=== PATIENT | female | born 1940 | race Caucasian/White ===

== ENCOUNTER → 2019-12-25 09:00 | Outpatient (BNVA) | payer MEDICARE, SELFPAY | PROVIDERS: Family Provider Family Medicine; Visit Provider Counselor Mental Health | DX: F43.21 Adjustment disorder with depressed mood (principal) | CPT/HCPCS: 90834 ==

== ENCOUNTER → 2022-02-07 16:58 | Outpatient (BNVA) | payer MEDICARE, MEDICAID, SELFPAY | PROVIDERS: Family Provider Family Medicine; Visit Provider Family Medicine | DX: R50.9 Fever, unspecified (principal); M60.9 Myositis, unspecified; Z20.822 Contact with and (suspected) exposure to COVID-19 | CPT/HCPCS: 80048; 81000; 85025; 87077; 87086; 87184; 87426; 87880 ==

== ENCOUNTER → 2022-03-15 15:12 | Outpatient (BNVA) | payer MEDICARE, MEDICAID, SELFPAY | PROVIDERS: Family Provider Family Medicine; Visit Provider Family Medicine | DX: N39.0 Urinary tract infection, site not specified (principal) | CPT/HCPCS: 81000; 87077; 87086; 87184 ==

== ENCOUNTER → 2022-03-24 16:30 | Outpatient (BNVA) | payer MEDICARE, MEDICAID, SELFPAY | PROVIDERS: Family Provider Family Medicine; Visit Provider Family Medicine | DX: N39.0 Urinary tract infection, site not specified (principal) | CPT/HCPCS: 81000; 87086 ==

== ENCOUNTER → 2022-04-07 10:46 | Outpatient (BNVA) | payer MEDICARE, MEDICAID, SELFPAY | PROVIDERS: Family Provider Family Medicine; Visit Provider Family Medicine | DX: N39.0 Urinary tract infection, site not specified (principal) | CPT/HCPCS: 81000 ==

== ENCOUNTER → 2022-06-02 10:17 | Outpatient (BNVA) | payer MEDICARE, MEDICAID, SELFPAY | PROVIDERS: Family Provider Family Medicine; PCP Family Medicine; Visit Provider Family Medicine | DX: N39.0 Urinary tract infection, site not specified (principal) | CPT/HCPCS: 81000; 87077; 87086; 87184 ==

== ENCOUNTER → 2022-06-20 08:57 | Outpatient (BNVA) | payer MEDICARE, MEDICAID, SELFPAY | PROVIDERS: Family Provider Family Medicine; PCP Family Medicine; Visit Provider Family Medicine | DX: R81 Glycosuria (principal); K29.70 Gastritis, unspecified, without bleeding; E11.9 Type 2 diabetes mellitus without complications; I10 Essential (primary) hypertension | CPT/HCPCS: 80053; 80061; 82607; 83036; 85025 ==

== ENCOUNTER → 2022-06-23 10:21 | Outpatient (BNVA) | payer MEDICARE, MEDICAID, SELFPAY | PROVIDERS: Family Provider Family Medicine; PCP Family Medicine; Visit Provider Family Medicine | DX: Z00.00 Encounter for general adult medical examination without abnormal findings (principal); N39.0 Urinary tract infection, site not specified; E11.9 Type 2 diabetes mellitus without complications; I10 Essential (primary) hypertension; E78.00 Pure hypercholesterolemia, unspecified | CPT/HCPCS: 81000 ==

== ENCOUNTER → 2022-07-05 08:29 | Outpatient (BNVA) | payer MEDICARE, MEDICAID, SELFPAY | PROVIDERS: Family Provider Family Medicine; PCP Family Medicine; Visit Provider Family Medicine | DX: N39.0 Urinary tract infection, site not specified (principal) | CPT/HCPCS: 81000; 87077; 87086; 87184 ==

== ENCOUNTER → 2022-07-22 08:09 | Outpatient (BNVA) | payer MEDICARE, MEDICAID, SELFPAY | PROVIDERS: Family Provider Family Medicine; PCP Family Medicine; Visit Provider Clinical Nurse Specialist Adult Health | DX: N30.01 Acute cystitis with hematuria (principal); I15.9 Secondary hypertension, unspecified; I48.91 Unspecified atrial fibrillation | CPT/HCPCS: 81000; 87086 ==

== ENCOUNTER 2022-09-21 18:19 | Emergency (ER) | payer MEDICARE, SELFPAY ==
[2022-09-21 18:28] VITALS: BP 163/125; PULSE 138; RESP 16; TEMP 37; O2SAT 93; BMI 26.2
--- NOTE | 2022-09-21 18:38 | XRR_ITS ---
PROCEDURE INFORMATION: Exam: XR Chest Exam date and time: 09/21/2022 6:49 PM Age: 82 years old Clinical indication: Shortness of breath; Additional info: SOB TECHNIQUE: Imaging protocol: Radiologic exam of the chest. Views: 1 view. COMPARISON: No relevant prior studies available. FINDINGS: Lungs: Visualized portions of the lungs are clear. Pleural spaces: Unremarkable. No pleural effusion. No pneumothorax. Heart/Mediastinum: Heart is within normal limits of size. Bones/joints: Sternotomy wires and mediastinal surgical clips are present, consistent with previous coronary arterial bypass grafting. XR/XR chest 1V portable [id number] IMPRESSION: No acute infiltrate.
--- NOTE | 2022-09-21 18:38 | ECG_ITS ---
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 Measurements Intervals [place] Rate: 122 P: 0 GA: 0 QRS: 49 QRSD: 88 T: 34 QT: 302 QTc: 430 Interpretive Statements ATRIAL FIBRILLATION WITH RAPID VENTRICULAR RESPONSE NONSPECIFIC ST & T-WAVE ABNORMALITY Compared to ECG 07/14/2015 11:47:11 T-wave abnormality now present Sinus rhythm no longer present First degree AV block no longer present Electronically Signed On 09-22-2022 9:06:40 [employer] FINISHER by Gricel Luo M.D. [id number]
--- NOTE | 2022-09-21 18:42 | W.ED.ARRPALP ---
HPI - Arrhythmia/Palpitations General: Chief Complaint: Arrhythmia/Palpitations Stated Complaint: AFIB W/RVR Time Seen by Provider: 09/21/22 18:31 Source: patient and EMS Mode of arrival: EMS Limitations: no limitations History of Present Illness: 82-year-old female states she been having palpitations along with some dyspnea with exertion over the last few weeks. She was seen at her PCP today was found to be in A. fib with RVR she denies any chest pain she denies any shortness of breath at rest states she had A. fib years ago but has not had any issues with it recently she is not on anything for rate control she is not on any blood thinners she has had a recent UTI as well. Denies any vomiting or diarrhea. Denies any cough. Associated symptoms: Deny nausea or vomiting Review of Systems Const: Denies: fever(s), chills, body aches or change in appetite Eyes: Denies: blurry vision or eye discomfort ENMT: Denies: throat pain or dental pain Card: Reports: palpitations and irregular heart rhythm Resp: Reports: dyspnea GI: Denies: abdominal pain, nausea, vomiting or diarrhea : Denies: dysuria Musc: Denies: neck pain or back pain Skin/Breast: Denies: rash Neuro: Denies: headache(s) Psych: Denies: depression Ja/Lymph: Denies: easy bruising All/Imm: Denies: urticaria PFSH ED PFSH: Medical History Atrial fibrillation Bladder prolapse CAD (coronary artery disease) AR 1998-2 stents Chronic constipation Diabetes Type 2 Diverticulosis Generalized osteoarthritis Hx of pulmonary embolus 06/2008 Hypercholesterolemia Hypertension Not on medication Recurrent UTI Surgical History 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 Family History (Updated 07/22/22 @ 08:55 by Dov Baxter NP) Other CAD (coronary artery disease) Cancer Clotting disorder Social History Smoking and tobacco status: never smoked Alcohol intake: never Household members: none Physical Exam Const: COMMON NORMALS: no acute distress, patient oriented x3 and healthy appearing HENMT: COMMON NORMALS: normocephalic and atraumatic HEAD & SCALP: normocephalic and atraumatic Eye: COMMON NORMALS: Equal, round and reactive pupils present and EOMs intact bilaterally PUPIL: Yes Equal, round and reactive pupils present Neck/C-Spine: COMMON NORMALS: full ROM and supple Chest: COMMONS NORMALS: normal inspection of the chest and normal palpation of entire chest wall Resp: COMMON NORMALS: normal respiratory effort, No retractions, No use of accessory muscles and clear to auscultation bilaterally AUSCULTATION: clear to auscultation bilaterally Cardio: COMMON NORMALS: No murmurs present (Cardio) RATE: tachycardic RHYTHM: abnormal rhythm irregularly irregular GI: COMMON NORMALS: Normal to inspection, nondistended, normoactive bowel sounds present, Soft to palpation, non-tender and no masses PALPATION: Yes Soft to palpation Extremity: COMMON NORMALS: normal to inspection and full ROM Neuro: COMMON NORMALS: patient oriented x3, moves all extremities and no focal motor deficits Psych: COMMON NORMALS: mental status grossly normal, Normal thought process present and cooperative THOUGHT PROCESS: Normal thought process present Skin: COMMON NORMALS: no rashes or lesions noted and no wounds GENERAL SKIN EXAM: no rashes or lesions noted Course Vital Signs: Vital signs: Vital Signs Temperature 98.6 F 09/21/22 18:28 Pulse Rate 111 H 09/21/22 21:00 Respiratory Rate 22 H 09/21/22 21:00 Blood Pressure 125/78 09/21/22 21:00 Pulse Oximetry 94 09/21/22 21:00 Oxygen Delivery Me thod 09/21/22 21:00 MDM - Arrhythmia/Palpitations Medical Decision Making Patient presents here with Fadia gray with RVR she did have an elevated D-dimer she refused her CT scan I did inform her she could have a PE she states she feels fine does not want a CT I did offer admission as well and she would rather go home and follow-up I will start her on metoprolol along with Eliquis get her follow-up with cardiology she is return if worsening she understands agrees to plan. Lab Data 09/21/22 18:34 09/21/22 18:34 Radiology Impressions Chest X-Ray 09/21/22 18:38 IMPRESSION: No acute infiltrate. Laboratory Results WBC 10.8 10^3/uL (4.0-10.0) H 09/21/22 18:34 RBC 5.09 10^6/uL (4.1-5.3) 09/21/22 18:34 Hgb 15.0 g/dL (11.5-15.3) 09/21/22 18:34 Hct 46.2 % (37.0-47.0) 09/21/22 18:34 MCV 90.8 fl (81-99) 09/21/22 18:34 MCH 29.5 pg (28.0-34.0) 09/21/22 18:34 MCHC 32.5 g/dL (30.0-36.0) 09/21/22 18:34 RDW 13.5 % (12.1-15.1) 09/21/22 18:34 Plt Count 259 10^3/cmm (130-400) 09/21/22 18:34 MPV 12.7 fL (7.4-10.4) H 09/21/22 18:34 Neut % (Auto) 53.6 % 09/21/22 18:34 Lymph % (Auto) 35.4 % 09/21/22 18:34 [place] % (Auto) 7.7 % 09/21/22 18:34 Eos % (Auto) 1.5 % 09/21/22 18:34 Baso % (Auto) 1.4 % 09/21/22 18:34 Neut # (Auto) 5.76 10^3/uL (1.8-7.7) 09/21/22 18:34 Lymph # (Auto) 3.8 10^3/uL (0.8-4.8) 09/21/22 18:34 [place] # (Auto) 0.8 10^3/uL (0.2-0.9) 09/21/22 18:34 Eos # (Auto) 0.2 10^3/uL (0.0-0.8) 09/21/22 18:34 Baso # (Auto) 0.2 10^3/uL (0.0-0.1) H 09/21/22 18:34 Nucleated RBC % (auto) 0 % 09/21/22 18:34 Nucleated RBCs # 0.0 /100WBC 09/21/22 18:34 PT 12.70 SECONDS (12.1-14.9) 09/21/22 18:34 INR 0.93 (0.8-1.2) 09/21/22 18:34 D-Dimer 1.55 ug/mIFEU (0-0.59) H 09/21/22 18:51 Sodium 139 mmol/L (136-145) 09/21/22 18:34 Potassium 3.8 mmol/L (3.5-5.1) 09/21/22 18:34 Chloride 102 mmol/L (98-107) 09/21/22 18:34 Carbon Dioxide 23 mmol/L (22-29) 09/21/22 18:34 Anion Gap 17.8 (5-19) 09/21/22 18:34 BUN 21 mg/dL (8-23) 09/21/22 18:34 Creatinine 0.8 mg/dL (0.5-0.9) 09/21/22 18:34 GFR Calculation Not Reportable 09/21/22 18:34 Glucose 150 mg/dL (65-115) H 09/21/22 18:34 Calculated Osmolality 294 mOsm/kg (285-295) 09/21/22 18:34 Calcium 9.7 mg/dL (8.5-10.5) 09/21/22 18:34 Total Bilirubin 0.3 mg/dL (0.15-1.2) 09/21/22 18:34 AST 31 U/L (0-32) 09/21/22 18:34 ALT 25 U/L (0-33) 09/21/22 18:34 Alkaline Phosphatase 112 U/L (35-105) H 09/21/22 18:34 Troponin T Baseline 32 ng/L (0-10) H 09/21/22 18:34 Troponin T 120 Minute 26.25 ng/L (0-10) H 09/21/22 20:25 Delta Troponin T -5.75 ABS# (0-10) L 09/21/22 20:25 NT-Pro-B Natriuret Pep 992 pg/mL (0-450) H 09/21/22 18:34 Total Protein 8.1 g/dL (6.6-8.7) 09/21/22 18:34 Albumin 4.5 g/dL (3.5-5.2) 09/21/22 18:34 Globulin 3.6 g/dL (1.3-4.6) 09/21/22 18:34 EKG Data EKG 1: I personally reviewed and interpreted this EKG as follows: EKG interpretation date: 09/21/22 EKG interpretation time: 18:45 Interpretation: afib rvr hr [address] or t wave abnormalities qrs 88 qtc 374 Other EKG comments: Chest X-Ray 09/21/22 18:38 IMPRESSION: No acute infiltrate. Discharge Plan Discharge Patient Disposition: Home Clinical Impression: Atrial fibrillation with rapid ventricular response Condition: Stable Prescriptions: New Eliquis 5 mg tablet 5 mg PO BID Qty: 60 0RF metoprolol tartrate 25 mg tablet 25 mg PO BID Qty: 60 0RF No Action B Complex Plus Vitamin C [id number] mg capsule 1 cap PO DAILY Rx Instructions: give with food (meal/snack) multivitamin Tablet 1 tab PO DAILY Azo Cranberry 250 mg tablet,chewable 250 mg PO DAILY aspirin [Adult Aspirin Regimen] 81 mg tablet,delayed release (DR/EC) 81 mg PO DAILY cholecalciferol (vitamin D3) 10 mcg (400 unit) capsule 10 mcg PO DAILY vitamin E acetate 134 mg (200 unit) capsule 134 mg PO DAILY omeprazole 20 mg capsule,delayed release(DR/EC) 20 mg PO BID docusate sodium [Colace] 100 mg capsule 100 mg PO DAILY glipizide 5 mg tablet extended release 24hr 5 mg PO DAILY Qty: 90 3RF levofloxacin 250 mg tablet 250 mg PO DAILY Qty: 5 0RF Discharge Orders: Discharge ED (Routine); Ordered 09/21/22 Ordered By: Steffanie Chen Referrals: Jacob Kwong M.D [Physician] - 1-3 days Jl Rosenbaum DO [Primary Care Provider] - Discharge Diet: Advance as tolerated Discharge Activity: Resume usual activity Patient Instructions: A-fib (Atrial Fibrillation) (ED) Coding Level of Care Code ED Supervisor [facility] for Chg Fwd Exam Comprehensive
[2022-09-21] MEDS: sodium chloride 0.9% 1,000 ML 999 ML IV (18:44)
[2022-09-21 18:46] LABS: Basophils # 0.2 10^3/uL (0.0-0.1); Basophils % 1.4 %; Eosinophils # 0.2 10^3/uL (0.0-0.8); Eosinophils % 1.5 %; Hematocrit 46.2 % (37.0-47.0); Lymphocytes # 3.8 10^3/uL (0.8-4.8); Lymphocytes % 35.4 %; Mean Corpuscular HGB Conc 32.5 g/dL (30.0-36.0); Mean Corpuscular Hemoglobin 29.5 pg (28.0-34.0); Mean Corpuscular Volume 90.8 fl (81-99); Mean Platelet Volume 12.7 fL (7.4-10.4); Monocytes # 0.8 10^3/uL (0.2-0.9); Monocytes % 7.7 %; Neutrophils # 5.76 10^3/uL (1.8-7.7); Neutrophils % 53.6 %; Nucleated Red Blood Cells % 0 %; Platelet Count 259 10^3/cmm (130-400); Red Blood Count 5.09 10^6/uL (4.1-5.3); Red Cell Distribution Width 13.5 % (12.1-15.1); White Blood Count 10.8 10^3/uL (4.0-10.0)
--- NOTE | 2022-09-21 18:51 | PC.NURSE ---
PT PLACED ON CONTINUOUS NIBP, SPO2, AND CM
[2022-09-21 18:58] LABS: INR 0.93 (0.8-1.2)
[2022-09-21 19:12] LABS: D Dimer 1.55 ug/mIFEU (0-0.59)
[2022-09-21 19:20] LABS: Troponin(5th) Baseline 32 ng/L (0-10)
[2022-09-21 19:29] LABS: Alanine Aminotransferase 25 U/L (0-33); Albumin Level 4.5 g/dL (3.5-5.2); Alkaline Phosphatase 112 U/L (35-105); Blood Urea Nitrogen 21 mg/dL (8-23); Calcium 9.7 mg/dL (8.5-10.5); Carbon Dioxide 23 mmol/L (22-29); Chloride 102 mmol/L (98-107); Globulin 3.6 g/dL (1.3-4.6); Glucose 150 mg/dL (65-115); NT Pro B Type Natriuretic Pept 992 pg/mL (0-450); Osmolality Calculated 294 mOsm/kg (285-295); Sodium 139 mmol/L (136-145); Total Bilirubin 0.3 mg/dL (0.15-1.2); Total Protein 8.1 g/dL (6.6-8.7)
[2022-09-21 19:32] LABS: Anion Gap 17.8 (5-19); Aspartate Amino Transferase 31 U/L (0-32); Potassium 3.8 mmol/L (3.5-5.1)
[2022-09-21] MEDS: dilTIAZem 5 mg/mL SDV 5 mL 10 MG IVP (19:43)
[2022-09-21 20:16] VITALS: BP 118/80; PULSE 99; RESP 20; O2SAT 94
--- NOTE | 2022-09-21 20:20 | PC.NURSE ---
Patient informed me that she refused to give a UA, nurse and doctor were informed.
--- NOTE | 2022-09-21 20:38 | ECG_ITS ---
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 Measurements Intervals [place] Rate: 109 P: 0 HI: 0 QRS: 35 QRSD: 87 T: 33 QT: 350 QTc: 473 Interpretive Statements ATRIAL FIBRILLATION WITH RAPID VENTRICULAR RESPONSE WITH ABERRANT CONDUCTION OR VENTRICULAR PREMATURE COMPLEXES ABNORMAL RHYTHM ECG Compared to ECG 09/21/2022 18:45:41 Ventricular premature complex(es) now present Aberrant conduction of supraventricular beat(s) now present T-wave abnormality no longer present Electronically Signed On 09-22-2022 9:19:22 TOOL LIAISON by Gricel Luo M.D. [id number]
[2022-09-21] MEDS: metoprolol tartrate 25 mg Tablet PO (20:45)
[2022-09-21 21:00] VITALS: BP 125/78; PULSE 111; RESP 22; O2SAT 94
[2022-09-21 21:11] LABS: Troponin 5 2HR 26.25 ng/L (0-10)
[2022-09-21 21:12] LABS: Troponin 5 2HR Delta -5.75 ABS# (0-10)
== END 2022-09-21 22:20 | disposition home or self-care (01) ==
PROVIDERS: Emergency Provider Emergency Medicine; PCP Family Medicine
DX: I48.20 Chronic atrial fibrillation, unspecified (principal); Z79.84 Long term (current) use of oral hypoglycemic drugs; Z79.82 Long term (current) use of aspirin; Z95.1 Presence of aortocoronary bypass graft; I25.10 Atherosclerotic heart disease of native coronary artery without angina pectoris; E11.9 Type 2 diabetes mellitus without complications; I10 Essential (primary) hypertension
CPT/HCPCS: 36415; 71045; 80053; 81000; 83880; 84484; 85025; 85378; 85610; 93005; 96361; 96374; 99285; J3490; J7030

== ENCOUNTER 2022-09-28 19:49 | Inpatient (IN) | payer MEDICARE, MEDICAID, SELFPAY ==
[2022-09-28] VITALS (9 sets, daily range): BP systolic 105–147; BP diastolic 58–98; PULSE 75–153; RESP 18–26; TEMP 37.9–39.5; O2SAT 90–94
--- NOTE | 2022-09-28 19:58 | ECG_ITS ---
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 Measurements Intervals [place] Rate: 132 P: 0 MS: 0 QRS: 50 QRSD: 91 T: 0 QT: 276 QTc: 409 Interpretive Statements ATRIAL FIBRILLATION WITH RAPID VENTRICULAR RESPONSE MODERATE ST DEPRESSION [0.05+ mV ST DEPRESSION] Low voltage complexes Compared to ECG 09/21/2022 21:00:41 ST (T wave) deviation now present Aberrant conduction of supraventricular beat(s) no longer present Ventricular premature complex(es) no longer present Electronically Signed On 09-29-2022 21:02:41 BAKER HEAD by Joshua Conde M.D. [id number]
--- NOTE | 2022-09-28 19:58 | XRR_ITS ---
PROCEDURE INFORMATION: Exam: XR Chest Exam date and time: 09/28/2022 8:09 PM Age: 82 years old Clinical indication: Fever and other: AMS TECHNIQUE: Imaging protocol: Radiologic exam of the chest. Views: 1 view. COMPARISON: CR (CHEST, ) 09/21/2022 6:49 PM FINDINGS: Lungs: There is ill-defined opacity in the central lower lungs bilaterally, greater on the left. The findings are new since 09/21/2022. Pleural spaces: Unremarkable. No pleural effusion. No pneumothorax. Heart/Mediastinum: Cardiomediastinal contours are unremarkable. The ralf are ill-defined. Bones/joints: Bones are unremarkable. XR/XR chest 1V portable [id number] IMPRESSION: Bilateral pneumonia versus pulmonary edema, new since 09/21/2022.
[2022-09-28 20:14] LABS: Glucose Point of Care 140 mg/dL (70-110)
--- NOTE | 2022-09-28 20:16 | CTR_ITS ---
PROCEDURE INFORMATION: Exam: CT Abdomen And Pelvis Without Contrast Exam date and time: 09/28/2022 9:01 PM Age: 82 years old Clinical indication: Abdominal pain; Additional info: Abd pain TECHNIQUE: Imaging protocol: Computed tomography of the abdomen and pelvis without contrast. Sagittal and coronal reformatted images were created and reviewed. Radiation optimization: All CT scans at this facility use at least one of these dose optimization techniques: automated exposure control; mA and/or kV adjustment per patient size (includes targeted exams where dose is matched to clinical indication); or iterative reconstruction. COMPARISON: CR XR hip LT 2-3V wo/w pel* [id number] 12/08/2017 8:57 AM RADIATION DOSE METRICS: Total DLP (mGy-cm): 576.76 FINDINGS: Limitations: Evaluation of solid organs and vasculature is limited without intravenous contrast. Lungs: There is linear scarring in the visualized lower lungs. Noncalcified nodule in the right lower lobe with an average measurement of 1.1 cm (series 3, image 20). Pleural spaces: Focal calcification in the posterior right pleura at that may suggest asbestos related pleural disease versus sequela of remote infection. Heart: Visualized portions of the heart are mildly enlarged. Coronary arteries: Extensive atherosclerotic calcification in the visualized coronary arteries. Liver: The liver is unremarkable. Gallbladder and bile ducts: Patient has had a previous cholecystectomy. No biliary ductal dilatation. Pancreas: Mild atrophy of the pancreatic parenchyma. No pancreatic ductal dilatation. Spleen: Multiple calcified granulomas in the spleen. Adrenal glands: The right and left adrenal glands are unremarkable. Kidneys and ureters: The right and left kidneys are unremarkable. The right and left ureters are unremarkable. Stomach and bowel: Numerous diverticula in the sigmoid colon. Scattered diverticula in the remainder of the colon. No evidence for diverticulitis. No acute abnormality in the stomach. Fluid within the small bowel without evidence of bowel wall thickening. Appendix: The appendix is visualized and is unremarkable. No evidence of appendicitis. Intraperitoneal space: No free intraperitoneal air. No ascites. No loculated fluid collections to suggest an abscess. No free intraperitoneal air. No ascites. No loculated fluid collections to suggest an abscess. Vasculature: Fullness in the visualized pulmonary vasculature suggesting volume overload in the lungs. Moderate atherosclerotic changes in the visualized arteries. No evidence for aortic aneurysm. Lymph nodes: No lymphadenopathy. Urinary bladder: The bladder is unremarkable. Reproductive: The uterus, right ovary, and left ovary are unremarkable. Bones/joints: Poststernotomy changes in the chest. Degenerative changes in the spine, sacroiliac joints, and hips. Mild levoscoliosis in the visualized spine. Soft tissues: Dependent edema in the posterior subcutaneous tissues. CT/CT abdomen pelvis wo con [id number] IMPRESSION: 1. Fullness in the visualized pulmonary vasculature suggesting volume overload in the lungs. 2. Fluid within the small bowel without evidence of bowel wall thickening. This may reflect viral gastroenteritis in the appropriate clinical situation. 3. Numerous diverticula in the sigmoid colon. Scattered diverticula in the remainder of the colon. No evidence for diverticulitis. 4. Noncalcified nodule in the right lower lobe with an average measurement of 1.1 cm.For both low risk and high risk patients, consider CT Chest at 3 months, PET/CT or biopsy. (Reference: Celestino) 5. Incidental/nonacute findings are listed in the report. REFERENCES: Celestino Castro, et al. Guidelines for Management of Incidental Pulmonary Nodules Detected on CT Images: From the Fleischner Society 2017. Radiology. 2017;284(1):228-243.
--- NOTE | 2022-09-28 20:16 | CTR_ITS ---
PROCEDURE INFORMATION: Exam: CT Head Without Contrast Exam date and time: 09/28/2022 8:57 PM Age: 82 years old Clinical indication: Altered mental status/memory loss; Additional info: AMS TECHNIQUE: Imaging protocol: Computed tomography of the head without contrast. Radiation optimization: All CT scans at this facility use at least one of these dose optimization techniques: automated exposure control; mA and/or kV adjustment per patient size (includes targeted exams where dose is matched to clinical indication); or iterative reconstruction. COMPARISON: No relevant prior studies available. RADIATION DOSE METRICS: Total DLP (mGy-cm): 1200.88 FINDINGS: Brain: There is mild diffuse cerebral atrophy. There is no significant mass effect or midline shift. There is no acute intracranial hemorrhage. Cerebral ventricles: There is mild ex vacuo dilation of the lateral ventricles. The basal cisterns are unremarkable. Paranasal sinuses: The paranasal sinuses are clear. Mastoid air cells: The mastoid air cells are clear. Bones/joints: The calvarium is intact. Soft tissues: The visible extracranial soft tissues are unremarkable. CT/CT head wo con* [id number] IMPRESSION: No acute intracranial abnormality.
--- NOTE | 2022-09-28 20:18 | ED_ITS ---
HPI - Altered Mental Status General: Chief Complaint: Altered Mental Status Stated Complaint: AMS Time Seen by Provider: 09/28/22 19:50 Source: patient and EMS Mode of arrival: EMS Limitations: no limitations History of Present Illness: 82-year-old female is here with EMS for complaints of fever along with some confusion along with weakness. States she has not felt well over the last 6 days had a fever last 2 days EMS reports that they did complain of some confusion at home here she is able answer my questions appropriately knows the year knows her name states that she is just felt very weak she does have a temperature 103.2 she complains of some mild abdominal pain she does have a history of A. fib with RVR she is in A. fib here with heart rate of 139. Her blood pressure is normal. No cough Associated symptoms: Deny depression Review of Systems Const: Reports: fever(s) and fatigue Eyes: Denies: blurry vision or eye discomfort ENMT: Denies: throat pain or dental pain Card: Denies: chest pain Resp: Denies: dyspnea GI: Reports: abdominal pain : Denies: dysuria Musc: Denies: neck pain or back pain Skin/Breast: Denies: rash Neuro: Reports: confusion Psych: Denies: depression Ja/Lymph: Denies: easy bruising All/Imm: Denies: urticaria PFSH ED PFSH: Medical History Atrial fibrillation Bladder prolapse CAD (coronary artery disease) [place] 1998- stents Chronic constipation Diabetes Type 2 Diverticulosis Generalized osteoarthritis Hx of pulmonary embolus 06/2008 Hypercholesterolemia Hypertension Not on medication Recurrent UTI Surgical History 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 Family History (Updated 07/22/22 @ 08:55 by Dov Baxter NP) Other CAD (coronary artery disease) Cancer Clotting disorder Social History Smoking and tobacco status: never smoked Alcohol intake: never Household members: none Physical Exam Const: COMMON NORMALS: patient oriented x3 GENERAL APPEARANCE: ill ap pearing HENMT: COMMON NORMALS: normocephalic and atraumatic HEAD & SCALP: normocephalic and atraumatic Eye: COMMON NORMALS: conjunctivae normal CONJUNCTIVA: Yes conjunctivae normal Neck/C-Spine: COMMON NORMALS: full ROM, supple and no meningeal signs Chest: COMMONS NORMALS: normal inspection of the chest and normal palpation of entire chest wall Resp: COMMON NORMALS: normal respiratory effort and clear to auscultation bilaterally EFFORT & INSPECTION: Yes able to speak in complete sentences AUSCULTATION: clear to auscultation bilaterally Cardio: COMMON NORMALS: regular rate and regular rhythm RATE: regular rate RHYTHM: regular rhythm GI: COMMON NORMALS: Normal to inspection, nondistended, normoactive bowel sounds present and Soft to palpation PALPATION: Yes Soft to palpation Extremity: COMMON NORMALS: normal to inspection Neuro: COMMON NORMALS: patient oriented x3 MENINGEAL SIGNS: Yes no meningeal signs Psych: COMMON NORMALS: mental status grossly normal Skin: COMMON NORMALS: no rashes or lesions noted GENERAL SKIN EXAM: no rashes or lesions noted Course Vital Signs: Vital signs: Vital Signs Temperature 100.2 F H 09/28/22 22:47 Pulse Rate 90 09/28/22 23:00 Respiratory Rate 20 H 09/28/22 23:00 Blood Pressure 105/72 09/28/22 23:00 Pulse Oximetry 91 09/28/22 23:00 Oxygen Delivery Me thod 09/28/22 19:57 Oxygen Flow Rate 4 09/28/22 19:57 MDM - Altered Mental Status Medical Decision Making Patient presents here with fever along with A. fib with RVR she had multiple status home but here she is been answering questions appropriately. Her heart rate here is improved on a Cardizem drip and as her fevers came down did start on IV antibiotics for her UTI spoke to hospitalist will admit Lab Data 09/28/22 20:30 09/28/22 20:30 Radiology Impressions Chest X-Ray 09/28/22 19:58 IMPRESSION: Bilateral pneumonia versus pulmonary edema, new since 09/21/2022. Abdomen/Pelvis CT 09/28/22 20:16 IMPRESSION: 1. Fullness in the visualized pulmonary vasculature suggesting volume overload in the lungs. 2. Fluid within the small bowel without evidence of bowel wall thickening. This may reflect viral gastroenteritis in the appropriate clinical situation. 3. Numerous diverticula in the sigmoid colon. Scattered diverticula in the remainder of the colon. No evidence for diverticulitis. 4. Noncalcified nodule in the right lower lobe with an average measurement of 1.1 cm.For both low risk and high risk patients, consider CT Chest at 3 months, PET/CT or biopsy. (Reference: Celestino) 5. Incidental/nonacute findings are listed in the report. REFERENCES: Celestino Castro et al. Guidelines for Management of Incidental Pulmonary Nodules Detected on CT Images: From the Fleischner Society 2017. Radiology. 2017;284(1):228-243. Head CT 09/28/22 20:16 IMPRESSION: No acute intracranial abnormality. Laboratory Results WBC 8.2 10^3/uL (4.0-10.0) 09/28/22 20: RBC 4.74 10^6/uL (4.1-5.3) 09/28/22 20: Hgb 13.9 g/dL (11.5-15.3) 09/28/22 20:30 Hct 42.7 % (37.0-47.0) 09/28/22 20:30 MCV 90.1 fl (81-99) 09/28/22 20:30 MCH 29.3 pg (28.0-34.0) 09/28/22 20:30 MCHC 32.6 g/dL (30.0-36.0) 09/28/22 20:30 RDW 13.6 % (12.1-15.1) 09/28/22 20:30 Plt Count 193 10^3/cmm (130-400) 09/28/22 20:30 MPV 12.4 fL (7.4-10.4) H 09/28/22 20:30 Neut % (Auto) 71.5 % 09/28/22 20:30 Lymph % (Auto) 16.3 % 09/28/22 20:30 Randolph % (Auto) 11.2 % 09/28/22 20:30 Eos % (Auto) 0.2 % 09/28/22 20: Baso % (Auto) 0.6 % 09/28/22 20:30 Neut # (Auto) 5.82 10^3/uL (1.8-7.7) 09/28/22 20:30 Lymph # (Auto) 1.3 10^3/uL (0.8-4.8) 09/28/22 20:30 Randolph # (Auto) 0.9 10^3/uL (0.2-0.9) 09/28/22 20:30 Eos # (Auto) 0.0 10^3/uL (0.0-0.8) 09/28/22 20:30 Baso # (Auto) 0.1 10^3/uL (0.0-0.1) 09/28/22 20:30 Nucleated RBC % (auto) 0 % 09/28/22 20:30 Nucleated RBCs # 0.0 /100WBC 09/28/22 20:30 PT 13.90 SECONDS (12.1-14.9) 09/28/22 20:30 INR 1.04 (0.8-1.2) 09/28/22 20:30 Sodium 136 mmol/L (136-145) 09/28/22 20:30 Potassium 3.9 mmol/L (3.5-5.1) 09/28/22 20:30 Chloride 101 mmol/L (98-107) 09/28/22 20:30 Carbon Dioxide 23 mmol/L (22-29) 09/28/22 20:30 Anion Gap 15.9 (5-19) 09/28/22 20:30 BUN 11 mg/dL (8-23) 09/28/22 20:30 Creatinine 0.7 mg/dL (0.5-0.9) 09/28/22 20:30 GFR Calculation Not Reportable 09/28/22 20:30 Glucose 153 mg/dL (65-115) H 09/28/22 20:30 POC Glucose 140 mg/dL (70-110) H 09/28/22 20:05 Calculated Osmolality 284 mOsm/kg (285-295) L 09/28/22 20:30 Lactic Acid 1.3 mmol/L (0.5-2.2) 09/28/22 20:30 Calcium 8.6 mg/dL (8.5-10.5) 09/28/22 20:30 Magnesium 1.7 mg/dL (1.7-2.3) 09/28/22 20:30 Total Bilirubin 0.4 mg/dL (0.15-1.2) 09/28/22 20:30 AST 32 U/L (0-32) 09/28/22 20:30 ALT 20 U/L (0-33) 09/28/22 20:30 Alkaline Phosphatase 87 U/L (35-105) 09/28/22 20:30 Troponin T Baseline 23 ng/L (0-10) H 09/28/22 20:30 Total Protein 7.4 g/dL (6.6-8.7) 09/28/22 20:30 Albumin 4.2 g/dL (3.5-5.2) 09/28/22 20:30 Globulin 3.2 g/dL (1.3-4.6) 09/28/22 20:30 Urine Color Yellow (Yellow) 09/28/22 21:51 Urine Appearance Sl hazy (CLEAR) A 09/28/22 21:51 Urine pH 6.5 (5-7) 09/28/22 21:51 Ur Specific [place] 1.015 (1.005-1.030) 09/28/22 21:51 Urine Protein 1+ (Negative) H 09/28/22 21:51 Urine Glucose (UA) Trace (Normal) H 09/28/22 21:51 Urine Ketones 2+ (Negative) H 09/28/22 21:51 Urine Blood 3+ (Negative) H 09/28/22 21:51 Urine Nitrate Positive (Negative) H 09/28/22 21:51 Urine Bilirubin Neg (Negative) 09/28/22 21:51 Urine Urobilinogen Norm mg/dL (Negative) 09/28/22 21:51 Ur Leukocyte Esterase Trace (Negative) H 09/28/22 21:51 Urine RBC 10-15 /hpf (0-2) H 09/28/22 21:51 Urine WBC 0-4 /hpf (0-5) H 09/28/22 21:51 Ur Squamous Epith Cells 0-4 /hpf (0-5) H 09/28/22 21:51 Amorphous Sediment Not Reportable 09/28/22 21:51 Urine Bacteria 4+ /hpf (NONE) H 09/28/22 21:51 Hyaline Casts 0-4 /lpf H 09/28/22 21:51 Influenza Type A Ag negative (Negative) 09/28/22 20:19 Influenza Type B Ag negative (Negative) 09/28/22 20:19 SARS-CoV-2 Ag (Rapid) negative (Negative) 09/28/22 20:19 EKG Data EKG 1: I personally reviewed and interpreted this EKG as follows: EKG interpretation date: 09/28/22 EKG interpretation time: 20:08 Interpretation: afib with rvr hr [address] or t wave abnormalities qrs 91 qtc 354 Critical Care Time Critical Care Time: Critical Care Time: Yes Total Critical Care Time: 40 Attestation: The high probability of a clinically significant, sudden or life threatening deterioration of the patient's cv system(s) required my full and direct attention, intervention and personal management. The critical care time is as shown. This time is in addition to time spent performing any reported procedures but includes the following: [x] Data and vital sign review and interpretation [x] Patient assessment, examination and intervention [x] Documentation [x] Medication orders and management Discharge Plan Discharge Patient Disposition: Admitted As Inpatient Admit Provider: Daniel Parker Clinical Impression: UTI (urinary tract infection), Atrial fibrillation with rapid ventricular response, Altered mental status Condition: Stable Coding Level of Care Code ED Branch Banker for Chg Fwd Exam Comprehensive
[2022-09-28 20:51] LABS: Influenza A by IFA negative (Negative); Influenza B by IFA negative (Negative); SARS Covid-2 Antigen negative (Negative)
[2022-09-28 20:52] LABS: Basophils # 0.1 10^3/uL (0.0-0.1); Basophils % 0.6 %; Eosinophils % 0.2 %; Hematocrit 42.7 % (37.0-47.0); Hemoglobin 13.9 g/dL (11.5-15.3); Lymphocytes # 1.3 10^3/uL (0.8-4.8); Lymphocytes % 16.3 %; Mean Corpuscular HGB Conc 32.6 g/dL (30.0-36.0); Mean Corpuscular Hemoglobin 29.3 pg (28.0-34.0); Mean Corpuscular Volume 90.1 fl (81-99); Mean Platelet Volume 12.4 fL (7.4-10.4); Monocytes # 0.9 10^3/uL (0.2-0.9); Monocytes % 11.2 %; Neutrophils # 5.82 10^3/uL (1.8-7.7); Neutrophils % 71.5 %; Nucleated Red Blood Cells % 0 %; Platelet Count 193 10^3/cmm (130-400); Red Blood Count 4.74 10^6/uL (4.1-5.3); Red Cell Distribution Width 13.6 % (12.1-15.1); White Blood Count 8.2 10^3/uL (4.0-10.0)
[2022-09-28 21:00] LABS: INR 1.04 (0.8-1.2)
[2022-09-28 21:06] LABS: Lactic Sepsis W/Reflex 1.3 mmol/L (0.5-2.2)
[2022-09-28] MEDS: sodium chloride 0.9% 1,000 ML 999 ML IV (21:16)
[2022-09-28] MEDS: levofloxacin-dextrose 5 % 750 MG/150 ML PREMIX 100 MG IV (21:16)
[2022-09-28 21:17] LABS: Troponin(5th) Baseline 23 ng/L (0-10)
[2022-09-28 21:18] LABS: Alanine Aminotransferase 20 U/L (0-33); Albumin Level 4.2 g/dL (3.5-5.2); Alkaline Phosphatase 87 U/L (35-105); Anion Gap 15.9 (5-19); Aspartate Amino Transferase 32 U/L (0-32); Blood Urea Nitrogen 11 mg/dL (8-23); Calcium 8.6 mg/dL (8.5-10.5); Carbon Dioxide 23 mmol/L (22-29); Chloride 101 mmol/L (98-107); Globulin 3.2 g/dL (1.3-4.6); Glucose 153 mg/dL (65-115); Magnesium 1.7 mg/dL (1.7-2.3); Osmolality Calculated 284 mOsm/kg (285-295); Potassium 3.9 mmol/L (3.5-5.1); Sodium 136 mmol/L (136-145); Total Bilirubin 0.4 mg/dL (0.15-1.2); Total Protein 7.4 g/dL (6.6-8.7)
[2022-09-28] MEDS: acetaminophen 500 mg Tablet 1000 MG PO (21:18)
[2022-09-28] MEDS: dilTIAZem 5 mg/mL SDV 5 mL 15 MG IVP (21:50)
--- NOTE | 2022-09-28 21:57 | ECG_ITS ---
[facility] Test Date: 2022-09-28 Pat Name: Allyson Causey Department: Room: Gender: Female Elder Counselor: : 1940 Requested By: Steffanie Chen Order Number: [id number] Alonzo MD: Joshua Conde M.D. Measurements Intervals [place] Rate: 94 P: 0 DE: 0 QRS: 45 QRSD: 89 T: 73 QT: 368 QTc: 461 Interpretive Statements ATRIAL FLUTTER/TACHYCARDIA MINIMAL ST DEPRESSION [0.025+ mV ST DEPRESSION] ABNORMAL RHYTHM ECG Compared to ECG 09/28/2022 20:08:52 Atrial fibrillation no longer present ST (T wave) deviation still present Electronically Signed On 09-29-2022 21:24:03 BUSINESS INTELLIGENCE ANALYST by Joshua Conde M.D. [email or web address]
[2022-09-28 22:31] LABS: Urine Appearance SL Hazy (CLEAR); Urine Color Yellow (Yellow)
[2022-09-28 22:32] LABS: Add Urine Microscopic? YES; Bilirubin Urine Neg (Negative); Blood Urine 3+ (Negative); Glucose Urine UA Trace (Normal); Ketones Urine 2+ (Negative); Leukocyte Esterase Urine Trace (Negative); Nitrate Urine Positive (Negative); Protein Urine 1+ (Negative); Specific Gravity, Urine 1.015 (1.005-1.030); Squamous Epithelial Cell Urine 0-4 /hpf (0-5); Urobilinogen Urine Norm (Negative); WBC Urine 0-4 /hpf (0-5); pH Urine 6.5 (5-7)
[2022-09-28 22:33] LABS: Add Urine Culture? Yes; Bacteria Urine 4+ /hpf; Hyaline Casts Urine 0-4 /lpf
[2022-09-28] MEDS: dilTIAZem 100 MG in sodium chloride 0.9% (add-van) 100 ML IV (22:48)
[2022-09-28 23:26] LABS: NT Pro B Type Natriuretic Pept 1110 pg/mL (0-450)
--- NOTE | 2022-09-28 23:33 | PC.NURSE ---
Gave report to CSU Teinsha
[2022-09-28 23:58] LABS: C Reactive Protein 31.1 mg/L (0.0-4.9)
[2022-09-29] VITALS (29 sets, daily range): BP systolic 84–114; BP diastolic 43–67; PULSE 75–99; RESP 13–25; TEMP 37.5–39.3; O2SAT 90–98
[2022-09-29 00:04] LABS: Estmated Average Glucose 143; Hemoglobin A1C 6.6 % (4.0-6.0); Procalcitonin 0.03 ng/mL (0-0.5)
--- NOTE | 2022-09-29 00:12 | PC.NURSE ---
Patient arrived to room 104 via stretcher from ED. Patient appears aaox3 at this time. Patient denies pain. Reports feeling much better. Patient on a cardizem drip at 5ml/hr on admission. BP is 84/52. Informed Dr Parker and received order to hold cardizem for now. Patient converted to NSR. Dr Parker in with patient at this time.
--- NOTE | 2022-09-29 00:19 | USCV_ITS ---
Allyson Causey Age: 82 Gender: F : 1940 Exam Date: 09/29/2022 01:26 Ordering Phys: Daniel Parker MD Technologist: TAMMIE [place]am Location[place] [facility] [place] Indication: fatigue, weakness, afib CABG 2007 BP: 84 / 52 HR: 79 Rhythm: Sinus Technical Quality: Adequate MEASUREMENTS (Male / Female) Normal Values 2D ECHO LV Diastolic Diameter PLAX 3.4 cm 4.2 - 5.9 / 3.9 - 5.3 cm LV Systolic Diameter PLAX 2.3 cm IVS Diastolic Thickness 1.1 cm 0.6 - 1.0 / 0.6 - 0.9 cm IVS Systolic Thickness 1.5 cm LVPW Diastolic Thickness 1.2 cm 0.6 - 1.0 / 0.6 - 0.9 cm LVPW Systolic Thickness 0.8 cm LVOT Diameter 1.8 cm LV Ejection Fraction 2D Teich 61.7 % LV Ejection Fraction MOD 2C 69.8 % LV Ejection Fraction 2C AL 68.9 % LA Diameter 4.2 cm LA Width 4.8 cm LA Height 5.2 cm RA Width 3.6 cm RA Height 4.6 cm Aorta at Sinotubular Diameter 3.0 cm IVC Diameter 2.1 cm M-MODE Aortic Annulus Diameter 3.0 cm LA Ao Ratio MM 1.5 MV E Point Septal Separation 0.6 cm DOPPLER AV Peak Velocity 109.0 cm/s LVOT Peak Velocity 72.0 cm/s AV Area Cont Eq vti 1.5 cm squared AV Area Cont Eq pk 1.6 cm squared MV Area PHT 5.0 cm squared Mitral E to A Ratio 2.3 MV E' Velocity 58.5 cm/s Mitral E to MV E' Ratio 1.8 Mitral E to LV E' Lateral Ratio 12.1 Mitral E to LV E' Septal Ratio 0.9 TR Peak Velocity 229.7 cm/s TR Peak Gradient 21.1 mmHg TV Peak E Velocity 41.0 cm/s Right Atrial Pressure 10.0 mmHg Pulmonary Artery Systolic Pressu 31.1 mmHg PV Peak Velocity 79.0 cm/s RV Acceleration Time 0.0 s RV Ejection Time 0.4 s RV AcT/ET 0.1 FINDINGS Left Ventricle Left ventricular ejection fraction is estimated at 62% . Grade III/IV diastolic dysfunction (restrictive filling pattern), severely elevated filling pressures. Right Ventricle The right ventricle is normal in size and function. Right Atrium The right atrium is normal in size. Left Atrium Moderately increased left atrial size. Mitral Valve Moderate mitral annular calcification. Moderate mitral valve regurgitation. Aortic Valve Thickened aortic valve. Tricuspid Valve Mild tricuspid valve regurgitation. Pulmonic Valve Trace pulmonary valve regurgitation. Pericardium Normal pericardium without effusion. Aorta Normal ascending aorta dimension. IVC Normal inferior vena cava. CONCLUSIONS Left ventricular ejection fraction is estimated at 62% . Grade III/IV diastolic dysfunction (restrictive filling pattern), severely elevated filling pressures. Moderately increased left atrial size. Moderate mitral annular calcification. Moderate mitral valve regurgitation. Thickened aortic valve. Mild tricuspid valve regurgitation. Estimated pulmonary artery peak systolic pressure 31 mmHg There is no pericardial effusion. There are no intracardiac masses. No similar previous studies are available for comparison Dr Joshua Conde MD [facility] (Electronically Signed) Final Date: 30 September 2022 14:32 S
[2022-09-29] MEDS: pantoprazole 40 mg SDV IVP ×2 (00:21→23:11)
--- NOTE | 2022-09-29 00:21 | PM.HP ---
Providers/Chief Complaint Admitting Physician: Daniel Parker MD Primary Care Provider: Jl Rosenbaum DO Chief Complaint: AMS History of Present Illness Allyson Causey is a 82 year old female with a past medical history of atrial fibrillation recently diagnosed, placed on Eliquis, Toprol, history of PE not on anticoagulation chronically,, hypertension, noninsulin-dependent type 2 diabetes mellitus, hyperlipidemia, who presents to [facility] due to fevers, shortness of breath. Patient tells me that she came to [facility] because she increasingly confused, short of breath, also having high-grade fevers. She has had recurrent UTIs for the last month or so, she follows up with Dr. Benito, she was recently here in the emergency room, was diagnosed with new onset atrial fibrillation, however she declined admission. She tells me that she is very active, she has 4 dogs, 2 cats, she has chickens, she tells me that she has been increasingly short of breath with exertion, Review of Systems Const: Reports: fever(s) and chills Eyes: Denies: change in vision Card: Reports: palpitations; Denies: chest pain Resp: Reports: dyspnea and non-productive cough GI: Denies: abdominal pain : Reports: dysuria Medications/Allergies Home Medications Medication Instructions Recorded Confirmed Last Taken Type aspirin 81 mg tablet,delayed 81 mg PO DAILY 07/22/22 09/21/22 Unknown History release (Adult Aspirin Regimen) cholecalciferol (vitamin D3) 10 10 mcg PO DAILY 07/22/22 09/21/22 Unknown History mcg (400 unit) capsule cranberry fruit concentrate 250 mg 250 mg PO DAILY 07/22/22 09/21/22 Unknown History chewable tablet (Azo Cranberry) docusate sodium 100 mg capsule 100 mg PO DAILY 07/22/22 09/21/22 Unknown History (Colace) multivitamin 1 tab PO DAILY 07/22/22 09/21/22 Unknown History omeprazole 20 mg capsule,delayed 20 mg PO BID 07/22/22 09/21/22 Unknown History release vitamin B comp and C no.3 15 mg-10 1 cap PO DAILY 07/22/22 09/21/22 Unknown History mg-50 mg-5 mg-300 mg capsule (B Complex Plus Vitamin C) vitamin E acetate 134 mg (200 134 mg PO DAILY 07/22/22 09/21/22 Unknown History unit) capsule glipizide 5 mg tablet, extended 5 mg PO DAILY #90 tabs 08/14/22 09/21/22 Unknown Rx release 24 hr levofloxacin 250 mg tablet 250 mg PO DAILY #5 tabs 09/08/22 09/21/22 Unknown Rx apixaban 5 mg tablet (Eliquis) 5 mg PO BID #60 tabs 09/21/22 Unknown Rx metoprolol tartrate 25 mg tablet 25 mg PO BID #60 tabs 09/21/22 Unknown Rx Allergies Allergy/AdvReac Type Severity Reaction Status Date / Time rosuvastatin [From Crestor] Allergy Severe ADR-Muscle Verified 07/22/22 08:30 Pain azithromycin [From Zithromax] Allergy Intermediate ADR-upset Verified 07/22/22 08:30 stomach nitrofurantoin Allergy Intermediate ADR-other Verified 07/22/22 08:30 Sulfa (Sulfonamide Allergy Intermediate ADR-rash Verified 07/22/22 08:30 Antibiotics) Penicillins Allergy Unknown unk Verified 07/22/22 08:30 doxycycline Allergy ADR-other Verified 07/22/22 08:30 PFSH Acute PFSH: Medical History Atrial fibrillation Bladder prolapse CAD (coronary artery disease) [place] 1998- stents Chronic constipation Diabetes Type 2 Diverticulosis Generalized osteoarthritis Hx of pulmonary embolus 06/2008 Hypercholesterolemia Hypertension Not on medication Recurrent UTI Surgical History 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 Family History Other CAD (coronary artery disease) Cancer Clotting disorder Social History Smoking and tobacco status: never smoked Alcohol intake: never Household members: none Vitals/I&O/Wt Last Vital Signs Temp 100.2 F H 09/28/22 22:47 Pulse 84 09/29/22 00:15 Resp 16 09/29/22 00:09 BP 84/52 09/29/22 00:09 Pulse Ox 92 09/29/22 00:09 O2 Del Method 09/29/22 00:09 O2 Flow Rate 2 09/29/22 00:09 09/28/22 09/28/22 09/29/22 14:59 22:59 06:59 Intake Total 1157 / 1157 Balance 1157 / 1157 Physical Exam Const: COMMON NORMALS: no acute distress and patient oriented x3 HENMT: COMMON NORMALS: normocephalic HEAD & SCALP: normocephalic Eye: COMMON NORMALS: Equal, round and reactive pupils present and EOMs intact bilaterally Neck/C-Spine: COMMON NORMALS: no JVD Lymph: LYMPHATIC: no lymphadenopathy noted Resp: COMMON NORMALS: normal respiratory effort, No retractions, No use of accessory muscles and clear to auscultation bilaterally AUSCULTATION: wheezes Cardio: COMMON NORMALS: no JVD, regular rate, regular rhythm, S1 normal heart sound present and S2 normal heart sound present RATE: regular rate RHYTHM: regular rhythm HEART SOUNDS: S1 normal heart sound present and S2 normal heart sound present GI: COMMON NORMALS: Normal to inspection, nondistended, normoactive bowel sounds present, Soft to palpation, non-tender, no masses and no bruits PALPATION: Yes Soft to palpation Extremity: COMMON NORMALS: no calf tenderness and no pedal edema Neuro: COMMON NORMALS: patient oriented x3, CN's II-XII intact bilaterally and moves all extremities Psych: COMMON NORMALS: mental status grossly normal Data 09/28/22 20:30 09/28/22 20:30 Micro: Microbiology 09/28/22 20:40 Blood Culture - Preliminary Blood SPECIMEN COLLECTED 09/28/22 20:30 Blood Culture - Preliminary Blood SPECIMEN COLLECTED A&P Assessment and plan (1) Atrial fibrillation with rapid ventricular response: (2) Altered mental status: (3) Urinary tract infection: (4) Pneumonia: (5) Hypoxia: (6) NSTEMI (non-ST elevated myocardial infarction): (7) Diabetes: (8) Hypercholesterolemia: (9) Hypertension: Qualifiers: Hypertension type: unspecified secondary hypertension Qualified Code(s): I15.9 - Secondary hypertension, unspecified Plan Altered mental status, fevers -Currently alert oriented x3, following all commands -Receiving antibiotic therapy -Neurochecks, aspiration precautions -Full code -Eliquis for DVT prophylaxis A. fib with RVR -Converted to normal sinus rhythm -Cardizem drip turned off -Continue metoprolol 25 twice daily -Continue Eliquis 5 twice daily -Cardiac echo Pneumonia -Seen on chest x-ray -Sputum cultures, blood cultures -Pro-Ash, CRP -Has multiple antibiotic allergies continue Levaquin UTI, past cultures have shown E. coli continue Levaquin Hypoxia, history of pulmonary embolism, D-dimer 1.53, elevated troponins, will do CTA NSTEMI, elevated troponin -Serial EKGs or troponins telemetry monitoring -Continue aspirin -Continue statin Type 2 diabetes mellitus, low-dose sliding scale Attestations Medical Necessity Statement*: Patient requires hospitalization, inpatient, greater than 2 midnights, for A. fib with RVR, pneumonia, UTI, fevers, altered mental status this, hypoxia Coding Level of Care Code Acute Flask Handler for g Fwd Diagnoses Atrial fibrillation with rapid ventricular response I48.91 Altered mental status R41.82 Urinary tract infection N39.0 Pneumonia J18.9 Hypoxia R09.02 NSTEMI (non-ST elevated myocardial infarction) I21.4 Diabetes E11.9 Hypercholesterolemia E78.00 Hypertension I15.9 Hypertension type: unspecified secondary hypertension
--- NOTE | 2022-09-29 00:27 | CTR_ITS ---
PROCEDURE INFORMATION: Exam: CTA Chest With Contrast Exam date and time: 09/29/2022 2:49 AM Age: 82 years old Clinical indication: Abnormal findings; Abnormal diagnostic tests; Elevated d-dimer; Shortness of breath; Prior surgery; Surgery type: Cabg; Patient HX: SOB with elevated d dimer; Additional info: Hypozia, SOB, elevated d dimer TECHNIQUE: Imaging protocol: Computed tomographic angiography of the chest with contrast. 3D rendering (Not supervised by radiologist): MIP and/or 3D reconstructed images were created by the technologist. Radiation optimization: All CT scans at this facility use at least one of these dose optimization techniques: automated exposure control; mA and/or kV adjustment per patient size (includes targeted exams where dose is matched to clinical indication); or iterative reconstruction. Contrast material: OMNI 350; Contrast volume: 65 ml; Contrast route: INTRAVENOUS (IV); COMPARISON: CR (CHEST, ) 09/28/2022 8:09 PM RADIATION DOSE METRICS: Total DLP (mGy-cm): 425.13 FINDINGS: Pulmonary arteries: On this exam, there is fror-ug-jwxtyeib burden mainly right-sided PE. These involve the RUL lobar and segmental arteries, the RLL lobar and segmental arteries, and elsewhere. Minimal LLL nonocclusive PE. The RV/LV ratio is 0.75. Aorta: Unremarkable. No aortic aneurysm. No aortic dissection. Veins: Mild venous congestion. Lungs: Moderate areas of hazy diffuse atelectasis or pneumonitis visualized. Other areas of interstitial scarring. No consolidation. No dominant lung mass is noted. Pleural spaces: No pneumothorax. No pleural effusion noted. Heart: The heart is normal size. No pericardial effusion. Previous CABG. Lymph nodes: Juvp-iz-dubctopr mediastinal lymphadenopathy. A large subcarinal node measures up to 3 cm. Mild left hilar lymphadenopathy. Diaphragm: Tiny hiatal hernia. Gallbladder and bile ducts: Absent gallbladder. Bones/joints: Moderate thoracic spine DJD. Soft tissues: Unremarkable. CT/CT angio chest PE protcl [id number] IMPRESSION: 1. Daxa-hj-tafbzvxg burden mainly right-sided PE as described. No evidence of RV strain. 2. Scattered areas of bilateral diffuse atelectasis, edema, or pneumonitis. Likely reactive ybrs-te-mchjaebq mediastinal and hilar lymphadenopathy. Recommend three-month follow-up. 3. Other chronic findings above including atherosclerosis and absent gallbladder.
--- NOTE | 2022-09-29 00:27 | USCV_ITS ---
Allyson Causey Age: 82 Gender: F : 1940 Exam Date: 09/29/2022 01:05 Ordering Phys: Daniel Parker MD Technologist: TAMMIE Exam Location: [facility] – [place] Indication: No erythema. No edema. No leg pain per patient. No history of DVT per patient. HISTORY: No erythema. No edema. No leg pain per patient. No history of DVT per patient. PROCEDURES: Venous duplex imaging was performed in bilateral lower extremities. The following venous structures were evaluated: common femoral vein, profunda vein, proximal portion of the greater saphenous vein, superficial femoral vein, and the popliteal vein. In addition, the posterior tibial veins were evaluated. Serial compression, augmentation maneuvers, and spectral Doppler flow evaluation were performed,which were normal. Bilaterally, the common femoral, superficial femoral, profunda femoral, popliteal, posterior tibial, and greater saphenous veins were identified and interrogated in the standard fashion. These veins were found to be easily compressible with spontaneous blood flow. No evidence of thrombus noted. CONCLUSIONS No evidence of right lower extremity DVT. No evidence of left lower extremity DVT. Derek Rose MD (Electronically Signed) Final Date: 29 September 2022 09:46 S
--- NOTE | 2022-09-29 01:58 | ECG_ITS ---
[facility], [facility] Test Date: 2022-09-29 Pat Name: Allyson Causey Department: Room: 104 Gender: Female High Risk Case Manager: : 1940 Requested By: Steffanie Chen Order Number: [id number] Alonzo MD: Joshua Conde M.D. Measurements Intervals [place] Rate: 81 P: -66 ND: 214 QRS: 31 QRSD: 89 T: 74 QT: 409 QTc: 476 Interpretive Statements SINUS RHYTHM WITH FIRST DEGREE AV BLOCK LOW QRS VOLTAGE IN PRECORDIAL LEADS [QRS DEFLECTION < 1.0 mV IN CHEST LEADS] NONSPECIFIC T-WAVE ABNORMALITY Compared to ECG 09/28/2022 21:57:22 First degree AV block now present Low QRS voltage now present T-wave abnormality now present Atrial flutter no longer present ST (T wave) deviation no longer present Electronically Signed On 09-29-2022 21:25:21 CREOSOTING ENGINEER by Joshua Conde M.D. [id number]
[2022-09-29] MEDS: ipratropium-albuterol 3 mL Neb INHALATION ×5 (02:11→22:01)
[2022-09-29] MEDS: iohexol 350 mg/mL 500 mL Btl (per mL) IV (02:57)
[2022-09-29] MEDS: heparin drip 25,000 UNIT/500 ML PREMIX 21 UNIT IV (03:44)
[2022-09-29] MEDS: heparin 5,000 unit/mL INJ 1 mL IV (03:44)
[2022-09-29 04:20] LABS: Basophils % 0.3 %; Hematocrit 38.3 % (37.0-47.0); Hemoglobin 12.3 g/dL (11.5-15.3); Lymphocytes % 28.2 %; Mean Corpuscular HGB Conc 32.1 g/dL (30.0-36.0); Mean Corpuscular Hemoglobin 29.4 pg (28.0-34.0); Mean Corpuscular Volume 91.6 fl (81-99); Monocytes % 13.8 %; Neutrophils % 57.4 %; Nucleated Red Blood Cells % 0 %; Platelet Count 169 10^3/cmm (130-400); Red Blood Count 4.18 10^6/uL (4.1-5.3); Red Cell Distribution Width 13.9 % (12.1-15.1)
[2022-09-29 04:30] LABS: INR 1.21 (0.8-1.2)
[2022-09-29 04:32] LABS: D Dimer 2.19 ug/mIFEU (0-0.59)
[2022-09-29 04:36] LABS: Anion Gap 13.7 (5-19); Blood Urea Nitrogen 11 mg/dL (8-23); Carbon Dioxide 24 mmol/L (22-29); Chloride 105 mmol/L (98-107); Glucose 125 mg/dL (65-115); Magnesium 1.7 mg/dL (1.7-2.3); Osmolality Calculated 289 mOsm/kg (285-295); Phosphorus 3.4 mg/dL (2.5-4.5); Potassium 3.7 mmol/L (3.5-5.1); Sodium 139 mmol/L (136-145)
[2022-09-29 04:40] LABS: Calcium 8.5 mg/dL (8.5-10.5)
[2022-09-29 04:46] LABS: NT Pro B Type Natriuretic Pept 1089 pg/mL (0-450)
[2022-09-29 05:09] LABS: Troponin 5 6HR 40.41 ng/L (0-10)
[2022-09-29 05:11] LABS: Troponin 5 6HR Delta 17.41 ng/L (0-12)
[2022-09-29 06:47] LABS: Glucose Point of Care 97 mg/dL (70-110)
[2022-09-29] MEDS: aspirin 81 mg EC Tablet PO (08:19)
[2022-09-29] MEDS: cholecalciferol (vitamin D3) 1,000 unit Tablet 1000 UNIT PO (08:19)
[2022-09-29] MEDS: multivitamin therapeutic Tablet 1 TAB PO (08:19)
[2022-09-29] MEDS: metoprolol tartrate 25 mg Tablet PO ×2 (08:19→18:23)
--- NOTE | 2022-09-29 09:05 | PM.MISC ---
Miscellaneous Note Note: Patient was seen and examined this morning, H&P reviewed New onset A. fib New onset PE Currently patient is on therapeutic heparin protocol Patient is laying supine Euvolemic S1, S2 variable A. fib without RVR Low-grade temp Hemodynamically stable Currently doing well on room air I will switch patient to therapeutic Lovenox and Eliquis DVT/PE regimen at the time of discharge For UTI continue antibiotics Will watch until Monday or Monday to wait for the urine culture report Continue AV jaspal blocking agents
--- NOTE | 2022-09-29 10:33 | PC.CHAP ---
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 diesel roller operator visit [] Patient/Family/Request visit [] Outpatient visit [] Follow-up visit [] Physician referral [] Code/Alert [x] Routine visit [] Staff referral [] Actively dying [] Patient sleeping [] Family support [] [] Out of room [x] Palliative care [] [x] Receiving care in room [] Pre-surgical visit [] Trauma [x] Long length of stay [] ICU visit [] Other: Relational/Emotional Strength [] Patient feels connected with others/family/visitors/staff [x] Distress [] Loneliness/isolation [] Abandonment Spirituality of Patient [] Person of Adela [] Attends Presybeterian of their Adela [x] Believes in Prayer [] Reads Bible or Moravian materials [] There are Spiritual issues to be addressed [employer] Lieutenant Interventions [x] Prayer [] Active listening [] Non-anxious presence [] Spiritual/emotional support [] Crisis/trauma care [] Spiritual counseling [] Bereavement support [] Provided bereavement packet [] Provided Bible/devotional materials [] Provided toy/stuffed animal, coloring book to patient or family member [] Provided Communion [] Anointing/[place] [] Salvation [] Completed spiritual assessment [] Other: Impact on Illness or Injury [] Angry [] Fearful [x] Anxious [] Often cries [] Exhaustion [] Unable to work [] Unable to attend advent [] Unable to walk/stand [] Unable to read [] Unable to drive [] Unable to eat/drink [] Unable to sleep [] Unable to be with family [] Patient intubated [] Other: Summary senior unablke to communicate a bout her checking with doctor care Time spent with patient
[2022-09-29 10:49] LABS: Partial Thromboplastin Time 114.1 SECONDS (23.9-36.7)
[2022-09-29] MEDS: acetaminophen 325 mg Tablet 650 MG PO (11:00)
[2022-09-29 11:36] LABS: Glucose Point of Care 116 mg/dL (70-110)
[2022-09-29] MEDS: enoxaparin 100 mg/mL Syringe 80 MG SUBCUT (12:09)
[2022-09-29 16:47] LABS: Glucose Point of Care 106 mg/dL (70-110)
[2022-09-29] MEDS: pantoprazole DR 40 mg Tablet PO (18:22)
[2022-09-29 20:45] LABS: Glucose Point of Care 109 mg/dL (70-110)
[2022-09-29] MEDS: levofloxacin-dextrose 5 % 750 MG/150 ML PREMIX 100 MG IV (23:11)
[2022-09-30] VITALS (20 sets, daily range): BP systolic 88–122; BP diastolic 51–67; PULSE 66–124; RESP 15–23; TEMP 36.5–38.8; O2SAT 80–95
[2022-09-30] MEDS: enoxaparin 80 mg/0.8 mL Syringe SUBCUT ×2 (00:18→12:53)
[2022-09-30] MEDS: acetaminophen 325 mg Tablet 650 MG PO ×2 (00:28→22:12)
--- NOTE | 2022-09-30 00:34 | PC.NURSE ---
Patient in atrial fibrillation. Rate 104-120. Hospitalist on duty notified and order rec'd for PO Cardizem 60mg q6h.
[2022-09-30] MEDS: dilTIAZem 60 mg Tablet PO ×2 (01:09→09:41)
[2022-09-30 04:41] LABS: Basophils % 0.6 %; Eosinophils % 0.1 %; Hematocrit 38.9 % (37.0-47.0); Hemoglobin 12.5 g/dL (11.5-15.3); Lymphocytes # 2.7 10^3/uL (0.8-4.8); Lymphocytes % 37.6 %; Mean Corpuscular HGB Conc 32.1 g/dL (30.0-36.0); Mean Corpuscular Hemoglobin 29.3 pg (28.0-34.0); Mean Corpuscular Volume 91.3 fl (81-99); Mean Platelet Volume 12.3 fL (7.4-10.4); Monocytes # 1.1 10^3/uL (0.2-0.9); Monocytes % 14.7 %; Neutrophils # 3.39 10^3/uL (1.8-7.7); Neutrophils % 46.7 %; Nucleated Red Blood Cells % 0 %; Platelet Count 150 10^3/cmm (130-400); Red Blood Count 4.26 10^6/uL (4.1-5.3); White Blood Count 7.3 10^3/uL (4.0-10.0)
[2022-09-30 04:48] LABS: Anion Gap 12.5 (5-19); Blood Urea Nitrogen 11 mg/dL (8-23); Calcium 8.8 mg/dL (8.5-10.5); Carbon Dioxide 24 mmol/L (22-29); Chloride 106 mmol/L (98-107); Glucose 103 mg/dL (65-115); Osmolality Calculated 288 mOsm/kg (285-295); Potassium 3.5 mmol/L (3.5-5.1); Sodium 139 mmol/L (136-145)
[2022-09-30 06:11] LABS: Glucose Point of Care 108 mg/dL (70-110)
[2022-09-30] MEDS: multivitamin therapeutic Tablet 1 TAB PO (09:25)
[2022-09-30] MEDS: pantoprazole DR 40 mg Tablet PO ×2 (09:25→16:55)
[2022-09-30] MEDS: cholecalciferol (vitamin D3) 1,000 unit Tablet 1000 UNIT PO (09:25)
[2022-09-30] MEDS: aspirin 81 mg EC Tablet PO (09:26)
[2022-09-30] MEDS: metoprolol tartrate 25 mg Tablet PO ×2 (09:41→16:55)
[2022-09-30] MEDS: ipratropium-albuterol 3 mL Neb INHALATION (11:29)
[2022-09-30 11:55] LABS: Glucose Point of Care 113 mg/dL (70-110)
--- NOTE | 2022-09-30 12:51 | P.PN_ITS ---
Subjective Subjective: A. fib RVR Low blood pressure noted, gentle fluid hydration today Asked manager of case management to see which anticoagulation would be cheaper Overnight febrile events noted This morning patient wanted to go home She is doing well on room air Vitals/I&O/Wt Last Vital Signs Temp 99.1 F 09/30/22 12:00 Pulse 93 09/30/22 12:02 Resp 20 H 09/30/22 12:02 BP 88/51 09/30/22 12:02 Pulse Ox 80 L 09/30/22 12:02 O2 Del Method 09/30/22 11:33 O2 Flow Rate 2 09/30/22 08:00 FiO2 0 09/29/22 20:00 09/29/22 09/30/22 09/30/22 22:59 06:59 14:59 Intake Total 360 / 960 120 / 1080 150 / 150 Balance 360 / 960 120 / 1080 150 / 150 Weight last 48 hrs Weight 75.705 kg Physical Exam Narrative: Patient is doing well on room air A. fib RVR Clinically euvolemic Awake and alert Nonfocal neuro exam No active chest pain Pleasant and cooperative Family at the bedside No audible stridor or wheezing 9 Data 09/30/22 03:56 09/30/22 03:56 Micro: Microbiology 09/28/22 21:51 Urine Culture - Preliminary Urine,Clean Catch Gram Negative Rods 09/28/22 20:40 Blood Culture - Preliminary Blood NEGATIVE TO DATE 09/28/22 20:30 Blood Culture - Preliminary Blood NEGATIVE TO DATE 09/29/22 02:30 Gram Stain - Final Sputum - Expectorated Sputum A&P Assessment and plan (1) Hypoxia: (2) Urinary tract infection: (3) Atrial fibrillation with rapid ventricular response: (4) Altered mental status: (5) Atrial fibrillation: (6) Diabetes: Plan Metabolic encephalopathy alert to UTI: Improved Hypoxia: Resolved currently doing well on room air A. fib RVR, DVT and PE patient will need therapeutic anticoagulating agent at the time of discharge, requesting manager of case management to see which option will be cheaper for the Currently hemodynamically stable this morning she has low blood pressure has received Cardizem and metoprolol we will give her 1 L bolus Clinically euvolemic Patient is eager to return home however he requested to stay here 1 more day because of her febrile event overnight Blood cultures negative so far urine culture showing gram-negative brayan COVID antigen negative Full code Cardiac diet DVT prophylaxis covered with therapeutic Lovenox Attestations Medical Necessity Statement*: Anticipating discharge over the weekend Time Spent in Patient Care: 30 Coding Level of Care Code Acute County Administrator for Veronag Fwd Diagnoses Hypoxia R09.02 Urinary tract infection N39.0 Atrial fibrillation with rapid ventricular response I48.91 Altered mental status R41.82 Atrial fibrillation I48.91 Diabetes E11.9
[2022-09-30] MEDS: polyethylene glycol 3350 Pkt 17 gm PO ×2 (12:53→22:11)
[2022-09-30] MEDS: docusate sodium 100 mg Capsule PO (12:54)
[2022-09-30] MEDS: sodium chloride 0.9% 1,000 ML 999 ML IV (13:41)
[2022-09-30] MEDS: ipratropium 0.5 mg/2.5 mL Neb INHALATION ×2 (15:11→21:59)
[2022-09-30] MEDS: albuterol 2.5 mg/3 mL Neb INHALATION ×2 (15:11→21:58)
[2022-09-30 15:55] LABS: Glucose Point of Care 161 mg/dL (70-110)
[2022-09-30] MEDS: chlorhexidine gluconate 0.12% Btl 473 mL 15 ML MUCOUS MEM (17:48)
--- NOTE | 2022-09-30 18:00 | PC.NURSE ---
Shift Note Pt been coughing up some small amt of thick sputum, constipation .notified Dr Lopez. received order for sputum sample, colace, miralax BID. 1500pm-HR is afib w/rvr sustaining between 120s to 130s. pt had a breathing treatment. notified to ok to give 25 mg metoprolol early and to decrease cardizem dose to 30 mg q6HR to start dose at 8pm. all orders read back and verified. 1655pm-Pt stated she had sore throat off and on, had dental extraction on Sep.01,being on O2 thinks made it worse,nose was stuffed up. Dr Lopez notified, received orders for clindamycin iv once, strep A swab, chlorhexidine mouthwash. Frequent safety and comfort rounds continue. Orders and/or nursing care completed as indicated. Patient monitored for response to intervention and treatment(s). Education provided includes to monitor her VS due to possible side effects of new meds such as Cardizem (lowerBP) and the cause of fever,continue IV antibiotic. Patient and/or technical support representative verbalizes understanding. Will continue to monitor.
[2022-09-30] MEDS: clindamycin 600 MG/50 ML PREMIX 100 MG IV (18:23)
[2022-09-30 20:25] LABS: Glucose Point of Care 166 mg/dL (70-110)
[2022-09-30 21:19] LABS: Rapid Strep A Test Negative (Negative)
[2022-09-30] MEDS: dilTIAZem 30 mg Tablet PO (22:11)
[2022-10-01] VITALS: BP 102/59; BP 109/67; PULSE 100; PULSE 98; RESP 16; RESP 23; TEMP 37.3; TEMP 37.8; O2SAT 92
[2022-10-01] MEDS: enoxaparin 80 mg/0.8 mL Syringe SUBCUT (02:47)
[2022-10-01] MEDS: dilTIAZem 30 mg Tablet PO ×2 (02:48→08:54)
[2022-10-01] MEDS: levofloxacin-dextrose 5 % 750 MG/150 ML PREMIX 100 MG IV (02:48)
[2022-10-01 04:00] VITALS: BP 109/67; BP 113/68; PULSE 100; PULSE 95; RESP 18; RESP 23; TEMP 37.2; TEMP 37.3; O2SAT 92
[2022-10-01 06:00] VITALS: PULSE 92
[2022-10-01 06:46] LABS: Glucose Point of Care 151 mg/dL (70-110)
[2022-10-01 07:15] LABS: Basophils % 0.4 %; Eosinophils # 0.1 10^3/uL (0.0-0.8); Eosinophils % 1.4 %; Hematocrit 39.5 % (37.0-47.0); Hemoglobin 12.7 g/dL (11.5-15.3); Lymphocytes # 1.9 10^3/uL (0.8-4.8); Lymphocytes % 32.8 %; Mean Corpuscular HGB Conc 32.2 g/dL (30.0-36.0); Mean Corpuscular Hemoglobin 29.5 pg (28.0-34.0); Mean Corpuscular Volume 91.9 fl (81-99); Mean Platelet Volume 12.9 fL (7.4-10.4); Monocytes # 0.7 10^3/uL (0.2-0.9); Monocytes % 12.2 %; Neutrophils # 3.01 10^3/uL (1.8-7.7); Nucleated Red Blood Cells % 0 %; Platelet Count 144 10^3/cmm (130-400); White Blood Count 5.7 10^3/uL (4.0-10.0)
[2022-10-01 07:28] LABS: Anion Gap 12.7 (5-19); Blood Urea Nitrogen 12 mg/dL (8-23); Calcium 8.6 mg/dL (8.5-10.5); Carbon Dioxide 25 mmol/L (22-29); Chloride 108 mmol/L (98-107); Glucose 140 mg/dL (65-115); Osmolality Calculated 296 mOsm/kg (285-295); Potassium 3.7 mmol/L (3.5-5.1); Sodium 142 mmol/L (136-145)
[2022-10-01 07:43] VITALS: PULSE 83; RESP 16; O2SAT 93
[2022-10-01] MEDS: ipratropium 0.5 mg/2.5 mL Neb INHALATION (07:43)
[2022-10-01] MEDS: albuterol 2.5 mg/3 mL Neb INHALATION (07:43)
[2022-10-01 07:45] VITALS: BP 121/69; PULSE 79; RESP 12; O2SAT 100
[2022-10-01 07:50] VITALS: PULSE 85; RESP 16; O2SAT 93
[2022-10-01] MEDS: aspirin 81 mg EC Tablet PO (08:53)
[2022-10-01] MEDS: cholecalciferol (vitamin D3) 1,000 unit Tablet 1000 UNIT PO (08:53)
[2022-10-01] MEDS: multivitamin therapeutic Tablet 1 TAB PO (08:53)
[2022-10-01] MEDS: metoprolol tartrate 25 mg Tablet PO (08:54)
[2022-10-01] MEDS: insulin lispro 100 unit/1 mL SUBCUT (08:54)
[2022-10-01] MEDS: pantoprazole DR 40 mg Tablet PO (08:54)
[2022-10-01] MEDS: cefTRIAXone 1,000 MG in sodium chloride 0.9% (plus) 50 ML 100 MG IV (08:56)
--- NOTE | 2022-10-01 09:13 | PC.SOCIAL ---
IMM Update pg 2 of IMM Updated and reviewed w/ patient. Copy provided and copy dated and initialed and placed in chart.
--- NOTE | 2022-10-01 09:22 | PM.DCS ---
Discharge Providers Date of Admission: 09/28/22 22:37 Date of Discharge: October 01, 2022 Attending Provider at Admission: Daniel Parker MD Attending Provider at Discharge: Gary Lopez MD Primary Care Provider: Jl Rosenbaum DO Diagnoses at Discharge Discharge Diagnosis (1) Hypoxia: Status: Acute (2) Urinary tract infection: Status: Acute (3) Atrial fibrillation with rapid ventricular response: Status: Acute (4) Altered mental status: Status: Acute (5) Atrial fibrillation: Status: Acute (6) Diabetes: Status: Acute Permanent problem details: Type 2 Reason for Visit Reason for Visit: [facility] Hospital Course Hospital Course 82-year female, who present to the hospital with chief complaint of shortness of breath she was recently diagnosed with atrial fibrillation and was started on Eliquis, patient has not taken her metoprolol or Eliquis at home because she thought they were causing her diarrhea and Eliquis co-pay was around $400 for her. Patient presented back to the hospital and she was diagnosed with acute pulmonary embolism right-sided PE with mild to moderate burden without right heart strain, she was given heparin at the time of admission however I transitioned her to therapeutic Lovenox and Eliquis at the time of discharge. I asked case management director to give her the coupon to lower her co-pay. Her co-pay now is around $15-$30. For her A. fib RVR she was given Cardizem 120 mg long-acting along metoprolol at the time of discharge. Patient is very upset and wants to go home she could not sleep very well in the hospital. She did not want to try any medications to sleep. She has been spiking fever related to UTI, she has been complaining of sore throat however rapid strep negative, COVID and influenza came back negative. No dental abscess on clinical exam. She is responding well to chlorhexidine/mouthwash. She will be discharged on levofloxacin sputum and urine culture showing gram-negative brayan. Previous history of E. coli UTI. She required oxygen on and off throughout hospitalization but she is saturating above 94% on room air at the time of discharge. Physical Exam Narrative: Awake and alert Euvolemic Abdomen soft Upset because she could not sleep Nonfocal neuro exam No signs of dental abscess S1, S2 A. fib without RVR Doing well on room air Discharge Data Studies Completed and Pending Completed Studies During Hospitalization Category Date Time Status CT abdomen pelvis wo con [id number] Stat Cat Scan 09/28/22 20:[address] angio chest PE protcl [id number] Routine Cat Scan 09/29/22 00:[address] head wo con* [id number] Stat Cat Scan 09/28/22 20:16 Completed XR chest 1V portable [id number] Stat Exams 09/28/22 19:58 [place] [id number] Routine Ultrasound 09/29/22 00:27 Completed CV. echo complete* [id number] Routine Ultrasound 09/29/22 00:19 Completed Pending at discharge Category Date Time Status Blood Culture Stat Lab 09/28/22 20:40 Results Sputum Culture Routine Lab 09/30/22 16:45 Received Sputum Culture and Gram Stain Stat Lab 09/29/22 02:30 Results Streptococcus Culture Group A Routine Lab 09/30/22 17:46 Received Urine Culture Stat Lab 09/28/22 21:51 Results Radiology Impressions Chest X-Ray 09/28/22 19:58 IMPRESSION: Bilateral pneumonia versus pulmonary edema, new since 09/21/2022. Abdomen/Pelvis CT 09/28/22 20:16 IMPRESSION: 1. Fullness in the visualized pulmonary vasculature suggesting volume overload in the lungs. 2. Fluid within the small bowel without evidence of bowel wall thickening. This may reflect viral gastroenteritis in the appropriate clinical situation. 3. Numerous diverticula in the sigmoid colon. Scattered diverticula in the remainder of the colon. No evidence for diverticulitis. 4. Noncalcified nodule in the right lower lobe with an average measurement of 1.1 cm.For both low risk and high risk patients, consider CT Chest at 3 months, PET/CT or biopsy. (Reference: Celestino) 5. Incidental/nonacute findings are listed in the report. REFERENCES: Celestino Castro, et al. Guidelines for Management of Incidental Pulmonary Nodules Detected on CT Images: From the Fleischner Society 2017. Radiology. 2017;284(1):228-243. Head CT 09/28/22 20:16 IMPRESSION: No acute intracranial abnormality. Chest CTA 09/29/22 00:27 IMPRESSION: 1. Jcyg-st-kisoyvkl burden mainly right-sided PE as described. No evidence of RV strain. 2. Scattered areas of bilateral diffuse atelectasis, edema, or pneumonitis. Likely reactive vfye-co-rzevadhv mediastinal and hilar lymphadenopathy. Recommend three-month follow-up. 3. Other chronic findings above including atherosclerosis and absent gallbladder. ADDENDUM: 09/29/22 [id number] THIS REPORT CONTAINS FINDINGS THAT MAY BE CRITICAL TO PATIENT CARE. The findings were verbally communicated via telephone conference at 3:25 AM MINE CAR MECHANIC on 09/29/2022 with charge nurse Tenisha Antonio who stated she would pass results on to physician. The findings were acknowledged and understood. Laboratory Results WBC 5.7 10^3/uL (4.0-10.0) 10/01/22 06:30 RBC 4.30 10^6/uL (4.1-5.3) 10/01/22 06:30 Hgb 12.7 g/dL (11.5-15.3) 10/01/22 06:30 Hct 39.5 % (37.0-47.0) 10/01/22 06:30 MCV 91.9 fl (81-99) 10/01/22 06:30 MCH 29.5 pg (28.0-34.0) 10/01/22 06:30 MCHC 32.2 g/dL (30.0-36.0) 10/01/22 06:30 RDW 14.0 % (12.1-15.1) 10/01/22 06:30 Plt Count 144 10^3/cmm (130-400) 10/01/22 06:30 MPV 12.9 fL (7.4-10.4) H 10/01/22 06:30 Neut % (Auto) 53.0 % 10/01/22 06:30 Lymph % (Auto) 32.8 % 10/01/22 06:30 [place] % (Auto) 12.2 % 10/01/22 06:30 Eos % (Auto) 1.4 % 10/01/22 06:30 Baso % (Auto) 0.4 % 10/01/22 06:30 Neut # (Auto) 3.01 10^3/uL (1.8-7.7) 10/01/22 06:30 Lymph # (Auto) 1.9 10^3/uL (0.8-4.8) 10/01/22 06:30 [place] # (Auto) 0.7 10^3/uL (0.2-0.9) 10/01/22 06:30 Eos # (Auto) 0.1 10^3/uL (0.0-0.8) 10/01/22 06:30 Baso # (Auto) 0.0 10^3/uL (0.0-0.1) 10/01/22 06:30 Nucleated RBC % (auto) 0 % 10/01/22 06:30 Nucleated RBCs # 0.0 /100WBC 10/01/22 06:30 PT 15.70 SECONDS (12.1-14.9) H 09/29/22 03:33 INR 1.21 (0.8-1.2) H 09/29/22 03:33 APTT 114.1 SECONDS (23.9-36.7) H 09/29/22 10:09 D-Dimer 2.19 ug/mIFEU (0-0.59) H 09/29/22 03:33 Sodium 142 mmol/L (136-145) 10/01/22 06:30 Potassium 3.7 mmol/L (3.5-5.1) 10/01/22 06:30 Chloride 108 mmol/L (98-107) H 10/01/22 06:30 Carbon Dioxide 25 mmol/L (22-29) 10/01/22 06:30 Anion Gap 12.7 (5-19) 10/01/22 06:30 BUN 12 mg/dL (8-23) 10/01/22 06:30 Creatinine 0.7 mg/dL (0.5-0.9) 10/01/22 06:30 GFR Calculation Not Reportable 10/01/22 06:30 Glucose 140 mg/dL (65-115) H 10/01/22 06:30 POC Glucose 151 mg/dL (70-110) H 10/01/22 06:25 Estimat Average Glucose 143 09/28/22 20:30 Hemoglobin A1c 6.6 % (4.0-6.0) H 09/28/22 20:30 Calculated Osmolality 296 mOsm/kg (285-295) H 10/01/22 06:30 Lactic Acid 1.3 mmol/L (0.5-2.2) 09/28/22 20:30 Calcium 8.6 mg/dL (8.5-10.5) 10/01/22 06:30 Phosphorus 3.4 mg/dL (2.5-4.5) 09/29/22 03:33 Magnesium 1.7 mg/dL (1.7-2.3) 09/29/22 03:33 Total Bilirubin 0.4 mg/dL (0.15-1.2) 09/28/22 20:30 AST 32 U/L (0-32) 09/28/22 20:30 ALT 20 U/L (0-33) 09/28/22 20:30 Alkaline Phosphatase 87 U/L (35-105) 09/28/22 20:30 Troponin T Baseline 23 ng/L (0-10) H 09/28/22 20:30 Troponin T 120 Minute 25.60 ng/L (0-10) H 09/28/22 22:49 Delta Troponin T 2.60 ABS# (0-10) 09/28/22 22:49 Troponin T Hi Sens 6Hr 40.41 ng/L (0-10) H 09/29/22 03:33 Troponin T Hi Sens 6Hr Delta 17.41 ng/L (0-12) H* 09/29/22 03:33 C-Reactive Protein 31.1 mg/L (0.0-4.9) H 09/28/22 20:30 NT-Pro-B Natriuret Pep 1089 pg/mL (0-450) H 09/29/22 03:33 Total Protein 7.4 g/dL (6.6-8.7) 09/28/22 20:30 Albumin 4.2 g/dL (3.5-5.2) 09/28/22 20:30 Globulin 3.2 g/dL (1.3-4.6) 09/28/22 20:30 Procalcitonin 0.03 ng/mL (0-0.5) 09/28/22 20:30 Urine Color Yellow (Yellow) 09/28/22 21:51 Urine Appearance Sl hazy (CLEAR) A 09/28/22 21:51 Urine pH 6.5 (5-7) 09/28/22 21:51 Ur Specific [place] 1.015 (1.005-1.030) 09/28/22 21:51 Urine Protein 1+ (Negative) H 09/28/22 21:51 Urine Glucose (UA) Trace (Normal) H 09/28/22 21:51 Urine Ketones 2+ (Negative) H 09/28/22 21:51 Urine Blood 3+ (Negative) H 09/28/22 21:51 Urine Nitrate Positive (Negative) H 09/28/22 21:51 Urine Bilirubin Neg (Negative) 09/28/22 21:51 Urine Urobilinogen Norm mg/dL (Negative) 09/28/22 21:51 Ur Leukocyte Esterase Trace (Negative) H 09/28/22 21:51 Urine RBC 10-15 /hpf (0-2) H 09/28/22 21:51 Urine WBC 0-4 /hpf (0-5) H 09/28/22 21:51 Ur Squamous Epith Cells 0-4 /hpf (0-5) H 09/28/22 21:51 Amorphous Sediment Not Reportable 09/28/22 21:51 Urine Bacteria 4+ /hpf (NONE) H 09/28/22 21:51 Hyaline Casts 0-4 /lpf H 09/28/22 21:51 Influenza Type A Ag negative (Negative) 09/28/22 20:19 Influenza Type B Ag negative (Negative) 09/28/22 20:19 SARS-CoV-2 Ag (Rapid) negative (Negative) 09/28/22 20:19 Group A Strep Rapid Negative (Negative) 09/30/22 17:46 Vitals Last Vital Signs Temp 98.9 F 10/01/22 04:00 Pulse 85 10/01/22 07:50 Resp 16 10/01/22 07:50 BP 121/69 10/01/22 07:45 Pulse Ox 93 10/01/22 07:50 O2 Del Method 10/01/22 07:50 O2 Flow Rate 2 09/30/22 08:00 FiO2 0 10/01/22 04:00 Discharge Plan Discharge Patient Disposition: Home Condition: Stable Prescriptions: New Cardizem LA 120 mg tablet extended release 24 hr 120 mg PO DAILY Qty: 90 2RF levofloxacin 750 mg tablet 750 mg PO DAILY 7 Days Qty: 7 0RF phenazopyridine [Pyridium] 100 mg tablet 100 mg PO Q8H PRN (Reason: pain) Qty: 20 0RF Eliquis DVT-PE Treat 30D Start 5 mg (74 tabs) tablets,dose pack 5 mg PO BID Qty: 74 4RF Continued B Complex Plus Vitamin C 27-72-39-5-300 mg capsule 1 cap PO DAILY Rx Instructions: give with food (meal/snack) multivitamin Tablet 1 tab PO DAILY Azo Cranberry 250 mg tablet,chewable 250 mg PO DAILY cholecalciferol (vitamin D3) 10 mcg (400 unit) capsule 10 mcg PO DAILY vitamin E acetate 134 mg (200 unit) capsule 134 mg PO DAILY omeprazole 20 mg capsule,delayed release(DR/EC) 20 mg PO BID docusate sodium [Colace] 100 mg capsule 100 mg PO DAILY glipizide 5 mg tablet extended release 24hr 2.5 mg PO DAILY metoprolol tartrate 25 mg tablet 25 mg PO BID Qty: 180 2RF Discontinued aspirin [Adult Aspirin Regimen] 81 mg tablet,delayed release (DR/EC) 81 mg PO DAILY Eliquis 5 mg tablet 5 mg PO BID Qty: 60 0RF Discharge Orders: Discharge Order (Routine); Ordered 10/01/22 Ordered By: Gary Lopez Referrals: Jl Rsoenbaum, [Primary Care Provider] - 4-7 days Discharge Diet: Cardiac Discharge Activity: Increase activity as tolerated Patient Instructions: Opioid Safety Patient's Health Concerns: Please use Eliquis 10 mg twice a day for 7 days and then you will switch to 5 mg twice a day For your heart rate control you will get Cardizem and metoprolol, ideally your heart rate should stay below 110/min. A. fib blood pressure is soft which would be systolic blood pressure below 90 you can hold dose of metoprolol. Please take antibiotics for next 7 days. You have UTI. Discharge Attestations Time Spent in Discharge Care*: less than 30 min Quality Metrics Clinical Quality Measures [ No reported AMI, CVA or VTE this stay] Coding Level of Care Code Acute g FW DC note Diagnoses Hypoxia R09.02 Urinary tract infection N39.0 Atrial fibrillation with rapid ventricular response I48.91 Altered mental status R41.82 Atrial fibrillation I48.91 Diabetes E11.9
[2022-10-01] MEDS: docusate sodium 100 mg Capsule PO (09:52)
== END 2022-10-01 11:00 | disposition home health service (06) | DRG 175 ==
LOC: ER 23:18 → CSU 23:20
PROVIDERS: Admitting Provider Family Medicine; Emergency Provider Emergency Medicine; PCP Family Medicine; Visit Provider Internal Medicine
DX: I26.99 Other pulmonary embolism without acute cor pulmonale (principal); G93.41 Metabolic encephalopathy; N39.0 Urinary tract infection, site not specified; I48.91 Unspecified atrial fibrillation; E11.9 Type 2 diabetes mellitus without complications; Z86.711 Personal history of pulmonary embolism; T45.516A Underdosing of anticoagulants, initial encounter; Z91.120 Patient's intentional underdosing of medication regimen due to financial hardship; Z87.440 Personal history of urinary (tract) infections; Z79.84 Long term (current) use of oral hypoglycemic drugs; I25.10 Atherosclerotic heart disease of native coronary artery without angina pectoris; Z95.5 Presence of coronary angioplasty implant and graft; Z95.1 Presence of aortocoronary bypass graft; I15.9 Secondary hypertension, unspecified; E78.5 Hyperlipidemia, unspecified; Z88.0 Allergy status to penicillin; Z88.2 Allergy status to sulfonamides; E78.00 Pure hypercholesterolemia, unspecified
CPT/HCPCS: 36415; 36416; 70450; 71045; 71275; 74176; 80048; 80053; 81001; 82962; 83036; 83605; 83735; 83880; 84100; 84145; 84484; 85025; 85378; 85610; 85730; 86140; 87040; 87070; 87077; 87081; 87086; 87186; 87205; 87426; 87804; 87880; 93005; 93306; 93970; 94640; 94664; 96365; 96367; 96372; 96375; 97116; 97161; 97165; 99285; C9113; J0696; J1644; J1650; J1815; J1956; J3490; J7030; J7613; J7644; Q9967

== ENCOUNTER → 2022-10-11 14:00 | Outpatient (BNVA) | payer MEDICARE, SELFPAY | PROVIDERS: PCP Family Medicine; Visit Provider Family Medicine | DX: Z00.00 Encounter for general adult medical examination without abnormal findings (principal) | CPT/HCPCS: 80053; 80061; 83036; 85025 ==

== ENCOUNTER → 2022-10-20 10:56 | Outpatient (BNVA) | payer MEDICARE, SELFPAY | PROVIDERS: PCP Family Medicine; Visit Provider Family Medicine | DX: N39.0 Urinary tract infection, site not specified (principal) | CPT/HCPCS: 81000 ==

== ENCOUNTER → 2022-11-03 13:19 | Outpatient (BNVA) | payer MEDICARE, SELFPAY | PROVIDERS: PCP Family Medicine; Visit Provider Family Medicine | DX: I48.91 Unspecified atrial fibrillation (principal); Z79.01 Long term (current) use of anticoagulants | CPT/HCPCS: 85610 ==

== ENCOUNTER → 2022-11-07 08:14 | Outpatient (BNVA) | payer MEDICARE, SELFPAY | PROVIDERS: PCP Family Medicine; Visit Provider Family Medicine | DX: I48.91 Unspecified atrial fibrillation (principal); Z79.01 Long term (current) use of anticoagulants | CPT/HCPCS: 85610 ==

== ENCOUNTER → 2022-12-05 13:41 | Outpatient (BNVA) | payer MEDICARE, SELFPAY | PROVIDERS: PCP Family Medicine; Visit Provider Family Medicine | DX: I48.19 Other persistent atrial fibrillation (principal); Z79.01 Long term (current) use of anticoagulants | CPT/HCPCS: 85610 ==

== ENCOUNTER 2022-12-06 15:22 | Emergency (ER) | payer MEDICARE, MEDICAID, SELFPAY ==
[2022-12-06 15:28] VITALS: PULSE 75; RESP 14; TEMP 36.4; O2SAT 97; BMI 26.2
--- NOTE | 2022-12-06 16:26 | XRR_ITS ---
PROCEDURE INFORMATION: Exam: XR Chest Exam date and time: 12/06/2022 4:37 PM Age: 82 years old Clinical indication: Shortness of breath; Additional info: SOB TECHNIQUE: Imaging protocol: Radiologic exam of the chest. Views: 1 view. COMPARISON: CR (CHEST, ) 09/28/2022 8:09 PM FINDINGS: Lungs: No focal infiltrate or consolidation. Interval resolution patchy infiltrate achg-htsnpmq-uqux-right lower lungs from prior exam. Mild perihilar peribronchial thickening. Pleural spaces: Unremarkable. No pleural effusion. No pneumothorax. Heart/Mediastinum: No significant cardiomegaly. Vasculature: Mild arteriosclerosis of the thoracic aorta. Bones/joints: Postsurgical changes of sternotomy. Mild degenerative bony changes. XR/XR chest 1V portable [id number] IMPRESSION: 1. Postsurgical changes of sternotomy. 2. Mild perihilar peribronchial thickening may be associated with bronchiolitis, bronchitis, or reactive airways disease and correlate clinically regarding asthma or COPD. No infiltrate or effusion.
--- NOTE | 2022-12-06 16:27 | ECG_ITS ---
[facility] Test Date: 2022-12-06 Pat Name: Allyson Causey Department: Room: Gender: Female Search Engineer: : 1940 Requested By: Haley Garcia Order Number: [id number] Alonzo MD: Gael Ramos M.D. Measurements Intervals [place] Rate: 74 P: -75 PA: 180 QRS: 45 QRSD: 88 T: 60 QT: 397 QTc: 441 Interpretive Statements ECTOPIC ATRIAL RHYTHM WITH FREQUENT VENTRICULAR PREMATURE COMPLEXES IN A BIGEMINAL PATTERN LOW QRS VOLTAGE IN PRECORDIAL LEADS [QRS DEFLECTION < 1.0 mV IN CHEST LEADS] ABNORMAL RHYTHM ECG Compared to ECG 09/29/2022 02:11:03 Ectopic atrial rhythm now present Ventricular premature complex(es) now present Sinus rhythm no longer present First degree AV block no longer present T-wave abnormality no longer present Electronically Signed On 12-06-2022 18:19:13 PLUMBING FOREMAN by Gael Ramos M.D. [id number]
--- NOTE | 2022-12-06 16:30 | W.ED.SOB ---
Documented by User: KILEY Parsons 12/07/22 07:08 HPI - SOB/Dyspnea General: Chief Complaint: Shortness of Breath/Dyspnea Stated Complaint: trouble breathing Time Seen by Provider: 12/06/22 16:05 Source: patient Mode of arrival: EMS Limitations: no limitations History of Present Illness: HPI Narrative: Patient is an 82-year-old female with a history of hypertension, atrial fibrillation on warfarin therapy, previous CABG, and recurrent UTIs here for complaints of dyspnea and dizziness. Patient states symptoms started yesterday. She is not reporting any chest pain. She describes dyspnea as not being able to catch her breath. Patient denies any history of CHF. Denies risk factors for PE. She does state her warfarin was recently increased due to subtherapeutic INR. MD elicited complaint: shortness of breath Timing: constant Exacerbating factors: nothing Relieving factors: nothing Associated symptoms: Reports abdominal pain (report some vague R ab pains that she has had previously-alleviated with BM) and dizziness; Deny chest congestion, chest pain, extremity pain, fever(s), hemoptysis, lightheadedness, nausea, palpitations, syncope or vomiting Treatment prior to arrival: none Related Data: Home oxygen amount: none Review of Systems Const: Denies: fever(s) or chills Eyes: Denies: change in vision or blurry vision Card: Denies: chest pain, palpitations, irregular heart rhythm, lightheadedness, syncope or dyspnea on exertion Resp: Reports: dyspnea; Denies: productive cough, non-productive cough, wheezing, pain on inspiration, change in phlegm color, hemoptysis or chest congestion GI: Reports: abdominal pain (report some vague R ab pains that she has had previously-alleviated with BM); Denies: nausea, vomiting, heartburn or diarrhea : Denies: flank pain or dysuria Musc: Denies: neck pain, back pain, extremity pain, extremity swelling, joint pain or joint swelling Skin/Breast: Denies: rash Neuro: Reports: dizziness; Denies: headache(s), numbness in extremities, weakness in extremities, sensory changes or lack of coordination PFSH ED PFSH: Medical History Altered mental status Atrial fibrillation Atrial fibrillation with rapid ventricular response Bladder prolapse CAD (coronary artery disease) VT 1998- stents Chronic constipation Diabetes Type 2 Diverticulosis Generalized osteoarthritis Hx of pulmonary embolus 06/2008 Hypercholesterolemia Hypertension Hypoxia NSTEMI (non-ST elevated myocardial infarction) Pneumonia Recurrent UTI Urinary tract infection UTI (urinary tract infection) Surgical History 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 Family History Other CAD (coronary artery disease) Cancer Clotting disorder Social History Smoking and tobacco status: never smoked Alcohol intake: never Household members: none Physical Exam Const: COMMON NORMALS: no acute distress, average body habitus, patient oriented x3, no limitations, healthy appearing, alert and well nourished ORIENTATION/CONSCIOUSNESS: Yes awake, Yes oriented to person, Yes oriented to place and Yes oriented to time HENMT: COMMON NORMALS: normocephalic and atraumatic HEAD & SCALP: normal to inspection, normocephalic and atraumatic Neck/C-Spine: COMMON NORMALS: full ROM, no lymphadenopathy, supple and no meningeal signs Chest: COMMONS NORMALS: normal inspection of the chest and normal palpation of entire chest wall Resp: COMMON NORMALS: normal respiratory effort and clear to auscultation bilaterally AUSCULTATION: clear to auscultation bilaterally Cardio: COMMON NORMALS: regular rate RATE: regular rate RHYTHM: abnormal rhythm with ectopic beats GI: COMMON NORMALS: Normal to inspection, nondistended, normoactive bowel sounds present, Soft to palpation, non-tender, No hepatosplenomegaly present and no masses PALPATION: Yes Soft to palpation and Yes No hepatosplenomegaly present Extremity: COMMON NORMALS: normal to inspection, capillary refill normal, no joint enlargement, no clubbing, cyanosis or edema, no calf tenderness and no pedal edema GENERAL: Yes normal exam except as noted Neuro: CASSANDRA COMA SCALE: document GCS findings [place] coma scale eye opening: Spontaneous Cassandra coma scale verbal response: Orientated [place] coma scale motor response: Obey commands [place] coma scale total score: 15 COMMON NORMALS: patient oriented x3 SENSORIUM/ORIENTATION: Yes alert, Yes oriented to person, Yes oriented to place and Yes oriented to time MENINGEAL SIGNS: Yes no meningeal signs Skin: COMMON NORMALS: no rashes or lesions noted GENERAL SKIN EXAM: no rashes or lesions noted Course Vital Signs: Vital signs: Vital Signs Temperature 97.5 F L 12/06/22 15:28 Pulse Rate 95 12/06/22 18:44 Respiratory Rate 16 12/06/22 18:44 Blood Pressure 159/110 12/06/22 18:44 Pulse Oximetry 96 12/06/22 18:44 Oxygen Delivery Me thod 12/06/22 18:44 MDM - SOB/Dyspnea Medical Decision Making Care transferred to Dr. Nascimento at end of my shift. Plan for this time will be for possible admission due to her symptomatic ventricular bigeminy Lab Data 12/06/22 16:52 12/06/22 16:52 Labs/Radiology: Radiology Impressions Chest X-Ray 12/06/22 16:26 IMPRESSION: 1. Postsurgical changes of sternotomy. 2. Mild perihilar peribronchial thickening may be associated with bronchiolitis, bronchitis, or reactive airways disease and correlate clinically regarding asthma or COPD. No infiltrate or effusion. Laboratory Results WBC 8.5 10^3/uL (4.0-10.0) 12/06/22 16:52 RBC 4.19 10^6/uL (4.1-5.3) 12/06/22 16:52 Hgb 12.4 g/dL (11.5-15.3) 12/06/22 16:52 Hct 38.3 % (37.0-47.0) 12/06/22 16:52 MCV 91.4 fl (81-99) 12/06/22 16:52 MCH 29.6 pg (28.0-34.0) 12/06/22 16:52 MCHC 32.4 g/dL (30.0-36.0) 12/06/22 16:52 RDW 16.2 % (12.1-15.1) H 12/06/22 16:52 Plt Count 188 10^3/cmm (130-400) 12/06/22 16:52 MPV 12.6 fL (7.4-10.4) H 12/06/22 16:52 Neut % (Auto) 52.8 % 12/06/22 16:52 Lymph % (Auto) 37.7 % 12/06/22 16:52 Winn % (Auto) 7.3 % 12/06/22 16:52 Eos % (Auto) 1.3 % 12/06/22 16:52 Baso % (Auto) 0.7 % 12/06/22 16:52 Neut # (Auto) 4.49 10^3/uL (1.8-7.7) 12/06/22 16:52 Lymph # (Auto) 3.2 10^3/uL (0.8-4.8) 12/06/22 16:52 Winn # (Auto) 0.6 10^3/uL (0.2-0.9) 12/06/22 16:52 Eos # (Auto) 0.1 10^3/uL (0.0-0.8) 12/06/22 16:52 Baso # (Auto) 0.1 10^3/uL (0.0-0.1) 12/06/22 16:52 Nucleated RBC % (auto) 0 % 12/06/22 16:52 Nucleated RBCs # 0.0 /100WBC 12/06/22 16:52 PT 16.20 SECONDS (12.1-14.9) H 12/06/22 16:52 INR 1.26 (0.8-1.2) H 12/06/22 16:52 Sodium 140 mmol/L (136-145) 12/06/22 16:52 Potassium 3.8 mmol/L (3.5-5.1) 12/06/22 16:52 Chloride 105 mmol/L (98-107) 12/06/22 16:52 Carbon Dioxide 23 mmol/L (22-29) 12/06/22 16:52 Anion Gap 15.8 (5-19) 12/06/22 16:52 BUN 22 mg/dL (8-23) 12/06/22 16:52 Creatinine 0.7 mg/dL (0.5-0.9) 12/06/22 16:52 GFR Calculation Not Reportable 12/06/22 16:52 Glucose 103 mg/dL (65-115) 12/06/22 16:52 Calculated Osmolality 294 mOsm/kg (285-295) 12/06/22 16:52 Calcium 9.3 mg/dL (8.5-10.5) 12/06/22 16:52 Magnesium 1.9 mg/dL (1.7-2.3) 12/06/22 16:52 Total Bilirubin 0.4 mg/dL (0.15-1.2) 12/06/22 16:52 AST 19 U/L (0-32) 12/06/22 16:52 ALT 14 U/L (0-33) 12/06/22 16:52 Alkaline Phosphatase 61 U/L (35-105) 12/06/22 16:52 Troponin T Baseline 22 ng/L (0-10) H 12/06/22 16:52 Troponin T 120 Minute 21.39 ng/L (0-10) H 12/06/22 18:57 Delta Troponin T -0.61 ABS# (0-10) L 12/06/22 18:57 NT-Pro-B Natriuret Pep 1110 pg/mL (0-450) H 12/06/22 16:52 Total Protein 6.8 g/dL (6.6-8.7) 12/06/22 16:52 Albumin 4.2 g/dL (3.5-5.2) 12/06/22 16:52 Globulin 2.6 g/dL (1.3-4.6) 12/06/22 16:52 TSH 0.91 uIU/mL (0.27-4.20) 12/06/22 16:52 EKG Data EKG 1: EKG Interpretation Date: 12/06/22 EKG interpretation time: 16:33 Prior EKG tracings: available for review Interpretation: Ventricular bigeminy with a rate of 74 Normal OR interval Normal QTc Discharge Plan Discharge Patient Disposition: Left Against Medical Advice Clinical Impression: SOB (shortness of breath), Abdominal discomfort, epigastric, Arrhythmia Condition: Stable Prescriptions: No Action B Complex Plus Vitamin C 35-61-42-5-300 mg capsule 1 cap PO DAILY Rx Instructions: give with food (meal/snack) multivitamin Tablet 1 tab PO DAILY Azo Cranberry 250 mg tablet,chewable 250 mg PO DAILY cholecalciferol (vitamin D3) 10 mcg (400 unit) capsule 10 mcg PO DAILY vitamin E acetate 134 mg (200 unit) capsule 134 mg PO DAILY omeprazole 20 mg capsule,delayed release(DR/EC) 20 mg PO BID docusate sodium [Colace] 100 mg capsule 100 mg PO DAILY warfarin 4 mg tablet 4 mg PO DAILY Qty: 30 1RF metoprolol tartrate 50 mg tablet 50 mg PO BID Qty: 180 3RF (DME) [facility] testing See Rx Instructions .Route .MEDSUPPLY Qty: 1 0RF Rx Instructions: check protime as directed. glipizide 5 mg tablet extended release 24hr 2.5 mg PO DAILY Referrals: Jl Rosenbaum, [Primary Care Provider] - Print Language: Bermudian Sign Out Sign Out Data: Patient Sign Out occurred on 12/06/22 at 17:02. Patient's care was discussed, and care was transferred from to Dylon Nascimento MD. Coding Level of Care Code ED Wool Grower for Chg Fwd Documented by User: Dylon Nascimento MD 12/20/22 20:19 HPI - SOB/Dyspnea General: Chief Complaint: Shortness of Breath/Dyspnea Stated Complaint: trouble breathing Time Seen by Provider: 12/06/22 16:05 PFSH ED PFSH: Medical History Altered mental status Atrial fibrillation Atrial fibrillation with rapid ventricular response Bladder prolapse CAD (coronary artery disease) VT 1998- stents Chronic constipation Diabetes Type 2 Diverticulosis Generalized osteoarthritis Hx of pulmonary embolus 06/2008 Hypercholesterolemia Hypertension Hypoxia NSTEMI (non-ST elevated myocardial infarction) Pneumonia Recurrent UTI Urinary tract infection UTI (urinary tract infection) Surgical History 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 Family History Other CAD (coronary artery disease) Cancer Clotting disorder Social History Smoking and tobacco status: never smoked Alcohol intake: never Household members: none Physical Exam Neuro: CASSANDRA COMA SCALE: document GCS findings [place] coma scale total score: 15 Course Vital Signs: Vital signs: Vital Signs Temperature 97.5 F L 12/06/22 15:28 Pulse Rate 95 03/07/23 18:44 Respiratory Rate 16 12/06/22 18:44 Blood Pressure 159/110 12/06/22 18:44 Pulse Oximetry 96 12/06/22 18:44 Oxygen Delivery Me thod 12/06/22 18:44 MDM - SOB/Dyspnea Medical Decision Making Care transferred to Dr. Nascimento at end of my shift. Plan for this time will be for possible admission due to her symptomatic ventricular bigeminy Patient discussed with KILEY Parsons. I personally saw and evaluated the patient and reperformed castellano portions of E/M. EKG notable for sinus rhythm with frequent PVCs, no STEMI. Labs with no significant hematologic abnormality or metabolic abnormality to explain change. Chest x-ray with mild peribronchial thickening, no lobar consolidation or pneumothorax. Patient left AGAINST MEDICAL ADVICE prior to completion of ED evaluation. Lab Data 12/06/22 16:52 12/06/22 16:52 Labs/Radiology: Radiology Impressions Chest X-Ray 12/06/22 16:26 IMPRESSION: 1. Postsurgical changes of sternotomy. 2. Mild perihilar peribronchial thickening may be associated with bronchiolitis, bronchitis, or reactive airways disease and correlate clinically regarding asthma or COPD. No infiltrate or effusion. Laboratory Results WBC 8.5 10^3/uL (4.0-10.0) 12/06/22 16:52 RBC 4.19 10^6/uL (4.1-5.3) 12/06/22 16:52 Hgb 12.4 g/dL (11.5-15.3) 12/06/22 16:52 Hct 38.3 % (37.0-47.0) 12/06/22 16:52 MCV 91.4 fl (81-99) 12/06/22 16:52 MCH 29.6 pg (28.0-34.0) 12/06/22 16:52 MCHC 32.4 g/dL (30.0-36.0) 12/06/22 16:52 RDW 16.2 % (12.1-15.1) H 12/06/22 16:52 Plt Count 188 10^3/cmm (130-400) 12/06/22 16:52 MPV 12.6 fL (7.4-10.4) H 12/06/22 16:52 Neut % (Auto) 52.8 % 12/06/22 16:52 Lymph % (Auto) 37.7 % 12/06/22 16:52 Winn % (Auto) 7.3 % 12/06/22 16:52 Eos % (Auto) 1.3 % 12/06/22 16:52 Baso % (Auto) 0.7 % 12/06/22 16:52 Neut # (Auto) 4.49 10^3/uL (1.8-7.7) 12/06/22 16:52 Lymph # (Auto) 3.2 10^3/uL (0.8-4.8) 12/06/22 16:52 Winn # (Auto) 0.6 10^3/uL (0.2-0.9) 12/06/22 16:52 Eos # (Auto) 0.1 10^3/uL (0.0-0.8) 12/06/22 16:52 Baso # (Auto) 0.1 10^3/uL (0.0-0.1) 12/06/22 16:52 Nucleated RBC % (auto) 0 % 12/06/22 16:52 Nucleated RBCs # 0.0 /100WBC 12/06/22 16:52 PT 16.20 SECONDS (12.1-14.9) H 12/06/22 16:52 INR 1.26 (0.8-1.2) H 12/06/22 16:52 Sodium 140 mmol/L (136-145) 12/06/22 16:52 Potassium 3.8 mmol/L (3.5-5.1) 12/06/22 16:52 Chloride 105 mmol/L (98-107) 12/06/22 16:52 Carbon Dioxide 23 mmol/L (22-29) 12/06/22 16:52 Anion Gap 15.8 (5-19) 12/06/22 16:52 BUN 22 mg/dL (8-23) 12/06/22 16:52 Creatinine 0.7 mg/dL (0.5-0.9) 12/06/22 16:52 GFR Calculation Not Reportable 12/06/22 16:52 Glucose 103 mg/dL (65-115) 12/06/22 16:52 Calculated Osmolality 294 mOsm/kg (285-295) 12/06/22 16:52 Calcium 9.3 mg/dL (8.5-10.5) 12/06/22 16:52 Magnesium 1.9 mg/dL (1.7-2.3) 12/06/22 16:52 Total Bilirubin 0.4 mg/dL (0.15-1.2) 12/06/22 16:52 AST 19 U/L (0-32) 12/06/22 16:52 ALT 14 U/L (0-33) 12/06/22 16:52 Alkaline Phosphatase 61 U/L (35-105) 12/06/22 16:52 Troponin T Baseline 22 ng/L (0-10) H 12/06/22 16:52 Troponin T 120 Minute 21.39 ng/L (0-10) H 12/06/22 18:57 Delta Troponin T -0.61 ABS# (0-10) L 12/06/22 18:57 NT-Pro-B Natriuret Pep 1110 pg/mL (0-450) H 12/06/22 16:52 Total Protein 6.8 g/dL (6.6-8.7) 12/06/22 16:52 Albumin 4.2 g/dL (3.5-5.2) 12/06/22 16:52 Globulin 2.6 g/dL (1.3-4.6) 12/06/22 16:52 TSH 0.91 uIU/mL (0.27-4.20) 12/06/22 16:52 Discharge Plan Discharge Patient Disposition: Left Against Medical Advice Clinical Impression: SOB (shortness of breath), Abdominal discomfort, epigastric, Arrhythmia Condition: Stable Prescriptions: No Action B Complex Plus Vitamin C 41-24-93-5-300 mg capsule 1 cap PO DAILY Rx Instructions: give with food (meal/snack) multivitamin Tablet 1 tab PO DAILY Azo Cranberry 250 mg tablet,chewable 250 mg PO DAILY cholecalciferol (vitamin D3) 10 mcg (400 unit) capsule 10 mcg PO DAILY vitamin E acetate 134 mg (200 unit) capsule 134 mg PO DAILY omeprazole 20 mg capsule,delayed release(DR/EC) 20 mg PO BID docusate sodium [Colace] 100 mg capsule 100 mg PO DAILY warfarin 4 mg tablet 4 mg PO DAILY Qty: 30 1RF metoprolol tartrate 50 mg tablet 50 mg PO BID Qty: 180 3RF (DME) [facility] testing See Rx Instructions .Route .MEDSUPPLY Qty: 1 0RF Rx Instructions: check protime as directed. glipizide 5 mg tablet extended release 24hr 2.5 mg PO DAILY Referrals: Jl Rosenbaum, [Primary Care Provider] - Print Language: Bermudian Sign Out Sign Out Data: Patient Sign Out occurred on 12/06/22 at 17:02. Patient's care was discussed, and care was transferred from to Dylon Nascimento MD. Coding Level of Care Code ED Wool Grower for Anupam Gomes
[2022-12-06 17:14] LABS: Basophils # 0.1 10^3/uL (0.0-0.1); Basophils % 0.7 %; Eosinophils # 0.1 10^3/uL (0.0-0.8); Eosinophils % 1.3 %; Hematocrit 38.3 % (37.0-47.0); Hemoglobin 12.4 g/dL (11.5-15.3); Lymphocytes # 3.2 10^3/uL (0.8-4.8); Lymphocytes % 37.7 %; Mean Corpuscular HGB Conc 32.4 g/dL (30.0-36.0); Mean Corpuscular Hemoglobin 29.6 pg (28.0-34.0); Mean Corpuscular Volume 91.4 fl (81-99); Mean Platelet Volume 12.6 fL (7.4-10.4); Monocytes # 0.6 10^3/uL (0.2-0.9); Monocytes % 7.3 %; Neutrophils # 4.49 10^3/uL (1.8-7.7); Neutrophils % 52.8 %; Nucleated Red Blood Cells % 0 %; Platelet Count 188 10^3/cmm (130-400); Red Blood Count 4.19 10^6/uL (4.1-5.3); Red Cell Distribution Width 16.2 % (12.1-15.1); White Blood Count 8.5 10^3/uL (4.0-10.0)
[2022-12-06 17:26] LABS: INR 1.26 (0.8-1.2)
[2022-12-06 17:31] LABS: Troponin(5th) Baseline 22 ng/L (0-10)
[2022-12-06 17:41] LABS: Alanine Aminotransferase 14 U/L (0-33); Albumin Level 4.2 g/dL (3.5-5.2); Alkaline Phosphatase 61 U/L (35-105); Anion Gap 15.8 (5-19); Aspartate Amino Transferase 19 U/L (0-32); Blood Urea Nitrogen 22 mg/dL (8-23); Calcium 9.3 mg/dL (8.5-10.5); Carbon Dioxide 23 mmol/L (22-29); Chloride 105 mmol/L (98-107); Globulin 2.6 g/dL (1.3-4.6); Glucose 103 mg/dL (65-115); Magnesium 1.9 mg/dL (1.7-2.3); NT Pro B Type Natriuretic Pept 1110 pg/mL (0-450); Osmolality Calculated 294 mOsm/kg (285-295); Potassium 3.8 mmol/L (3.5-5.1); Sodium 140 mmol/L (136-145); Thyroid Stimulating Hormone 0.91 uIU/mL (0.27-4.20); Total Bilirubin 0.4 mg/dL (0.15-1.2); Total Protein 6.8 g/dL (6.6-8.7)
--- NOTE | 2022-12-06 18:41 | PC.NURSE ---
PT REQUESTS TO LEAVE. PT INFORMED THAT 2ND TROPONIN DRAW IS AT 1853 SHE VERBALIZED SHE WANTED TO STAY AND THEN LEAVE AFTER 2ND TROPONIN DRAW. SHE REFUSED WEARING CM, NIBP, AND SPO2 MONITOR. INFORMED DR. MIKAELA TERRY TO REQUIRE PT TO SIGN AMA FORM.
[2022-12-06 18:44] VITALS: BP 159/110; PULSE 95; RESP 16; O2SAT 96
--- NOTE | 2022-12-06 18:44 | ECG_ITS ---
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 Measurements Intervals [place] Rate: 107 P: 0 AR: 0 QRS: 20 QRSD: 92 T: 87 QT: 321 QTc: 428 Interpretive Statements Atrial fibrillation with rapid ventricular response NONSPECIFIC ST & T-WAVE ABNORMALITY ABNORMAL RHYTHM ECG Compared to ECG 12/06/2022 16:33:26 Aberrant conduction of supraventricular beat(s) now present T-wave abnormality now present Ectopic atrial rhythm no longer present Electronically Signed On 12-07-2022 15:10:41 AUTOMOTIVE SALES SPECIALIST by Gael Ramos M.D. [id number]
[2022-12-06 19:25] LABS: Troponin 5 2HR 21.39 ng/L (0-10)
[2022-12-06 19:26] LABS: Troponin 5 2HR Delta -0.61 ABS# (0-10)
== END 2022-12-06 20:40 | disposition left against medical advice (07) ==
PROVIDERS: Physician Assistant; Emergency Provider Emergency Medicine; PCP Family Medicine
DX: R06.02 Shortness of breath (principal); R10.13 Epigastric pain; I49.9 Cardiac arrhythmia, unspecified; Z53.21 Procedure and treatment not carried out due to patient leaving prior to being seen by health care provider; Z79.01 Long term (current) use of anticoagulants; Z79.84 Long term (current) use of oral hypoglycemic drugs; I25.10 Atherosclerotic heart disease of native coronary artery without angina pectoris; I25.2 Old myocardial infarction; E11.9 Type 2 diabetes mellitus without complications; I10 Essential (primary) hypertension; Z95.1 Presence of aortocoronary bypass graft
CPT/HCPCS: 36415; 71045; 80053; 83735; 83880; 84443; 84484; 85025; 85610; 93005; 99285

== ENCOUNTER → 2022-12-22 12:58 | Outpatient (BNVA) | payer MEDICARE, MEDICAID, SELFPAY | PROVIDERS: PCP Family Medicine; Visit Provider Family Medicine | DX: I48.19 Other persistent atrial fibrillation (principal) | CPT/HCPCS: 85610 ==

== ENCOUNTER → 2022-12-27 14:29 | Outpatient (BNVA) | payer MEDICARE, SELFPAY | PROVIDERS: PCP Family Medicine; Visit Provider Family Medicine | DX: N39.0 Urinary tract infection, site not specified (principal) | CPT/HCPCS: 81000; 87077; 87086; 87184 ==

== ENCOUNTER → 2023-01-20 08:25 | Outpatient (BNVA) | payer MEDICARE, SELFPAY | PROVIDERS: PCP Family Medicine; Visit Provider Clinical Nurse Specialist Adult Health | DX: N39.0 Urinary tract infection, site not specified (principal); I48.19 Other persistent atrial fibrillation | CPT/HCPCS: 81000 ==

== ENCOUNTER → 2023-01-23 14:19 | Outpatient (BNVA) | payer MEDICARE, MEDICAID, SELFPAY | PROVIDERS: PCP Family Medicine; Visit Provider Family Medicine | DX: I48.19 Other persistent atrial fibrillation (principal) | CPT/HCPCS: 85610 ==

== ENCOUNTER → 2023-02-06 09:59 | Outpatient (BNVA) | payer MEDICARE, MEDICAID, SELFPAY | PROVIDERS: PCP Family Medicine; Visit Provider Clinical Nurse Specialist Adult Health | DX: I48.19 Other persistent atrial fibrillation (principal); E11.9 Type 2 diabetes mellitus without complications | CPT/HCPCS: 83036; 85610 ==

== ENCOUNTER → 2023-02-20 14:23 | Outpatient (BNVA) | payer MEDICARE, MEDICAID, SELFPAY | PROVIDERS: PCP Family Medicine; Visit Provider Clinical Nurse Specialist Adult Health | DX: N39.0 Urinary tract infection, site not specified (principal); I48.19 Other persistent atrial fibrillation | CPT/HCPCS: 81000; 85610; 87077; 87086; 87184 ==

== ENCOUNTER → 2023-03-07 12:35 | Outpatient (BNVA) | payer MEDICARE, MEDICAID, SELFPAY | PROVIDERS: PCP Family Medicine; Visit Provider Family Medicine | DX: N39.0 Urinary tract infection, site not specified (principal); I48.19 Other persistent atrial fibrillation; Z79.01 Long term (current) use of anticoagulants | CPT/HCPCS: 81003; 85610 ==

== ENCOUNTER → 2023-03-15 15:17 | Outpatient (BNVA) | payer MEDICARE, MEDICAID, SELFPAY | PROVIDERS: PCP Family Medicine; Visit Provider Family Medicine | DX: I48.19 Other persistent atrial fibrillation (principal); Z79.01 Long term (current) use of anticoagulants | CPT/HCPCS: 85610 ==

== ENCOUNTER → 2023-04-05 14:47 | Outpatient (BNVA) | payer MEDICARE, MEDICAID, SELFPAY | PROVIDERS: PCP Clinical Nurse Specialist Adult Health; Visit Provider Family Medicine | DX: Z79.01 Long term (current) use of anticoagulants (principal); I48.91 Unspecified atrial fibrillation | CPT/HCPCS: 85610 ==

== ENCOUNTER → 2023-04-17 14:32 | Outpatient (BNVA) | payer MEDICARE, MEDICAID, SELFPAY | PROVIDERS: PCP Clinical Nurse Specialist Adult Health; Visit Provider Clinical Nurse Specialist Adult Health | DX: Z79.01 Long term (current) use of anticoagulants (principal) | CPT/HCPCS: 85610 ==

== ENCOUNTER → 2023-05-02 09:48 | Outpatient (BNVA) | payer MEDICARE, MEDICAID, SELFPAY | PROVIDERS: PCP Clinical Nurse Specialist Adult Health; Visit Provider Clinical Nurse Specialist Adult Health | DX: I10 Essential (primary) hypertension (principal); Z00.00 Encounter for general adult medical examination without abnormal findings | CPT/HCPCS: 85610 ==

== ENCOUNTER → 2023-05-17 08:39 | Outpatient (BNVA) | payer MEDICARE, MEDICAID, SELFPAY | PROVIDERS: PCP Clinical Nurse Specialist Adult Health; Visit Provider Clinical Nurse Specialist Adult Health | DX: Z79.01 Long term (current) use of anticoagulants (principal) | CPT/HCPCS: 85610 ==

== ENCOUNTER → 2023-05-30 14:17 | Outpatient (BNVA) | payer MEDICARE, MEDICAID, SELFPAY | PROVIDERS: PCP Clinical Nurse Specialist Adult Health; Visit Provider Clinical Nurse Specialist Adult Health | DX: I48.19 Other persistent atrial fibrillation | CPT/HCPCS: 85610 ==

== ENCOUNTER → 2023-06-13 08:52 | Outpatient (BNVA) | payer MEDICARE, MEDICAID, SELFPAY | PROVIDERS: PCP Clinical Nurse Specialist Adult Health; Visit Provider Clinical Nurse Specialist Adult Health | DX: E11.9 Type 2 diabetes mellitus without complications; E55.9 Vitamin D deficiency, unspecified; I48.91 Unspecified atrial fibrillation; Z79.01 Long term (current) use of anticoagulants; I10 Essential (primary) hypertension; I48.19 Other persistent atrial fibrillation; I15.9 Secondary hypertension, unspecified | CPT/HCPCS: 80053; 80061; 82306; 83036; 85025; 85610 ==

== ENCOUNTER → 2023-07-10 08:23 | Outpatient (BNVA) | payer MEDICARE, MEDICAID, SELFPAY | PROVIDERS: PCP Clinical Nurse Specialist Adult Health; Visit Provider Clinical Nurse Specialist Adult Health | DX: N39.0 Urinary tract infection, site not specified (principal); Z79.01 Long term (current) use of anticoagulants; F32.A Depression, unspecified; I48.91 Unspecified atrial fibrillation; E11.9 Type 2 diabetes mellitus without complications; M15.9 Polyosteoarthritis, unspecified; I10 Essential (primary) hypertension | CPT/HCPCS: 81000; 85610; 87077; 87086; 87184 ==

== ENCOUNTER → 2023-08-10 08:57 | Outpatient (BNVA) | payer MEDICARE, MEDICAID, SELFPAY | PROVIDERS: PCP Clinical Nurse Specialist Adult Health; Visit Provider Clinical Nurse Specialist Adult Health | DX: N39.0 Urinary tract infection, site not specified (principal); Z79.01 Long term (current) use of anticoagulants; R10.84 Generalized abdominal pain | CPT/HCPCS: 81000; 85610; 87077; 87086; 87184 ==

== ENCOUNTER → 2023-08-22 08:19 | Outpatient (BNVA) | payer MEDICARE, MEDICAID, SELFPAY | PROVIDERS: PCP Clinical Nurse Specialist Adult Health; Visit Provider Clinical Nurse Specialist Adult Health | DX: Z79.01 Long term (current) use of anticoagulants (principal); R31.9 Hematuria, unspecified; N39.0 Urinary tract infection, site not specified; I48.19 Other persistent atrial fibrillation | CPT/HCPCS: 81000; 85610 ==

== ENCOUNTER → 2023-09-06 14:32 | Outpatient (BNVA) | payer MEDICARE, MEDICAID, SELFPAY | PROVIDERS: PCP Clinical Nurse Specialist Adult Health; Visit Provider Clinical Nurse Specialist Adult Health | DX: N39.0 Urinary tract infection, site not specified (principal); R30.0 Dysuria; I48.19 Other persistent atrial fibrillation | CPT/HCPCS: 81003; 85610 ==

== ENCOUNTER → 2023-09-12 11:02 | Outpatient (BNVA) | payer MEDICARE, MEDICAID, SELFPAY | PROVIDERS: PCP Clinical Nurse Specialist Adult Health; Visit Provider Clinical Nurse Specialist Adult Health | DX: E11.9 Type 2 diabetes mellitus without complications (principal); I48.19 Other persistent atrial fibrillation; E55.9 Vitamin D deficiency, unspecified; I15.9 Secondary hypertension, unspecified; N39.0 Urinary tract infection, site not specified; R10.84 Generalized abdominal pain | CPT/HCPCS: 80053; 81000; 82306; 83036; 85025; 85610; 87077; 87086; 87184 ==

== ENCOUNTER 2023-10-05 12:49 | Outpatient (CLI) | payer MEDICARE, MEDICAID, SELFPAY | END 2023-10-05 12:50 | disposition home or self-care (01) | LOC: RAD 12:51 | PROVIDERS: PCP Clinical Nurse Specialist Adult Health; Visit Provider Clinical Nurse Specialist Adult Health | DX: R06.02 Shortness of breath (principal); Z79.01 Long term (current) use of anticoagulants; K59.00 Constipation, unspecified; K56.7 Ileus, unspecified | CPT/HCPCS: 71046; 74019; 85610 ==

== ENCOUNTER → 2023-11-13 11:13 | Outpatient (BNVA) | payer MEDICARE, MEDICAID, SELFPAY | PROVIDERS: PCP Clinical Nurse Specialist Adult Health; Visit Provider Clinical Nurse Specialist Adult Health | DX: N39.0 Urinary tract infection, site not specified (principal); E11.9 Type 2 diabetes mellitus without complications; Z79.01 Long term (current) use of anticoagulants; I48.19 Other persistent atrial fibrillation | CPT/HCPCS: 81000; 85610; 87077; 87086; 87184 ==

== ENCOUNTER → 2023-12-28 09:57 | Outpatient (BNVA) | payer MEDICARE, MEDICAID, SELFPAY | PROVIDERS: PCP Clinical Nurse Specialist Adult Health; Visit Provider Clinical Nurse Specialist Adult Health | DX: R31.9 Hematuria, unspecified (principal); M15.9 Polyosteoarthritis, unspecified; E11.9 Type 2 diabetes mellitus without complications; K57.90 Diverticulosis of intestine, part unspecified, without perforation or abscess without bleeding; Z79.01 Long term (current) use of anticoagulants; I48.19 Other persistent atrial fibrillation; I15.9 Secondary hypertension, unspecified | CPT/HCPCS: 85610 ==

== ENCOUNTER → 2024-01-01 10:18 | Outpatient (BNVA) | payer MEDICARE, MEDICAID, SELFPAY | PROVIDERS: PCP Clinical Nurse Specialist Adult Health; Visit Provider Clinical Nurse Specialist Adult Health | DX: N39.0 Urinary tract infection, site not specified (principal) | CPT/HCPCS: 81000 ==

== ENCOUNTER → 2024-01-18 09:58 | Outpatient (BNVA) | payer MEDICARE, MEDICAID, SELFPAY | PROVIDERS: PCP Clinical Nurse Specialist Adult Health; Visit Provider Clinical Nurse Specialist Adult Health | DX: I48.19 Other persistent atrial fibrillation (principal); Z79.01 Long term (current) use of anticoagulants | CPT/HCPCS: 85610 ==

== ENCOUNTER → 2024-01-23 08:45 | Outpatient (BNVA) | payer MEDICARE, MEDICAID, SELFPAY | PROVIDERS: PCP Clinical Nurse Specialist Adult Health; Visit Provider Clinical Nurse Specialist Adult Health | DX: N39.0 Urinary tract infection, site not specified (principal) | CPT/HCPCS: 81000; 87077; 87086; 87184 ==

== ENCOUNTER 2024-02-27 10:18 | Emergency (ER) | payer MEDICARE, MEDICAID, SELFPAY ==
--- NOTE | 2024-02-27 10:27 | XR_ITS ---
WS: [id number] PORTABLE CHEST HISTORY: chest pain COMPARISON: 10/05/2023 Prior CABG. Lungs are clear and well expanded. No pleural effusion or pneumothorax. Cardiac size: Normal. Mediastinum/Aorta: Mild atherosclerosis aorta. RIGHT curvature thoracic spine. XR/XR chest 1V portable [id number] IMPRESSION: No acute cardiopulmonary disease. Stable chest.
--- NOTE | 2024-02-27 10:28 | ECG_ITS ---
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 Measurements Intervals [place] Rate: 103 P: 0 RI: 0 QRS: 48 QRSD: 94 T: 158 QT: 331 QTc: 435 Interpretive Statements ATRIAL FIBRILLATION WITH RAPID VENTRICULAR RESPONSE WITH ABERRANT CONDUCTION OR VENTRICULAR PREMATURE COMPLEXES MODERATE ST DEPRESSION [0.05+ mV ST DEPRESSION] ABNORMAL QRS-T ANGLE [QRS-T AXIS DIFFERENCE > 60] Compared to ECG 12/06/2022 18:44:33 Aberrant conduction of supraventricular beat(s) now present Ventricular premature complex(es) now present ST (T wave) deviation now present T-wave abnormality no longer present Electronically Signed On 02-27-2024 16:49:15 CDT by Jacob Kwong M.D. [id number]
[2024-02-27 10:34] VITALS: BP 143/97; PULSE 88; RESP 16; TEMP 37.1; O2SAT 96
--- NOTE | 2024-02-27 10:38 | W.ED.CHESTPA ---
HPI - Chest Pain General: Chief Complaint: Chest Pain Stated Complaint: Chest pain, Dizzy Time Seen by Provider: 02/27/24 10:27 Source: patient Mode of arrival: EMS History of Present Illness: 83-year-old female who presents to the emergency room with complaints of chest tightness radiating into her arms bilaterally. She was doing some outdoor chores nothing very heavily exertional began to have this chest tightness radiating to her arms that portion is resolved. MD complaint: chest pain Pertinent past history: coronary artery disease Onset (ago): hour(s) Timing of current episode: episodic Onset: during exertion Pain radiation: right arm, left arm, left shoulder and right shoulder Severity: mild Quality: tightness Relieving factors: nothing Associated symptoms: Deny abdominal pain, diaphoresis, dyspnea, fever(s), leg edema, nausea, palpitations, sense of impending doom, syncope or vomiting Treatment prior to arrival: aspirin and other (Refused aspirin from EMS) Review of Systems Const: Denies: fever(s), chills or diaphoresis Card: Reports: chest pain ( Tightness ); Denies: palpitations or syncope Resp: Denies: dyspnea GI: Denies: abdominal pain, nausea or vomiting : Denies: dysuria, urinary frequency or urinary urgency Musc: Denies: neck pain or back pain Skin/Breast: Denies: rash PFSH ED PFSH: Medical History Vitamin D deficiency Fungal infection of nail Tinea pedis NSTEMI (non-ST elevated myocardial infarction) Hypoxia Pneumonia Urinary tract infection Altered mental status Atrial fibrillation with rapid ventricular response Diverticulosis Hx of pulmonary embolus 06/2008 CAD (coronary artery disease) [place] 1998-2 stents Atrial fibrillation chronic warfarin with goal of 2.0-3.0 Generalized osteoarthritis Chronic constipation Bladder prolapse Recurrent UTI Hypercholesterolemia Hypertension Diabetes Type 2 UTI (urinary tract infection) Surgical History Hx of colonoscopy colonoscopy in 1999 wiht two polyps, repeat clear 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 Family History Other CAD (coronary artery disease) Cancer Clotting disorder Social History Smoking and tobacco/nicotine status: never used tobacco/nicotine Alcohol intake: never Household members: none Physical Exam Const: COMMON NORMALS: no acute distress GENERAL APPEARANCE: cooperative and comfortable ORIENTATION/CONSCIOUSNESS: Yes awake, Yes oriented to person, Yes oriented to place and Yes oriented to time HENMT: COMMON NORMALS: normocephalic, atraumatic and hearing grossly normal bilaterally HEAD & SCALP: normocephalic and atraumatic Resp: COMMON NORMALS: normal respiratory effort, No retractions, No use of accessory muscles and clear to auscultation bilaterally AUSCULTATION: clear to auscultation bilaterally Cardio: COMMON NORMALS: regular rate, regular rhythm and No murmurs present (Cardio) RATE: regular rate RHYTHM: regular rhythm GI: COMMON NORMALS: Soft to palpation and No hepatosplenomegaly present AUSCULTATION: Yes normoactive bowel sounds PALPATION: Yes Soft to palpation, No Tenderness to palpation present (GI), No Guarding due to palpation present (GI) and Yes No hepatosplenomegaly present Extremity: COMMON NORMALS: normal to inspection, capillary refill normal, no clubbing, cyanosis or edema, no calf tenderness and no pedal edema Neuro: SENSORIUM/ORIENTATION: Yes oriented to person, Yes oriented to place and Yes oriented to time Skin: COMMON NORMALS: no rashes or lesions noted GENERAL SKIN EXAM: no rashes or lesions noted Course Vital Signs: Vital signs: Vital Signs Temperature 98.8 F 02/27/24 10:34 Pulse Rate 86 02/27/24 12:32 Respiratory Rate 16 02/27/24 10:34 Blood Pressure 129/92 02/27/24 12:32 Pulse Oximetry 95 02/27/24 12:32 Oxygen Delivery Me thod Room Air 02/27/24 12:32 MDM - Chest Pain Medical Decision Making Patient is having no further symptoms. Labs and imaging reviewed. EKG does not show any acute ST changes cardiac enzymes trending stable. Patient is having no further symptoms at this time. CTA and chest x-ray are unremarkable. There is some chronic changes in the CTA but no evidence of PE. She is not having any further shortness of breath or complaints at this time. Will discharge patient home set up for an outpatient Lexiscan sestamibi stress test. Patient has some chronic GI complaints as well these remain unchanged. She denies any medic easier melena her INR is in normal range. Continue current medications discharge patient home follow-up with the outpatient sestamibi stress test and follow-up with primary care regarding her chronic GI issues. Medical Records I reviewed the patient's medical records. Lab Data I reviewed the patient's lab results. 02/27/24 10:30 02/27/24 10:30 Radiology Impressions Chest X-Ray 02/27/24 10:27 IMPRESSION: No acute cardiopulmonary disease. Stable chest. Head CT 02/27/24 11:10 IMPRESSION: 1. No evidence of intracranial hemorrhage or mass effect. 2. LEFT maxillary sinusitis. 3. Intracranial vascular calcification. 4. No acute intracranial findings. Chest CTA 02/27/24 11:22 IMPRESSION: 1. No evidence of pulmonary embolus. 2. Slight hazy groundglass attenuation throughout both lungs can be seen with infectious or inflammatory etiologies, hypersensitivity pneumonitis, and small airway disease Laboratory Results WBC 8.26 10^3/uL (3.29-11.43) 02/27/24 10:30 RBC 4.75 10^6/uL (3.85-5.65) 02/27/24 10:30 Hgb 14.80 g/dL (11.27-16.99) 02/27/24 10:30 Hct 45.5 % (36-47) 02/27/24 10:30 MCV 95.8 fl (85-98) 02/27/24 10:30 MCH 31.2 pg (27-33) 02/27/24 10:30 MCHC 32.5 g/dL (30-55) 02/27/24 10:30 RDW 14.3 % (12.1-15.1) 02/27/24 10:30 Plt Count 184 10^3/cmm (157-399) 02/27/24 10:30 MPV 12.6 fL (7.4-10.4) H 02/27/24 10:30 Neut % (Auto) 57.5 % 02/27/24 10:30 Lymph % (Auto) 30.5 % 02/27/24 10:30 [facility] % (Auto) 8.7 % 02/27/24 10:30 Eos % (Auto) 1.6 % 02/27/24 10:30 Baso % (Auto) 1.3 % 02/27/24 10:30 Neut # (Auto) 4.75 10^3/uL (1.8-7.7) 02/27/24 10:30 Lymph # (Auto) 2.5 10^3/uL (0.8-4.8) 02/27/24 10:30 [facility] # (Auto) 0.7 10^3/uL (0.2-0.9) 02/27/24 10:30 Eos # (Auto) 0.1 10^3/uL (0.0-0.8) 02/27/24 10:30 Baso # (Auto) 0.1 10^3/uL (0.0-0.1) 02/27/24 10:30 Nucleated RBC % (auto) 0 % 02/27/24 10:30 Nucleated RBCs # 0.0 /100WBC 02/27/24 10:30 PT 24.10 SECONDS (12.1-14.9) H 02/27/24 10:30 INR 2.08 (0.8-1.2) H 02/27/24 10:30 Sodium 140 mmol/L (136-145) 02/27/24 10:30 Potassium 3.9 mmol/L (3.5-5.1) 02/27/24 10:30 Chloride 103 mmol/L (98-107) 02/27/24 10:30 Carbon Dioxide 23 mmol/L (22-29) 02/27/24 10:30 Anion Gap 17.9 (5-19) 02/27/24 10:30 BUN 12 mg/dL (8-23) 02/27/24 10:30 Creatinine 0.8 mg/dL (0.5-0.9) 02/27/24 10:30 GFR Calculation Not Reportable 02/27/24 10:30 Glucose 135 mg/dL (65-115) H 02/27/24 10:30 Calculated Osmolality 292 mOsm/kg (285-295) 02/27/24 10:30 Calcium 9.2 mg/dL (8.5-10.5) 02/27/24 10:30 Total Bilirubin 0.7 mg/dL (0.15-1.2) 02/27/24 10:30 AST 28 U/L (0-32) 02/27/24 10:30 ALT 16 U/L (0-33) 02/27/24 10:30 Alkaline Phosphatase 74 U/L (35-105) 02/27/24 10:30 Troponin T Baseline 22 ng/L (0-10) H 02/27/24 10:30 Troponin T 120 Minute 20.20 ng/L (0-10) H 02/27/24 12:53 Delta Troponin T -1.80 ABS# (0-10) L 02/27/24 12:53 Total Protein 8.5 g/dL (6.6-8.7) 02/27/24 10:30 Albumin 4.8 g/dL (3.5-5.2) 02/27/24 10:30 Globulin 3.7 g/dL (1.3-4.6) 02/27/24 10:30 All radiology interpretation(s) finalized by discharge Discharge Plan Discharge Patient Disposition: Home Clinical Impression: Atypical chest pain, Atrial fibrillation, Dizziness Condition: Stable Prescriptions: New Protonix 40 mg tablet,delayed release (DR/EC) 40 mg PO DAILY 56 Days Qty: 30 0RF No Action omeprazole 20 mg capsule,delayed release(DR/EC) 20 mg PO BID 90 Days Qty: 180 3RF B Complex Plus Vitamin C [id number] mg capsule 1 cap PO DAILY Rx Instructions: give with food (meal/snack) multivitamin Tablet 1 tab PO DAILY cholecalciferol (vitamin D3) 10 mcg (400 unit) capsule 10 mcg PO DAILY vitamin E acetate 134 mg (200 unit) capsule 134 mg PO DAILY docusate sodium [Colace] 100 mg capsule 100 mg PO DAILY tramadol 50 mg tablet 50 mg PO TID PRN (Reason: pain) 5 Days Qty: 15 0RF glipizide 5 mg tablet extended release 24hr 5 mg PO DAILY warfarin 3 mg tablet 3 mg PO QPM Protocol: Dose Management Condition: Monday Dose/Route: 3 mg Instruction: 1 x 3 mg tablet Condition: Monday Dose/Route: 3 mg Instruction: 1 x 3 mg tablet Condition: Monday Dose/Route: 3 mg Instruction: 1 x 3 mg tablet Condition: Monday Dose/Route: 3 mg Instruction: 1 x 3 mg tablet Condition: Dose/Route: 3 mg Instruction: 1 x 3 mg tablet Condition: Monday Dose/Route: 3 mg Instruction: 1 x 3 mg tablet Condition: Monday Dose/Route: 3 mg Instruction: 1 x 3 mg tablet Protocol Text: Adjustment Start Date: 01/18/24 INR Value: 2.3 INR Date: 01/18/24 Recheck Date: 02/17/24 metoprolol tartrate 50 mg tablet 50 mg PO BID azelastine 137 mcg (0.1 %) aerosol,spray 1 spray intranasal BID PRN (Reason: ALLERGIES) Rx Instructions: administer into each nostril chlorhexidine gluconate 0.12 % mouthwash 15 ml buccal BID PRN (Reason: SORE MOUTH) Discharge Orders: Discharge ED (Routine); Ordered 02/27/24 Ordered By: Jose Eaton Referrals: Dov Baxter, [employer] [Primary Care Provider] - Patient Instructions: Opioid Safety, Pain Management Activity Restrictions/Additional Instructions: Thank you for choosing [facility] for your healthcare needs today. Please realize this is an emergency room and that we are providing you with a medical screening exam and this may not be complete and all inclusive of all the testing and or work up that you may need to determine your ailment or severity of your illness. It is very important that you follow up as instructed or that you return to the Emergency Department should you have concerns or if your condition changes or worsens in any way. You are seen today for chest discomfort and dizziness. Your exam laboratory tests were unremarkable. Given your history we do recommend that you have a nuclear stress test to further evaluate your heart. Your INR was therapeutic today. It did not recommend any changes in any of your other medications at this time. Follow-up with your primary care doctor regarding some of the chronic GI complaints you have had. 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
[2024-02-27 10:50] LABS: Basophils # 0.1 10^3/uL (0.0-0.1); Basophils % 1.3 %; Eosinophils # 0.1 10^3/uL (0.0-0.8); Eosinophils % 1.6 %; Hematocrit 45.5 % (36-47); Lymphocytes # 2.5 10^3/uL (0.8-4.8); Lymphocytes % 30.5 %; Mean Corpuscular HGB Conc 32.5 g/dL (30-55); Mean Corpuscular Hemoglobin 31.2 pg (27-33); Mean Corpuscular Volume 95.8 fl (85-98); Mean Platelet Volume 12.6 fL (7.4-10.4); Monocytes # 0.7 10^3/uL (0.2-0.9); Monocytes % 8.7 %; Neutrophils # 4.75 10^3/uL (1.8-7.7); Neutrophils % 57.5 %; Nucleated Red Blood Cells % 0 %; Platelet Count 184 10^3/cmm (157-399); Red Blood Count 4.75 10^6/uL (3.85-5.65); Red Cell Distribution Width 14.3 % (12.1-15.1); White Blood Count 8.26 10^3/uL (3.29-11.43)
--- NOTE | 2024-02-27 11:10 | CT_ITS ---
WS: [id number] CT HEAD TECHNIQUE: Noncontrast CT of the head obtained from the skullbase to the vertex. CLINICAL INFORMATION: extremity numbness COMPARISON: CT 09/28/2022 DLP: 1077.[address] scans at [facility] use at least one of these dose optimization techniques: automated e xposure control; mA and/or kV adjustment per patient size (includes targeted exams where dose is matc hed to clinical indication); or iterative reconstruction. FINDINGS: No evidence of intracranial hemorrhage or mass effect. Ventricular system and basal cisterns are colon nt. Mild small vessel changes with moderate parenchymal volume loss. No extra-axial fluid collections . No evidence of mass or mass effect. Intracranial vascular calcification. LEFT maxillary sinusitis with opacification of the LEFT maxillary sinus. Mucosal thickening RIGHT mastoid tip. Intracranial vascular calcification. CT/CT head wo con* [id number] IMPRESSION: 1. No evidence of intracranial hemorrhage or mass effect. 2. LEFT maxillary sinusitis. 3. Intracranial vascular calcification. 4. No acute intracranial findings.
[2024-02-27 11:11] LABS: Alanine Aminotransferase 16 U/L (0-33); Albumin Level 4.8 g/dL (3.5-5.2); Alkaline Phosphatase 74 U/L (35-105); Anion Gap 17.9 (5-19); Aspartate Amino Transferase 28 U/L (0-32); Blood Urea Nitrogen 12 mg/dL (8-23); Calcium 9.2 mg/dL (8.5-10.5); Carbon Dioxide 23 mmol/L (22-29); Chloride 103 mmol/L (98-107); Creatinine Clr Calc Pharmacy 54.5847; Globulin 3.7 g/dL (1.3-4.6); Glucose 135 mg/dL (65-115); Osmolality Calculated 292 mOsm/kg (285-295); Potassium 3.9 mmol/L (3.5-5.1); Sodium 140 mmol/L (136-145); Total Bilirubin 0.7 mg/dL (0.15-1.2); Total Protein 8.5 g/dL (6.6-8.7)
[2024-02-27 11:13] LABS: Troponin(5th) Baseline 22 ng/L (0-10)
--- NOTE | 2024-02-27 11:22 | CT_ITS ---
WS: [id number] CTA OF THE CHEST WITH PULMONARY EMBOLISM PROTOCOL TECHNIQUE: High-resolution contrast enhanced CTA of the chest with coronal and sagittal reformatted i mages with pulmonary embolism protocol. MIP images are also reviewed. CLINICAL INFORMATION: dyspnea chest tightness COMPARISON: 2021 DLP: 362.[address] scans at [facility] use at least one of these dose optimization techniques: automated e xposure control; mA and/or kV adjustment per patient size (includes targeted exams where dose is matc hed to clinical indication); or iterative reconstruction. FINDINGS: Sternotomy with CABG. Proximal main pulmonary arteries are normal. Normal segmental and subsegmental pulmonary arteries. No evidence of pulmonary embolus. Coronary calcification. Normal caliber thoracic aorta. No mediastinal or hilar lymphadenopathy. Adrenal glands are normal. Splenic artery calcification. Cholecystectomy clips. Splenic granulomas. M ild thoracic curve. Mild thoracic kyphosis. Diffuse hazy groundglass attenuation in both lungs can be seen with infectious or inflammatory pneumonia, small airway disease, and hypersensitivity pneumonit is CT/CT angio chest PE protcl [id number] IMPRESSION: 1. No evidence of pulmonary embolus. 2. Slight hazy groundglass attenuation throughout both lungs can be seen with infectious or inflammatory etiologies, hypersensitivity pneumonitis, and small airway disease
[2024-02-27 11:47] LABS: INR 2.08 (0.8-1.2)
[2024-02-27 12:32] VITALS: BP 129/92; PULSE 86; O2SAT 95
--- NOTE | 2024-02-27 12:37 | PC.NURSE ---
pt very irritated. pt stating how much she does like this hospital. nurse educated pt about starting iv for ct scan. pt was mad and raised her voice about why ems did not start her IV higher. nurse educated pt about iv placement in an emergency. pt agreed to iv placement. daughter at bedside.
--- NOTE | 2024-02-27 12:49 | ECG_ITS ---
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 Measurements Intervals [place] Rate: 99 P: 0 PA: 0 QRS: 56 QRSD: 88 T: 240 QT: 352 QTc: 453 Interpretive Statements ATRIAL FIBRILLATION WITH ABERRANT CONDUCTION OR VENTRICULAR PREMATURE COMPLEXES MODERATE ST DEPRESSION [0.05+ mV ST DEPRESSION] ABNORMAL QRS-T ANGLE [QRS-T AXIS DIFFERENCE > 60] Compared to ECG 02/27/2024 10:28:32 No significant changes Electronically Signed On 02-27-2024 16:51:49 CDT by Jacob Kwong M.D. [id number]
[2024-02-27] MEDS: iohexol 350 mg/mL 500 mL Btl (per mL) IV (13:20)
--- NOTE | 2024-02-29 08:02 | DCPLANNER ---
faxed scheduling order for er f/u testing
== END 2024-02-27 15:42 | disposition home or self-care (01) ==
PROVIDERS: Emergency Provider Family Medicine; PCP Clinical Nurse Specialist Adult Health
DX: R07.89 Other chest pain (principal); I48.91 Unspecified atrial fibrillation; R42 Dizziness and giddiness; Z79.84 Long term (current) use of oral hypoglycemic drugs; Z79.01 Long term (current) use of anticoagulants; I25.2 Old myocardial infarction; I25.10 Atherosclerotic heart disease of native coronary artery without angina pectoris; I10 Essential (primary) hypertension; E11.9 Type 2 diabetes mellitus without complications; Z95.1 Presence of aortocoronary bypass graft
CPT/HCPCS: 36415; 70450; 71045; 71275; 80053; 84484; 85025; 85610; 93005; 99285; Q9967

== ENCOUNTER → 2024-03-12 08:43 | Outpatient (BNVA) | payer MEDICARE, MEDICAID, SELFPAY | PROVIDERS: PCP Clinical Nurse Specialist Adult Health; Visit Provider Clinical Nurse Specialist Adult Health | DX: N39.0 Urinary tract infection, site not specified (principal); Z79.01 Long term (current) use of anticoagulants; R31.9 Hematuria, unspecified; I48.91 Unspecified atrial fibrillation; J42 Unspecified chronic bronchitis | CPT/HCPCS: 81000; 85610; 87086 ==

== ENCOUNTER → 2024-06-04 12:17 | Outpatient (BNVA) | payer MEDICARE, SELFPAY | PROVIDERS: PCP Clinical Nurse Specialist Adult Health; Visit Provider Clinical Nurse Specialist Adult Health | DX: I48.91 Unspecified atrial fibrillation (principal) | CPT/HCPCS: 85610 ==

== ENCOUNTER → 2024-07-23 13:15 | Outpatient (BNVA) | payer MEDICARE, SELFPAY | PROVIDERS: PCP Clinical Nurse Specialist Adult Health; Visit Provider Clinical Nurse Specialist Adult Health | DX: I48.91 Unspecified atrial fibrillation (principal); R39.9 Unspecified symptoms and signs involving the genitourinary system | CPT/HCPCS: 81000; 85610 ==

== ENCOUNTER → 2024-09-11 14:34 | Outpatient (BNVA) | payer MEDICARE, SELFPAY | PROVIDERS: PCP Clinical Nurse Specialist Adult Health; Visit Provider Clinical Nurse Specialist Adult Health | DX: I48.91 Unspecified atrial fibrillation (principal) | CPT/HCPCS: 85610 ==

== ENCOUNTER → 2024-10-29 11:46 | Outpatient (BNVA) | payer MEDICARE, SELFPAY | PROVIDERS: PCP Clinical Nurse Specialist Adult Health; Visit Provider Clinical Nurse Specialist Adult Health | DX: I48.91 Unspecified atrial fibrillation (principal); I48.19 Other persistent atrial fibrillation | CPT/HCPCS: 85610 ==

== ENCOUNTER → 2024-11-08 10:54 | Outpatient (BNVA) | payer MEDICARE, SELFPAY | PROVIDERS: PCP Clinical Nurse Specialist Adult Health; Visit Provider Clinical Nurse Specialist Adult Health | DX: Z79.01 Long term (current) use of anticoagulants (principal); I48.19 Other persistent atrial fibrillation | CPT/HCPCS: 85610 ==

== ENCOUNTER → 2024-12-31 14:39 | Outpatient (BNVA) | payer MEDICARE, SELFPAY | PROVIDERS: PCP Clinical Nurse Specialist Adult Health; Visit Provider Clinical Nurse Specialist Adult Health | DX: I48.91 Unspecified atrial fibrillation (principal) | CPT/HCPCS: 85610 ==

== ENCOUNTER → 2025-01-08 12:02 | Outpatient (BNVA) | payer MEDICARE, SELFPAY | PROVIDERS: PCP Family Medicine; Visit Provider Family Medicine | DX: I48.19 Other persistent atrial fibrillation (principal); E55.9 Vitamin D deficiency, unspecified; I15.9 Secondary hypertension, unspecified; I25.10 Atherosclerotic heart disease of native coronary artery without angina pectoris; Z79.01 Long term (current) use of anticoagulants; E11.9 Type 2 diabetes mellitus without complications; R60.9 Edema, unspecified; N39.0 Urinary tract infection, site not specified | CPT/HCPCS: 80053; 81003; 82306; 82607; 83036; 83880; 84443; 85025; 85610; 87077; 87086; 87184 ==

== ENCOUNTER → 2025-01-21 12:04 | Outpatient (BNVA) | payer MEDICARE, SELFPAY | PROVIDERS: PCP Family Medicine; Visit Provider Family Medicine | DX: I48.91 Unspecified atrial fibrillation (principal); I25.10 Atherosclerotic heart disease of native coronary artery without angina pectoris | CPT/HCPCS: 85610 ==

== ENCOUNTER 2025-01-31 14:52 | Inpatient (IN) | payer MEDICARE, SELFPAY ==
[2025-01-31] VITALS (9 sets, daily range): BP systolic 116–135; BP diastolic 58–91; PULSE 80–104; RESP 15–18; TEMP 36.5–36.6; O2SAT 88–95; BMI 29.9
--- NOTE | 2025-01-31 14:53 | XR_ITS ---
WS: [id number] Portable AP supine chest, 01/31/2025 Clinical Data: fall Comparison: Portable chest, 02/27/2024 Findings: No nodules, masses or effusions are seen. The heart is normal. The pulmonary vascularity is not increased. No pneumonia or pneumothorax is seen. Midline sternotomy sutures are present. The aortic arch and descending thoracic aorta show mild tortuosity. XR/XR chest 1V portable [id number] Impression: Atherosclerosis.
--- NOTE | 2025-01-31 14:53 | XR_ITS ---
WS: [id number] Left hip, AP and frog-leg views, 01/31/2025 Clinical Data: fall Comparison: Left hip, 12/08/2017 Findings: There is an intertrochanteric fracture of the left hip. The left femoral head remains within the acetabulum. The adjacent left pelvis is normal. The left SI joint and pubic symphysis are unremarkable. XR/XR hip LT 2-3V wo/w pel* [id number] Impression: Intertrochanteric fracture left hip.
--- NOTE | 2025-01-31 14:56 | ED_ITS ---
HPI - Extremity Injury (Lower) 2 General: Chief Complaint: Extremity Injury, Lower Stated Complaint: fall - left hip pain Time Seen by Provider: 01/31/25 14:52 Source: patient and EMS Mode of arrival: EMS Limitations: no limitations History of Present Illness: 84-year-old female states she had fell o ff a scooter at [facility] she had landed on her left hip has had severe hip pain since then not able to bear any weight. States pain is currently 8 out of 10 much worse with movement. She denies any other injuries denies hitting her head. Related Data Home Medications ?Medication ?Instructions ?Recorded ?Confirmed docusate sodium 100 mg capsule 100 mg PO DAILY PRN Con stipation 07/22/22 01/31/25 (Colace) multivitamin 1 tab PO DAILY 07/22/2211/26 vitamin B comp and C no.3 15 mg-10 1 cap PO DAILY 07/0301/31/25 mg-50 mg-5 mg-300 mg capsule (B Complex Plus Vitamin C) vitamin E acetate 134 mg (200 134 mg PO DAILY 07/22/22 01/31/25 unit) capsule chlorhexidine gluconate 0.12 % 15 ml buccal BID PRN SO RE MOUTH 02/27/24 01/31/25 mouthwash Lactobacillus rhamnosus-Bifidobac. 1 cap PO DAILY PRN stomach health 01/08/25 01/31/25 animalis 3 billion cell capsule (Nephros) acetaminophen 500 mg tablet 500 mg PO Q6H PRN Pain 06/2601/31/25 Previous Rx's ?Medication ?Instructions ?Recorded metoprolol tartrate 50 mg tablet 50 mg PO BID #180 tab s 11/01/24 warfarin 3 mg tablet 3 mg PO QPM #90 tabs 5 afeotwbyfpdhdzc-kjwdqsehzjkjjdy-CH 5 ml PO Q6H PRN col d symptoms #118 01/09/25 2 mg-30 mg-10 mg/5 mL oral syrup mL (Bromfed DM) omeprazole 20 mg capsule,delayed 20 mg PO BID 90 days #180 caps 01/30/25 release Allergies Allergy/AdvReac Type Severity Reaction Status Date / Time rosuvastatin (From Crestor) Allergy Severe ADR-Muscle Verified 01/09/25 15:06 Pain azithromycin (From Zithromax) Allergy Intermediate ADR-upset Verified 01/09/25 15:06 stomach nitrofurantoin Allergy Intermediate ADR-other Verified 01/09/25 15:06 Sulfa (Sulfonamide Allergy Intermediate ADR-rash Verified 01/09/25 15:06 Antibiotics) Penicillins Allergy Unknown unk Verified 01/09/25 15:06 doxycycline Allergy ADR-other Verified 01/09/25 15:06 Review of Systems 2 Const: Denies: fever(s), chills, body aches or change in appetite ENMT: Denies: throat pain or dental pain Card: Denies: chest pain Resp: Denies: dyspnea GI: Denies: abdominal pain, nausea, vomiting or diarrhea Musc: Reports: extremity pain; Denies: neck pain or back pain Skin/Breast: Denies: rash Neuro: Denies: headache(s) PFSH ED 2 PFSH: Medical History Grade III diastolic dysfunction GERD (gastroesophageal reflux disease) Vitamin D deficiency NSTEMI (non-ST elevated myocardial infarction) Pneumonia Diverticulosis Hx of pulmonary embolus 06/2008 CAD (coronary artery disease) [place] 1998-2 stents CABG 2007 Atrial fibrillation chronic warfarin with goal of 2.0-3.0 Generalized osteoarthritis Chronic constipation Bladder prolapse Recurrent UTI Hypercholesterolemia Hypertension Diabetes Type 2 Surgical History History of surgery on right wrist fracture repair History of four vessel coronary artery bypass graft 2007 History of cholecystectomy Hx of colonoscopy colonoscopy in 1999 wiht two polyps, repeat clear Family History (Updated 01/08/25 @ 11:15 by Anahi Jennings MD) Mother Colon cancer Brother Colon cancer Father Diabetes Other CAD (coronary artery disease) Cancer Clotting disorder Social History Smoking and tobacco/nicotine status: never used tobacco/nicotine Alcohol intake: never Substance/Drug Use: never Lives independently: Yes Household members: none Number of children: 5 Number of grandchildren: 7 Current occupational status: retired Physical Exam 2 Const: COMMON NORMALS: patient oriented x3 HENMT: COMMON NORMALS: normocephalic and atraumatic HEAD & SCALP: n ormocephalic and atraumatic Eye: COMMON NORMALS: conjunctivae normal CONJUNCTIVA: Yes conjunctivae normal Neck/C-Spine: COMMON NORMALS: full ROM and supple Chest: COMMONS NORMALS: normal inspection of the chest Resp: COMMON NORMALS: normal respiratory effort Cardio: COMMON NORMALS: regular rate, regular rhythm and No murmurs present (Cardio) RATE: regular rate RHYTHM: regular rhythm Extremity: NARRATIVE EXTREMITY EXAM: Tenderness noted left hip Neuro: COMMON NORMALS: patient oriented x3, moves all extremities and no focal motor deficits Psych: COMMON NORMALS: mental status grossly normal, Normal thought process present and cooperative THOUGHT PROCESS: Normal thought process present Skin: COMMON NORMALS: no rashes or lesions noted and no wounds GENERAL SKIN EXAM: no rashes or lesions noted Course 2 Vital Signs: Vital signs: Vital Signs Temperature 97.9 F 01/31/25 14:54 Pulse Rate 104 H 01/31/25 14:54 Respiratory Rate 16 01/31/25 14:54 Blood Pressure 134/91 01/31/25 14:54 Pulse Oximetry 88 L 01/31/25 14:54 Oxygen Delivery Me thod Room Air 01/31/25 14:54 MDM - Extremity Injury (Lower) Medical Decision Making Patient presents with left hip fracture after a fall spoke to hospitalist along with orthopedist will admit at this time. Medical Records I reviewed the patient's medical records. Lab Data I reviewed the patient's lab results. 01/31/25 15:19 01/31/25 15:19 Radiology Impressions Chest X-Ray 01/31/25 14:53 Impression: Atherosclerosis. Hip/Pelvis X-Ray 01/31/25 14:53 Impression: Intertrochanteric fracture left hip. Laboratory Results WBC 7.74 10^3/uL (3.29-11.43) 01/31/25 15:19 RBC 4.28 10^6/uL (3.85-5.65) 01/31/25 15:19 Hgb 13.40 g/dL (11.27-16.99) 01/31/25 15:19 Hct 41.3 % (36-47) 01/31/25 15:19 MCV 96.5 fl (85-98) 01/31/25 15:19 MCH 31.3 pg (27-33) 01/31/25 15:19 MCHC 32.4 g/dL (30-55) 01/31/25 15:19 RDW 13.5 % (12.1-15.1) 01/31/25 15:19 Plt Count 168 10^3/cmm (157-399) 01/31/25 15:19 MPV 12.6 fL (7.4-10.4) H 01/31/25 15:19 Neut % (Auto) 64.7 % 01/31/25 15:19 Lymph % (Auto) 23.8 % 01/31/25 15:19 [facility] % (Auto) 9.0 % 01/31/25 15:19 Eos % (Auto) 1.0 % 01/31/25 15:19 Baso % (Auto) 1.0 % 01/31/25 15:19 Neut # (Auto) 5.00 10^3/uL (1.8-7.7) 01/31/25 15:19 Lymph # (Auto) 1.8 10^3/uL (0.8-4.8) 01/31/25 15:19 [facility] # (Auto) 0.7 10^3/uL (0.2-0.9) 01/31/25 15:19 Eos # (Auto) 0.1 10^3/uL (0.0-0.8) 01/31/25 15:19 Baso # (Auto) 0.1 10^3/uL (0.0-0.1) 01/31/25 15:19 Nucleated RBC % (auto) 0 % 01/31/25 15:19 Nucleated RBCs # 0.0 /100WBC 01/31/25 15:19 PT 24.20 SECONDS (12.1-14.9) H 01/31/25 15:19 INR 2.03 (0.8-1.2) H 01/31/25 15:19 Sodium 137 mmol/L (136-145) 01/31/25 15:19 Potassium 4.0 mmol/L (3.5-5.1) 01/31/25 15:19 Chloride 103 mmol/L (98-107) 01/31/25 15:19 Carbon Dioxide 21 mmol/L (22-29) L 01/31/25 15:19 Anion Gap 17.0 (5-19) 01/31/25 15:19 BUN 15 mg/dL (8-23) 01/31/25 15:19 Creatinine 0.7 mg/dL (0.5-0.9) 01/31/25 15:19 GFR Calculation Not Reportable 01/31/25 15:19 Glucose 234 mg/dL (65-115) H 01/31/25 15:19 Calculated Osmolality 292 mOsm/kg (285-295) 01/31/25 15:19 Calcium 8.8 mg/dL (8.5-10.5) 01/31/25 15:19 Total Bilirubin 0.5 mg/dL (0.15-1.2) 01/31/25 15:19 AST 24 U/L (0-32) 01/31/25 15:19 ALT 14 U/L (0-33) 01/31/25 15:19 Alkaline Phosphatase 96 U/L (35-105) 01/31/25 15:19 Total Protein 7.3 g/dL (6.6-8.7) 01/31/25 15:19 Albumin 3.9 g/dL (3.5-5.2) 01/31/25 15:19 Globulin 3.4 g/dL (1.3-4.6) 01/31/25 15:19 All radiology interpretation(s) finalized by discharge EKG Data EKG 1: I personally reviewed and interpreted this EKG as follows: EKG interpretation date: 01/31/25 EKG interpretation time: 15:01 Interpretation: afib hr [address] elevation qrs 93 qtc 373 Discharge Plan Discharge Patient Disposition: Admitted As Inpatient Clinical Impression: Fracture of hip Qualifiers: Encounter type: initial encounter Fracture type: closed Laterality: left Q ualified Code(s): S72.002A - Fracture of unspecified part of neck of left femur, initial encounter for closed fracture Condition: Stable Coding Level of Care Code ED General Manager Farm for Anupam Gomes
--- NOTE | 2025-01-31 14:56 | ECG_ITS ---
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 Measurements Intervals [place] Rate: 92 P: 0 TN: 0 QRS: 57 QRSD: 93 T: 54 QT: 323 QTc: 400 Interpretive Statements ATRIAL FIBRILLATION WITH ABERRANT CONDUCTION OR VENTRICULAR PREMATURE COMPLEXES NONSPECIFIC ST & T-WAVE ABNORMALITY ABNORMAL RHYTHM ECG Compared to ECG 02/27/2024 12:49:15 T-wave abnormality now present ST (T wave) deviation no longer present Electronically Signed On 02-03-2025 09:25:14 CDT by Jacob Kwong M.D. [email or web address] [id number]
[2025-01-31 15:28] LABS: Basophils # 0.1 10^3/uL (0.0-0.1); Eosinophils # 0.1 10^3/uL (0.0-0.8); Hematocrit 41.3 % (36-47); Lymphocytes # 1.8 10^3/uL (0.8-4.8); Lymphocytes % 23.8 %; Mean Corpuscular HGB Conc 32.4 g/dL (30-55); Mean Corpuscular Hemoglobin 31.3 pg (27-33); Mean Corpuscular Volume 96.5 fl (85-98); Mean Platelet Volume 12.6 fL (7.4-10.4); Monocytes # 0.7 10^3/uL (0.2-0.9); Neutrophils % 64.7 %; Nucleated Red Blood Cells % 0 %; Platelet Count 168 10^3/cmm (157-399); Red Blood Count 4.28 10^6/uL (3.85-5.65); Red Cell Distribution Width 13.5 % (12.1-15.1); White Blood Count 7.74 10^3/uL (3.29-11.43)
[2025-01-31 15:40] LABS: INR 2.03 (0.8-1.2)
[2025-01-31 15:44] LABS: Alanine Aminotransferase 14 U/L (0-33); Albumin Level 3.9 g/dL (3.5-5.2); Alkaline Phosphatase 96 U/L (35-105); Aspartate Amino Transferase 24 U/L (0-32); Blood Urea Nitrogen 15 mg/dL (8-23); Calcium 8.8 mg/dL (8.5-10.5); Carbon Dioxide 21 mmol/L (22-29); Chloride 103 mmol/L (98-107); Globulin 3.4 g/dL (1.3-4.6); Glucose 234 mg/dL (65-115); Osmolality Calculated 292 mOsm/kg (285-295); Sodium 137 mmol/L (136-145); Total Bilirubin 0.5 mg/dL (0.15-1.2); Total Protein 7.3 g/dL (6.6-8.7)
[2025-01-31] MEDS: ondansetron 2 mg/ML SDV 2 mL 4 MG IVP (15:45)
[2025-01-31] MEDS: HYDROmorphone 0.5 MG/0.5 ML INJ IVP ×2 (15:45→17:25)
--- NOTE | 2025-01-31 17:01 | PM.HP ---
Providers/Chief Complaint Primary Care Provider: Anahi Jennings MD Chief Complaint: fall - left hip pain History of Present Illness Allyson Causey is a 84 year old female with past medical history of A-fib on Coumadin, CAD post PCI, PE who was at [employer] today while being on a wheelchair her wheelchair tripped over the pavement and she fell on her hip after which she started having hip pain. In the ER she was found to have hip fracture hence hospitalist service was consulted. On examination patient laying comfortably in bed with family at bedside complaining of hip pain. Denies any nausea, pain, headache, dizziness, diarrhea, chest pain. Review of Systems General: Reports: 10 or more systems reviewed and unremarkable except in HPI and below Const: Denies: fever(s), chills, body aches, change in appetite, change in weight, malaise, night sweats, diaphoresis, change in sleep pattern, daytime sleepiness or snoring Eyes: Denies: change in vision, blurry vision, photophobia, eye discomfort or eye discharge ENMT: Denies: throat pain, enlarged tonsils, hoarseness, mouth pain, oral sores, dry mouth, tinnitus, nasal congestion or post nasal drip Card: Denies: chest pain, palpitations, irregular heart rhythm, edema, swelling of feet/ankles, lightheadedness, syncope, pre-syncope, dyspnea on exertion, orthopnea, leg pain with exertion or acrocyanosis Resp: Denies: dyspnea, productive cough, non-productive cough, wheezing, stridor, pain on inspiration, change in phlegm color, hemoptysis or chest congestion GI: Denies: abdominal pain, nausea, vomiting, hematemesis, coffee ground emesis, dysphagia, heartburn, diarrhea, constipation, bloating, GI cramping, change in bowel habits, pain on defecation, hematochezia or melena : Denies: flank pain, dysuria, urinary frequency, urinary urgency, urinary hesitancy, nocturia or hematuria Musc: Denies: neck pain, back pain, extremity pain, joint pain, joint swelling, joint redness, joint stiffness or limited range of motion Neuro: Denies: headache(s), numbness in extremities, weakness in extremities, sensory changes, lack of coordination, difficulty walking, frequent falls, dizziness, vertigo, confusion, Slurred speech present, difficulty communicating thoughts or seizure-like activity Psych: Denies: anxiety, depression, mood swings, panic attacks, hopelessness or irritability Endo: Denies: polyuria, polydipsia, tired all the time, cold intolerance, excessive sweating, flushing or heat intolerance Ja/Lymph: Denies: easy bruising or easy bleeding All/Imm: Denies: tongue swelling, facial swelling or acute wheezing Medications/Allergies Home Medications ?Medication ?Instructions ?Recorded ?Confirmed ?Last Taken ?Type docusate sodium 100 mg capsule 100 mg PO DAILY PRN Constipation 07/22/22 01/31/25 02/26/24 History (Colace) multivitamin 1 tab PO DAILY 07/22/22 01/31/25 01/31/25 History vitamin B comp and C no.3 15 mg-10 1 cap PO DAILY 07/22/22 01/31/25 01/31/25 History mg-50 mg-5 mg-300 mg capsule (B Complex Plus Vitamin C) vitamin E acetate 134 mg (200 134 mg PO DAILY 07/22/22 01/31/25 01/31/25 History unit) capsule chlorhexidine gluconate 0.12 % 15 ml buccal BID PRN SORE MOUTH 02/27/24 01/31/25 Unknown History mouthwash metoprolol tartrate 50 mg tablet 50 mg PO BID #180 tabs 11/01/24 01/31/25 01/31/25 Rx warfarin 3 mg tablet 3 mg PO QPM #90 tabs 11/01/24 01/31/25 01/30/25 Rx Lactobacillus rhamnosus-Bifidobac. 1 cap PO DAILY PRN stomach health 01/08/25 01/31/25 Unknown History animalis 3 billion cell capsule ([employer]) acetaminophen 500 mg tablet 500 mg PO Q6H PRN Pain 01/08/25 01/31/25 Unknown History xzcblvwuqzeeizy-iegfzjfnqqrgopf-WJ 5 ml PO Q6H PRN cold symptoms #118 01/09/25 01/31/25 Unknown Rx 2 mg-30 mg-10 mg/5 mL oral syrup mL (Bromfed DM) omeprazole 20 mg capsule,delayed 20 mg PO BID 90 days #180 caps 01/30/25 01/31/25 01/31/25 Rx release Allergies Allergy/AdvReac Type Severity Reaction Status Date / Time rosuvastatin (From Crestor) Allergy Severe ADR-Muscle Verified 01/09/25 15:06 Pain azithromycin (From Zithromax) Allergy Intermediate ADR-upset Verified 01/09/25 15:06 stomach nitrofurantoin Allergy Intermediate ADR-other Verified 01/09/25 15:06 Sulfa (Sulfonamide Allergy Intermediate ADR-rash Verified 01/09/25 15:06 Antibiotics) Penicillins Allergy Unknown unk Verified 01/09/25 15:06 doxycycline Allergy ADR-other Verified 01/09/25 15:06 PFSH Acute PFSH: Medical History Grade III diastolic dysfunction GERD (gastroesophageal reflux disease) Vitamin D deficiency NSTEMI (non-ST elevated myocardial infarction) Pneumonia Diverticulosis Hx of pulmonary embolus 06/2008 CAD (coronary artery disease) [place] 1998- stents CABG 2007 Atrial fibrillation chronic warfarin with goal of 2.0-3.0 Generalized osteoarthritis Chronic constipation Bladder prolapse Recurrent UTI Hypercholesterolemia Hypertension Diabetes Type 2 Surgical History History of surgery on right wrist fracture repair History of four vessel coronary artery bypass graft 2007 History of cholecystectomy Hx of colonoscopy colonoscopy in 1999 wiht two polyps, repeat clear Family History (Updated 01/08/25 @ 11:15 by Anahi Jennings MD) Mother Colon cancer Brother Colon cancer Father Diabetes Other CAD (coronary artery disease) Cancer Clotting disorder Social History Smoking and tobacco/nicotine status: never used tobacco/nicotine Alcohol intake: never Substance/Drug Use: never Lives independently: Yes Household members: none Number of children: 5 Number of grandchildren: 7 Current occupational status: retired Vitals/I&O/Wt Last Vital Signs Temp 97.9 F 01/31/25 14:54 Pulse 92 01/31/25 16:03 Resp 16 01/31/25 14:54 BP 134/58 01/31/25 16:03 Pulse Ox 89 L 01/31/25 16:03 O2 Del Method Nasal Cannula 01/31/25 16:03 O2 Flow Rate 2 01/31/25 16:03 Weight last 48 hrs Weight 81.647 kg Physical Exam Narrative: General: Mild distress because of hip pain, AO x3 HEENT: PERRLA, pupils bilaterally equal and reactive Chest: Bilateral bronchial breath sounds occasional rhonchi, good equal air entry bilaterally in lower lung turner CVS: S1-S2 regular, no murmurs, no tachycardia, no gallops, no rubs Abdomen: Soft, nontender, no organomegaly, bowel sounds present Neuro: No focal deficits, no facial deformity, AO x3, Urinary Catheter Management: Carmona: Cath Placed During This Visit: yes Urinary Catheter Date of Insertion: 01/31/25 Data 01/31/25 15:19 01/31/25 15:19 A&P Assessment and plan (1) Intertrochanteric fracture of left hip: Post mechanical fall from wheelchair. Orthopedic consulted from the ER. Plan for ORIF once INR less than 5. Currently 2.03. Pain control with morphine 2 mg 4 hours as needed, [place] 5 mg 4 hours as needed. Incentive spirometry. (2) Grade III diastolic dysfunction: Currently euvolemic. Continue to monitor for fluid overload. Fluid restriction to less than 1500 cc. Not on diuretic as an outpatient. (3) CAD (coronary artery disease): Denies any chest pain. Check A1c, lipid panel. Continue with home dose of metoprolol 50 mg twice daily. (4) Atrial fibrillation: Telemetry. Metoprolol 50 mg twice daily at home dose. Takes Coumadin as an outpatient. INR at goal. Hold off on Coumadin for now as patient will require ORIF. Monitor INR daily. (5) Hypertension: Goal blood pressure less than 140/90 mmHg. (6) Warfarin anticoagulation: Plan CODE STATUS: Discussed and with the patient. Full code. Cardiac diet, n.p.o. after midnight for possible ORIF. Protonix OPD prophylaxis Heparin 5000 every 12 hourly for DVT prophylaxis. PDMP PDMP Reviewed: Not Reviewed Attestations Medical Necessity Statement*: Admission for more than 2 midnights for management of hip fracture requiring ORIF in a patient with history of A-fib on Coumadin for anticoagulation Diagnoses Intertrochanteric fracture of left hip S72.142A Grade III diastolic dysfunction I51.89 CAD (coronary artery disease) I25.10 Persistent atrial fibrillation I48.19 Atrial fibrillation type: persistent (not longstanding) Secondary hypertension I15.9 Hypertension type: unspecified secondary hypertension Warfarin anticoagulation Z79.01
[2025-01-31 17:05] LABS: Procalcitonin 0.03 ng/mL (0-0.5)
[2025-01-31 17:29] LABS: Lactic Sepsis W/Reflex 1.6 mmol/L (0.5-2.2)
--- NOTE | 2025-01-31 17:50 | PC.SOCIAL ---
Patient lives at home alone with no home health services. Patient has a walker at home. Patient has a covered ramp into her house and is a single level home but with one step up into her kitchen from her living room. Her primary care provider is Anahi Jennings in [facility] and uses [facility] in [place] for her pharmacy. If had to go to a half-way her first choice would be [facility]. She is retired and . She receives a social security check for her income.
--- NOTE | 2025-01-31 18:26 | P.CONIM_ITS ---
Providers/Reason For Consult 2 Consulting Physician/Specialty*: Rogerio Sylvester MD Orthopedic surgery Reason for Consult*: Fractured left hip Attending Physician: Owen Neal MD Primary Care Provider: Anahi Jennings MD History of Present Illness History of Present Illness Allyson Causey is a 84 year old female who lives by herself and fell earlier today injuring her left hip. Subsequently is brought to [facility] ED where x-rays demonstrated a left hip fracture. X-rays are difficulty determining whether it is actually a femoral neck or a intertrochanteric fracture at this time. Patient is on Coumadin and has not taken her Coumadin since last night i.e. [address] Banks is spoken with me and feels that he can get the patient's INR down below 1.5 in order to go ahead and take her to surgery here in the next 24 to 48 hours. Review of Systems 2 General: Reports: 10 or more systems reviewed and unremarkable except in HPI and below Const: Denies: fever(s), chills, body aches, change in appetite, change in weight, malaise, night sweats, diaphoresis, change in sleep pattern, daytime sleepiness or snoring Eyes: Denies: change in vision, blurry vision, photophobia, eye discomfort or eye discharge ENMT: Denies: throat pain, enlarged tonsils, hoarseness, mouth pain, oral sores, dental pain, dry mouth, tinnitus, nasal congestion or post nasal drip Card: Denies: chest pain, palpitations, irregular heart rhythm, edema, swelling of feet/ankles, lightheadedness, syncope, pre-syncope, dyspnea on exertion, orthopnea, leg pain with exertion or acrocyanosis Resp: Denies: dyspnea, productive cough, non-productive cough, wheezing, stridor, pain on inspiration, change in phlegm color, hemoptysis or chest congestion GI: Denies: abdominal pain, nausea, vomiting, hematemesis, coffee ground emesis, dysphagia, heartburn, diarrhea, constipation, bloating, GI cramping, change in bowel habits, pain on defecation, hematochezia or melena : Denies: flank pain, dysuria, urinary frequency, urinary urgency, urinary hesitancy, nocturia or hematuria Musc: Denies: neck pain, back pain, extremity pain, joint pain, joint swelling, joint redness, joint warmth, joint stiffness or limited range of motion Skin/Breast: Denies: rash Neuro: Denies: headache(s), numbness in extremities, weakness in extremities, sensory changes, lack of coordination, difficulty walking, frequent falls, dizziness, vertigo, confusion, Slurred speech present, difficulty communicating thoughts or seizure-like activity Psych: Denies: anxiety, depression, mood swings, panic attacks, hopelessness or irritability Endo: Denies: polyuria, polydipsia, tired all the time, cold intolerance, excessive sweating, flushing or heat intolerance Ja/Lymph: Denies: easy bruising or easy bleeding All/Imm: Denies: tongue swelling, facial swelling or acute wheezing Medications/Allergies Home Medications ?Medication ?Instructions ?Recorded ?Confirmed ?Last Taken ?Type docusate sodium 100 mg capsule 100 mg PO DAILY PRN Con stipation 07/22/22 01/31/25 02/26/24 History (Colace) multivitamin 1 tab PO DAILY 07/22/2211/2601/31/25 History vitamin B comp and C no.3 15 mg-10 1 cap PO DAILY 07/0301/31/25 01/31/25 History mg-50 mg-5 mg-300 mg capsule (B Complex Plus Vitamin C) vitamin E acetate 134 mg (200 134 mg PO DAILY 07/22/22 01/31/25 01/31/25 History unit) capsule chlorhexidine gluconate 0.12 % 15 ml buccal BID PRN SO RE MOUTH 02/27/24 01/31/25 Unknown History mouthwash metoprolol tartrate 50 mg tablet 50 mg PO BID #180 tab s 11/01/24 01/31/25 01/31/25 Rx warfarin 3 mg tablet 3 mg PO QPM #90 tabs 5 01/31/25 01/30/25 Rx Lactobacillus rhamnosus-Bifidobac. 1 cap PO DAILY PRN stomach health 01/08/25 01/31/25 Unknown History animalis 3 billion cell capsule ([employer]) acetaminophen 500 mg tablet 500 mg PO Q6H PRN Pain 06/2601/31/25 Unknown History dqjlgyjteucrybh-axozlxchyaofdfc-YU 5 ml PO Q6H PRN col d symptoms #118 01/09/25 01/31/25 Unknown Rx 2 mg-30 mg-10 mg/5 mL oral syrup mL (Bromfed DM) omeprazole 20 mg capsule,delayed 20 mg PO BID 90 days #180 caps 01/30/25 01/31/25 01/31/25 Rx release Allergies Allergy/AdvReac Type Severity Reaction Status Date / Time rosuvastatin (From Crestor) Allergy Severe ADR-Muscle Verified 01/09/25 15:06 Pain azithromycin (From Zithromax) Allergy Intermediate ADR-upset Verified 01/09/25 15:06 stomach nitrofurantoin Allergy Intermediate ADR-other Verified 01/09/25 15:06 Sulfa (Sulfonamide Allergy Intermediate ADR-rash Verified 01/09/25 15:06 Antibiotics) Penicillins Allergy Unknown unk Verified 01/09/25 15:06 doxycycline Allergy ADR-other Verified 01/09/25 15:06 PFSH Acute 2 PFSH: Medical History Grade III diastolic dysfunction GERD (gastroesophageal reflux disease) Vitamin D deficiency NSTEMI (non-ST elevated myocardial infarction) Pneumonia Diverticulosis Hx of pulmonary embolus 06/2008 CAD (coronary artery disease) [place] 1998- stents CABG 2007 Atrial fibrillation chronic warfarin with goal of 2.0-3.0 Generalized osteoarthritis Chronic constipation Bladder prolapse Recurrent UTI Hypercholesterolemia Hypertension Diabetes Type 2 Surgical History History of surgery on right wrist fracture repair History of four vessel coronary artery bypass graft 2007 History of cholecystectomy Hx of colonoscopy colonoscopy in 1999 wiht two polyps, repeat clear Family History (Updated 01/08/25 @ 11:15 by Anahi Jennings MD) Mother Colon cancer Brother Colon cancer Father Diabetes Other CAD (coronary artery disease) Cancer Clotting disorder Social History Smoking and tobacco/nicotine status: never used tobacco/nicotine Alcohol intake: never Substance/Drug Use: never Lives independently: Yes Household members: none Number of children: 5 Number of grandchildren: 7 Current occupational status: retired Vitals/I&O/Wt Last Vital Signs Temp 97.7 F 01/31/25 17:38 Pulse 90 01/31/25 17:43 Resp 17 01/31/25 17:38 BP 130/70 01/31/25 17:43 Pulse Ox 94 01/31/25 17:43 O2 Del Method Nasal Cannula 01/31/25 17:38 O2 Flow Rate 2 01/31/25 17:18 Weight last 48 hrs Weight 180 lb Weight 180 lb Physical Exam 2 Narrative: On orthopedic exam today the patient is sleeping in bed and awakens easily. She is somewhat disoriented at first secondary to pain medication but does eventually wake up and respond appropriately. She is understanding that she has hip fracture. She is laying partially rotated over onto her right hip. With her left hip internally rotated and slightly flexed. Distally she is neurovascular intact. She does not tolerate any motion of her hip at this time. Urinary Catheter Management: Carmona: Cath Placed During This Visit: yes Reason for Continuing Indwelling Catheter: Perioperative Use in Selected Surgeries Urinary Catheter Date of Insertion: 01/31/25 Data 01/31/25 15:19 01/31/25 15:19 A&P Assessment and plan (1) Closed left hip fracture: Left hip fracture, possible low femoral neck fracture Plan Plan at this time is to tentatively plan on endoprosthetic replacement of the hip tomorrow if the INR is down below 1.5. However if it is not we will need to delay until INR is at a safe level to operate. I will request a repeat AP x-ray of her hip if we can see the fracture better. I have spoke with the patient about the surgery as well as risks and benefits treatment alternatives as well as risk and benefits. She is agreeable to surgery at this time. PDMP PDMP Reviewed: Not Reviewed Coding Level of Care Code Acute Code for Chg Fwd Diagnoses Closed fracture of left hip, initial encounter S72.002A Encounter type: initial encounter
--- NOTE | 2025-01-31 18:31 | XRR_ITS ---
PROCEDURE INFORMATION: Exam: XR Left Hip Exam date and time: 01/31/2025 6:38 PM Age: 84 years old Clinical indication: Injury or trauma; Fall; Additional info: Lt hip pain post fall; Repeat images per physician due to nondiagnostic images TECHNIQUE: Imaging protocol: Radiologic exam of the left hip. Views: 2 or 3 views hip with pelvis when performed. COMPARISON: CR XR hip LT 2-3V wo/w pel* [id number] 01/31/2025 3:06 PM FINDINGS: Bones/joints: Intratrochanteric fracture of the left hip. No dislocation. No additional acute displaced fractures identified within the pelvis. Right hip joint is intact. Soft tissues: Unremarkable. XR/XR hip LT 2-3V wo/w pel* [id number] IMPRESSION: Intertrochanteric fracture of the left hip.
[2025-01-31 18:34] LABS: Iron 65 ug/dL (37-145); Percent Saturation 21.4 % (20-50); Thyroid Stimulating Hormone 2.62 uIU/mL (0.27-4.20); Total Iron Binding Capacity 303 mcg/dl; Unsaturated Iron Binding 238 ug/dL (112-347); Vitamin B12 656 pg/mL (232-1245)
[2025-01-31] MEDS: morphine 4 mg/mL SDV 1 mL 2 MG IVP ×2 (19:00→22:44)
[2025-01-31] MEDS: sodium chloride 0.9% 1,000 ML 75 ML IV (19:03)
[2025-01-31] MEDS: pantoprazole 40 mg SDV IVP (19:03)
[2025-01-31] MEDS: metoprolol tartrate 50 mg Tablet PO (19:04)
[2025-01-31] MEDS: heparin 5,000 unit/mL INJ 1 mL 5000 UNIT SUBCUT (19:04)
[2025-01-31] MEDS: docusate sodium 100 mg Capsule PO (19:04)
[2025-01-31 20:06] LABS: Estmated Average Glucose 157; Hemoglobin A1C 7.1 % (4.0-6.0)
[2025-02-01] VITALS (11 sets, daily range): BP systolic 87–112; BP diastolic 55–69; PULSE 67–99; RESP 14–18; TEMP 36.5–37.3; O2SAT 91–95
[2025-02-01] MEDS: morphine 4 mg/mL SDV 1 mL 2 MG IVP ×2 (02:49→07:26)
[2025-02-01 04:43] LABS: Basophils # 0.1 10^3/uL (0.0-0.1); Basophils % 0.8 %; Eosinophils # 0.1 10^3/uL (0.0-0.8); Eosinophils % 0.9 %; Hematocrit 36.9 % (36-47); Lymphocytes # 1.8 10^3/uL (0.8-4.8); Lymphocytes % 23.4 %; Mean Corpuscular HGB Conc 31.4 g/dL (30-55); Mean Corpuscular Hemoglobin 30.7 pg (27-33); Mean Corpuscular Volume 97.6 fl (85-98); Mean Platelet Volume 13.1 fL (7.4-10.4); Monocytes # 0.9 10^3/uL (0.2-0.9); Neutrophils # 4.78 10^3/uL (1.8-7.7); Neutrophils % 62.6 %; Nucleated Red Blood Cells % 0 %; Platelet Count 169 10^3/cmm (157-399); Red Blood Count 3.78 10^6/uL (3.85-5.65); Red Cell Distribution Width 13.6 % (12.1-15.1); White Blood Count 7.64 10^3/uL (3.29-11.43)
[2025-02-01 04:55] LABS: INR 2.08 (0.8-1.2)
[2025-02-01] MEDS: heparin 5,000 unit/mL INJ 1 mL 5000 UNIT SUBCUT ×2 (04:58→17:54)
[2025-02-01 05:10] LABS: Procalcitonin 0.06 ng/mL (0-0.5)
[2025-02-01 05:11] LABS: Alanine Aminotransferase 12 U/L (0-33); Albumin Level 3.6 g/dL (3.5-5.2); Alkaline Phosphatase 79 U/L (35-105); Aspartate Amino Transferase 20 U/L (0-32); Blood Urea Nitrogen 12 mg/dL (8-23); Calcium 8.5 mg/dL (8.5-10.5); Carbon Dioxide 22 mmol/L (22-29); Chloride 105 mmol/L (98-107); Chol HDL Ratio 5.44 mg/dL (0.0-4.40); Cholesterol 185 mg/dL (0-200); Creatinine Clr Calc Pharmacy 56.9092; Globulin 2.9 g/dL (1.3-4.6); Glucose 162 mg/dL (65-115); HDL Cholesterol 34 mg/dL (60-100); LDL Cholesterol Calculated 117 mg/dL (50-129); LDL HDL Ratio 3.44 RATIO (0.00-3.22); Magnesium 1.5 mg/dL (1.7-2.3); Osmolality Calculated 293 mOsm/kg (285-295); Phosphorus 3.1 mg/dL (2.5-4.5); Sodium 140 mmol/L (136-145); Total Bilirubin 0.7 mg/dL (0.15-1.2); Total Protein 6.5 g/dL (6.6-8.7); Triglycerides 171 mg/dL (0-150)
[2025-02-01 05:24] LABS: Folate Level > 20.0 ng/mL (4.8-37.3)
[2025-02-01] MEDS: docusate sodium 100 mg Capsule PO ×2 (08:43→17:54)
[2025-02-01] MEDS: metoprolol tartrate 50 mg Tablet PO (08:43)
--- NOTE | 2025-02-01 09:54 | P.PN_ITS ---
Subjective 2 Subjective: Patient is in bed and complaining quite a bit of pain in her hip at this time. She states that somebody adjusted her hip but now her hip hurts quite a bit. I spoke with the nurse and she is already had her dose of morphine. Patient is refusing oral opioids because they cause her hallucinations. Her daughter also reiterates this. However I pointed out that oral medication will last longer than the IV. She is getting her maximum dose of morphine that the hospitalist has ordered for her at this time. After lengthy discussion she indicates that she has taken tramadol and acetaminophen for previous surgery that seem to help. Patient's INR had gone up to 2.08 today. Yesterday was 2.03. I informed the hospitalist yesterday we needed to have the INR to 1.5 in order to make it safe for surgery. Medications: Reviewed: Yes Vitals/I&O/Wt Last Vital Signs Temp 97.7 F 02/01/25 08:00 Pulse 86 02/01/25 08:00 Resp 15 02/01/25 08:00 BP 99/55 02/01/25 08:00 Pulse Ox 92 02/01/25 08:00 O2 Del Method Nasal Cannula 02/01/25 08:00 O2 Flow Rate 2 01/31/25 17:18 01/31/25 02/01/25 02/01/25 22:59 06:59 14:59 Intake Total 1000 / 1000 Output Total 450 / 450 Balance -450 / -450 1000 / 1000 Weight last 48 hrs Weight 184 lb 6.4 oz Weight 180 lb Weight 180 lb Physical Exam 2 Narrative: On exam today patient again is laying in bed leaning over towards her right side in hopes to reduce some of the pain and discomfort in her left hip. Nothing further to add to the exam today. Urinary Catheter Management: Carmona: Cath Placed During This Visit: yes Reason for Continuing Indwelling Catheter: Required Immobilization for Trauma or Surgery or Anesthesia Urinary Catheter Date of Insertion: 01/31/25 Data 02/01/25 03:58 02/01/25 03:58 Other data: I reordered x-rays of the hip. This is a low femoral neck fracture or a high intertrochanteric hip fracture. A&P Assessment and plan (1) Closed left hip fracture: Patient has a left hip fracture, low femoral neck fracture Plan Plan at this time is that I will give the patient some vitamin K IV today to try and drive down her Coumadin levels in hopes to reduce the INR. Tentatively we will plan on surgery tomorrow morning. Will continue on with n.p.o. after midnight tonight. I have ordered tramadol for pain now as well as acetaminophen. I have discussed this with the nurse. I have strongly encouraged the patient to take a stronger opioid even though it does cause hallucinations it will help with her pain because oral pain medicines will last longer. We will wait the next INR after vitamin K has been infused. PDMP PDMP Reviewed: Not Reviewed Attestations 2 Medical Necessity Statement*: Patient with left hip fracture in need of surgical repair. Patient will continue to need pain medication and support for ADLs at this time. Coding Level of Care Code Critical Care >/= 30 minutes Diagnoses Closed fracture of left hip, initial encounter S72.002A Encounter type: initial encounter
[2025-02-01 09:57] LABS: Acetaminophen < 5.0 ug/mL (10-30)
[2025-02-01] MEDS: TRAMadol 50 mg Tablet 100 MG PO ×3 (10:45→21:52)
[2025-02-01] MEDS: acetaminophen 325 mg Tablet 650 MG PO (10:45)
[2025-02-01] MEDS: phytonadione (ADULT) 2.5 MG in sodium chloride 0.9% 50 ML 153 MG IV (10:45)
--- NOTE | 2025-02-01 13:11 | P.PN_ITS ---
Subjective 2 Subjective: No acute events overnight. Blood pressures overnight has been stable. Today morning has been in high 90s. Patient awake and alert. States pain is controlled. Does not want to take Oxy or hydrocodone because of history of hallucinations with medications Medications: Reviewed: Yes Vitals/I&O/Wt Last Vital Signs Temp 97.8 F 02/01/25 10:56 Pulse 99 02/01/25 10:56 Resp 16 02/01/25 10:56 BP 87/56 02/01/25 10:56 Pulse Ox 91 02/01/25 10:56 O2 Del Method Nasal Cannula 02/01/25 10:56 O2 Flow Rate 2 01/31/25 17:18 01/31/25 02/01/25 02/01/25 22:59 06:59 14:59 Intake Total 1050.25 / 1050.25 Output Total 450 / 450 Balance -450 / -450 1050.25 / 1050.25 Weight last 48 hrs Weight 83.642 kg Weight 81.647 kg Weight 81.647 kg Physical Exam 2 Narrative: General: Mild distress because of hip pain, AO x3 HEENT: PERRLA, pupils bilaterally equal and reactive Chest: Bilateral bronchial breath sounds occasional rhonchi, good equal air entry bilaterally in lower lung turner CVS: S1-S2 regular, no murmurs, no tachycardia, no gallops, no rubs Abdomen: Soft, nontender, no organomegaly, bowel sounds present Neuro: No focal deficits, no facial deformity, AO x3, Urinary Catheter Management: Carmona: Cath Placed During This Visit: yes Reason for Continuing Indwelling Catheter: Required Immobilization for Trauma or Surgery or Anesthesia Urinary Catheter Date of Insertion: 01/31/25 Data 02/01/25 03:58 02/01/25 03:58 A&P Assessment and plan (1) Intertrochanteric fracture of left hip: Post mechanical fall from wheelchair. Orthopedic consulted from the ER. Plan for ORIF once INR less than 1.5. Currently 2.03. Given history of hallucinations with hydrocodone oxycodone for now we will discontinue. Switch to tramadol 100 mg Q4 hourly, morphine 1 mg every 4 hours as needed for pain. Patient not given vitamin K 01/31 as merits versus demerits of reversing the INR was discussed with concerns for possible stroke if INR is reversed in setting of A-fib with RVR. Risks of possible pneumonia, worsening pain were discussed in detail with the patient as well if surgery is delayed for more than 48 hours. Patient verbalized understanding and stated she is scared and worried about stroke hence refused oral vitamin K. Patient given vitamin K IV 2.5 mg today as per surgical team. Incentive spirometry. (2) Grade III diastolic dysfunction: Currently euvolemic. Continue to monitor for fluid overload. Fluid restriction to less than 1500 cc. Not on diuretic as an outpatient. Check echocardiogram. (3) CAD (coronary artery disease): Denies any chest pain. Appreciate A1c, lipid panel. Continue with home dose of metoprolol 50 mg twice daily. (4) Atrial fibrillation: Telemetry. Metoprolol 25 mg twice daily at home dose. Takes Coumadin as an outpatient. INR at goal. Hold off on Coumadin for now as patient will require ORIF. Monitor INR daily. (5) Hypertension: Goal blood pressure less than 140/90 mmHg. Currently blood pressure slightly soft most likely in setting of pain medications. Will continue to monitor. Metoprolol dose decreased as above. (6) Warfarin anticoagulation: Plan CODE STATUS: Discussed and with the patient. Full code. Cardiac diet, n.p.o. after midnight for possible ORIF. Protonix for PUD prophylaxis Heparin 5000 every 12 hourly for DVT prophylaxis. PDMP PDMP Reviewed: Not Reviewed Attestations 2 Medical Necessity Statement*: Requires further hospitalization for management of left hip fracture in a patient with history of A-fib on Coumadin while INR reversal is elevated, diastolic heart failure Diagnoses Intertrochanteric fracture of left hip S72.142A Grade III diastolic dysfunction I51.89 CAD (coronary artery disease) I25.10 Persistent atrial fibrillation I48.19 Atrial fibrillation type: persistent (not longstanding) Secondary hypertension I15.9 Hypertension type: unspecified secondary hypertension Warfarin anticoagulation Z79.01
--- NOTE | 2025-02-01 17:07 | USCV_ITS ---
Allyson Causey Age: 84 Gender: F : 1940 Exam Date: 02/01/2025 11:45 Ordering Phys: Owen Neal MD Technologist: Morris Hernandez Exam Location: [facility] [place] Indication: afib BP: 110 / 70 HR: 91 Rhythm: Sinus Technical Quality: Adequate MEASUREMENTS (Male / Female) Normal Values 2D ECHO LV Diastolic Diameter PLAX 3.4 cm 4.2 - 5.9 / 3.9 - 5.3 cm IVS Diastolic Thickness 1.2 cm 0.6 - 1.0 / 0.6 - 0.9 cm IVS Systolic Thickness 1.3 cm LVPW Diastolic Thickness 1.3 cm 0.6 - 1.0 / 0.6 - 0.9 cm LVPW Systolic Thickness 1.4 cm LVOT Diameter 2.0 cm LV Ejection Fraction MOD 4C 69.8 % LV Ejection Fraction MOD 2C 73.2 % LV Ejection Fraction 2C AL 71.3 % LA Diameter 3.6 cm RA Systolic Volume 4C AL 31.5 ml RA Systolic Volume 4C MOD 32.9 ml LA Sys Volume AL 44.9 cm cubed LA Sys Volume Index AL 22.6 cm cubed/m squared Aorta at Sinotubular Diameter 2.1 cm IVC Diameter 1.8 cm M-MODE LA Ao Ratio MM 1.2 AV Cusp Separation MM 1.7 cm DOPPLER AV Peak Velocity 114.0 cm/s LVOT Peak Velocity 77.0 cm/s AV Area Cont Eq vti 2.6 cm squared AV Area Cont Eq pk 2.2 cm squared MV Peak Velocity 125.0 cm/s MV Area PHT 5.6 cm squared Mitral E to A Ratio 4.3 TR Peak Velocity 372.0 cm/s TR Peak Gradient 55.4 mmHg TR Mean Velocity 285.0 cm/s TR Mean Gradient 36.8 mmHg TR Velocity Time Integral 100.9 cm PV Peak Velocity 74.0 cm/s RV Ejection Time 0.3 s FINDINGS Left Ventricle Technically limited quality echocardiogram because of poor ultrasonic windows. Grossly LV systolic function is normal. Right Ventricle Grossly normal Right Atrium Normal in size Left Atrium Normal in size Mitral Valve Grossly normal. Mild mitral regurgitation Aortic Valve Grossly normal. No significant stenosis or regurgitation. Tricuspid Valve Mild tricuspid regurgitation. RVSP is 55-60mmHg. This is consistent with moderate pulmonary hypertension. Pulmonic Valve Not well visualized Pericardium Normal Aorta Normal in size IVC Not well visualized CONCLUSIONS Grossly LV systolic function is normal Mild mitral regurgitation Mild tricuspid regurgitation Moderate pulmonary hyertension Jacob Kwong MD (Electronically Signed) Final Date: 01 Feb 2025 22:27 S
[2025-02-01] MEDS: pantoprazole 40 mg SDV IVP (17:54)
[2025-02-02] VITALS (29 sets, daily range): BP systolic 93–122; BP diastolic 50–96; PULSE 86–127; RESP 16–19; TEMP 36.5–37.7; O2SAT 90–98
[2025-02-02] MEDS: TRAMadol 50 mg Tablet 100 MG PO ×4 (02:10→21:07)
[2025-02-02] MEDS: heparin 5,000 unit/mL INJ 1 mL 5000 UNIT SUBCUT (04:52)
[2025-02-02 05:18] LABS: Basophils # 0.1 10^3/uL (0.0-0.1); Basophils % 0.8 %; Eosinophils # 0.1 10^3/uL (0.0-0.8); Eosinophils % 1.3 %; Hematocrit 38.6 % (36-47); Lymphocytes # 1.7 10^3/uL (0.8-4.8); Lymphocytes % 19.9 %; Mean Corpuscular HGB Conc 31.9 g/dL (30-55); Mean Corpuscular Hemoglobin 30.8 pg (27-33); Mean Corpuscular Volume 96.7 fl (85-98); Mean Platelet Volume 13.4 fL (7.4-10.4); Monocytes # 1.1 10^3/uL (0.2-0.9); Monocytes % 12.5 %; Neutrophils # 5.49 10^3/uL (1.8-7.7); Nucleated Red Blood Cells % 0 %; Platelet Count 160 10^3/cmm (157-399); Red Blood Count 3.99 10^6/uL (3.85-5.65); Red Cell Distribution Width 13.3 % (12.1-15.1); White Blood Count 8.45 10^3/uL (3.29-11.43)
[2025-02-02 05:28] LABS: INR 1.24 (0.8-1.2)
[2025-02-02 05:38] LABS: Alanine Aminotransferase 12 U/L (0-33); Albumin Level 3.8 g/dL (3.5-5.2); Alkaline Phosphatase 84 U/L (35-105); Anion Gap 12.6 (5-19); Aspartate Amino Transferase 24 U/L (0-32); Blood Urea Nitrogen 8 mg/dL (8-23); Carbon Dioxide 28 mmol/L (22-29); Chloride 101 mmol/L (98-107); Creatinine Clr Calc Pharmacy 56.8483; Globulin 3.5 g/dL (1.3-4.6); Glucose 135 mg/dL (65-115); Magnesium 1.6 mg/dL (1.7-2.3); Osmolality Calculated 286 mOsm/kg (285-295); Phosphorus 2.7 mg/dL (2.5-4.5); Potassium 3.6 mmol/L (3.5-5.1); Sodium 138 mmol/L (136-145); Total Bilirubin 1.3 mg/dL (0.15-1.2); Total Protein 7.3 g/dL (6.6-8.7)
--- NOTE | 2025-02-02 07:28 | W.PM.OPSUD ---
Surgery/Procedure H&P Update DATE OF PROCEDURE: February 02, 2025 DATE H&P PERFORMED: 02/02/25 H&P UPDATE INFORMATION: I have reviewed H&P completed within last 30 days, I have examined patient prior to procedure and No changes to prior documentation CHANGES TO PREVIOUS DOCUMENTATION: INR now down to 1.24. Therefore safe to proceed with surgical intervention today PREOP DIAGNOSIS: Left hip fracture PRIMARY INDICATION FOR PROCEDURE: Pain and fractured hip PLANNED PROCEDURE: Operation Date: 02/02/25 08:30 Proposed Procedures p Hemiarthroplasty Hip(Left) - Rogerio Sylvester MD
--- NOTE | 2025-02-02 07:58 | ANES.PREANE2 ---
Pre-Anesthetic Assessment Height/Weight: Height 5 ft 5 in Weight 184 lb Temp Pulse Resp BP Pulse Ox O2 Del Method O2 Flow Rate 98.7 F 105 H 18 105/61 91 Nasal Cannula 2 02/02/25 05:28 02/02/25 07:28 02/02/25 07:28 02/02/25 07:28 02/02/25 07:28 02/02/25 07:28 02/02/25 07:28 Preop Diagnosis: Left hip fracture Operation Date: 02/02/25 08:30 Proposed Procedures p Hemiarthroplasty Hip(Left) - Rogerio Sylvester MD Was Beta Thomas taken within 24 hours: Yes Was Clonidine taken within 24 hours: N/A Last intake: Intake Last Liquid Date 01/31/25 Last Liquid Time 23:59 Last Solid Date 01/31/25 Last Solid Time 23:59 Social No alcohol and No tobacco Exam alert, oriented x 3 and clear to auscultation bilaterally Airway Submandibular: within normal limits Cervical ROM: within normal limits Mallampati: Class III Dentition: full Comments: Comments: Poor dentition, denies any loose Anesthetic Plan ASA status: 3 Anesthesia: General and Regional (specify below) Other: Patient presented on Monday after experiencing a fall at [facility] and fracturing her hip No prior issues with anesthesia NPO since yesterday History of CAD, CABG in 2007. Follows with cardiology. On chronic metoprolol for hypertension History of A-fib, on chronic Eliquis. INR 1.2 today GERD on omeprazole Patient is on 2 L nasal cannula currently, states they gave this to her for postnasal drip. Does not use oxygen at home Moderate pulmonary hypertension noted on echocardiogram. RVSP 55-60. Normal EF Patient states that she ambulates with a walker at home. Lives alone with her animals Plan for general anesthesia with possible postop nerve block Medications/Allergies Home Medications ?Medication ?Instructions ?Recorded ?Confirmed ?Last Taken ?Type docusate sodium 100 mg capsule 100 mg PO DAILY PRN Constipation 07/22/22 01/31/25 02/26/24 History (Colace) multivitamin 1 tab PO DAILY 07/22/22 01/31/25 01/31/25 History vitamin B comp and C no.3 15 mg-10 1 cap PO DAILY 07/22/22 01/31/25 01/31/25 History mg-50 mg-5 mg-300 mg capsule (B Complex Plus Vitamin C) vitamin E acetate 134 mg (200 134 mg PO DAILY 07/22/22 01/31/25 01/31/25 History unit) capsule chlorhexidine gluconate 0.12 % 15 ml buccal BID PRN SORE MOUTH 02/27/24 01/31/25 Unknown History mouthwash metoprolol tartrate 50 mg tablet 50 mg PO BID #180 tabs 11/01/24 01/31/25 01/31/25 Rx warfarin 3 mg tablet 3 mg PO QPM #90 tabs 11/01/24 01/31/25 01/30/25 Rx Lactobacillus rhamnosus-Bifidobac. 1 cap PO DAILY PRN stomach health 01/08/25 01/31/25 Unknown History animalis 3 billion cell capsule ([employer]) acetaminophen 500 mg tablet 500 mg PO Q6H PRN Pain 01/08/25 01/31/25 Unknown History yvsooxtljgmzlkn-qwyanbmlsqhwryk-GL 5 ml PO Q6H PRN cold symptoms #118 01/09/25 01/31/25 Unknown Rx 2 mg-30 mg-10 mg/5 mL oral syrup mL (Bromfed DM) omeprazole 20 mg capsule,delayed 20 mg PO BID 90 days #180 caps 01/30/25 01/31/25 01/31/25 Rx release Allergies Allergy/AdvReac Type Severity Reaction Status Date / Time rosuvastatin (From Crestor) Allergy Severe ADR-Muscle Verified 01/09/25 15:06 Pain azithromycin (From Zithromax) Allergy Intermediate ADR-upset Verified 01/09/25 15:06 stomach nitrofurantoin Allergy Intermediate ADR-other Verified 01/09/25 15:06 Sulfa (Sulfonamide Allergy Intermediate ADR-rash Verified 01/09/25 15:06 Antibiotics) Penicillins Allergy Unknown unk Verified 01/09/25 15:06 doxycycline Allergy ADR-other Verified 01/09/25 15:06 hydrocodone Allergy ADR-Halluci Verified 02/01/25 07:34 nating Current Medications Generic Name Dose Route Start Last Admin Trade Name Freq PRN Reason Stop Dose Admin Acetaminophen 650 mg 01/31/25 17:38 02/01/25 10:45 Acetaminophen 325 Mg Tablet PO 650 mg On Hold: 02/02/25 07:27 Q6H PRN Administration Comment: Order held by Process Mild/Mod Pain Or Temp >/= 101 Transfer Docusate Sodium 100 mg 01/31/25 18:00 02/01/25 17:54 Docusate Sodium 100 Mg Capsule PO 100 mg On Hold: 02/02/25 07:27 BID PACHECO Administration Comment: Order held by Process Transfer Heparin Sodium (Porcine) 5,000 unit 01/31/25 17:38 02/02/25 04:52 Heparin 5,000 Unit/Ml Inj 1 Ml SUBCUT 5,000 unit On Hold: 02/02/25 07:27 Q12H PACHECO Administration Comment: Order held by Process Transfer Metoprolol Tartrate 25 mg 02/01/25 18:00 02/01/25 17:26 Metoprolol Tartrate 50 Mg Tablet PO Not Given On Hold: 02/02/25 07:27 BID PACHECO Comment: Order held by Process Transfer Pantoprazole Sodium 40 mg 01/31/25 17:38 02/01/25 17:54 Pantoprazole 40 Mg Sdv IVP 40 mg On Hold: 02/02/25 07:27 Q24H PACHECO Administration Comment: Order held by Process Transfer Tramadol HCl 100 mg 02/01/25 09:33 02/02/25 06:01 Tramadol 50 Mg Tablet PO 100 mg On Hold: 02/02/25 07:27 Q4H PRN Administration Comment: Order held by Process MODERATE PAIN Transfer [facility] Anesthesia Medical History Grade III diastolic dysfunction GERD (gastroesophageal reflux disease) Vitamin D deficiency NSTEMI (non-ST elevated myocardial infarction) Pneumonia Diverticulosis Hx of pulmonary embolus 06/2008 CAD (coronary artery disease) LA 1998-2 stents CABG 2007 Atrial fibrillation chronic warfarin with goal of 2.0-3.0 Generalized osteoarthritis Chronic constipation Bladder prolapse Recurrent UTI Hypercholesterolemia Hypertension Diabetes Type 2 Surgical History History of surgery on right wrist fracture repair History of four vessel coronary artery bypass graft 2007 History of cholecystectomy Hx of colonoscopy colonoscopy in 1999 wiht two polyps, repeat clear Family History (Updated 01/08/25 @ 11:15 by Anahi Jennings MD) Mother Colon cancer Brother Colon cancer Father Diabetes Other CAD (coronary artery disease) Cancer Clotting disorder Social History Smoking and tobacco/nicotine status: never used tobacco/nicotine Alcohol intake: never Substance/Drug Use: never Lives independently: Yes Household members: none Number of children: 5 Number of grandchildren: 7 Current occupational status: retired Data Anesthesia 02/02/25 04:12 02/02/25 04:12 Short CBC 01/31/25 02/01/25 02/02/25 Range/Units 15:19 03:58 04:12 WBC 7.74 7.64 8.45 (3.29-11.43) 10^3/uL Hgb 13.40 11.60 12.30 (11.27-16.99) g/dL Hct 41.3 36.9 38.6 (36-47) % MCV 96.5 97.6 96.7 (85-98) fl Plt Count 168 169 160 (157-399) 10^3/cmm Neut % (Auto) 64.7 62.6 65.0 % Neut # (Auto) 5.00 4.78 5.49 (1.8-7.7) 10^3/uL BMP 01/31/25 02/01/25 02/02/25 15:19 03:58 04:12 Sodium 137 140 138 Potassium 4.0 4.0 3.6 Chloride 103 105 101 Carbon Dioxide 21 L 22 28 BUN 15 12 8 Creatinine 0.7 0.5 0.6 Glucose 234 H 162 H 135 H Calcium 8.8 8.5 9.0 Liver Function 01/31/25 02/01/25 02/02/25 Range/Units 15:19 03:58 04:12 Total Bilirubin 0.5 0.7 1.3 H (0.15-1.2) mg/dL AST 24 20 24 (0-32) U/L ALT 14 12 12 (0-33) U/L Alkaline Phosphatase 96 79 84 (35-105) U/L Albumin 3.9 3.6 3.8 (3.5-5.2) g/dL Coags 01/31/25 02/01/25 02/02/25 15:19 03:58 04:12 PT 24.20 H 24.60 H 16.40 H D INR 2.03 H 2.08 H 1.24 H Cardiac Studies: Echocardiogram 02/01/25
[2025-02-02] MEDS: clindamycin 600 MG/50 ML PREMIX 100 MG IV (08:00)
--- NOTE | 2025-02-02 09:25 | PC.NURSE ---
Patient off the floor for surgery at 0736am.
--- NOTE | 2025-02-02 09:39 | XRR_ITS ---
PROCEDURE INFORMATION: Exam: XR Left Hip Exam date and time: 02/02/2025 9:55 AM Age: 84 years old Clinical indication: Pain; Other: Post op; Prior surgery; Surgery date: Post-operative (0-2 days); Surgery type: Lt hip joe; Additional info: Post op lt hip hemiarthroplasty TECHNIQUE: Imaging protocol: Radiologic exam of the left hip. Views: 2 or 3 views hip with pelvis when performed. COMPARISON: CR (PELVIS, ) 01/31/2025 6:38 PM FINDINGS: Bones/joints: Status post left hip arthroplasty. No acute hardware abnormality. Soft tissue swelling of the left hip. Subcutaneous emphysema persumably post surgical in nature. Soft tissues: See Bones/joints finding. XR/XR hip LT 2-3V wo/w pel* [id number] IMPRESSION: Status post left hip arhtroplasty without evidence of hardware abnormality.
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
[2025-02-02] MEDS: fentaNYL 50 mcg/mL INJ 2mL IVP (10:10)
--- NOTE | 2025-02-02 10:30 | ANES.PROC ---
Anesthesia Procedures Procedure/Date: 02/02/25 Nerve Block ^: Nerve Block 1: Main Anesthesia: general anesthesia Time Out Performed: Yes Consent: requested by attending/covering physician and from patient Nerve block location: other (GERMAN block) Anesthesia monitors applied: pulse oximetry, EKG, BP cuff and oxygen Nerve block position: supine Anesthetic Used: ropivicaine 0.5% Amount of anesthesia used (mL): 20 Ultrasound used to: recognize landmarks Nerve Stimulator Used?: No Interscalene/Femoral BLK: other needle (pjunk 4inch) Injection: neg aspiration of heme Patient Tolerated Procedure: well Complications: none
[2025-02-02] MEDS: acetaminophen 1,000 MG/100 ML PIGGYBACK 400 MG IV (10:35)
--- NOTE | 2025-02-02 10:42 | ANE.PACU2 ---
Inpatient post-anesthesia follow up: Airway intact: Yes Vital signs: Temperature 99.2 F Pulse Rate 115 Respiratory Rate 17 Blood Pressure 96/57 Pulse Oximetry 95 Oxygen Delivery Me thod Nasal Cannula Oxygen Flow Rate 3 Fraction of Inspir ed Oxygen Hydration adequate: Yes Nausea and vomiting: No Pain level: 1 Mental status: Baseline
--- NOTE | 2025-02-02 10:55 | ANE.PACU2 ---
Inpatient post-anesthesia follow up: Airway intact: Yes Vital signs: Temperature 99.7 F Pulse Rate 112 Respiratory Rate 16 Blood Pressure 113/65 Pulse Oximetry 91 Oxygen Delivery Me thod Nasal Cannula Oxygen Flow Rate 2 Fraction of Inspir ed Oxygen Hydration adequate: Yes Nausea and vomiting: No Pain level: 1 Mental status: Altered (Postop delirium noted. Patient is pleasant but confused currently. Spoke to family about this and they understand they could be 2 to medications and/or situation)
--- NOTE | 2025-02-02 10:57 | PC.NURSE ---
Assumed care of patient at 1055 from PACU Ximena
[2025-02-02] MEDS: cefTRIAXone 1,000 mg SDV 1000 MG IVP (11:43)
[2025-02-02 12:03] LABS: Glucose Urine UA Trace (Normal); Ketones Urine 2+ (Negative); Protein Urine Neg (Negative); Specific Gravity, Urine 1.021 (1.005-1.030); Urine Appearance Clear (CLEAR); Urine Color Yellow (Yellow); pH Urine 5.5 (5-7)
[2025-02-02 12:04] LABS: Add Urine Culture? No; Add Urine Microscopic? YES; Bacteria Urine TRACE /hpf; Bilirubin Urine Neg (Negative); Blood Urine Trace (Negative); Leukocyte Esterase Urine Negative (Negative); Nitrate Urine Negative (Negative); RBC Urine RARE /hpf (0-2); Squamous Epithelial Cell Urine 0-4 /hpf (0-5); UA Slide Review UA Slide Review Perf; WBC Urine RARE /hpf (0-5)
[2025-02-02] MEDS: chlorhexidine gluconate 0.12% Btl 473 mL 30 ML MUCOUS MEM ×3 (13:21→20:07)
--- NOTE | 2025-02-02 13:52 | P.PN_ITS ---
Subjective 2 Subjective: Seen in multiple family members at bedside. Patient underwent ORIF today. Awake and alert though still little drowsy postoperatively. Currently on 4 L saturating 93%. Complaining of mild pain. Medications: Reviewed: Yes Vitals/I&O/Wt Last Vital Signs Temp 97.8 F 02/02/25 12:55 Pulse 93 02/02/25 12:55 Resp 19 H 02/02/25 12:55 BP 93/60 02/02/25 12:55 Pulse Ox 94 02/02/25 12:55 O2 Del Method Room Air 02/02/25 12:55 O2 Flow Rate 2 02/02/25 11:40 02/01/25 02/02/25 02/02/25 22:59 06:59 14:59 Intake Total 240 / 1410.25 210 / 210 Output Total 500 / 500 100 / 100 Balance -260 / 910.25 110 / 110 Weight last 48 hrs Weight 83.461 kg Weight 83.642 kg Weight 81.647 kg Weight 81.647 kg Physical Exam 2 Narrative: General: Seen postoperatively, AO x 3, slightly drowsy, no acute distress HEENT: PERRLA, pupils bilaterally equal and reactive Chest: Bilateral bronchial breath sounds occasional rhonchi, good equal air entry bilaterally in lower lung turner CVS: S1-S2 regular, no murmurs, no tachycardia, no gallops, no rubs Abdomen: Soft, nontender, no organomegaly, bowel sounds present Neuro: No focal deficits, no facial deformity, AO x3, Urinary Catheter Management: Carmona: Cath Placed During This Visit: yes Reason for Continuing Indwelling Catheter: Required Immobilization for Trauma or Surgery or Anesthesia Urinary Catheter Date of Insertion: 01/31/25 Data 02/02/25 04:12 02/02/25 04:12 A&P Assessment and plan (1) Intertrochanteric fracture of left hip: Post mechanical fall from wheelchair. Post-ORIF 02/02. Given history of hallucinations with hydrocodone oxycodone for now we will discontinue. Continue with tramadol 100 mg Q4 hourly, morphine 1 mg every 4 hours as needed for pain. Patient received vitamin K IV 2.5 mg on 02/01 as per surgical team. Discussed in detail with orthopedic team today. Okay to restart Coumadin today. Will restart Coumadin at 5 mg oral daily. Start on bridging with full dose Lovenox 1 mg/kg body weight every 12 hourly from 02/03. Monitor hemoglobin. Incentive spirometry. Physical therapy. (2) Grade III diastolic dysfunction: Currently euvolemic. Continue to monitor for fluid overload. Fluid restriction to less than 1500 cc. Not on diuretic as an outpatient. (3) CAD (coronary artery disease): Denies any chest pain. Appreciate A1c, lipid panel. (4) Atrial fibrillation: Telemetry. Heart rate so far stable. Blood pressures on the softer side. Maintain monometer pressure 65. For now continue with metoprolol 25 mg twice daily. Coumadin and bridging with anticoagulation as above. Monitor INR daily. (5) Hypertension: Goal blood pressure less than 140/90 mmHg. Mean over 65. (6) Warfarin anticoagulation: Plan Febrile episode: Had a fever of 99.6 Fahrenheit overnight. Most likely in setting of atelectasis. UA still pending. Empirically start on IV ceftriaxone 1 g daily for now. CODE STATUS: Discussed and with the patient. Full code. Cardiac diet, n.p.o. after midnight for possible ORIF. Protonix OPD prophylaxis Coumadin 5 mg oral daily along with bridging with full dose Lovenox will be sufficient for DVT prophylaxis. PDMP PDMP Reviewed: Not Reviewed Attestations 2 Medical Necessity Statement*: Requires further hospitalization for management of post-ORIF care post left hip fracture in a patient with history of A-fib on Coumadin while bridging of Coumadin and Lovenox is done, diastolic heart failure Diagnoses Intertrochanteric fracture of left hip S72.142A Grade III diastolic dysfunction I51.89 CAD (coronary artery disease) I25.10 Persistent atrial fibrillation I48.19 Atrial fibrillation type: persistent (not longstanding) Secondary hypertension I15.9 Hypertension type: unspecified secondary hypertension Warfarin anticoagulation Z79.01
[2025-02-02] MEDS: morphine 4 mg/mL SDV 1 mL 1 MG IVP (16:12)
[2025-02-02] MEDS: clindamycin 900 MG/50 ML PREMIX 100 MG IV ×2 (17:27→23:09)
[2025-02-02] MEDS: sennosides-docusate Tablet 2 TAB PO (17:27)
[2025-02-02] MEDS: calcium carbonate 500 mg Chew Tablet 1000 MG PO (17:27)
[2025-02-02] MEDS: warfarin 5 mg Tablet PO (17:27)
[2025-02-02] MEDS: iron polysaccharide complex 150 mg Capsule PO (17:27)
[2025-02-02] MEDS: docusate sodium 100 mg Capsule PO (17:28)
[2025-02-02] MEDS: pantoprazole 40 mg SDV IVP (17:29)
[2025-02-02] MEDS: mupirocin oint 22 gm 1 APPLIC NASAL (17:29)
--- NOTE | 2025-02-02 21:23 | ECG_ITS ---
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 Measurements Intervals [place] Rate: 149 P: 0 AK: 0 QRS: 12 QRSD: 88 T: 259 QT: 226 QTc: 356 Interpretive Statements ATRIAL FIBRILLATION WITH RAPID VENTRICULAR RESPONSE ST DEPRESSION, CONSIDER SUBENDOCARDIAL INJURY [0.1+ mV ST DEPRESSION] ABNORMAL QRS-T ANGLE [QRS-T AXIS DIFFERENCE > 60] Compared to ECG 01/31/2025 15:01:38 ST (T wave) deviation now present Ventricular premature complex(es) no longer present Aberrant conduction of supraventricular beat(s) no longer present T-wave abnormality no longer present Electronically Signed On 02-03-2025 09:16:32 CDT by Jacob Kwong M.D. [email or web address]
--- NOTE | 2025-02-02 21:28 | PC.NURSE ---
Patient was running tachy in the 140-160s, EKG was performed with results of Afib with RVR, Dr. Amato was called and new orders of Potassium, magnesium, IV metoprolol, fluid bolus and IV fluids will be started on the patient.
[2025-02-02] MEDS: sodium chloride 0.9% 500 ML 999 ML IV (21:40)
[2025-02-02] MEDS: metoprolol tartrate 25 mg Tablet PO (21:41)
[2025-02-02] MEDS: potassium chloride ER 20 mEq Tablet 40 MEQ PO (21:41)
[2025-02-02] MEDS: magnesium sulfate premix 2 GM/50 ML PIGGYBACK IV (21:54)
[2025-02-02] MEDS: digoxin 250 mcg/ml INJ 2 mL 500 MCG IVP (22:40)
[2025-02-02] MEDS: sodium chloride 0.9% 1,000 ML 999 ML IV (22:49)
[2025-02-02] MEDS: sodium chlor 0.9% + KCl 20 mEq 20 MEQ/1,000 ML BAG 100 MEQ IV (23:50)
[2025-02-03] VITALS (12 sets, daily range): BP systolic 90–125; BP diastolic 54–79; PULSE 90–124; RESP 15–24; TEMP 36.4–37.3; O2SAT 91–95
--- NOTE | 2025-02-03 00:27 | PC.NURSE ---
At [id number], Dr. Amato voalted nurse stating to hold lovenox or anticoag for now.
--- NOTE | 2025-02-03 01:12 | PC.NURSE ---
Patients B/P was rechecked and was back down to 85/55. New stat orders of a CBC, BMP and INR ordered by Dr. Amato
[2025-02-03 01:32] LABS: Basophils % 0.4 %; Eosinophils % 0.1 %; Hematocrit 32.5 % (36-47); Lymphocytes # 0.8 10^3/uL (0.8-4.8); Lymphocytes % 7.9 %; Mean Corpuscular HGB Conc 31.7 g/dL (30-55); Mean Corpuscular Hemoglobin 30.8 pg (27-33); Mean Corpuscular Volume 97.3 fl (85-98); Mean Platelet Volume 12.3 fL (7.4-10.4); Monocytes # 1.8 10^3/uL (0.2-0.9); Monocytes % 17.4 %; Neutrophils # 7.58 10^3/uL (1.8-7.7); Neutrophils % 73.9 %; Nucleated Red Blood Cells % 0 %; Platelet Count 137 10^3/cmm (157-399); Red Blood Count 3.34 10^6/uL (3.85-5.65); Red Cell Distribution Width 13.2 % (12.1-15.1); White Blood Count 10.25 10^3/uL (3.29-11.43)
[2025-02-03 01:47] LABS: INR 1.26 (0.8-1.2)
[2025-02-03 01:50] LABS: Alanine Aminotransferase 11 U/L (0-33); Albumin Level 3.1 g/dL (3.5-5.2); Alkaline Phosphatase 65 U/L (35-105); Anion Gap 13.7 (5-19); Aspartate Amino Transferase 25 U/L (0-32); Blood Urea Nitrogen 7 mg/dL (8-23); Carbon Dioxide 24 mmol/L (22-29); Chloride 104 mmol/L (98-107); Creatinine Clr Calc Pharmacy 56.8483; Glucose 182 mg/dL (65-115); Magnesium 2.1 mg/dL (1.7-2.3); Osmolality Calculated 287 mOsm/kg (285-295); Phosphorus 2.6 mg/dL (2.5-4.5); Potassium 4.7 mmol/L (3.5-5.1); Sodium 137 mmol/L (136-145); Total Protein 6.1 g/dL (6.6-8.7)
[2025-02-03] MEDS: sodium chloride 0.9% 1,000 ML 999 ML IV (01:50)
--- NOTE | 2025-02-03 01:51 | PC.NURSE ---
Dr. Amato came up and saw the patient, Gave verbal orders to nurse to bolus another 1,000ml of NS now.
--- NOTE | 2025-02-03 01:56 | P.PN_ITS ---
Subjective 2 Subjective: 84-year-old female has been re quiring fluid boluses for hypotension and tachycardia with her A-fib not well-controlled. Patient had left hip ORIF. We have given her 1500 cc of fluid and after each bolus she does have better blood pressure but it drops. I came to evaluate her. Her hemoglobin is 10 down from 12.5. Other labs are pending. Patient is able to converse. She thinks she is dehydrated as well and states she told others that Vitals/I&O/Wt Last Vital Signs Temp 98.6 F 02/03/25 00:29 Pulse 120 H 02/03/25 00:29 Resp 16 02/03/25 00:29 BP 125/79 02/03/25 00:29 Pulse Ox 91 02/03/25 00:29 O2 Del Method Nasal Cannula 02/02/25 15:55 O2 Flow Rate 2 02/02/25 11:40 02/02/25 02/02/25 02/03/25 14:59 22:59 06:59 Intake Total 210 / 210 1200 / 1410 1250 / 2660 Output Total 100 / 100 1000 / 1100 Balance 110 / 110 200 / 310 1250 / 1560 Weight last 48 hrs Weight 83.461 kg Weight 83.642 kg Physical Exam 2 Narrative: General Well-developed well-nourished female in no acute cardiopulmonary distress CV irregular rhythm mildly tachycardic Lungs clear to auscultation bilaterally Abdomen soft Hips she does have some pitting edema left hip but it is mild the calves are without pitting edema or asymmetry. Mood and affect are appropriate Mentation clear cooperative she is hard of hearing Urinary Catheter Management: Carmona: Cath Placed During This Visit: yes Reason for Continuing Indwelling Catheter: Required Immobilization for Trauma or Surgery or Anesthesia Urinary Catheter Date of Insertion: 01/31/25 Data 02/03/25 01:23 02/03/25 01:23 A&P Assessment and plan (1) Hypotension: Additional fluid bolus 1 L saline now (2) Atrial fibrillation: Potassium and magnesium have been replaced resume beta-david. I gave 1 dose of digoxin earlier today bringing the heart rate down from 150-120 but heart rate improves with fluid boluses then increases again. Suspect the patient has been dehydrated primarily with some blood loss into the hip but this does not appear to be a big problem. I did hold warfarin and Lovenox for now PDMP PDMP Reviewed: Not Reviewed Attestations 2 Medical Necessity Statement*: She will require additional 2 nights for rehab Coding Level of Care Code Acute Code for g Fwd Diagnoses Hypotension I95.9 Persistent atrial fibrillation I48.19 Atrial fibrillation type: persistent (not longstanding) Time Spent (min) 35
--- NOTE | 2025-02-03 02:45 | PC.NURSE ---
Charge nurse spoke with Dr. Amato, patients B/P was rechecked in the right arm and was 79/49. Dr amato wanted B/P in other arm and was 92/49. Dr Amato stated to let her be unless symptomatic and give fludrocortisone 0.1mg BID. Charge nurse and rooming house inspector has been informed, Will continue to monitor.
[2025-02-03] MEDS: fludrocortisone 0.1 mg Tablet PO ×2 (02:59→17:37)
[2025-02-03] MEDS: TRAMadol 50 mg Tablet 100 MG PO ×2 (08:26→13:16)
[2025-02-03] MEDS: cholecalciferol (vitamin D3) 1,000 unit Tablet 1000 UNIT PO (08:26)
[2025-02-03] MEDS: calcium carbonate 500 mg Chew Tablet 1000 MG PO ×2 (08:26→17:37)
[2025-02-03] MEDS: docusate sodium 100 mg Capsule PO ×2 (08:27→17:37)
[2025-02-03] MEDS: iron polysaccharide complex 150 mg Capsule PO ×2 (08:27→17:37)
[2025-02-03] MEDS: multivitamin therapeutic Tablet 1 TAB PO (08:27)
[2025-02-03] MEDS: sennosides-docusate Tablet 2 TAB PO ×2 (08:27→17:37)
[2025-02-03] MEDS: enoxaparin 80 mg/0.8 mL Syringe SUBCUT ×2 (08:34→21:00)
[2025-02-03] MEDS: clindamycin 900 MG/50 ML PREMIX 100 MG IV (08:34)
[2025-02-03] MEDS: midodrine 5 mg TABLET 10 MG PO (09:14)
--- NOTE | 2025-02-03 09:37 | PC.SOCIAL ---
IMM Update Pg. 2 of IMM Updated and reviewed with patient, who verbalized understanding. Copy provided.
[2025-02-03] MEDS: cefTRIAXone 1,000 mg SDV 1000 MG IVP (11:30)
[2025-02-03] MEDS: sodium chlor 0.9% + KCl 20 mEq 20 MEQ/1,000 ML BAG 100 MEQ IV (11:30)
--- NOTE | 2025-02-03 11:53 | P.PN_ITS ---
Subjective 2 Subjective: seen with family at bedside pain controlled BP soft , HR elevated Vitals/I&O/Wt Last Vital Signs Temp 99.2 F 02/03/25 07:59 Pulse 115 H 02/03/25 11:44 Resp 17 02/03/25 11:44 BP 96/57 02/03/25 11:44 Pulse Ox 95 02/03/25 11:44 O2 Del Method Nasal Cannula 02/03/25 11:44 O2 Flow Rate 3 02/03/25 04:22 02/02/25 02/03/25 02/03/25 22:59 06:59 14:59 Intake Total 1200 / 1410 2250 / 3660 1090 / 1090 Output Total 1000 / 1100 Balance 200 / 310 2250 / 2560 1090 / 1090 Weight last 48 hrs Weight 184 lb 2 oz Weight 184 lb Physical Exam 2 Const: COMMON NORMALS: no acute distress GENERAL APPEARANCE: cooperative Resp: COMMON NORMALS: normal respiratory effort Cardio: RATE: tachycardic GI: COMMON NORMALS: Normal to inspection, nondistended, normoactive bowel sounds present Urinary Catheter Management: Carmona: Cath Placed During This Visit: yes Reason for Continuing Indwelling Catheter: Required Immobilization for Trauma or Surgery or Anesthesia Urinary Catheter Date of Insertion: 01/31/25 Data 02/03/25 01:23 02/03/25 01:23 A&P Assessment and plan (1) Atrial fibrillation: (2) CAD (coronary artery disease): (3) Generalized osteoarthritis: (4) Diabetes: (5) Chronic anticoagulation: Plan (1) Intertrochanteric fracture of left hip: Post mechanical fall from wheelchair. Post-ORIF 02/02. Continue with tramadol 100 mg Q4 hourly, morphine 1 mg every 4 hours as needed for pain. Start on bridging with full dose Lovenox 1 mg/kg body weight every 12 hourly from 02/03. Monitor hemoglobin. Incentive spirometry. Physical therapy. restart warfarin (2) Grade III diastolic dysfunction: Currently euvolemic. Continue to monitor for fluid overload. Fluid restriction to less than 1500 cc. Not on diuretic as an outpatient. (3) CAD (coronary artery disease): Denies any chest pain. Appreciate A1c, lipid panel. (4) Atrial fibrillation: Telemetry. Heart rate ra[od. Blood pressures on the softer side. Maintain monometer pressure 65. For now continue with metoprolol 25 mg twice daily. Coumadin and bridging with anticoagulation as above. Monitor INR daily. add midorine, may need cards consult (5) Hypertension: Goal blood pressure less than 140/90 mmHg. Mean over 65. (6) Warfarin anticoagulation: PDMP PDMP Reviewed: Not Reviewed Attestations 2 Medical Necessity Statement*: pain control, PT Coding Level of Care Code Acute Code for [facility] Fwd Diagnoses Persistent atrial fibrillation I48.19 Atrial fibrillation type: persistent (not longstanding) CAD (coronary artery disease) I25.10 Generalized osteoarthritis M15.9 Type 2 diabetes mellitus without complication, without long-term current use of insulin E11.9 Diabetes mellitus type: type 2 Diabetes mellitus terminal carman insulin use: without terminal carman use Diabetes mellitus complication status: without complication Chronic anticoagulation Z79.01
[2025-02-03] MEDS: chlorhexidine gluconate 0.12% Btl 473 mL 30 ML MUCOUS MEM ×2 (13:16→21:01)
--- NOTE | 2025-02-03 15:16 | ECG_ITS ---
[facility] Test Date: 2025-02-03 Pat Name: Allyson Causey Department: Room: 267 Gender: Female Loan Specialist: : 1940 Requested By: Dolly Brewster Order Number: [id number] Alonzo MD: Joshua Conde M.D. Measurements Intervals [place] Rate: 114 P: 0 MI: 0 QRS: 38 QRSD: 92 T: 216 QT: 288 QTc: 398 Interpretive Statements ATRIAL FIBRILLATION WITH RAPID VENTRICULAR RESPONSE LOW QRS VOLTAGE IN EXTREMITY LEADS [QRS DEFLECTION < 0.5 mV IN LIMB LEADS] MODERATE ST DEPRESSION [0.05+ mV ST DEPRESSION] ABNORMAL QRS-T ANGLE [QRS-T AXIS DIFFERENCE > 60] Compared to ECG 02/02/2025 21:23:06 Low QRS voltage now present ST (T wave) deviation still present Electronically Signed On 02-05-2025 23:30:11 CDT by Joshua Conde M.D. [email or web address]
--- NOTE | 2025-02-03 15:29 | PC.NURSE ---
received pt from med surg pt is confused, however denies any pain. dgtr at bedside. left hip incision dry and intact with cold compress and pillow in between legs. dr gleason notified on pt's confusion and dgtr concern with her mentation and right ear that needs to be look at. Amiodarone drip per protocol started as ordered. New IV ultz guided stated on left upper arm.
--- NOTE | 2025-02-03 15:29 | PC.NURSE ---
Physician contacted for patient's heart rate being in the 130's and sustaining. Blood pressure still 90's/50's. Physician ordered patient to go to [facility] and placed on an amiodorone drip at 1323. reclamation supervisor notified of need of transfer at this time because she was on the floor. Patient still on the med surg floor at 1533. Heart rate is bouncing from 119-120's. Patient's daughter concerned with mentation stating she is more confused then she was before the surgery. The patient answers orientation questions correctly with the exception of date. Educated patient and daughter that anesthesia could make eldery patients a little confused for a bit after surgery but physician notified. Patient blood pressure was 99/63 and heart rate was 124 at vitals check. NO chest pain or discomfort at this time.
--- NOTE | 2025-02-03 16:33 | P.PN_ITS ---
Subjective 2 Subjective: Patient postop day 1 of endoprosthetic replacement of the left hip. She is complaining of pain as to be expected. She is reluctant to do any movement because of her hip pain however I have strongly encouraged her to get up and move. Vitals/I&O/Wt Last Vital Signs Temp 97.5 F L 02/03/25 15:51 Pulse 124 H 02/03/25 15:51 Resp 16 02/03/25 15:51 BP 99/63 02/03/25 15:51 Pulse Ox 91 02/03/25 15:51 O2 Del Method Nasal Cannula 02/03/25 15:51 O2 Flow Rate 3 02/03/25 04:22 02/03/25 02/03/25 02/03/25 06:59 14:59 22:59 Intake Total 2250 / 3660 1330 / 1330 Balance 2250 / 2560 1330 / 1330 Weight last 48 hrs Weight 184 lb 2 oz Weight 184 lb Physical Exam 2 Narrative: On exam today dressings are clear and dry patient is neurovascular intact distally of the left lower extremity Urinary Catheter Management: Carmona: Cath Placed During This Visit: yes Reason for Continuing Indwelling Catheter: Required Immobilization for Trauma or Surgery or Anesthesia Urinary Catheter Date of Insertion: 01/31/25 Data 02/03/25 01:23 02/03/25 01:23 A&P Assessment and plan (1) Closed left hip fracture: Status post left hip replacement with a endoprosthesis. Now complaints of incisional pain Plan Plan at this time is to start physical therapy for walker ambulation partial weightbearing on this hip. She may need to be considered for nursing home facility placement for short-term stay. Patient still needs pain management PDMP PDMP Reviewed: Not Reviewed Attestations 2 Medical Necessity Statement*: Patient in need of physical therapy to relearn how to walk especially using walker and partial weightbearing on the left. She still needs pain medication for pain control. She needs help with ADLs at this time Coding Level of Care Code Critical Care >/= 30 minutes Diagnoses Closed fracture of left hip, initial encounter S72.002A Encounter type: initial encounter
[2025-02-03] MEDS: warfarin 5 mg Tablet PO (17:37)
[2025-02-03] MEDS: metoprolol tartrate 50 mg Tablet 25 MG PO (17:37)
[2025-02-03] MEDS: amiodarone 150 MG/100 ML PREMIX 400 MG IV (17:51)
[2025-02-03] MEDS: pantoprazole 40 mg SDV IVP (19:33)
--- NOTE | 2025-02-03 20:34 | P.PN_ITS ---
Subjective 2 Subjective: 84 yo WF seen tonight for AMS after last night being conversant and engaging at 1:15 in the morning. Patient was started on fludrocortisone for hypotension despite 3 L of fluid bolus and rate control. She was started on midodrine for hypotension and then also amiodarone for A-fib today blood pressure and heart rate are improved but patient is altered in mental status. Daughter was concerned about ear pain and the staff are trying to locate the otoscope. Patient denies pain. She is a poor historian now and seemingly having trouble to process commands. Vitals/I&O/Wt Last Vital Signs Temp 98.9 F 02/03/25 20:00 Pulse 97 02/03/25 20:00 Resp 24 H 02/03/25 20:00 BP 98/66 02/03/25 20:00 Pulse Ox 93 02/03/25 20:00 O2 Del Method Nasal Cannula 02/03/25 20:00 O2 Flow Rate 3 02/03/25 04:22 02/03/25 02/03/25 02/03/25 06:59 14:59 22:59 Intake Total 2250 / 3660 1330 / 1330 926 / 2256 Balance 2250 / 2560 1330 / 1330 926 / 2256 Weight last 48 hrs Weight 83.518 kg Weight 83.461 kg Physical Exam 2 Narrative: General Well-developed female in no acute cardiopulmonary stress CV irregular rate controlled Lungs clear on anterior exam patient is unable to sit up for exam Neck she does not have pain but she does seem a little rigid turning to the left compared to the right. She does not follow commands well. She is able to have her neck flex and does not wince or complain but is stiff Motor testing patient does not raise her hands in the air to command. Neuro external ocular movements she does not follow or track well she starts and then loses focus. Pupils are equally round and reactive to light accommodation at 5 mm Skin warm dry Urinary Catheter Management: Carmona: Cath Placed During This Visit: yes Reason for Continuing Indwelling Catheter: Required Immobilization for Trauma or Surgery or Anesthesia Urinary Catheter Date of Insertion: 01/31/25 Data 02/03/25 01:23 02/03/25 01:23 A&P Assessment and plan (1) Altered mental status: Patient will be further evaluated through the night. CT scan noncontrast now stop amiodarone and midodrine which are the new medications since she was engaged this morning at 115 and then also with Dr. Brewster. If not improved worsening or having fevers will consider lumbar puncture we will also need to obtain an otoscope to look in the ear The tramadol dose at 100 mg Q4 is potentially too much if getting it at that frequency so I decreased it to 50 mg every 6 hours (2) Atrial fibrillation: Rate currently controlled still borderline hypotensive (3) Hypotension: Borderline hypotensive but hold midodrine and fludrocortisone due to confusion PDMP PDMP Reviewed: Not Reviewed Attestations 2 Medical Necessity Statement*: Patient remained in the hospital for rehab and resolution or identification of cause for her altered mental status. Coding Level of Care Code 85607 Diagnoses Altered mental status R41.82 Persistent atrial fibrillation I48.19 Atrial fibrillation type: persistent (not longstanding) Hypotension I95.9 Time Spent (min) 40
--- NOTE | 2025-02-03 20:54 | P.CONIM_ITS ---
Providers/Reason For Consult 2 Consulting Physician/Specialty*: RUBY Conde MD/cardiology Reason for Consult*: Patient is atrial fibrillation rapid ventricular rate, started on IV amiodarone, heart rate remains uncontrolled Requesting Physician: Dr. Brewster Attending Physician: Dolly Brewster MD Primary Care Provider: Anahi Jennings MD History of Present Illness History of Present Illness Allyson Causey is a 84 year old female with multiple medical problems, is admitted to the hospital through the emergency room, where she presented with a right hip fracture. She was found to be in atrial fibrillation with rapid ventricular rate. She was started on IV amiodarone and was brought down to the Cardiac stepdown unit. Cardiology consult is requested for further cardiac evaluation recommendations. This patient is a very poor historian. She seems very confused at this time. Most of the information is obtained from the medical records. No family numbers are available at this time for details. Apparently this patient Fell off from a scooter while shopping in [facility] and sustained fracture of the left hip. She underwent left hemiarthroplasty and suture repair of the Greatertrochanteric fracture. she was found to have atrial fibrillation with rapid ventricular rate while being on the med surgery floor. So she was started on IV amiodarone and was brought down to the cardiac stepdown unit. This patient has a history of atherosclerotic heart diseas, coronary artery bypass surgery, multiple PCI's, high blood pressure, dyslipidemia, atrial fibrillation, on long-term oral anticoagulation and? History of pulmonary embolism. She has not had any recent cardiac evaluation at least in our hospital within the last 5 years or so. She denies any chest pain or chest tightness. No unusual shortness of breath. No other specific cardiac symptoms at this time. She seems to be comfortable in the bed at this time. Review of Systems 2 Narrative: CONSTITUTIONAL: No fever or chills. EYES: No blurring of vision or other visual disturbances lately. ENT: No hoarseness of voice, auditory disturbances or sore throat. CARDIOVASCULAR: As mentioned above. RESPIRATORY: No significant cough. GASTROINTESTINAL: No hematemesis or melena. GENITOURINARY: No dysuria or hematuria. INTEGUMENTARY: No skin rashes or history of skin cancer. NEURO: No transient ischemic attacks or amaurosis. PSYCHIATRIC: No history of psychosis or major depression. HEMATOLOGIC: No bleeding disorders or significant anemia. ENDOCRINE: No history of polyuria or polydipsia. MUSCULOSKELETAL: Recent left hip fracture as mentioned above ALLERGY/IMMUNOLOGY: As mentioned above. Medications/Allergies Home Medications ?Medication ?Instructions ?Recorded ?Confirmed ?Last Taken ?Type docusate sodium 100 mg capsule 100 mg PO DAILY PRN Con stipation 07/22/22 01/31/25 02/26/24 History (Colace) multivitamin 1 tab PO DAILY 07/22/2211/2601/31/25 History vitamin B comp and C no.3 15 mg-10 1 cap PO DAILY 07/0301/31/25 01/31/25 History mg-50 mg-5 mg-300 mg capsule (B Complex Plus Vitamin C) vitamin E acetate 134 mg (200 134 mg PO DAILY 07/22/22 01/31/25 01/31/25 History unit) capsule chlorhexidine gluconate 0.12 % 15 ml buccal BID PRN SO RE MOUTH 02/27/24 01/31/25 Unknown History mouthwash metoprolol tartrate 50 mg tablet 50 mg PO BID #180 tab s 11/01/24 01/31/25 01/31/25 Rx warfarin 3 mg tablet 3 mg PO QPM #90 tabs 5 01/31/25 01/30/25 Rx Lactobacillus rhamnosus-Bifidobac. 1 cap PO DAILY PRN stomach health 01/08/25 01/31/25 Unknown History animalis 3 billion cell capsule (Prolebrity) acetaminophen 500 mg tablet 500 mg PO Q6H PRN Pain 06/2601/31/25 Unknown History jtpsskyrcxuvfus-dpobulbhmpnsirq-MW 5 ml PO Q6H PRN col d symptoms #118 01/09/25 01/31/25 Unknown Rx 2 mg-30 mg-10 mg/5 mL oral syrup mL (Bromfed DM) omeprazole 20 mg capsule,delayed 20 mg PO BID 90 days #180 caps 01/30/25 01/31/25 01/31/25 Rx release Allergies Allergy/AdvReac Type Severity Reaction Status Date / Time rosuvastatin (From Crestor) Allergy Severe ADR-Muscle Verified 01/09/25 15:06 Pain azithromycin (From Zithromax) Allergy Intermediate ADR-upset Verified 01/09/25 15:06 stomach nitrofurantoin Allergy Intermediate ADR-other Verified 01/09/25 15:06 Sulfa (Sulfonamide Allergy Intermediate ADR-rash Verified 01/09/25 15:06 Antibiotics) Penicillins Allergy Unknown unk Verified 01/09/25 15:06 doxycycline Allergy ADR-other Verified 01/09/25 15:06 hydrocodone Allergy ADR-Halluci Verified 02/01/25 07:34 nating Current Medications Generic Name Dose Route Start Last Admin Trade Name Freq PRN Reason Stop Dose Admin Acetaminophen 650 mg 01/31/25 17:38 02/01/25 10:45 Acetaminophen 325 Mg Tablet PO 650 mg Q6H PRN Administration Mild/Mod Pain Or Temp >/= 101 Calcium Carbonate 1,000 mg 02/02/25 18:00 02/03/25 17:37 Calcium Carbonate 500 Mg Chew Tablet PO 1,000 mg BID PACHECO Administration Ceftriaxone Sodium 1,000 mg 02/02/25 11:30 02/03/25 11:30 Ceftriaxone 1,000 Mg Sdv IVP 1,000 mg Q24H PACHECO Administration Protocol Chlorhexidine Gluconate 30 ml 02/02/25 13:00 02/03/25 19:18 Chlorhexidine Gluconate 0.12% Btl 473 Ml MUCOUS MEM Not Given QID PACHECO Docusate Sodium 100 mg 01/31/25 18:00 02/03/25 17:37 Docusate Sodium 100 Mg Capsule PO 100 mg BID PACHECO Administration Enoxaparin Sodium 80 mg 02/03/25 08:00 02/03/25 08:34 Enoxaparin 80 Mg/0.8 Ml Syringe SUBCUT 80 mg Q12H PACHECO Administration Fludrocortisone Acetate 0.1 mg 02/03/25 03:00 02/03/25 17:37 Fludrocortisone 0.1 Mg Tablet PO 0.1 mg BID PACHECO Administration Metoprolol Tartrate 25 mg 02/01/25 18:00 02/03/25 17:37 Metoprolol Tartrate 50 Mg Tablet PO 25 mg BID PACHECO Administration Morphine Sulfate 1 mg 02/01/25 13:24 02/02/25 16:12 Morphine 4 Mg/Ml Sdv 1 Ml IVP 1 mg Q4H PRN Administration SEVERE PAIN Multivitamins Therapeutic 1 tab 02/03/25 09:00 02/03/25 08:27 Multivitamin Therapeutic Tablet PO 1 tab DAILY PACHECO Administration Mupirocin 1 applic 02/02/25 18:00 02/03/25 19:31 Mupirocin Oint 22 Gm NASAL 02/07/25 17:59 Not Given BID PACHECO Pantoprazole Sodium 40 mg 01/31/25 17:38 02/03/25 19:33 Pantoprazole 40 Mg Sdv IVP 40 mg Q24H PACHECO Administration Polysaccharide Iron Complex 150 mg 02/02/25 18:00 02/03/25 17:37 Iron Polysaccharide Complex 150 Mg Capsule PO 150 mg BIDWM PACHECO Administration Senna/Docusate Sodium 2 tab 02/02/25 18:00 02/03/25 17:37 Sennosides-Docusate Tablet PO 2 tab BID PACHECO Administration Vitamin D 1,000 unit 02/03/25 09:00 02/03/25 08:26 Cholecalciferol (Vitamin D3) 1,000 Unit Tablet PO 1,000 unit DAILY PACHECO Administration Warfarin Sodium 5 mg 02/02/25 18:00 02/03/25 17:37 Warfarin 5 Mg Tablet PO 5 mg QPM PACHECO Administration PFSH Acute 2 PFSH: Medical History Altered mental status Hypotension Hypercholesterolemia Grade III diastolic dysfunction GERD (gastroesophageal reflux disease) Vitamin D deficiency NSTEMI (non-ST elevated myocardial infarction) Pneumonia Diverticulosis Hx of pulmonary embolus 06/2008 CAD (coronary artery disease) DE 1998- stents CABG 2007 Atrial fibrillation chronic warfarin with goal of 2.0-3.0 Generalized osteoarthritis Chronic constipation Bladder prolapse Recurrent UTI Hypertension Diabetes Type 2 Surgical History History of surgery on right wrist fracture repair History of four vessel coronary artery bypass graft 2007 History of cholecystectomy Hx of colonoscopy colonoscopy in 1999 wiht two polyps, repeat clear Family History Mother Colon cancer Brother Colon cancer Father Diabetes Other CAD (coronary artery disease) Cancer Clotting disorder Social History Smoking and tobacco/nicotine status: never used tobacco/nicotine Alcohol intake: never Substance/Drug Use: never Lives independently: Yes Household members: none Number of children: 5 Number of grandchildren: 7 Current occupational status: retired Vitals/I&O/Wt Last Vital Signs Temp 98.9 F 02/03/25 20:00 Pulse 97 02/03/25 20:00 Resp 24 H 02/03/25 20:00 BP 98/66 02/03/25 20:00 Pulse Ox 93 02/03/25 20:00 O2 Del Method Nasal Cannula 02/03/25 20:00 O2 Flow Rate 3 02/03/25 04:22 02/03/25 02/03/25 02/03/25 06:59 14:59 22:59 Intake Total 2250 / 3660 1330 / 1330 926 / 2256 Balance 2250 / 2560 1330 / 1330 926 / 2256 Weight last 48 hrs Weight 184 lb 2 oz Weight 184 lb Physical Exam 2 Narrative: GENERAL: The patient is alert and oriented times three. Not in any acute distress. HEENT: No significant pallor, icterus or lymphadenopathy.Oral cavity: There are no mucous membrane lesions. NECK: Trachea appears to be central. No masses noted. No JVD or thyromegaly appreciated. RESPIRATORY: Chest is symmetrical. No intercostals muscle retraction or any accessory muscle activation. There is no chest wall tenderness. Breath sounds are heard bilaterally. No rales or rhonchi heard. No evidence of any consolidation. BREASTS: Deferred. HEART: The heart sounds are normal. No S3 or S4. Short systolic murmur in the left sternal border. No diastolic murmurs.. No pericardial rub ABDOMEN: No vessel pulsations or distention. No tenderness. No organomegaly appreciated. Bowel sounds are normally heard. : Deferred. RECTAL: Deferred. LYMPHATIC: No lymphadenopathy noted in the neck. EXTREMITIES: No edema or cyanosis. No clubbing. MUSCULOSKELETAL: No acute joint deformities or swelling SKIN: There are no significant rashes or ecchymosis NEUROPSYCHIATRIC: The patient is alert and oriented x3. Appears to be in a good mood. No tremors or rigidity noted. Urinary Catheter Management: [place]: Cath Placed During This Visit: yes Reason for Continuing Indwelling Catheter: Required Immobilization for Trauma or Surgery or Anesthesia Urinary Catheter Date of Insertion: 01/31/25 Data 02/04/25 05:00 02/04/25 05:00 Other Labs: Laboratory Last Values WBC 10.25 10^3/uL (3.29-11.43) 02/03/25 01:23 RBC 3.34 10^6/uL (3.85-5.65) L 02/03/25 01:23 Hgb 10.30 g/dL (11.27-16.99) L 02/03/25 01:23 Hct 32.5 % (36-47) L 02/03/25 01:23 MCV 97.3 fl (85-98) 02/03/25 01:23 MCH 30.8 pg (27-33) 02/03/25 01:23 MCHC 31.7 g/dL (30-55) 02/03/25 01:23 RDW 13.2 % (12.1-15.1) 02/03/25 01:23 Plt Count 137 10^3/cmm (157-399) L 02/03/25 01:23 MPV 12.3 fL (7.4-10.4) H 02/03/25 01:23 Neut % (Auto) 73.9 % 02/03/25 01:23 Lymph % (Auto) 7.9 % 02/03/25 01:23 [place] % (Auto) 17.4 % 02/03/25 01:23 Eos % (Auto) 0.1 % 02/03/25 01:23 Baso % (Auto) 0.4 % 02/03/25 01:23 Neut # (Auto) 7.58 10^3/uL (1.8-7.7) 02/03/25 01:23 Lymph # (Auto) 0.8 10^3/uL (0.8-4.8) 02/03/25 01:23 [place] # (Auto) 1.8 10^3/uL (0.2-0.9) H 02/03/25 01:23 Eos # (Auto) 0.0 10^3/uL (0.0-0.8) 02/03/25 01:23 Baso # (Auto) 0.0 10^3/uL (0.0-0.1) 02/03/25 01:23 Nucleated RBC % (auto) 0 % 02/03/25 01:23 Nucleated RBCs # 0.0 /100WBC 02/03/25 01:23 PT 16.60 SECONDS (12.1-14.9) H 02/03/25 01:23 INR 1.26 (0.8-1.2) H 02/03/25 01:23 Sodium 137 mmol/L (136-145) 02/03/25 01:23 Potassium 4.7 mmol/L (3.5-5.1) 02/03/25 01:23 Chloride 104 mmol/L (98-107) 02/03/25 01:23 Carbon Dioxide 24 mmol/L (22-29) 02/03/25 01:23 Anion Gap 13.7 (5-19) 02/03/25 01:23 BUN 7 mg/dL (8-23) L 02/03/25 01:23 Creatinine 0.5 mg/dL (0.5-0.9) 02/03/25 01:23 GFR Calculation Not Reportable 02/03/25 01:23 Glucose 182 mg/dL (65-115) H 02/03/25 01:23 Estimat Average Glucose 157 01/31/25 15:19 Hemoglobin A1c 7.1 % (4.0-6.0) H 01/31/25 15:19 Calculated Osmolality 287 mOsm/kg (285-295) 02/03/25 01:23 Lactic Acid 1.6 mmol/L (0.5-2.2) 01/31/25 15:19 Calcium 8.0 mg/dL (8.5-10.5) L 02/03/25 01:23 Phosphorus 2.6 mg/dL (2.5-4.5) 02/03/25 01:23 Magnesium 2.1 mg/dL (1.7-2.3) 02/03/25 01:23 Iron 65 ug/dL (37-145) 01/31/25 15:19 TIBC 303 mcg/dl 01/31/25 15:19 % Saturation 21.4 % (20-50) 01/31/25 15:19 Unsat Iron Binding 238 ug/dL (112-347) 01/31/25 15:19 Total Bilirubin 1.0 mg/dL (0.15-1.2) 02/03/25 01:23 AST 25 U/L (0-32) 02/03/25 01:23 ALT 11 U/L (0-33) 02/03/25 01:23 Alkaline Phosphatase 65 U/L (35-105) 02/03/25 01:23 Total Protein 6.1 g/dL (6.6-8.7) L 02/03/25 01:23 Albumin 3.1 g/dL (3.5-5.2) L 02/03/25 01:23 Globulin 3.0 g/dL (1.3-4.6) 02/03/25 01:23 Triglycerides 171 mg/dL (0-150) H 02/01/25 03:58 Cholesterol 185 mg/dL (0-200) 02/01/25 03:58 LDL Cholesterol, Calc 117 mg/dL (50-129) 02/01/25 03:58 HDL Cholesterol 34 mg/dL (60-100) L 02/01/25 03:58 LDL/HDL Ratio 3.44 RATIO (0.00-3.22) H 02/01/25 03:58 Cholesterol/HDL Ratio 5.44 mg/dL (0.0-4.40) H 02/01/25 03:58 Vitamin B12 656 pg/mL (232-1245) 01/31/25 15:19 Folate > 20.0 ng/mL (4.8-37.3) 02/01/25 03:58 Procalcitonin 0.06 ng/mL (0-0.5) 02/01/25 03:58 TSH 2.62 uIU/mL (0.27-4.20) 01/31/25 15:19 Urine Color Cancelled 02/02/25 11:35 Urine Color Yellow (Yellow) 02/02/25 11:35 Urine Appearance Cancelled 02/02/25 11:35 Urine Appearance Clear (CLEAR) 02/02/25 11:35 Urine pH 5.5 (5-7) 02/02/25 11:35 Urine pH Cancelled 02/02/25 11:35 Ur Specific [place] 1.021 (1.005-1.030) 02/02/25 11:35 Ur Specific [place] Cancelled 02/02/25 11:35 Urine Protein Cancelled 02/02/25 11:35 Urine Protein Neg (Negative) 02/02/25 11:35 Urine Glucose (UA) Cancelled 02/02/25 11:35 Urine Glucose (UA) Trace (Normal) H 02/02/25 11:35 Urine Ketones 2+ (Negative) H 02/02/25 11:35 Urine Ketones Cancelled 02/02/25 11:35 Urine Blood Cancelled 02/02/25 11:35 Urine Blood Trace (Negative) H 02/02/25 11:35 Urine Nitrate Cancelled 02/02/25 11:35 Urine Nitrate Negative (Negative) 02/02/25 11:35 Urine Bilirubin Cancelled 02/02/25 11:35 Urine Bilirubin Neg (Negative) 02/02/25 11:35 Prot Sulfosalicylic Acd Cancelled 02/02/25 11:35 Urine Urobilinogen 1.0 mg/dL (Negative) 02/02/25 11:35 Urine Urobilinogen Cancelled 02/02/25 11:35 Ur Leukocyte Esterase Cancelled 02/02/25 11:35 Ur Leukocyte Esterase Negative (Negative) 02/02/25 11:35 Urine RBC Cancelled 02/02/25 11:35 Urine RBC Rare /hpf (0-2) 02/02/25 11:35 Urine WBC Cancelled 02/02/25 11:35 Urine WBC Rare /hpf (0-5) 02/02/25 11:35 Ur Squamous Epith Cells 0-4 /hpf (0-5) H 02/02/25 11:35 Ur Squamous Epith Cells Cancelled 02/02/25 11:35 Ur Transition Epith Cell Cancelled 02/02/25 11:35 Ur Renal Epithelial Cell Cancelled 02/02/25 11:35 Calcium Oxalate Crystal Cancelled 02/02/25 11:35 Uric Acid Crystals Cancelled 02/02/25 11:35 Triple Phos Crystals Cancelled 02/02/25 11:35 Other Crystals Cancelled 02/02/25 11:35 Amorphous Sediment Cancelled 02/02/25 11:35 Amorphous Sediment Not Reportable 02/02/25 11:35 Urine Bacteria Cancelled 02/02/25 11:35 Urine Bacteria Trace /hpf (NONE) 02/02/25 11:35 Hyaline Casts Cancelled 02/02/25 11:35 Fine Granular Casts Cancelled 02/02/25 11:35 Coarse Granular Casts Cancelled 02/02/25 11:35 RBC Casts Cancelled 02/02/25 11:35 Other Casts Cancelled 02/02/25 11:35 Urine Mucus Cancelled 02/02/25 11:35 Urine Trichomonas Cancelled 02/02/25 11:35 Urine Yeast 1+ /hpf H 02/02/25 11:35 Urine Yeast Cancelled 02/02/25 11:35 Urine Sperm Cancelled 02/02/25 11:35 Ur Oval Fat Bodies Cancelled 02/02/25 11:35 Acetaminophen < 5.0 ug/mL (10-30) L 02/01/25 03:58 Other data: The EKG from today revealed atrial fibrillation with rapid ventricular rate of 114 bpm. Diffuse nonspecific T wave changes. Low voltage complexes throughout Echocardiogram on 02/01/2025 revealed Grossly LV systolic function is normal Mild mitral regurgitation Mild tricuspid regurgitation Moderate pulmonary hyertension A&P Assessment and plan (1) Atrial fibrillation with rapid ventricular response: the ventricular rate seems to be under control at this time. Patient is off the IV amiodarone. She is on oral metoprolol. This may be continued. Her blood pressure seems to be soft. The mean arterial pressure is above 75. At this point, the patient may not require any specific intervention. (2) Hypertension: Currently normotensive or slightly hypotensive. Asymptomatic. (3) Chronic anticoagulation: The patient is back on warfarin at this time. She was given vitamin K before the surgery. She also is on subcu Lovenox. (4) Atherosclerotic heart disease of [place] coronary artery without angina pectoris: Patient had a coronary bypass surgery and multiple PCI's in the past. Denies any chest pain at this time. the echocardiogram is unremarkable. I may go ahead and do a troponin T today. If the troponin T is significantly elevated, need to consider an Myocardial perfusion imaging to further evaluate the coronary status as well as the graft status. (5) Hypercholesterolemia: May continue on the current management. Plan since the patient's heart rate is under control, she may not require any specific intervention at this point. May continue on the p.o. metoprolol. Based on the clinical progress, further recommendations will be made. Thank you for the opportunity to evaluate this patient and make these recommendations PDMP PDMP Reviewed: Not Reviewed Coding Level of Care Code 49176 Diagnoses Atrial fibrillation with rapid ventricular response I48.91 Secondary hypertension I15.9 Hypertension type: unspecified secondary hypertension Chronic anticoagulation Z79.01 Atherosclerosis of [place] coronary artery of [place] heart without angina pectoris I25.10 [place] vs. transplanted heart: [place] heart Hypercholesterolemia E78.00
[2025-02-03 22:05] LABS: Troponin T (5th) Once 260 ng/L (0-10)
[2025-02-03 23:23] LABS: ABG PH Result 7.39 (7.35-7.45); Arterial Blood Gas Hematocrit 31.2 % (37-47); Base Excess ABG -0.9 mmol/L (-2.0-2.0); Blood Gas Allen Test Pos; Blood Gas Operator Identificat gerca; Blood Gas Sample Site Radial, left; Blood Gas Sample Type Arterial; Carboxyhemoglobin 1.6 %THgb (0.4-20.1); HCO3 ABG 24.1 mmol/L (22-26); HGB O2 Sat 92.6 % (95-100); Ionized Calcium Level - ABG 1.2 mmol/L (1.1-1.4); Oxygen Device NC; Oxygen Saturation ABG 95.1; Potassium Level - ABG 4.2 mmol/L (3.5-5.0); Total Hemoglobin 10.2 g/dL (12-16)
[2025-02-04] VITALS (8 sets, daily range): BP systolic 102–115; BP diastolic 59–76; PULSE 70–107; RESP 18–28; TEMP 36.4–36.9; O2SAT 87–98
[2025-02-04] MEDS: TRAMadol 50 mg Tablet PO ×2 (04:15→18:45)
[2025-02-04 05:35] LABS: Basophils # 0.1 10^3/uL (0.0-0.1); Basophils % 0.5 %; Eosinophils % 0.3 %; Hematocrit 31.1 % (36-47); Lymphocytes # 1.4 10^3/uL (0.8-4.8); Lymphocytes % 12.3 %; Mean Corpuscular HGB Conc 31.2 g/dL (30-55); Mean Corpuscular Hemoglobin 31.1 pg (27-33); Mean Corpuscular Volume 99.7 fl (85-98); Mean Platelet Volume 12.9 fL (7.4-10.4); Monocytes % 17.9 %; Neutrophils # 7.62 10^3/uL (1.8-7.7); Neutrophils % 68.6 %; Nucleated Red Blood Cells % 0 %; Platelet Count 146 10^3/cmm (157-399); Red Blood Count 3.12 10^6/uL (3.85-5.65); Red Cell Distribution Width 13.7 % (12.1-15.1); White Blood Count 11.08 10^3/uL (3.29-11.43)
[2025-02-04 05:49] LABS: INR 1.47 (0.8-1.2)
[2025-02-04 05:55] LABS: Alanine Aminotransferase 12 U/L (0-33); Alkaline Phosphatase 61 U/L (35-105); Anion Gap 13.3 (5-19); Aspartate Amino Transferase 30 U/L (0-32); Blood Urea Nitrogen 11 mg/dL (8-23); Calcium 8.4 mg/dL (8.5-10.5); Carbon Dioxide 25 mmol/L (22-29); Chloride 102 mmol/L (98-107); Globulin 3.3 g/dL (1.3-4.6); Glucose 168 mg/dL (65-115); Osmolality Calculated 285 mOsm/kg (285-295); Potassium 4.3 mmol/L (3.5-5.1); Sodium 136 mmol/L (136-145); Total Bilirubin 0.8 mg/dL (0.15-1.2); Total Protein 6.3 g/dL (6.6-8.7)
--- NOTE | 2025-02-04 09:09 | USCV_ITS ---
Allyson Causey Age: 84 Gender: F : 1940 Exam Date: 02/04/2025 10:26 Ordering Phys: Dolly Brewster MD Technologist: Exam Location: [facility] [place] Indication: increase card enzimes BP: 115 / 76 HR: Rhythm: Sinus Technical Quality: MEASUREMENTS (Male / Female) Normal Values 2D ECHO LV Diastolic Diameter PLAX 3.6 cm 4.2 - 5.9 / 3.9 - 5.3 cm IVS Diastolic Thickness 1.1 cm 0.6 - 1.0 / 0.6 - 0.9 cm IVS Systolic Thickness 1.7 cm LVPW Diastolic Thickness 1.4 cm 0.6 - 1.0 / 0.6 - 0.9 cm LVPW Systolic Thickness 1.9 cm LV Ejection Fraction 2D Teich 56.1 % LV Ejection Fraction MOD 4C 64.0 % LV Ejection Fraction MOD 2C 62.6 % LV Ejection Fraction 2C AL 62.5 % FINDINGS Left Ventricle Normal left ventricular size and systolic function, EF 63%.mild left ventricular hypertrophy. Mild hypokinesia of the apical septum Right Ventricle Normal right ventricular size and systolic function. Right Atrium Mildly increased right atrial size. Left Atrium Moderate increased left atrial size. Mitral Valve Mild mitral annular calcification. Aortic Valve Thickened aortic valve. Tricuspid Valve No gross abnormalities no Pulmonic Valve Pulmonic valve not well visualized. Pericardium No pericardial effusion. Aorta Normal aortic annulus size. IVC Inferior vena cava not visualized. CONCLUSIONS Normal left ventricular size and systolic function, EF 63%.mild left ventricular hypertrophy. Mild hypokinesia of the apical septum. Mildly increased right atrial size. Moderate increased left atrial size. Mild mitral annular calcification. Thickened aortic valve. There is no pericardial effusion. There are no intracardiac masses. Compared to the study from 09/29/2022, there may not be a significant change in the 2D findings Dr Joshua Conde MD [facility] (Electronically Signed) Final Date: 04 Feb 2025 13:47 S
--- NOTE | 2025-02-04 10:30 | XR_ITS ---
WS: [id number] XR chest 1V portable [id number] REASON FOR EXAM: followup FINDINGS: The chest appears essentially unchanged compared to 02/01/2025. Sternal sutures and surgical clips indicating previous complex coronary artery bypass surgery. There are multiple coronary artery stents. There is calcified granulomatous disease bilaterally. No acute pulmonary parenchymal or pleural abnormality is identified. Mild degenerative spondylosis in the mid and lower thoracic spine for age. XR/XR chest 1V portable [id number] IMPRESSION: Stable postoperative chest with no acute abnormality.
[2025-02-04] MEDS: enoxaparin 80 mg/0.8 mL Syringe SUBCUT ×2 (10:45→20:40)
[2025-02-04] MEDS: cholecalciferol (vitamin D3) 1,000 unit Tablet 1000 UNIT PO (10:46)
[2025-02-04] MEDS: docusate sodium 100 mg Capsule PO ×2 (10:46→18:40)
[2025-02-04] MEDS: calcium carbonate 500 mg Chew Tablet 1000 MG PO ×2 (10:46→18:39)
[2025-02-04] MEDS: iron polysaccharide complex 150 mg Capsule PO ×2 (10:47→18:40)
[2025-02-04] MEDS: sennosides-docusate Tablet 2 TAB PO ×2 (10:47→18:39)
[2025-02-04] MEDS: metoprolol tartrate 50 mg Tablet 25 MG PO ×2 (10:47→18:39)
[2025-02-04] MEDS: multivitamin therapeutic Tablet 1 TAB PO (10:47)
[2025-02-04] MEDS: chlorhexidine gluconate 0.12% Btl 473 mL 30 ML MUCOUS MEM ×3 (10:48→20:40)
[2025-02-04] MEDS: mupirocin oint 22 gm 1 APPLIC NASAL ×2 (10:48→18:41)
[2025-02-04] MEDS: fludrocortisone 0.1 mg Tablet PO ×2 (10:48→18:40)
[2025-02-04] MEDS: cefTRIAXone 1,000 mg SDV 1000 MG IVP (10:50)
[2025-02-04 11:31] LABS: Troponin T (5th) Once 195 ng/L (0-10)
--- NOTE | 2025-02-04 11:52 | PC.OT ---
1116 Attempted skilled OT treatment. Pt was in CT at this time. Pt confused and yelling in pain. Pt family at bedside may attempt treatment again later if possible.
--- NOTE | 2025-02-04 15:30 | PC.NURSE ---
pt offered cardiac stress test by dr gamble.pt has declined.
[2025-02-04] MEDS: acetaminophen 325 mg Tablet 650 MG PO (16:24)
--- NOTE | 2025-02-04 17:07 | PM.PN ---
Subjective Subjective: The patient is feeling okay. No chest pain or chest tightness. Vital signs remained stable. Telemetry shows atrial fibrillation with a controlled ventricular response rate. She had an echocardiogram done which revealed normal LV ejection fraction. Medications: Medication Review Details: Current Medications Acetaminophen (Acetaminophen 325 Mg Tablet) 650 mg PO Q6H PRN PRN Reason: Mild/Mod Pain Or Temp >/= 101 Last Admin: 02/04/25 16:24 Dose: 650 mg Calcium Carbonate (Calcium Carbonate 500 Mg Chew Tablet) 1,000 mg PO BID [facility] Last Admin: 02/04/25 10:46 Dose: 1,000 mg Ceftriaxone Sodium (Ceftriaxone 1,000 Mg Sdv) 1,000 mg IVP Q24H [facility]; Protocol Last Admin: 02/04/25 10:50 Dose: 1,000 mg Chlorhexidine Gluconate (Chlorhexidine Gluconate 0.12% Btl 473 Ml) 30 ml MUCOUS MEM QID [facility] Last Admin: 02/04/25 16:12 Dose: Not Given Chlorhexidine Gluconate (Chlorhexidine Gluconate 0.12% Btl 473 Ml) 15 ml MUCOUS MEM BID PRN PRN Reason: SORE MOUTH Docusate Sodium (Docusate Sodium 100 Mg Capsule) 100 mg PO BID [facility] Last Admin: 02/04/25 10:46 Dose: 100 mg Enoxaparin Sodium (Enoxaparin 80 Mg/0.8 Ml Syringe) 80 mg SUBCUT Q12H [facility] Last Admin: 02/04/25 10:45 Dose: 80 mg Fludrocortisone Acetate (Fludrocortisone 0.1 Mg Tablet) 0.1 mg PO BID [facility] Last Admin: 02/04/25 10:48 Dose: 0.1 mg Lactulose (Lactulose Oral Liq 20 Gm/30 Ml Udc) 10 gm PO DAILY PRN; Protocol PRN Reason: Constipation (see protocol) Magnesium Hydroxide (Magnesium Hydroxide 30 Ml Udc) 30 ml PO DAILY PRN; Protocol PRN Reason: Constipation (see protocol) Metoprolol Tartrate (Metoprolol Tartrate 50 Mg Tablet) 25 mg PO BID [facility] Last Admin: 02/04/25 10:47 Dose: 25 mg Morphine Sulfate (Morphine 4 Mg/Ml Sdv 1 Ml) 1 mg IVP Q4H PRN PRN Reason: SEVERE PAIN Last Admin: 02/02/25 16:12 Dose: 1 mg Multivitamins Therapeutic (Multivitamin Therapeutic Tablet) 1 tab PO DAILY [facility] Last Admin: 02/04/25 10:47 Dose: 1 tab Mupirocin (Mupirocin Oint 22 Gm) 1 applic NASAL BID [facility] Stop: 02/07/25 17:59 Last Admin: 02/04/25 10:48 Dose: 1 applic Naloxone HCl (Naloxone 0.4 Mg/Ml Sdv) 0.1 mg IVP Q2M PRN PRN Reason: Respiratory rate less than 8. Ondansetron HCl (Ondansetron 2 Mg/Ml Sdv 2 Ml) 4 mg IVP Q6H PRN PRN Reason: vomiting, or N/V if npo Ondansetron HCl (Ondansetron 2 Mg/Ml Sdv 2 Ml) 4 mg IVP Q6H PRN PRN Reason: NAUSEA AND VOMITING Pantoprazole Sodium (Pantoprazole 40 Mg Sdv) 40 mg IVP Q24H [facility] Last Admin: 02/03/25 19:33 Dose: 40 mg Polysaccharide Iron Complex (Iron Polysaccharide Complex 150 Mg Capsule) 150 mg PO BIDWM [facility] Last Admin: 02/04/25 10:47 Dose: 150 mg Senna/Docusate Sodium (Sennosides-Docusate Tablet) 2 tab PO BID [facility] Last Admin: 02/04/25 10:47 Dose: 2 tab Tramadol HCl (Tramadol 50 Mg Tablet) 50 mg PO Q6H PRN PRN Reason: MODERATE PAIN Last Admin: 02/04/25 04:15 Dose: 50 mg Vitamin D (Cholecalciferol (Vitamin D3) 1,000 Unit Tablet) 1,000 unit PO DAILY [facility] Last Admin: 02/04/25 10:46 Dose: 1,000 unit Warfarin Sodium (Warfarin 5 Mg Tablet) 5 mg PO QPM [facility] Last Admin: 02/03/25 17:37 Dose: 5 mg Vitals/I&O/Wt Last Vital Signs Temp 97.7 F 02/04/25 16:00 Pulse 98 02/04/25 16:00 Resp 20 H 02/04/25 16:00 BP 104/70 02/04/25 16:00 Pulse Ox 98 02/04/25 16:00 O2 Del Method Nasal Cannula 02/04/25 14:40 O2 Flow Rate 1 02/04/25 14:40 02/04/25 02/04/2525 06:59 14:59 22:59 Intake Total 250 / 2906 Output Total 300 / 950 Balance -1955 Weight last 48 hrs Weight 184 lb 3.2 oz Weight 184 lb 2 oz Physical Exam Narrative: GENERAL: The patient is alert and oriented times three. Not in any acute distress. HEENT: No significant pallor, icterus or lymphadenopathy.Oral cavity: There are no mucous membrane lesions. NECK: Trachea appears to be central. No masses noted. No JVD or thyromegaly appreciated. RESPIRATORY: Chest is symmetrical. No intercostals muscle retraction or any accessory muscle activation. There is no chest wall tenderness. Breath sounds are heard bilaterally. No rales or rhonchi heard. No evidence of any consolidation. BREASTS: Deferred. HEART: The heart sounds are normal. No S3 or S4. Short systolic murmur in the left sternal border. No diastolic murmurs.. No pericardial rub ABDOMEN: No vessel pulsations or distention. No tenderness. No organomegaly appreciated. Bowel sounds are normally heard. : Deferred. RECTAL: Deferred. LYMPHATIC: No lymphadenopathy noted in the neck. EXTREMITIES: No edema or cyanosis. No clubbing. MUSCULOSKELETAL: No acute joint deformities or swelling SKIN: There are no significant rashes or ecchymosis NEUROPSYCHIATRIC: The patient is alert and oriented x3. Appears to be in a good mood. No tremors or rigidity noted. Urinary Catheter Management: Carmona: Cath Placed During This Visit: yes Reason for Continuing Indwelling Catheter: Accurate Measurement of Urinary Output in Critically Ill Patients Urinary Catheter Date of Insertion: 01/31/25 Data 02/04/25 05:00 02/04/25 05:00 Other Labs: Laboratory Last Values WBC 11.08 10^3/uL (3.29-11.43) 02/04/25 05:00 RBC 3.12 10^6/uL (3.85-5.65) L 02/04/25 05:00 Hgb 9.70 g/dL (11.27-16.99) L 02/04/25 05:00 Hct 31.1 % (36-47) L 02/04/25 05:00 MCV 99.7 fl (85-98) H 02/04/25 05:00 MCH 31.1 pg (27-33) 02/04/25 05:00 MCHC 31.2 g/dL (30-55) 02/04/25 05:00 RDW 13.7 % (12.1-15.1) 02/04/25 05:00 Plt Count 146 10^3/cmm (157-399) L 02/04/25 05:00 MPV 12.9 fL (7.4-10.4) H 02/04/25 05:00 Neut % (Auto) 68.6 % 02/04/25 05:00 Lymph % (Auto) 12.3 % 02/04/25 05:00 Evangeline % (Auto) 17.9 % 02/04/25 05:00 Eos % (Auto) 0.3 % 02/04/25 05:00 Baso % (Auto) 0.5 % 02/04/25 05:00 Neut # (Auto) 7.62 10^3/uL (1.8-7.7) 02/04/25 05:00 Lymph # (Auto) 1.4 10^3/uL (0.8-4.8) 02/04/25 05:00 Evangeline # (Auto) 2.0 10^3/uL (0.2-0.9) H 02/04/25 05:00 Eos # (Auto) 0.0 10^3/uL (0.0-0.8) 02/04/25 05:00 Baso # (Auto) 0.1 10^3/uL (0.0-0.1) 02/04/25 05:00 Nucleated RBC % (auto) 0 % 02/04/25 05:00 Nucleated RBCs # 0.0 /100WBC 02/04/25 05:00 PT 18.80 SECONDS (12.1-14.9) H 02/04/25 05:00 INR 1.47 (0.8-1.2) H 02/04/25 05:00 Specimen Type Arterial 02/03/25 23:11 Sample Site Radial, left 02/03/25 23:11 ABG pH 7.39 (7.35-7.45) 02/03/25 23:11 ABG pCO2 40.0 mmHg (35-45) 02/03/25 23:11 ABG pO2 69.0 mmHg (80.0-100.0) L 02/03/25 23:11 ABG HCO3 24.1 mmol/L (22-26) 02/03/25 23:11 ABG O2 Saturation 95.1 02/03/25 23:11 ABG Base Excess -0.9 mmol/L (-2.0-2.0) 02/03/25 23:11 Barry Test Pos 02/03/25 23:11 A-a O2 Gradient 4.0 mmHg (5-10) L 02/03/25 23:11 Hematocrit 31.2 % (37-47) L 02/03/25 23:11 Hgb O2 Saturation 92.6 % (95-100) L 02/03/25 23:11 Carboxyhemoglobin 1.6 %THgb (0.4-20.1) 02/03/25 23:11 Methemoglobin 1.0 % (0.4-1.5) 02/03/25 23:11 Total Hemoglobin 10.2 g/dL (12-16) L 02/03/25 23:11 Sodium 136.0 mmol/L (131-143) 02/03/25 23:11 Potassium 4.2 mmol/L (3.5-5.0) 02/03/25 23:11 Glucose 204.0 mg/dL (70-115) H 02/03/25 23:11 Ionized Calcium 1.2 mmol/L (1.1-1.4) 02/03/25 23:11 O2 Delivery Device Nc 02/03/25 23:11 O2 Liters/Min 2.0 % 02/03/25 23:11 Head Of Sales And Marketing ID [email or web address] 02/03/25 23:11 Sodium 136 mmol/L (136-145) 02/04/25 05:00 Potassium 4.3 mmol/L (3.5-5.1) 02/04/25 05:00 Chloride 102 mmol/L (98-107) 02/04/25 05:00 Carbon Dioxide 25 mmol/L (22-29) 02/04/25 05:00 Anion Gap 13.3 (5-19) 02/04/25 05:00 BUN 11 mg/dL (8-23) 02/04/25 05:00 Creatinine 0.6 mg/dL (0.5-0.9) 02/04/25 05:00 GFR Calculation Not Reportable 02/04/25 05:00 Glucose 168 mg/dL (65-115) H 02/04/25 05:00 Estimat Average Glucose 157 01/31/25 15:19 Hemoglobin A1c 7.1 % (4.0-6.0) H 01/31/25 15:19 Calculated Osmolality 285 mOsm/kg (285-295) 02/04/25 05:00 Lactic Acid 1.6 mmol/L (0.5-2.2) 01/31/25 15:19 Calcium 8.4 mg/dL (8.5-10.5) L 02/04/25 05:00 Phosphorus 2.6 mg/dL (2.5-4.5) 02/03/25 01:23 Magnesium 2.1 mg/dL (1.7-2.3) 02/03/25 01:23 Iron 65 ug/dL (37-145) 01/31/25 15:19 TIBC 303 mcg/dl 01/31/25 15:19 % Saturation 21.4 % (20-50) 01/31/25 15:19 Unsat Iron Binding 238 ug/dL (112-347) 01/31/25 15:19 Total Bilirubin 0.8 mg/dL (0.15-1.2) 02/04/25 05:00 AST 30 U/L (0-32) 02/04/25 05:00 ALT 12 U/L (0-33) 02/04/25 05:00 Alkaline Phosphatase 61 U/L (35-105) 02/04/25 05:00 Troponin T 5th Gen ng/L 195 ng/L (0-10) H* 02/04/25 10:43 Total Protein 6.3 g/dL (6.6-8.7) L 02/04/25 05:00 Albumin 3.0 g/dL (3.5-5.2) L 02/04/25 05:00 Globulin 3.3 g/dL (1.3-4.6) 02/04/25 05:00 Triglycerides 171 mg/dL (0-150) H 02/01/25 03:58 Cholesterol 185 mg/dL (0-200) 02/01/25 03:58 LDL Cholesterol, Calc 117 mg/dL (50-129) 02/01/25 03:58 HDL Cholesterol 34 mg/dL (60-100) L 02/01/25 03:58 LDL/HDL Ratio 3.44 RATIO (0.00-3.22) H 02/01/25 03:58 Cholesterol/HDL Ratio 5.44 mg/dL (0.0-4.40) H 02/01/25 03:58 Vitamin B12 656 pg/mL (232-1245) 01/31/25 15:19 Folate > 20.0 ng/mL (4.8-37.3) 02/01/25 03:58 Procalcitonin 0.06 ng/mL (0-0.5) 02/01/25 03:58 TSH 2.62 uIU/mL (0.27-4.20) 01/31/25 15:19 Urine Color Cancelled 02/02/25 11:35 Urine Color Yellow (Yellow) 02/02/25 11:35 Urine Appearance Cancelled 02/02/25 11:35 Urine Appearance Clear (CLEAR) 02/02/25 11:35 Urine pH 5.5 (5-7) 02/02/25 11:35 Urine pH Cancelled 02/02/25 11:35 Ur Specific [place] 1.021 (1.005-1.030) 02/02/25 11:35 Ur Specific [place] Cancelled 02/02/25 11:35 Urine Protein Cancelled 02/02/25 11:35 Urine Protein Neg (Negative) 02/02/25 11:35 Urine Glucose (UA) Cancelled 02/02/25 11:35 Urine Glucose (UA) Trace (Normal) H 02/02/25 11:35 Urine Ketones 2+ (Negative) H 02/02/25 11:35 Urine Ketones Cancelled 02/02/25 11:35 Urine Blood Cancelled 02/02/25 11:35 Urine Blood Trace (Negative) H 02/02/25 11:35 Urine Nitrate Cancelled 02/02/25 11:35 Urine Nitrate Negative (Negative) 02/02/25 11:35 Urine Bilirubin Cancelled 02/02/25 11:35 Urine Bilirubin Neg (Negative) 02/02/25 11:35 Prot Sulfosalicylic Acd Cancelled 02/02/25 11:35 Urine Urobilinogen 1.0 mg/dL (Negative) 02/02/25 11:35 Urine Urobilinogen Cancelled 02/02/25 11:35 Ur Leukocyte Esterase Cancelled 02/02/25 11:35 Ur Leukocyte Esterase Negative (Negative) 02/02/25 11:35 Urine RBC Cancelled 02/02/25 11:35 Urine RBC Rare /hpf (0-2) 02/02/25 11:35 Urine WBC Cancelled 02/02/25 11:35 Urine WBC Rare /hpf (0-5) 02/02/25 11:35 Ur Squamous Epith Cells 0-4 /hpf (0-5) H 02/02/25 11:35 Ur Squamous Epith Cells Cancelled 02/02/25 11:35 Ur Transition Epith Cell Cancelled 02/02/25 11:35 Ur Renal Epithelial Cell Cancelled 02/02/25 11:35 Calcium Oxalate Crystal Cancelled 02/02/25 11:35 Uric Acid Crystals Cancelled 02/02/25 11:35 Triple Phos Crystals Cancelled 02/02/25 11:35 Other Crystals Cancelled 02/02/25 11:35 Amorphous Sediment Cancelled 02/02/25 11:35 Amorphous Sediment Not Reportable 02/02/25 11:35 Urine Bacteria Cancelled 02/02/25 11:35 Urine Bacteria Trace /hpf (NONE) 02/02/25 11:35 Hyaline Casts Cancelled 02/02/25 11:35 Fine Granular Casts Cancelled 02/02/25 11:35 Coarse Granular Casts Cancelled 02/02/25 11:35 RBC Casts Cancelled 02/02/25 11:35 Other Casts Cancelled 02/02/25 11:35 Urine Mucus Cancelled 02/02/25 11:35 Urine Trichomonas Cancelled 02/02/25 11:35 Urine Yeast 1+ /hpf H 02/02/25 11:35 Urine Yeast Cancelled 02/02/25 11:35 Urine Sperm Cancelled 02/02/25 11:35 Ur Oval Fat Bodies Cancelled 02/02/25 11:35 Acetaminophen < 5.0 ug/mL (10-30) L 02/01/25 03:58 A&P Assessment and plan (1) Atrial fibrillation with rapid ventricular response: The patient heart rate is in the normal range. Her blood pressure also is in the normal range at this time. She will continue on the current management. (2) Hypertension: She is currently normotensive. (3) Chronic anticoagulation: The patient is back on warfarin at this time. She was given vitamin K before the surgery. She also is on subcu Lovenox. 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 Denies any chest pain at this time. the echocardiogram is unremarkable. Patient had the troponin T and was found to be elevated. This could be related to type II [place]. Type I [place] cannot be excluded. (5) Hypercholesterolemia: May continue on the current management. Plan For the atrial fibrillation, patient may be continue on the current medications. I discussed the patient and her family regarding further cardiac workup for the elevated troponin T. A Myocardial perfusion imaging would be appropriate to further evaluate the coronary status. The patient and the family finally have decided not to have a stress test at this time. They seem to understand implications. We may continue on the current medical management. PDMP PDMP Reviewed: Not Reviewed Attestations Medical Necessity Statement*: Disposition as per the primary Coding Level of Care Code 16962 Diagnoses Atrial fibrillation with rapid ventricular response I48.91 Secondary hypertension I15.9 Hypertension type: unspecified secondary hypertension Chronic anticoagulation Z79.01 Atherosclerosis of [place] coronary artery of [place] heart without angina pectoris I25.10 [place] vs. transplanted heart: [place] heart Hypercholesterolemia E78.00
--- NOTE | 2025-02-04 17:20 | PC.NURSE ---
at morning assessment pt was alert and oriented to person,place,month,year,situation.when family arrived,they voiced concern that pt was confused and disoriented.rn assessed...pt verb that it was Night time...and didnt know what she was doing here.dr gleason had long discussion with family about potential reasons that pt could be having intermittent confusion.He requested that ct of head be completed..and it was.
[2025-02-04] MEDS: pantoprazole 40 mg SDV IVP (18:38)
[2025-02-04] MEDS: warfarin 5 mg Tablet PO (18:39)
--- NOTE | 2025-02-04 21:13 | CT_ITS ---
WS: [id number] CT HEAD TECHNIQUE: Noncontrast CT of the head obtained from the skullbase to the vertex. CLINICAL INFORMATION: Altered mental status COMPARISON: 02/27/2024 DLP: 1099.[address] scans at [facility] use at least one of these dose optimization techniques: automated exposure control; mA and/or kV adjustment per patient size (includes targeted exams where dose is matched to clinical indication); or iterative reconstruction. FINDINGS: No evidence of intracranial hemorrhage or mass effect. Ventricular system and basal cisterns are patent. Mild small vessel changes with moderate parenchymal volume loss. No extra-axial fluid collections. No evidence of mass or mass effect. Vascular calcification. LEFT maxillary sinusitis with air-fluid level. Opacification RIGHT mastoid air cells. Normal visualized posterior nasopharynx. CT/CT head wo con* [id number] IMPRESSION: 1. No evidence of intracranial hemorrhage or mass effect. 2. LEFT maxillary sinusitis. 3. Opacification RIGHT mastoid air cells.
[2025-02-05] VITALS (7 sets, daily range): BP systolic 83–100; BP diastolic 54–66; PULSE 84–115; RESP 14–26; TEMP 36.4–37.4; O2SAT 92–97
[2025-02-05] MEDS: TRAMadol 50 mg Tablet PO ×3 (01:16→15:43)
[2025-02-05 02:47] LABS: Basophils # 0.1 10^3/uL (0.0-0.1); Basophils % 0.5 %; Eosinophils # 0.2 10^3/uL (0.0-0.8); Eosinophils % 2.1 %; Lymphocytes # 1.4 10^3/uL (0.8-4.8); Lymphocytes % 14.2 %; Mean Corpuscular HGB Conc 31.7 g/dL (30-55); Mean Corpuscular Hemoglobin 31.8 pg (27-33); Mean Corpuscular Volume 100.3 fl (85-98); Mean Platelet Volume 12.9 fL (7.4-10.4); Monocytes # 1.4 10^3/uL (0.2-0.9); Monocytes % 13.8 %; Neutrophils # 6.82 10^3/uL (1.8-7.7); Nucleated Red Blood Cells % 0 %; Platelet Count 132 10^3/cmm (157-399); Red Blood Count 2.99 10^6/uL (3.85-5.65); Red Cell Distribution Width 13.4 % (12.1-15.1)
[2025-02-05] MEDS: metoprolol tartrate 50 mg Tablet 25 MG PO ×2 (09:08→18:14)
[2025-02-05] MEDS: calcium carbonate 500 mg Chew Tablet 1000 MG PO ×2 (09:08→18:13)
[2025-02-05] MEDS: cholecalciferol (vitamin D3) 1,000 unit Tablet 1000 UNIT PO (09:08)
[2025-02-05] MEDS: multivitamin therapeutic Tablet 1 TAB PO (09:09)
[2025-02-05] MEDS: fludrocortisone 0.1 mg Tablet PO ×2 (09:09→18:15)
[2025-02-05] MEDS: iron polysaccharide complex 150 mg Capsule PO ×2 (09:09→18:14)
[2025-02-05] MEDS: docusate sodium 100 mg Capsule PO (09:09)
[2025-02-05] MEDS: enoxaparin 80 mg/0.8 mL Syringe SUBCUT ×2 (09:09→20:32)
[2025-02-05] MEDS: chlorhexidine gluconate 0.12% Btl 473 mL 30 ML MUCOUS MEM (09:24)
[2025-02-05] MEDS: mupirocin oint 22 gm 1 APPLIC NASAL (10:40)
[2025-02-05 11:31] LABS: INR 1.78 (0.8-1.2)
--- NOTE | 2025-02-05 12:08 | PM.PN ---
Subjective Subjective: 84 year old female with past medical history of A-fib on Coumadin, CAD post PCI, PE who was at [facility] and fell. had left hip pain. orthopedics was consulted She recently had some confusion. Also A-fib. Cardiology has been consulted. Echocardiogram showed normal EF. She reports that she is not sleeping well. Vitals/I&O/Wt Last Vital Signs Temp 99.0 F 02/05/25 07:26 Pulse 102 H 02/05/25 07:48 Resp 22 H 02/05/25 07:26 BP 100/66 02/05/25 07:26 Pulse Ox 97 02/05/25 07:48 O2 Del Method Nasal Cannula 02/05/25 07:48 O2 Flow Rate 2 02/05/25 07:48 02/04/25 02/05/25 02/05/25 22:59 06:59 14:59 Intake Total 540 / 540 300 / 840 Output Total 750 / 750 400 / 1150 Balance -210 / -210 -100 / -310 Weight last 48 hrs Weight 180 lb 1.6 oz Weight 184 lb 3.2 oz Physical Exam Narrative: General Well-developed female in no acute cardiopulmonary stress CV irregular rate controlled. Alert oriented x 2 she thought she was in [facility] Lungs clear on anterior exam patient is unable to sit up for exam Abdomen: Soft nontender Neuro follows commands EOMI moves all extremities equally Skin warm dry Urinary Catheter Management: Carmona: Cath Placed During This Visit: yes Reason for Continuing Indwelling Catheter: Accurate Measurement of Urinary Output in Critically Ill Patients Urinary Catheter Date of Insertion: 01/31/25 Data 02/05/25 02:12 02/04/25 05:00 A&P Assessment and plan (1) Closed left hip fracture: (2) CAD (coronary artery disease): (3) Atrial fibrillation: (4) Chronic anticoagulation: Plan (1) Altered mental status: Unclear etiology head CT done. Amiodarone was stopped. Her blood pressure is better. She does report poor sleep. (2) Atrial fibrillation: Rate currently controlled. Blood pressure is better (3) Hypotension: Borderline hypotensive but hold midodrine and fludrocortisone due to confusion (4)Intertrochanteric fracture of left hip: Post mechanical fall from wheelchair. Post-ORIF 02/02. Pain medication may be contributing to her confusion. Start on bridging with full dose Lovenox 1 mg/kg body weight every 12 hourly from 02/03. Monitor hemoglobin. Incentive spirometry. Physical therapy. Warfarin was restarted Dispo: Discharge soon PDMP PDMP Reviewed: Not Reviewed Attestations Medical Necessity Statement*: Cardiac medications physical therapy Coding Level of Care Code 57942 Diagnoses Closed fracture of left hip, initial encounter S72.002A Encounter type: initial encounter CAD (coronary artery disease) I25.10 Persistent atrial fibrillation I48.19 Atrial fibrillation type: persistent (not longstanding) Chronic anticoagulation Z79.01
[2025-02-05] MEDS: morphine 4 mg/mL SDV 1 mL 1 MG IVP (12:16)
[2025-02-05] MEDS: cefTRIAXone 1,000 mg SDV 1000 MG IVP (12:17)
--- NOTE | 2025-02-05 13:09 | PC.SOCIAL ---
IMM Updated Updated pt on IMM. No questions voiced. Provided pt a copy. Initialed, dated, & timed copy in chart.
[2025-02-05] MEDS: ketorolac 30 mg/mL INJ 15 MG IVP (13:18)
--- NOTE | 2025-02-05 17:34 | P.PN_ITS ---
Subjective 2 Subjective: Patient is feeling okay. No chest pain or chest tightness. No unusual shortness of breath. Telemetry shows atrial fibrillation with a controlled ventricular response rate. Medications: Medication Review Details: Current Medications Acetaminophen (Acetaminophen 325 Mg Tablet) 650 mg PO Q6H PRN PRN Reason: Mild/Mod Pain Or Temp >/= 101 Last Admin: 02/04/25 16:24 Dose: 650 mg Calcium Carbonate (Calcium Carbonate 500 Mg Chew Tablet) 1,000 mg PO BID [facility] Last Admin: 02/05/25 09:08 Dose: 1,000 mg Ceftriaxone Sodium (Ceftriaxone 1,000 Mg Sdv) 1,000 mg IVP Q24H [facility]; Protocol Last Admin: 02/05/25 12:17 Dose: 1,000 mg Chlorhexidine Gluconate (Chlorhexidine Gluconate 0.12% Btl 473 Ml) 30 ml MUCOUS MEM QID [facility] Last Admin: 02/05/25 14:01 Dose: Not Given Chlorhexidine Gluconate (Chlorhexidine Gluconate 0.12% Btl 473 Ml) 15 ml MUCOUS MEM BID PRN PRN Reason: SORE MOUTH Docusate Sodium (Docusate Sodium 100 Mg Capsule) 100 mg PO BID [facility] Last Admin: 02/05/25 09:09 Dose: 100 mg Enoxaparin Sodium (Enoxaparin 80 Mg/0.8 Ml Syringe) 80 mg SUBCUT Q12H [facility] Last Admin: 02/05/25 09:09 Dose: 80 mg Fludrocortisone Acetate (Fludrocortisone 0.1 Mg Tablet) 0.1 mg PO BID [facility] Last Admin: 02/05/25 09:09 Dose: 0.1 mg Lactulose (Lactulose Oral Liq 20 Gm/30 Ml Udc) 10 gm PO DAILY PRN; Protocol PRN Reason: Constipation (see protocol) Magnesium Hydroxide (Magnesium Hydroxide 30 Ml Udc) 30 ml PO DAILY PRN; Protocol PRN Reason: Constipation (see protocol) Melatonin (Melatonin 3 Mg Tablet) 3 mg PO BEDTIME [facility] Metoprolol Tartrate (Metoprolol Tartrate 50 Mg Tablet) 25 mg PO BID [facility] Last Admin: 02/05/25 09:08 Dose: 25 mg Morphine Sulfate (Morphine 4 Mg/Ml Sdv 1 Ml) 1 mg IVP Q4H PRN PRN Reason: SEVERE PAIN Last Admin: 02/05/25 12:16 Dose: 1 mg Multivitamins Therapeutic (Multivitamin Therapeutic Tablet) 1 tab PO DAILY [facility] Last Admin: 02/05/25 09:09 Dose: 1 tab Mupirocin (Mupirocin Oint 22 Gm) 1 applic NASAL BID [facility] Stop: 02/07/25 17:59 Last Admin: 02/05/25 10:40 Dose: 1 applic Naloxone HCl (Naloxone 0.4 Mg/Ml Sdv) 0.1 mg IVP Q2M PRN PRN Reason: Respiratory rate less than 8. Ondansetron HCl (Ondansetron 2 Mg/Ml Sdv 2 Ml) 4 mg IVP Q6H PRN PRN Reason: vomiting, or N/V if npo Ondansetron HCl (Ondansetron 2 Mg/Ml Sdv 2 Ml) 4 mg IVP Q6H PRN PRN Reason: NAUSEA AND VOMITING Pantoprazole Sodium (Pantoprazole 40 Mg Sdv) 40 mg IVP Q24H [facility] Last Admin: 02/04/25 18:38 Dose: 40 mg Polysaccharide Iron Complex (Iron Polysaccharide Complex 150 Mg Capsule) 150 mg PO BIDWM [facility] Last Admin: 02/05/25 09:09 Dose: 150 mg Senna/Docusate Sodium (Sennosides-Docusate Tablet) 2 tab PO BID [facility] Last Admin: 02/05/25 10:41 Dose: Not Given Tramadol HCl (Tramadol 50 Mg Tablet) 50 mg PO Q6H PRN PRN Reason: MODERATE PAIN Last Admin: 02/05/25 15:43 Dose: 50 mg Vitamin D (Cholecalciferol (Vitamin D3) 1,000 Unit Tablet) 1,000 unit PO DAILY [facility] Last Admin: 02/05/25 09:08 Dose: 1,000 unit Warfarin Sodium (Warfarin 5 Mg Tablet) 5 mg PO QPM [facility] Last Admin: 02/04/25 18:39 Dose: 5 mg Vitals/I&O/Wt Last Vital Signs Temp 98.4 F 02/05/25 16:00 Pulse 92 02/05/25 16:00 Resp 26 H 02/05/25 16:00 BP 83/55 02/05/25 16:00 Pulse Ox 96 02/05/25 16:00 O2 Del Method Nasal Cannula 02/05/25 16:00 O2 Flow Rate 2 02/05/25 16:00 0502/05/25 02/05/25 06:59 14:59 22:59 Intake Total 300 / 840 480 / 480 Output Total 400 / 1150 Balance -100 / -310 480 / 480 Weight last 48 hrs Weight 180 lb 1.6 oz Weight 184 lb 3.2 oz Physical Exam 2 Narrative: GENERAL: The patient is alert and oriented times three. Not in any acute distress. HEENT: No significant pallor, icterus or lymphadenopathy.Oral cavity: There are no mucous membrane lesions. NECK: Trachea appears to be central. No masses noted. No JVD or thyromegaly appreciated. RESPIRATORY: Chest is symmetrical. No intercostals muscle retraction or any accessory muscle activation. There is no chest wall tenderness. Breath sounds are heard bilaterally. No rales or rhonchi heard. No evidence of any consolidation. BREASTS: Deferred. HEART: The heart sounds are normal. No S3 or S4. Short systolic murmur in the left sternal border. No diastolic murmurs.. No pericardial rub ABDOMEN: No vessel pulsations or distention. No tenderness. No organomegaly appreciated. Bowel sounds are normally heard. : Deferred. RECTAL: Deferred. LYMPHATIC: No lymphadenopathy noted in the neck. EXTREMITIES: No edema or cyanosis. No clubbing. MUSCULOSKELETAL: No acute joint deformities or swelling SKIN: There are no significant rashes or ecchymosis NEUROPSYCHIATRIC: The patient is alert and oriented x3. Appears to be in a good mood. No tremors or rigidity noted. Urinary Catheter Management: [place]: Cath Placed During This Visit: yes Reason for Continuing Indwelling Catheter: Accurate Measurement of Urinary Output in Critically Ill Patients Urinary Catheter Date of Insertion: 01/31/25 Data 02/05/25 02:12 02/04/25 05:00 Other Labs: Laboratory Last Values WBC 9.90 10^3/uL (3.29-11.43) 02/05/25 02:12 RBC 2.99 10^6/uL (3.85-5.65) L 02/05/25 02:12 Hgb 9.50 g/dL (11.27-16.99) L 02/05/25 02:12 Hct 30.0 % (36-47) L 02/05/25 02:12 MCV 100.3 fl (85-98) H 02/05/25 02:12 MCH 31.8 pg (27-33) 02/05/25 02:12 MCHC 31.7 g/dL (30-55) 02/05/25 02:12 RDW 13.4 % (12.1-15.1) 02/05/25 02:12 Plt Count 132 10^3/cmm (157-399) L 02/05/25 02:12 MPV 12.9 fL (7.4-10.4) H 02/05/25 02:12 Neut % (Auto) 69.0 % 02/05/25 02:12 Lymph % (Auto) 14.2 % 02/05/25 02:12 [place] % (Auto) 13.8 % 02/05/25 02:12 Eos % (Auto) 2.1 % 02/05/25 02:12 Baso % (Auto) 0.5 % 02/05/25 02:12 Neut # (Auto) 6.82 10^3/uL (1.8-7.7) 02/05/25 02:12 Lymph # (Auto) 1.4 10^3/uL (0.8-4.8) 02/05/25 02:12 [place] # (Auto) 1.4 10^3/uL (0.2-0.9) H 02/05/25 02:12 Eos # (Auto) 0.2 10^3/uL (0.0-0.8) 02/05/25 02:12 Baso # (Auto) 0.1 10^3/uL (0.0-0.1) 02/05/25 02:12 Nucleated RBC % (auto) 0 % 02/05/25 02:12 Nucleated RBCs # 0.0 /100WBC 02/05/25 02:12 PT 21.80 SECONDS (12.1-14.9) H 02/05/25 11:06 INR 1.78 (0.8-1.2) H 02/05/25 11:06 Specimen Type Arterial 02/03/25 23:11 Sample Site Radial, left 02/03/25 23:11 ABG pH 7.39 (7.35-7.45) 02/03/25 23:11 ABG pCO2 40.0 mmHg (35-45) 02/03/25 23:11 ABG pO2 69.0 mmHg (80.0-100.0) L 02/03/25 23:11 ABG HCO3 24.1 mmol/L (22-26) 02/03/25 23:11 ABG O2 Saturation 95.1 02/03/25 23:11 ABG Base Excess -0.9 mmol/L (-2.0-2.0) 02/03/25 23:11 Barry Test Pos 02/03/25 23:11 A-a O2 Gradient 4.0 mmHg (5-10) L 02/03/25 23:11 Hematocrit 31.2 % (37-47) L 02/03/25 23:11 Hgb O2 Saturation 92.6 % (95-100) L 02/03/25 23:11 Carboxyhemoglobin 1.6 %THgb (0.4-20.1) 02/03/25 23:11 Methemoglobin 1.0 % (0.4-1.5) 02/03/25 23:11 Total Hemoglobin 10.2 g/dL (12-16) L 02/03/25 23:11 Sodium 136.0 mmol/L (131-143) 02/03/25 23:11 Potassium 4.2 mmol/L (3.5-5.0) 02/03/25 23:11 Glucose 204.0 mg/dL (70-115) H 02/03/25 23:11 Ionized Calcium 1.2 mmol/L (1.1-1.4) 02/03/25 23:11 O2 Delivery Device Nc 02/03/25 23:11 O2 Liters/Min 2.0 % 02/03/25 23:11 Centrifugal Extractor Operator ID [email or web address] 02/03/25 23:11 Sodium 136 mmol/L (136-145) 02/04/25 05:00 Potassium 4.3 mmol/L (3.5-5.1) 02/04/25 05:00 Chloride 102 mmol/L (98-107) 02/04/25 05:00 Carbon Dioxide 25 mmol/L (22-29) 02/04/25 05:00 Anion Gap 13.3 (5-19) 02/04/25 05:00 BUN 11 mg/dL (8-23) 02/04/25 05:00 Creatinine 0.6 mg/dL (0.5-0.9) 02/04/25 05:00 GFR Calculation Not Reportable 02/04/25 05:00 Glucose 168 mg/dL (65-115) H 02/04/25 05:00 Estimat Average Glucose 157 01/31/25 15:19 Hemoglobin A1c 7.1 % (4.0-6.0) H 01/31/25 15:19 Calculated Osmolality 285 mOsm/kg (285-295) 02/04/25 05:00 Lactic Acid 1.6 mmol/L (0.5-2.2) 01/31/25 15:19 Calcium 8.4 mg/dL (8.5-10.5) L 02/04/25 05:00 Phosphorus 2.6 mg/dL (2.5-4.5) 02/03/25 01:23 Magnesium 2.1 mg/dL (1.7-2.3) 02/03/25 01:23 Iron 65 ug/dL (37-145) 01/31/25 15:19 TIBC 303 mcg/dl 01/31/25 15:19 % Saturation 21.4 % (20-50) 01/31/25 15:19 Unsat Iron Binding 238 ug/dL (112-347) 01/31/25 15:19 Total Bilirubin 0.8 mg/dL (0.15-1.2) 02/04/25 05:00 AST 30 U/L (0-32) 02/04/25 05:00 ALT 12 U/L (0-33) 02/04/25 05:00 Alkaline Phosphatase 61 U/L (35-105) 02/04/25 05:00 Troponin T 5th Gen ng/L 195 ng/L (0-10) H* 02/04/25 10:43 Total Protein 6.3 g/dL (6.6-8.7) L 02/04/25 05:00 Albumin 3.0 g/dL (3.5-5.2) L 02/04/25 05:00 Globulin 3.3 g/dL (1.3-4.6) 02/04/25 05:00 Triglycerides 171 mg/dL (0-150) H 02/01/25 03:58 Cholesterol 185 mg/dL (0-200) 02/01/25 03:58 LDL Cholesterol, Calc 117 mg/dL (50-129) 02/01/25 03:58 HDL Cholesterol 34 mg/dL (60-100) L 02/01/25 03:58 LDL/HDL Ratio 3.44 RATIO (0.00-3.22) H 02/01/25 03:58 Cholesterol/HDL Ratio 5.44 mg/dL (0.0-4.40) H 02/01/25 03:58 Vitamin B12 656 pg/mL (232-1245) 01/31/25 15:19 Folate > 20.0 ng/mL (4.8-37.3) 02/01/25 03:58 Procalcitonin 0.06 ng/mL (0-0.5) 02/01/25 03:58 TSH 2.62 uIU/mL (0.27-4.20) 01/31/25 15:19 Urine Color Cancelled 02/02/25 11:35 Urine Color Yellow (Yellow) 02/02/25 11:35 Urine Appearance Cancelled 02/02/25 11:35 Urine Appearance Clear (CLEAR) 02/02/25 11:35 Urine pH 5.5 (5-7) 02/02/25 11:35 Urine pH Cancelled 02/02/25 11:35 Ur Specific [place] 1.021 (1.005-1.030) 02/02/25 11:35 Ur Specific [place] Cancelled 02/02/25 11:35 Urine Protein Cancelled 02/02/25 11:35 Urine Protein Neg (Negative) 02/02/25 11:35 Urine Glucose (UA) Cancelled 02/02/25 11:35 Urine Glucose (UA) Trace (Normal) H 02/02/25 11:35 Urine Ketones 2+ (Negative) H 02/02/25 11:35 Urine Ketones Cancelled 02/02/25 11:35 Urine Blood Cancelled 02/02/25 11:35 Urine Blood Trace (Negative) H 02/02/25 11:35 Urine Nitrate Cancelled 02/02/25 11:35 Urine Nitrate Negative (Negative) 02/02/25 11:35 Urine Bilirubin Cancelled 02/02/25 11:35 Urine Bilirubin Neg (Negative) 02/02/25 11:35 Prot Sulfosalicylic Acd Cancelled 02/02/25 11:35 Urine Urobilinogen 1.0 mg/dL (Negative) 02/02/25 11:35 Urine Urobilinogen Cancelled 02/02/25 11:35 Ur Leukocyte Esterase Cancelled 02/02/25 11:35 Ur Leukocyte Esterase Negative (Negative) 02/02/25 11:35 Urine RBC Cancelled 02/02/25 11:35 Urine RBC Rare /hpf (0-2) 02/02/25 11:35 Urine WBC Cancelled 02/02/25 11:35 Urine WBC Rare /hpf (0-5) 02/02/25 11:35 Ur Squamous Epith Cells 0-4 /hpf (0-5) H 02/02/25 11:35 Ur Squamous Epith Cells Cancelled 02/02/25 11:35 Ur Transition Epith Cell Cancelled 02/02/25 11:35 Ur Renal Epithelial Cell Cancelled 02/02/25 11:35 Calcium Oxalate Crystal Cancelled 02/02/25 11:35 Uric Acid Crystals Cancelled 02/02/25 11:35 Triple Phos Crystals Cancelled 02/02/25 11:35 Other Crystals Cancelled 02/02/25 11:35 Amorphous Sediment Cancelled 02/02/25 11:35 Amorphous Sediment Not Reportable 02/02/25 11:35 Urine Bacteria Cancelled 02/02/25 11:35 Urine Bacteria Trace /hpf (NONE) 02/02/25 11:35 Hyaline Casts Cancelled 02/02/25 11:35 Fine Granular Casts Cancelled 02/02/25 11:35 Coarse Granular Casts Cancelled 02/02/25 11:35 RBC Casts Cancelled 02/02/25 11:35 Other Casts Cancelled 02/02/25 11:35 Urine Mucus Cancelled 02/02/25 11:35 Urine Trichomonas Cancelled 02/02/25 11:35 Urine Yeast 1+ /hpf H 02/02/25 11:35 Urine Yeast Cancelled 02/02/25 11:35 Urine Sperm Cancelled 02/02/25 11:35 Ur Oval Fat Bodies Cancelled 02/02/25 11:35 Acetaminophen < 5.0 ug/mL (10-30) L 02/01/25 03:58 A&P Assessment and plan (1) Atrial fibrillation with rapid ventricular response: The patient heart rate is in the normal range. Her blood pressure also is in the normal range at this time. She will continue on the current management. (2) Hypertension: She is currently normotensive. May continue on the current medications (3) Chronic anticoagulation: The patient is back on warfarin at this time. She was given vitamin K before the surgery. She also is on subcu Lovenox. The INR from today is 1.78. 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 Denies any chest pain at this time. the echocardiogram is unremarkable. Patient had the troponin T and was found to be elevated. This could be related to type II PA. Type I PA cannot be excluded. She is currently remaining stable . Never had any chest pain. (5) Hypercholesterolemia: May continue on the current management. Plan The patient has decided not to undergo Myocardial perfusion imaging or cardiac catheterization at this point. The family concurs with this. So we may continue on the current medications. PDMP PDMP Reviewed: Not Reviewed Attestations 2 Medical Necessity Statement*: Deferred to the primary Coding Level of Care Code 10599 Diagnoses Atrial fibrillation with rapid ventricular response I48.91 Secondary hypertension I15.9 Hypertension type: unspecified secondary hypertension Chronic anticoagulation Z79.01 Atherosclerosis of [place] coronary artery of [place] heart without angina pectoris I25.10 [place] vs. transplanted heart: [place] heart Hypercholesterolemia E78.00
[2025-02-05] MEDS: pantoprazole 40 mg SDV IVP (18:13)
[2025-02-05] MEDS: warfarin 5 mg Tablet PO (18:14)
[2025-02-05] MEDS: MELATONIN 3 MG TABLET PO (20:33)
[2025-02-06] VITALS (55 sets, daily range): BP systolic 94–101; BP diastolic 50–82; PULSE 82–111; RESP 12–30; TEMP 36.6–37.2; O2SAT 77–98
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
[2025-02-06] MEDS: TRAMadol 50 mg Tablet PO ×2 (04:21→11:00)
[2025-02-06 05:14] LABS: INR 1.93 (0.8-1.2)
--- NOTE | 2025-02-06 07:15 | PM.PN ---
Subjective Subjective: Patient is feeling okay. No chest pain or chest tightness. No shortness of breath. Vital signs are stable. No new arrhythmias on the monitor. Medications: Medication Review Details: Current Medications Acetaminophen (Acetaminophen 325 Mg Tablet) 650 mg PO Q6H PRN PRN Reason: Mild/Mod Pain Or Temp >/= 101 Last Admin: 02/04/25 16:24 Dose: 650 mg Calcium Carbonate (Calcium Carbonate 500 Mg Chew Tablet) 1,000 mg PO BID [facility] Last Admin: 02/05/25 18:13 Dose: 1,000 mg Ceftriaxone Sodium (Ceftriaxone 1,000 Mg Sdv) 1,000 mg IVP Q24H [facility]; Protocol Last Admin: 02/05/25 12:17 Dose: 1,000 mg Chlorhexidine Gluconate (Chlorhexidine Gluconate 0.12% Btl 473 Ml) 30 ml MUCOUS MEM QID [facility] Last Admin: 02/06/25 04:23 Dose: Not Given Chlorhexidine Gluconate (Chlorhexidine Gluconate 0.12% Btl 473 Ml) 15 ml MUCOUS MEM BID PRN PRN Reason: SORE MOUTH Docusate Sodium (Docusate Sodium 100 Mg Capsule) 100 mg PO BID [facility] Last Admin: 02/05/25 18:15 Dose: Not Given Enoxaparin Sodium (Enoxaparin 80 Mg/0.8 Ml Syringe) 80 mg SUBCUT Q12H [facility] Last Admin: 02/05/25 20:32 Dose: 80 mg Fludrocortisone Acetate (Fludrocortisone 0.1 Mg Tablet) 0.1 mg PO BID [facility] Last Admin: 02/05/25 18:15 Dose: 0.1 mg Lactulose (Lactulose Oral Liq 20 Gm/30 Ml Udc) 10 gm PO DAILY PRN; Protocol PRN Reason: Constipation (see protocol) Magnesium Hydroxide (Magnesium Hydroxide 30 Ml Udc) 30 ml PO DAILY PRN; Protocol PRN Reason: Constipation (see protocol) Melatonin (Melatonin 3 Mg Tablet) 3 mg PO BEDTIME [facility] Last Admin: 02/05/25 20:33 Dose: 3 mg Metoprolol Tartrate (Metoprolol Tartrate 50 Mg Tablet) 25 mg PO BID [facility] Last Admin: 02/05/25 18:14 Dose: 25 mg Morphine Sulfate (Morphine 4 Mg/Ml Sdv 1 Ml) 1 mg IVP Q4H PRN PRN Reason: SEVERE PAIN Last Admin: 02/05/25 12:16 Dose: 1 mg Multivitamins Therapeutic (Multivitamin Therapeutic Tablet) 1 tab PO DAILY [facility] Last Admin: 02/05/25 09:09 Dose: 1 tab Mupirocin (Mupirocin Oint 22 Gm) 1 applic NASAL BID [facility] Stop: 02/07/25 17:59 Last Admin: 02/05/25 18:15 Dose: Not Given Naloxone HCl (Naloxone 0.4 Mg/Ml Sdv) 0.1 mg IVP Q2M PRN PRN Reason: Respiratory rate less than 8. Ondansetron HCl (Ondansetron 2 Mg/Ml Sdv 2 Ml) 4 mg IVP Q6H PRN PRN Reason: vomiting, or N/V if npo Ondansetron HCl (Ondansetron 2 Mg/Ml Sdv 2 Ml) 4 mg IVP Q6H PRN PRN Reason: NAUSEA AND VOMITING Pantoprazole Sodium (Pantoprazole 40 Mg Sdv) 40 mg IVP Q24H [facility] Last Admin: 02/05/25 18:13 Dose: 40 mg Polysaccharide Iron Complex (Iron Polysaccharide Complex 150 Mg Capsule) 150 mg PO BIDWM [facility] Last Admin: 02/05/25 18:14 Dose: 150 mg Senna/Docusate Sodium (Sennosides-Docusate Tablet) 2 tab PO BID [facility] Last Admin: 02/05/25 18:15 Dose: Not Given Tramadol HCl (Tramadol 50 Mg Tablet) 50 mg PO Q6H PRN PRN Reason: MODERATE PAIN Last Admin: 02/06/25 04:21 Dose: 50 mg Vitamin D (Cholecalciferol (Vitamin D3) 1,000 Unit Tablet) 1,000 unit PO DAILY [facility] Last Admin: 02/05/25 09:08 Dose: 1,000 unit Warfarin Sodium (Warfarin 5 Mg Tablet) 5 mg PO QPM [facility] Last Admin: 02/05/25 18:14 Dose: 5 mg Vitals/I&O/Wt Last Vital Signs Temp 99.0 F 02/06/25 04:00 Pulse 103 H 02/06/25 04:00 Resp 26 H 02/06/25 04:00 BP 100/82 02/06/25 04:00 Pulse Ox 92 02/06/25 04:00 O2 Del Method Nasal Cannula 02/06/25 04:00 O2 Flow Rate 2 02/05/25 16:00 02/05/25 02/06/25 02/06/25 22:59 06:59 14:59 Intake Total 320 / 800 0 / 800 Output Total 450 / 450 400 / 850 Balance -130 / 350 -400 / -50 Weight last 48 hrs Weight 181 lb 9.6 oz Weight 180 lb 1.6 oz Physical Exam Narrative: GENERAL: The patient is alert and oriented times three. Not in any acute distress. HEENT: No significant pallor, icterus or lymphadenopathy.Oral cavity: There are no mucous membrane lesions. NECK: Trachea appears to be central. No masses noted. No JVD or thyromegaly appreciated. RESPIRATORY: Chest is symmetrical. No intercostals muscle retraction or any accessory muscle activation. There is no chest wall tenderness. Breath sounds are heard bilaterally. No rales or rhonchi heard. No evidence of any consolidation. BREASTS: Deferred. HEART: The heart sounds are normal. No S3 or S4. Short systolic murmur in the left sternal border. No diastolic murmurs.. No pericardial rub ABDOMEN: No vessel pulsations or distention. No tenderness. No organomegaly appreciated. Bowel sounds are normally heard. : Deferred. RECTAL: Deferred. LYMPHATIC: No lymphadenopathy noted in the neck. EXTREMITIES: No edema or cyanosis. No clubbing. MUSCULOSKELETAL: No acute joint deformities or swelling SKIN: There are no significant rashes or ecchymosis NEUROPSYCHIATRIC: The patient is alert and oriented x3. Appears to be in a good mood. No tremors or rigidity noted. Urinary Catheter Management: [place]: Cath Placed During This Visit: yes Reason for Continuing Indwelling Catheter: Accurate Measurement of Urinary Output in Critically Ill Patients Urinary Catheter Date of Insertion: 01/31/25 Data 02/05/25 02:12 02/04/25 05:00 Other Labs: Laboratory Last Values WBC 9.90 10^3/uL (3.29-11.43) 02/05/25 02:12 RBC 2.99 10^6/uL (3.85-5.65) L 02/05/25 02:12 Hgb 9.50 g/dL (11.27-16.99) L 02/05/25 02:12 Hct 30.0 % (36-47) L 02/05/25 02:12 MCV 100.3 fl (85-98) H 02/05/25 02:12 MCH 31.8 pg (27-33) 02/05/25 02:12 MCHC 31.7 g/dL (30-55) 02/05/25 02:12 RDW 13.4 % (12.1-15.1) 02/05/25 02:12 Plt Count 132 10^3/cmm (157-399) L 02/05/25 02:12 MPV 12.9 fL (7.4-10.4) H 02/05/25 02:12 Neut % (Auto) 69.0 % 02/05/25 02:12 Lymph % (Auto) 14.2 % 02/05/25 02:12 Ritchie % (Auto) 13.8 % 02/05/25 02:12 Eos % (Auto) 2.1 % 02/05/25 02:12 Baso % (Auto) 0.5 % 02/05/25 02:12 Neut # (Auto) 6.82 10^3/uL (1.8-7.7) 02/05/25 02:12 Lymph # (Auto) 1.4 10^3/uL (0.8-4.8) 02/05/25 02:12 Ritchie # (Auto) 1.4 10^3/uL (0.2-0.9) H 02/05/25 02:12 Eos # (Auto) 0.2 10^3/uL (0.0-0.8) 02/05/25 02:12 Baso # (Auto) 0.1 10^3/uL (0.0-0.1) 02/05/25 02:12 Nucleated RBC % (auto) 0 % 02/05/25 02:12 Nucleated RBCs # 0.0 /100WBC 02/05/25 02:12 PT 23.20 SECONDS (12.1-14.9) H 02/06/25 04:40 INR 1.93 (0.8-1.2) H 02/06/25 04:40 Specimen Type Arterial 02/03/25 23:11 Sample Site Radial, left 02/03/25 23:11 ABG pH 7.39 (7.35-7.45) 02/03/25 23:11 ABG pCO2 40.0 mmHg (35-45) 02/03/25 23:11 ABG pO2 69.0 mmHg (80.0-100.0) L 02/03/25 23:11 ABG HCO3 24.1 mmol/L (22-26) 02/03/25 23:11 ABG O2 Saturation 95.1 02/03/25 23:11 ABG Base Excess -0.9 mmol/L (-2.0-2.0) 02/03/25 23:11 Barry Test Pos 02/03/25 23:11 A-a O2 Gradient 4.0 mmHg (5-10) L 02/03/25 23:11 Hematocrit 31.2 % (37-47) L 02/03/25 23:11 Hgb O2 Saturation 92.6 % (95-100) L 02/03/25 23:11 Carboxyhemoglobin 1.6 %THgb (0.4-20.1) 02/03/25 23:11 Methemoglobin 1.0 % (0.4-1.5) 02/03/25 23:11 Total Hemoglobin 10.2 g/dL (12-16) L 02/03/25 23:11 Sodium 136.0 mmol/L (131-143) 02/03/25 23:11 Potassium 4.2 mmol/L (3.5-5.0) 02/03/25 23:11 Glucose 204.0 mg/dL (70-115) H 02/03/25 23:11 Ionized Calcium 1.2 mmol/L (1.1-1.4) 02/03/25 23:11 O2 Delivery Device Nc 02/03/25 23:11 O2 Liters/Min 2.0 % 02/03/25 23:11 Talking Books Library Clerk ID [email or web address] 02/03/25 23:11 Sodium 136 mmol/L (136-145) 02/04/25 05:00 Potassium 4.3 mmol/L (3.5-5.1) 02/04/25 05:00 Chloride 102 mmol/L (98-107) 02/04/25 05:00 Carbon Dioxide 25 mmol/L (22-29) 02/04/25 05:00 Anion Gap 13.3 (5-19) 02/04/25 05:00 BUN 11 mg/dL (8-23) 02/04/25 05:00 Creatinine 0.6 mg/dL (0.5-0.9) 02/04/25 05:00 GFR Calculation Not Reportable 02/04/25 05:00 Glucose 168 mg/dL (65-115) H 02/04/25 05:00 Estimat Average Glucose 157 01/31/25 15:19 Hemoglobin A1c 7.1 % (4.0-6.0) H 01/31/25 15:19 Calculated Osmolality 285 mOsm/kg (285-295) 02/04/25 05:00 Lactic Acid 1.6 mmol/L (0.5-2.2) 01/31/25 15:19 Calcium 8.4 mg/dL (8.5-10.5) L 02/04/25 05:00 Phosphorus 2.6 mg/dL (2.5-4.5) 02/03/25 01:23 Magnesium 2.1 mg/dL (1.7-2.3) 02/03/25 01:23 Iron 65 ug/dL (37-145) 01/31/25 15:19 TIBC 303 mcg/dl 01/31/25 15:19 % Saturation 21.4 % (20-50) 01/31/25 15:19 Unsat Iron Binding 238 ug/dL (112-347) 01/31/25 15:19 Total Bilirubin 0.8 mg/dL (0.15-1.2) 02/04/25 05:00 AST 30 U/L (0-32) 02/04/25 05:00 ALT 12 U/L (0-33) 02/04/25 05:00 Alkaline Phosphatase 61 U/L (35-105) 02/04/25 05:00 Troponin T 5th Gen ng/L 195 ng/L (0-10) H* 02/04/25 10:43 Total Protein 6.3 g/dL (6.6-8.7) L 02/04/25 05:00 Albumin 3.0 g/dL (3.5-5.2) L 02/04/25 05:00 Globulin 3.3 g/dL (1.3-4.6) 02/04/25 05:00 Triglycerides 171 mg/dL (0-150) H 02/01/25 03:58 Cholesterol 185 mg/dL (0-200) 02/01/25 03:58 LDL Cholesterol, Calc 117 mg/dL (50-129) 02/01/25 03:58 HDL Cholesterol 34 mg/dL (60-100) L 02/01/25 03:58 LDL/HDL Ratio 3.44 RATIO (0.00-3.22) H 02/01/25 03:58 Cholesterol/HDL Ratio 5.44 mg/dL (0.0-4.40) H 02/01/25 03:58 Vitamin B12 656 pg/mL (232-1245) 01/31/25 15:19 Folate > 20.0 ng/mL (4.8-37.3) 02/01/25 03:58 Procalcitonin 0.06 ng/mL (0-0.5) 02/01/25 03:58 TSH 2.62 uIU/mL (0.27-4.20) 01/31/25 15:19 Urine Color Cancelled 02/02/25 11:35 Urine Color Yellow (Yellow) 02/02/25 11:35 Urine Appearance Cancelled 02/02/25 11:35 Urine Appearance Clear (CLEAR) 02/02/25 11:35 Urine pH 5.5 (5-7) 02/02/25 11:35 Urine pH Cancelled 02/02/25 11:35 Ur Specific [place] 1.021 (1.005-1.030) 02/02/25 11:35 Ur Specific [place] Cancelled 02/02/25 11:35 Urine Protein Cancelled 02/02/25 11:35 Urine Protein Neg (Negative) 02/02/25 11:35 Urine Glucose (UA) Cancelled 02/02/25 11:35 Urine Glucose (UA) Trace (Normal) H 02/02/25 11:35 Urine Ketones 2+ (Negative) H 02/02/25 11:35 Urine Ketones Cancelled 02/02/25 11:35 Urine Blood Cancelled 02/02/25 11:35 Urine Blood Trace (Negative) H 02/02/25 11:35 Urine Nitrate Cancelled 02/02/25 11:35 Urine Nitrate Negative (Negative) 02/02/25 11:35 Urine Bilirubin Cancelled 02/02/25 11:35 Urine Bilirubin Neg (Negative) 02/02/25 11:35 Prot Sulfosalicylic Acd Cancelled 02/02/25 11:35 Urine Urobilinogen 1.0 mg/dL (Negative) 02/02/25 11:35 Urine Urobilinogen Cancelled 02/02/25 11:35 Ur Leukocyte Esterase Cancelled 02/02/25 11:35 Ur Leukocyte Esterase Negative (Negative) 02/02/25 11:35 Urine RBC Cancelled 02/02/25 11:35 Urine RBC Rare /hpf (0-2) 02/02/25 11:35 Urine WBC Cancelled 02/02/25 11:35 Urine WBC Rare /hpf (0-5) 02/02/25 11:35 Ur Squamous Epith Cells 0-4 /hpf (0-5) H 02/02/25 11:35 Ur Squamous Epith Cells Cancelled 02/02/25 11:35 Ur Transition Epith Cell Cancelled 02/02/25 11:35 Ur Renal Epithelial Cell Cancelled 02/02/25 11:35 Calcium Oxalate Crystal Cancelled 02/02/25 11:35 Uric Acid Crystals Cancelled 02/02/25 11:35 Triple Phos Crystals Cancelled 02/02/25 11:35 Other Crystals Cancelled 02/02/25 11:35 Amorphous Sediment Cancelled 02/02/25 11:35 Amorphous Sediment Not Reportable 02/02/25 11:35 Urine Bacteria Cancelled 02/02/25 11:35 Urine Bacteria Trace /hpf (NONE) 02/02/25 11:35 Hyaline Casts Cancelled 02/02/25 11:35 Fine Granular Casts Cancelled 02/02/25 11:35 Coarse Granular Casts Cancelled 02/02/25 11:35 RBC Casts Cancelled 02/02/25 11:35 Other Casts Cancelled 02/02/25 11:35 Urine Mucus Cancelled 02/02/25 11:35 Urine Trichomonas Cancelled 02/02/25 11:35 Urine Yeast 1+ /hpf H 02/02/25 11:35 Urine Yeast Cancelled 02/02/25 11:35 Urine Sperm Cancelled 02/02/25 11:35 Ur Oval Fat Bodies Cancelled 02/02/25 11:35 Acetaminophen < 5.0 ug/mL (10-30) L 02/01/25 03:58 SARS-CoV-2 Ag (Rapid) Negative (Negative) 02/06/25 11:25 A&P Assessment and plan (1) Atrial fibrillation with rapid ventricular response: The patient heart rate is in the normal range. Patient may continue on the current medications. (2) Hypertension: She is currently normotensive. May continue on the current medications (3) Chronic anticoagulation: The INR is almost therapeutic. The Lovenox will be discontinued at this time. Continue the warfarin. 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 Denies any chest pain at this time. the echocardiogram is unremarkable. Patient had the troponin T and was found to be elevated. This could be related to type II DC. Type I DC cannot be excluded. She is currently remaining stable . Never had any chest pain. Patient and the family decided not to undergo any further cardiac workup at this time (5) Hypercholesterolemia: May continue on the current management. Plan The patient has decided not to undergo Myocardial perfusion imaging or cardiac catheterization at this point. The family concurs with this. So we may continue on the current medications. PDMP PDMP Reviewed: Not Reviewed Attestations Medical Necessity Statement*: Disposition as per the primary Coding Level of Care Code 88329 Diagnoses Atrial fibrillation with rapid ventricular response I48.91 Secondary hypertension I15.9 Hypertension type: unspecified secondary hypertension Chronic anticoagulation Z79.01 Atherosclerosis of [place] coronary artery of [place] heart without angina pectoris I25.10 [place] vs. transplanted heart: [place] heart Hypercholesterolemia E78.00
[2025-02-06] MEDS: acetaminophen 325 mg Tablet 650 MG PO (08:42)
[2025-02-06] MEDS: multivitamin therapeutic Tablet 1 TAB PO (08:45)
[2025-02-06] MEDS: metoprolol tartrate 50 mg Tablet 25 MG PO (08:46)
[2025-02-06] MEDS: calcium carbonate 500 mg Chew Tablet 1000 MG PO (08:46)
[2025-02-06] MEDS: fludrocortisone 0.1 mg Tablet PO (08:49)
[2025-02-06] MEDS: iron polysaccharide complex 150 mg Capsule PO (08:49)
[2025-02-06] MEDS: cholecalciferol (vitamin D3) 1,000 unit Tablet 1000 UNIT PO (08:49)
[2025-02-06] MEDS: chlorhexidine gluconate 0.12% Btl 473 mL 30 ML MUCOUS MEM (08:50)
[2025-02-06] MEDS: mupirocin oint 22 gm 1 APPLIC NASAL (08:50)
--- NOTE | 2025-02-06 10:41 | PM.DCS ---
Discharge Providers Date of Admission: 01/31/25 17:22 Date of Discharge: February 06, 2025 Attending Provider at Admission: Owen Neal MD Attending Provider at Discharge: Arsalan Ren MD Primary Care Provider: Anahi Jennings MD Diagnoses at Discharge Discharge Diagnosis (1) Atrial fibrillation with rapid ventricular response: Status: Inactive (2) Hypertension: Status: Chronic Qualifiers: Hypertension type: unspecified secondary hypertension Qualified Code(s): I15.9 - Secondary hypertension, unspecified (3) Chronic anticoagulation: Status: Chronic (4) Atherosclerotic heart disease of [place] coronary artery without angina pectoris: Status: Acute Qualifiers: [place] vs. transplanted heart: [place] heart Qualified Code(s): I25.10 - Atherosclerotic heart disease of [place] coronary artery without angina pectoris (5) Hypercholesterolemia: Status: Acute (6) Closed left hip fracture: Status: Acute Qualifiers: Encounter type: initial encounter Qualified Code(s): S72.002A - Fracture of unspecified part of neck of left femur, initial encounter for closed fracture Reason for Visit Reason for Visit: fall - left hip pain Hospital Course Hospital Course In summary, Ms Allyson Causey is a 84 year old female with past medical history of A-fib on Coumadin, CAD post PCI, PE presented for further evaluation left thigh fall and was found to have left hip fracture. She was admitted for further evaluation and management. Patient was evaluated by orthopedic surgery and had surgical fixation (ORIF) of her fracture done. Procedure was tolerated. Patient noted to have elevated troponin thought to be possibly type II , atrial fibrillation with RVR. She was evaluated by cardiology and declined to have Myocardial perfusion imaging or cardiac catheterization at this point. Patient will continue her chronic medications, including warfarin to maintain therapeutic INR. 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 She will also follow with her PCP. Physical Exam Narrative: General-Awake, alert, no acute distress HEENT-Atraumatic, PERRLA CV-Irregular rate and rhythm, S1-S2 Lungs-clear to auscultation bilaterally, no wheezes or crackles Abdomen- Soft nontender Neuro -no gross focal deficits Extremities-left hip with dressing no pedal edema, Discharge Data Studies Completed and Pending Completed Studies During Hospitalization Category Date Time Status CT head wo con* [id number] Stat Cat Scan 02/04/25 21:13 Completed CXRP [XR chest 1V portable [id number]] Routine Exams 02/04/25 10:30 Completed CXRP [XR chest 1V portable [id number]] Stat Exams 01/31/25 14:53 Completed XR hip LT 2-3V wo/w pel* [id number] Routine Exams 01/31/25 18:31 Completed XR hip LT 2-3V wo/w pel* [id number] Routine Exams 02/02/25 09:39 Completed XR hip LT 2-3V wo/w pel* [id number] Stat Exams 01/31/25 14:53 Completed CV. echo complete* [id number] Routine Ultrasound 02/01/25 17:07 Completed CV. echo limited [id number] Routine Ultrasound 02/04/25 09:09 Completed Pending at discharge Category Date Time Status Prothrombin Time INR AM LABS Lab 02/07/25 04:00 Ordered Prothrombin Time INR AM LABS Lab 02/08/25 04:00 Ordered Radiology Impressions Hip/Pelvis X-Ray 02/02/25 09:39 IMPRESSION: Status post left hip arhtroplasty without evidence of hardware abnormality. Chest X-Ray 02/04/25 10:30 IMPRESSION: Stable postoperative chest with no acute abnormality. Head CT 02/04/25 21:13 IMPRESSION: 1. No evidence of intracranial hemorrhage or mass effect. 2. LEFT maxillary sinusitis. 3. Opacification RIGHT mastoid air cells. Laboratory Results WBC 9.90 10^3/uL (3.29-11.43) 02/05/25 02:12 RBC 2.99 10^6/uL (3.85-5.65) L 02/05/25 02:12 Hgb 9.50 g/dL (11.27-16.99) L 02/05/25 02:12 Hct 30.0 % (36-47) L 02/05/25 02:12 MCV 100.3 fl (85-98) H 02/05/25 02:12 MCH 31.8 pg (27-33) 02/05/25 02:12 MCHC 31.7 g/dL (30-55) 02/05/25 02:12 RDW 13.4 % (12.1-15.1) 02/05/25 02:12 Plt Count 132 10^3/cmm (157-399) L 02/05/25 02:12 MPV 12.9 fL (7.4-10.4) H 02/05/25 02:12 Neut % (Auto) 69.0 % 02/05/25 02:12 Lymph % (Auto) 14.2 % 02/05/25 02:12 [place] % (Auto) 13.8 % 02/05/25 02:12 Eos % (Auto) 2.1 % 02/05/25 02:12 Baso % (Auto) 0.5 % 02/05/25 02:12 Neut # (Auto) 6.82 10^3/uL (1.8-7.7) 02/05/25 02:12 Lymph # (Auto) 1.4 10^3/uL (0.8-4.8) 02/05/25 02:12 [place] # (Auto) 1.4 10^3/uL (0.2-0.9) H 02/05/25 02:12 Eos # (Auto) 0.2 10^3/uL (0.0-0.8) 02/05/25 02:12 Baso # (Auto) 0.1 10^3/uL (0.0-0.1) 02/05/25 02:12 Nucleated RBC % (auto) 0 % 02/05/25 02:12 Nucleated RBCs # 0.0 /100WBC 02/05/25 02:12 PT 23.20 SECONDS (12.1-14.9) H 02/06/25 04:40 INR 1.93 (0.8-1.2) H 02/06/25 04:40 Specimen Type Arterial 02/03/25 23:11 Sample Site Radial, left 02/03/25 23:11 ABG pH 7.39 (7.35-7.45) 02/03/25 23:11 ABG pCO2 40.0 mmHg (35-45) 02/03/25 23:11 ABG pO2 69.0 mmHg (80.0-100.0) L 02/03/25 23:11 ABG HCO3 24.1 mmol/L (22-26) 02/03/25 23:11 ABG O2 Saturation 95.1 02/03/25 23:11 ABG Base Excess -0.9 mmol/L (-2.0-2.0) 02/03/25 23:11 Barry Test Pos 02/03/25 23:11 A-a O2 Gradient 4.0 mmHg (5-10) L 02/03/25 23:11 Hematocrit 31.2 % (37-47) L 02/03/25 23:11 Hgb O2 Saturation 92.6 % (95-100) L 02/03/25 23:11 Carboxyhemoglobin 1.6 %THgb (0.4-20.1) 02/03/25 23:11 Methemoglobin 1.0 % (0.4-1.5) 02/03/25 23:11 Total Hemoglobin 10.2 g/dL (12-16) L 02/03/25 23:11 Sodium 136.0 mmol/L (131-143) 02/03/25 23:11 Potassium 4.2 mmol/L (3.5-5.0) 02/03/25 23:11 Glucose 204.0 mg/dL (70-115) H 02/03/25 23:11 Ionized Calcium 1.2 mmol/L (1.1-1.4) 02/03/25 23:11 O2 Delivery Device Nc 02/03/25 23:11 O2 Liters/Min 2.0 % 02/03/25 23:11 Program Manager ID [email or web address] 02/03/25 23:11 Sodium 136 mmol/L (136-145) 02/04/25 05:00 Potassium 4.3 mmol/L (3.5-5.1) 02/04/25 05:00 Chloride 102 mmol/L (98-107) 02/04/25 05:00 Carbon Dioxide 25 mmol/L (22-29) 02/04/25 05:00 Anion Gap 13.3 (5-19) 02/04/25 05:00 BUN 11 mg/dL (8-23) 02/04/25 05:00 Creatinine 0.6 mg/dL (0.5-0.9) 02/04/25 05:00 GFR Calculation Not Reportable 02/04/25 05:00 Glucose 168 mg/dL (65-115) H 02/04/25 05:00 Estimat Average Glucose 157 01/31/25 15:19 Hemoglobin A1c 7.1 % (4.0-6.0) H 01/31/25 15:19 Calculated Osmolality 285 mOsm/kg (285-295) 02/04/25 05:00 Lactic Acid 1.6 mmol/L (0.5-2.2) 01/31/25 15:19 Calcium 8.4 mg/dL (8.5-10.5) L 02/04/25 05:00 Phosphorus 2.6 mg/dL (2.5-4.5) 02/03/25 01:23 Magnesium 2.1 mg/dL (1.7-2.3) 02/03/25 01:23 Iron 65 ug/dL (37-145) 01/31/25 15:19 TIBC 303 mcg/dl 01/31/25 15:19 % Saturation 21.4 % (20-50) 01/31/25 15:19 Unsat Iron Binding 238 ug/dL (112-347) 01/31/25 15:19 Total Bilirubin 0.8 mg/dL (0.15-1.2) 02/04/25 05:00 AST 30 U/L (0-32) 02/04/25 05:00 ALT 12 U/L (0-33) 02/04/25 05:00 Alkaline Phosphatase 61 U/L (35-105) 02/04/25 05:00 Troponin T 5th Gen ng/L 195 ng/L (0-10) H* 02/04/25 10:43 Total Protein 6.3 g/dL (6.6-8.7) L 02/04/25 05:00 Albumin 3.0 g/dL (3.5-5.2) L 02/04/25 05:00 Globulin 3.3 g/dL (1.3-4.6) 02/04/25 05:00 Triglycerides 171 mg/dL (0-150) H 02/01/25 03:58 Cholesterol 185 mg/dL (0-200) 02/01/25 03:58 LDL Cholesterol, Calc 117 mg/dL (50-129) 02/01/25 03:58 HDL Cholesterol 34 mg/dL (60-100) L 02/01/25 03:58 LDL/HDL Ratio 3.44 RATIO (0.00-3.22) H 02/01/25 03:58 Cholesterol/HDL Ratio 5.44 mg/dL (0.0-4.40) H 02/01/25 03:58 Vitamin B12 656 pg/mL (232-1245) 01/31/25 15:19 Folate > 20.0 ng/mL (4.8-37.3) 02/01/25 03:58 Procalcitonin 0.06 ng/mL (0-0.5) 02/01/25 03:58 TSH 2.62 uIU/mL (0.27-4.20) 01/31/25 15:19 Urine Color Cancelled 02/02/25 11:35 Urine Color Yellow (Yellow) 02/02/25 11:35 Urine Appearance Cancelled 02/02/25 11:35 Urine Appearance Clear (CLEAR) 02/02/25 11:35 Urine pH 5.5 (5-7) 02/02/25 11:35 Urine pH Cancelled 02/02/25 11:35 Ur Specific [place] 1.021 (1.005-1.030) 02/02/25 11:35 Ur Specific [place] Cancelled 02/02/25 11:35 Urine Protein Cancelled 02/02/25 11:35 Urine Protein Neg (Negative) 02/02/25 11:35 Urine Glucose (UA) Cancelled 02/02/25 11:35 Urine Glucose (UA) Trace (Normal) H 02/02/25 11:35 Urine Ketones 2+ (Negative) H 02/02/25 11:35 Urine Ketones Cancelled 02/02/25 11:35 Urine Blood Cancelled 02/02/25 11:35 Urine Blood Trace (Negative) H 02/02/25 11:35 Urine Nitrate Cancelled 02/02/25 11:35 Urine Nitrate Negative (Negative) 02/02/25 11:35 Urine Bilirubin Cancelled 02/02/25 11:35 Urine Bilirubin Neg (Negative) 02/02/25 11:35 Prot Sulfosalicylic Acd Cancelled 02/02/25 11:35 Urine Urobilinogen 1.0 mg/dL (Negative) 02/02/25 11:35 Urine Urobilinogen Cancelled 02/02/25 11:35 Ur Leukocyte Esterase Cancelled 02/02/25 11:35 Ur Leukocyte Esterase Negative (Negative) 02/02/25 11:35 Urine RBC Cancelled 02/02/25 11:35 Urine RBC Rare /hpf (0-2) 02/02/25 11:35 Urine WBC Cancelled 02/02/25 11:35 Urine WBC Rare /hpf (0-5) 02/02/25 11:35 Ur Squamous Epith Cells 0-4 /hpf (0-5) H 02/02/25 11:35 Ur Squamous Epith Cells Cancelled 02/02/25 11:35 Ur Transition Epith Cell Cancelled 02/02/25 11:35 Ur Renal Epithelial Cell Cancelled 02/02/25 11:35 Calcium Oxalate Crystal Cancelled 02/02/25 11:35 Uric Acid Crystals Cancelled 02/02/25 11:35 Triple Phos Crystals Cancelled 02/02/25 11:35 Other Crystals Cancelled 02/02/25 11:35 Amorphous Sediment Cancelled 02/02/25 11:35 Amorphous Sediment Not Reportable 02/02/25 11:35 Urine Bacteria Cancelled 02/02/25 11:35 Urine Bacteria Trace /hpf (NONE) 02/02/25 11:35 Hyaline Casts Cancelled 02/02/25 11:35 Fine Granular Casts Cancelled 02/02/25 11:35 Coarse Granular Casts Cancelled 02/02/25 11:35 RBC Casts Cancelled 02/02/25 11:35 Other Casts Cancelled 02/02/25 11:35 Urine Mucus Cancelled 02/02/25 11:35 Urine Trichomonas Cancelled 02/02/25 11:35 Urine Yeast 1+ /hpf H 02/02/25 11:35 Urine Yeast Cancelled 02/02/25 11:35 Urine Sperm Cancelled 02/02/25 11:35 Ur Oval Fat Bodies Cancelled 02/02/25 11:35 Acetaminophen < 5.0 ug/mL (10-30) L 02/01/25 03:58 Vitals Last Vital Signs Temp 99.0 F 02/06/25 04:00 Pulse 90 02/06/25 08:18 Resp 26 H 02/06/25 04:00 BP 100/82 02/06/25 04:00 Pulse Ox 94 02/06/25 08:18 O2 Del Method Nasal Cannula 02/06/25 08:18 O2 Flow Rate 1 02/06/25 08:18 Discharge Plan Discharge Patient Disposition: Xfer SNF Condition: Stable Prescriptions: Continued acetaminophen 500 mg tablet 500 mg PO Q6H PRN (Reason: Pain) Jimmy Fairly Colon Health 3 billion cell capsule 1 cap PO DAILY PRN (Reason: stomach health) [id number] [Bromfed DM] 2-30-10 mg/5 mL syrup 5 ml PO Q6H PRN (Reason: cold symptoms) Qty: 118 0RF B Complex Plus Vitamin C 39-13-14-5-300 mg capsule 1 cap PO DAILY Rx Instructions: give with food (meal/snack) multivitamin Tablet 1 tab PO DAILY vitamin E acetate 134 mg (200 unit) capsule 134 mg PO DAILY docusate sodium [Colace] 100 mg capsule 100 mg PO DAILY PRN (Reason: Constipation) metoprolol tartrate 50 mg tablet 50 mg PO BID Qty: 180 3RF warfarin 3 mg tablet 3 mg PO QPM Qty: 90 2RF Protocol: Dose Management Condition: Monday Dose/Route: 3 mg Instruction: 1 x 3 mg tablet Condition: Monday Dose/Route: 3 mg Instruction: 1 x 3 mg tablet Condition: Monday Dose/Route: 3 mg Instruction: 1 x 3 mg tablet Condition: Monday Dose/Route: 3 mg Instruction: 1 x 3 mg tablet Condition: Dose/Route: 3 mg Instruction: 1 x 3 mg tablet Condition: Monday Dose/Route: 3 mg Instruction: 1 x 3 mg tablet Condition: Monday Dose/Route: 3 mg Instruction: 1 x 3 mg tablet Protocol Text: Adjustment Start Date: Monday07/24/24 INR Value: 2.9 INR Date: 07/24/24 Recheck Date: 07/31/24 omeprazole 20 mg capsule,delayed release(DR/EC) 20 mg PO BID 90 Days Qty: 180 3RF chlorhexidine gluconate 0.12 % mouthwash 15 ml buccal BID PRN (Reason: SORE MOUTH) Discharge Orders: Discharge Order (Routine); Ordered 02/06/25 Ordered By: Arsalan Ren Referrals: [facility] [Outside] Joshua Conde MD [Physician, Cardiology] - 2 weeks Rogerio Sylvester MD [Physician, Orthopedics] - 2 weeks Anahi Jennings MD [Primary Care Provider, Family Practice] Discharge Diet: Advance as tolerated Discharge Activity: Increase activity as tolerated and As per PT/OT instructions Patient Instructions: Acute Wound Care (DC), Opioid Safety, Post Anesthesia Care Discharge Attestations Time Spent in Discharge Care*: greater than 30 min Quality Metrics Clinical Quality Measures [ No reported AMI, CVA or VTE this stay] Coding Level of Care Code Acute Code for Chg Fwd Diagnoses Atrial fibrillation with rapid ventricular response I48.91 Secondary hypertension I15.9 Hypertension type: unspecified secondary hypertension Chronic anticoagulation Z79.01 Atherosclerosis of [place] coronary artery of [place] heart without angina pectoris I25.10 [place] vs. transplanted heart: [place] heart Hypercholesterolemia E78.00 Closed fracture of left hip, initial encounter S72.002A Encounter type: initial encounter
[2025-02-06] MEDS: cefTRIAXone 1,000 mg SDV 1000 MG IVP (10:53)
[2025-02-06] MEDS: enoxaparin 80 mg/0.8 mL Syringe SUBCUT (10:53)
[2025-02-06 12:13] LABS: SARS Covid-2 Antigen Negative (Negative)
--- NOTE | 2025-02-06 14:35 | PC.NURSE ---
report phoned to jason at [facility].ems here to transport via stretcher.discharged at this time
== END 2025-02-06 14:44 | disposition skilled nursing facility (03) | DRG 521 ==
LOC: ER 15:37 → MEDSURG 17:22 → CSU 02-03 17:08
PROVIDERS: Internal Medicine; Internal Medicine Cardiovascular Disease; Orthopaedic Surgery; Admitting Provider Student in an Organized Health Care Education/Training Program; Emergency Provider Emergency Medicine; PCP Family Medicine; Visit Provider Student in an Organized Health Care Education/Training Program
PROC: 0SRS0JZ Replacement of Left Hip Joint, Femoral Surface with Synthetic Substitute, Open Approach (ICD-10-PCS; principal; 2025-02-02 08:00)
DX: S72.142A Displaced intertrochanteric fracture of left femur, initial encounter for closed fracture (principal); I21.A1 Myocardial infarction type 2; I48.19 Other persistent atrial fibrillation; Z79.01 Long term (current) use of anticoagulants; I25.10 Atherosclerotic heart disease of native coronary artery without angina pectoris; Z95.5 Presence of coronary angioplasty implant and graft; Z86.711 Personal history of pulmonary embolism; Z79.899 Other long term (current) drug therapy; Z88.1 Allergy status to other antibiotic agents; Z88.0 Allergy status to penicillin; Z88.2 Allergy status to sulfonamides; Z88.8 Allergy status to other drugs, medicaments and biological substances; K21.9 Gastro-esophageal reflux disease without esophagitis; E55.9 Vitamin D deficiency, unspecified; I25.2 Old myocardial infarction; E78.00 Pure hypercholesterolemia, unspecified; E11.9 Type 2 diabetes mellitus without complications; Z95.0 Presence of cardiac pacemaker; Z95.1 Presence of aortocoronary bypass graft; W05.0XXA Fall from non-moving wheelchair, initial encounter; I15.9 Secondary hypertension, unspecified; I95.9 Hypotension, unspecified; M15.9 Polyosteoarthritis, unspecified
CPT/HCPCS: 36415; 36600; 51702; 70450; 71045; 73502; 80051; 80053; 80061; 80307; 81001; 82330; 82607; 82746; 82805; 83036; 83540; 83550; 83605; 83735; 84100; 84145; 84443; 84484; 85025; 85610; 87426; 93005; 93306; 93308; 94664; 96372; 96374; 96375; 96376; 97110; 97162; 97167; 97530; 97535; 99285; A4222; C1776; J0131; J0283; J0696; J1160; J1171; J1644; J1650; J1885; J2270; J2405; J2470; J2704; J3010; J3430; J3475; J3480; J3490; J7030; J7040; J9999

== ENCOUNTER → 2025-02-27 15:06 | Outpatient (BNVA) | payer MEDICARE, SELFPAY | PROVIDERS: PCP Family Medicine; Referring Provider Student in an Organized Health Care Education/Training Program; Visit Provider Orthopaedic Surgery | DX: Z98.890 Other specified postprocedural states (principal) | CPT/HCPCS: 73502; 99024 ==

== ENCOUNTER 2025-03-03 13:19 | Inpatient (IN) | payer MEDICARE, MEDICAID, SELFPAY ==
[2025-03-03] VITALS (7 sets, daily range): BP systolic 84–99; BP diastolic 50–68; PULSE 87–156; RESP 19–23; TEMP 36.5–37.6; O2SAT 81–97
--- NOTE | 2025-03-03 13:21 | XR_ITS ---
WS: [id number] XR chest 1V portable [id number] REASON FOR EXAM: dyspnea/cough FINDINGS: Other than possible resolution of a small amount of fluid in the minor fissure, the chest is unchanged compared to 02/04/2025. Sternotomy with previous coronary bypass surgery. Minimal tortuosity of the thoracic aorta and normal heart size. Minimal calcified granulomatous disease in both hemithoraces. No acute pulmonary parenchymal or pleural abnormality. XR/XR chest 1V portable [id number] IMPRESSION: No acute abnormality as above.
--- NOTE | 2025-03-03 13:21 | ECG_ITS ---
[facility] Test Date: 2025-03-03 Pat Name: Allyson Causey Department: Room: Gender: Female Editor Index: : 1940 Requested By: Jose Estrada Order Number: [id number] Alonzo MD: Jacob Kwong M.D. Measurements Intervals [place] Rate: 137 P: 0 PA: 0 QRS: 50 QRSD: 79 T: 255 QT: 233 QTc: 352 Interpretive Statements ATRIAL FIBRILLATION WITH RAPID VENTRICULAR RESPONSE LOW QRS VOLTAGE IN PRECORDIAL LEADS [QRS DEFLECTION < 1.0 mV IN CHEST LEADS] ST DEVIATION AND MODERATE T-WAVE ABNORMALITY, CONSIDER INFERIOR ISCHEMIA [-0.1+ mV T-WAVE IN II/aVF] WARNING: DATA QUALITY MAY AFFECT INTERPRETATION Compared to ECG 02/03/2025 15:48:18 T-wave abnormality now present Possible ischemia now present ST (T wave) deviation no longer present Electronically Signed On 03-04-2025 11:36:50 CDT by [email or web address] Kwong M.D. [email or web address]
[2025-03-03 13:40] LABS: Bilirubin Urine Negative (Negative); Blood Urine 3+ (Negative); Glucose Urine UA Negative (Normal); Ketones Urine Negative (Negative); Leukocyte Esterase Urine 3+ (Negative); Nitrate Urine Positive (Negative); Protein Urine 1+ (Negative); Specific Gravity, Urine 1.017 (1.005-1.030); Urine Appearance Turbid (CLEAR); Urine Color Yellow (Yellow); pH Urine 5.5 (5-7)
[2025-03-03 13:43] LABS: Basophils # 0.1 10^3/uL (0.0-0.1); Basophils % 0.7 %; Eosinophils # 0.1 10^3/uL (0.0-0.8); Hematocrit 44.3 % (36-47); Lymphocytes # 2.1 10^3/uL (0.8-4.8); Lymphocytes % 19.8 %; Mean Corpuscular HGB Conc 31.6 g/dL (30-55); Mean Corpuscular Hemoglobin 30.1 pg (27-33); Mean Corpuscular Volume 95.3 fl (85-98); Mean Platelet Volume 12.6 fL (7.4-10.4); Monocytes # 1.1 10^3/uL (0.2-0.9); Monocytes % 10.3 %; Neutrophils # 7.24 10^3/uL (1.8-7.7); Neutrophils % 67.7 %; Nucleated Red Blood Cells % 0 %; Platelet Count 210 10^3/cmm (157-399); Red Blood Count 4.65 10^6/uL (3.85-5.65); Red Cell Distribution Width 14.1 % (12.1-15.1); White Blood Count 10.68 10^3/uL (3.29-11.43)
[2025-03-03 13:45] LABS: Add Urine Microscopic? YES; Bacteria Urine 4+ /hpf; Hyaline Casts Urine 8.26 /lpf; RBC Urine 21-50 /hpf (0-2); Squamous Epithelial Cell Urine 0-5 /hpf (0-5); WBC Urine >100 /hpf (0-5)
[2025-03-03 13:55] LABS: Lactic Sepsis W/Reflex 2.4 mmol/L (0.5-2.2)
[2025-03-03 14:02] LABS: Alanine Aminotransferase 12 U/L (0-33); Albumin Level 3.7 g/dL (3.5-5.2); Alkaline Phosphatase 170 U/L (35-105); Blood Urea Nitrogen 11 mg/dL (8-23); Calcium 9.1 mg/dL (8.5-10.5); Carbon Dioxide 26 mmol/L (22-29); Chloride 100 mmol/L (98-107); Creatinine Clr Calc Pharmacy 55.4749; Globulin 4.1 g/dL (1.3-4.6); Glucose 156 mg/dL (65-115); Osmolality Calculated 291 mOsm/kg (285-295); Sodium 139 mmol/L (136-145); Total Bilirubin 0.7 mg/dL (0.15-1.2); Total Protein 7.8 g/dL (6.6-8.7)
[2025-03-03 14:03] LABS: UA Slide Review UA Slide Review Perf
[2025-03-03 14:04] LABS: Anion Gap 17.2 (5-19); Aspartate Amino Transferase 27 U/L (0-32); Potassium 4.2 mmol/L (3.5-5.1)
[2025-03-03 14:05] LABS: Add Urine Culture? Yes
--- NOTE | 2025-03-03 14:13 | W.ED.RECABL ---
HPI - Recheck/Abnormal Lab/Rx General: Chief Complaint: Recheck/Abnormal Lab/Rx Stated Complaint: UTI, Fever, Time Seen by Provider: 03/03/25 13:21 History of Present Illness: 84-year-old female rhythm retirement is currently they are recovering from a left hip arthroplasty 3 weeks ago. She has a [place] catheter chronically she is history of atrial fibrillation is on Coumadin because she could not logistically afford other DOAC's. She presents to the emergency room with UTI symptoms and fever. She was just recently treated for a UTI with antibiotics orally at the retirement finished antibiotics 3 days ago. Arrives here in A-fib with RVR EMS reported she was 70% on room air. When initially came in the room she was on 4 L. Titrated down to 2 and she is maintaining her sats in the mid 90s. Related Data Home Medications ?Medication ?Instructions ?Recorded ?Confirmed multivitamin 1 tab PO DAILY 07/22/22 03/03/25 chlorhexidine gluconate 0.12 % 15 ml buccal BID PRN SORE MOUTH 02/27/24 03/03/25 mouthwash acetaminophen 500 mg tablet 500 mg PO Q6H PRN Pain 01/08/25 03/03/25 bisacodyl 10 mg rectal suppository 10 mg PA DAILY PRN Constipation 03/03/25 03/03/25 (Dulcolax (bisacodyl)) nystatin 100,000 unit/gram topical See Rx Instructions .Route .COMPLEX 03/03/25 03/03/25 cream tramadol 50 mg tablet 50 mg PO Q4H PRN Pain 03/03/25 03/03/25 warfarin 3 mg tablet 3 mg PO BEDTIME 03/03/25 03/03/25 Previous Rx's ?Medication ?Instructions ?Recorded metoprolol tartrate 50 mg tablet 50 mg PO BID #180 tabs 11/01/24 [id number] 5 ml PO Q6H PRN cold symptoms #118 01/09/25 2 mg-30 mg-10 mg/5 mL oral syrup mL (Bromfed DM) omeprazole 20 mg capsule,delayed 20 mg PO BID 90 days #180 caps 01/30/25 release Allergies Allergy/AdvReac Type Severity Reaction Status Date / Time rosuvastatin (From Crestor) Allergy Severe ADR-Muscle Verified 02/27/25 15:25 Pain azithromycin (From Zithromax) Allergy Intermediate ADR-upset Verified 02/27/25 15:25 stomach nitrofurantoin Allergy Intermediate ADR-other Verified 02/27/25 15:25 Sulfa (Sulfonamide Allergy Intermediate ADR-rash Verified 02/27/25 15:25 Antibiotics) Penicillins Allergy Unknown unk Verified 02/27/25 15:25 doxycycline Allergy ADR-other Verified 02/27/25 15:25 hydrocodone Allergy ADR-Halluci Verified 02/27/25 15:25 nating Review of Systems Const: Denies: fever(s) or chills Card: Denies: chest pain Resp: Denies: dyspnea GI: Denies: abdominal pain : Reports: other (Chronic indwelling [place]) Musc: Denies: neck pain or back pain Skin/Breast: Denies: rash PFSH ED PFSH: Medical History Closed left hip fracture Chronic anticoagulation Intertrochanteric fracture of left hip Altered mental status Hypotension Hypercholesterolemia Grade III diastolic dysfunction GERD (gastroesophageal reflux disease) Vitamin D deficiency NSTEMI (non-ST elevated myocardial infarction) Pneumonia Diverticulosis Hx of pulmonary embolus 06/2008 CAD (coronary artery disease) [place] 1998-2 stents CABG 2007 Atrial fibrillation chronic warfarin with goal of 2.0-3.0 Generalized osteoarthritis Chronic constipation Bladder prolapse Recurrent UTI Hypertension Diabetes Type 2 Surgical History History of surgery on right wrist fracture repair History of four vessel coronary artery bypass graft 2007 History of cholecystectomy Hx of colonoscopy colonoscopy in 1999 wiht two polyps, repeat clear Family History Mother Colon cancer Brother Colon cancer Father Diabetes Other CAD (coronary artery disease) Cancer Clotting disorder Social History Smoking and tobacco/nicotine status: unknown if used tobacco/nicotine Alcohol intake: never Substance/Drug Use: never Lives independently: Yes Household members: none Number of children: 5 Number of grandchildren: 7 Current occupational status: retired Physical Exam Const: GENERAL APPEARANCE: cooperative ORIENTATION/CONSCIOUSNESS: Yes awake, Yes oriented to person, Yes oriented to place and Yes oriented to time HENMT: COMMON NORMALS: normocephalic, atraumatic and hearing grossly normal bilaterally HEAD & SCALP: normocephalic and atraumatic Resp: COMMON NORMALS: normal respiratory effort, No retractions, No use of accessory muscles and clear to auscultation bilaterally AUSCULTATION: clear to auscultation bilaterally Cardio: RATE: tachycardic RHYTHM: abnormal rhythm irregularly irregular GI: COMMON NORMALS: Soft to palpation and No hepatosplenomegaly present AUSCULTATION: Yes normoactive bowel sounds PALPATION: Yes Soft to palpation, No Tenderness to palpation present (GI), No Guarding due to palpation present (GI) and Yes No hepatosplenomegaly present Extremity: COMMON NORMALS: normal to inspection, capillary refill normal, no clubbing, cyanosis or edema, no calf tenderness and no pedal edema Neuro: SENSORIUM/ORIENTATION: Yes oriented to person, Yes oriented to place and Yes oriented to time Skin: COMMON NORMALS: no rashes or lesions noted GENERAL SKIN EXAM: no rashes or lesions noted Course Vital Signs: Vital signs: Vital Signs Temperature 99.6 F 03/03/25 13:21 Pulse Rate 87 03/03/25 15:14 Respiratory Rate 23 H 03/03/25 14:31 Blood Pressure 99/55 03/03/25 15:14 Pulse Oximetry 93 03/03/25 15:14 Oxygen Delivery Me thod Nasal Cannula 03/03/25 14:31 Oxygen Flow Rate 3 03/03/25 14:31 MDM - Recheck/Abnormal Lab/Rx Medical Decision Making Patient has mildly elevated lactic acid white count is normal she is also in A-fib with RVR and hypotensive fluid initially liter of fluids given we have done cultures started on ceftriaxone based on previous urine cultures which for the last year have all been susceptible to ceftriaxone. Discussed with hospitalist will place on observation. Initiated Cardizem 10 mg bolus and a drip for rate control. Lab Data 03/03/25 13:02 03/03/25 13:02 Radiology Impressions Chest X-Ray 03/03/25 13:21 IMPRESSION: No acute abnormality as above. Laboratory Results WBC 10.68 10^3/uL (3.29-11.43) 03/03/25 13:02 RBC 4.65 10^6/uL (3.85-5.65) 03/03/25 13:02 Hgb 14.00 g/dL (11.27-16.99) 03/03/25 13:02 Hct 44.3 % (36-47) 03/03/25 13:02 MCV 95.3 fl (85-98) 03/03/25 13:02 MCH 30.1 pg (27-33) 03/03/25 13:02 MCHC 31.6 g/dL (30-55) 03/03/25 13:02 RDW 14.1 % (12.1-15.1) 03/03/25 13:02 Plt Count 210 10^3/cmm (157-399) 03/03/25 13:02 MPV 12.6 fL (7.4-10.4) H 03/03/25 13:02 Neut % (Auto) 67.7 % 03/03/25 13:02 Lymph % (Auto) 19.8 % 03/03/25 13:02 [place] % (Auto) 10.3 % 03/03/25 13:02 Eos % (Auto) 1.0 % 03/03/25 13:02 Baso % (Auto) 0.7 % 03/03/25 13:02 Neut # (Auto) 7.24 10^3/uL (1.8-7.7) 03/03/25 13:02 Lymph # (Auto) 2.1 10^3/uL (0.8-4.8) 03/03/25 13:02 [place] # (Auto) 1.1 10^3/uL (0.2-0.9) H 03/03/25 13:02 Eos # (Auto) 0.1 10^3/uL (0.0-0.8) 03/03/25 13:02 Baso # (Auto) 0.1 10^3/uL (0.0-0.1) 03/03/25 13:02 Nucleated RBC % (auto) 0 % 03/03/25 13:02 Nucleated RBCs # 0.0 /100WBC 03/03/25 13:02 PT 23.20 SECONDS (12.1-14.9) H 03/03/25 13:02 INR 1.92 (0.8-1.2) H 03/03/25 13:02 Sodium 139 mmol/L (136-145) 03/03/25 13:02 Potassium 4.2 mmol/L (3.5-5.1) 03/03/25 13:02 Chloride 100 mmol/L (98-107) 03/03/25 13:02 Carbon Dioxide 26 mmol/L (22-29) 03/03/25 13:02 Anion Gap 17.2 (5-19) 03/03/25 13:02 BUN 11 mg/dL (8-23) 03/03/25 13:02 Creatinine 0.6 mg/dL (0.5-0.9) 03/03/25 13:02 GFR Calculation Not Reportable 03/03/25 13:02 Glucose 156 mg/dL (65-115) H 03/03/25 13:02 Calculated Osmolality 291 mOsm/kg (285-295) 03/03/25 13:02 Lactic Acid 2.4 mmol/L (0.5-2.2) H 03/03/25 13:02 Calcium 9.1 mg/dL (8.5-10.5) 03/03/25 13:02 Total Bilirubin 0.7 mg/dL (0.15-1.2) 03/03/25 13:02 AST 27 U/L (0-32) 03/03/25 13:02 ALT 12 U/L (0-33) 03/03/25 13:02 Alkaline Phosphatase 170 U/L (35-105) H 03/03/25 13:02 Total Protein 7.8 g/dL (6.6-8.7) 03/03/25 13:02 Albumin 3.7 g/dL (3.5-5.2) 03/03/25 13:02 Globulin 4.1 g/dL (1.3-4.6) 03/03/25 13:02 Urine Color Yellow (Yellow) 03/03/25 13:30 Urine Appearance Turbid (CLEAR) A 03/03/25 13:30 Urine pH 5.5 (5-7) 03/03/25 13:30 Ur Specific [place] 1.017 (1.005-1.030) 03/03/25 13:30 Urine Protein 1+ (Negative) A 03/03/25 13:30 Urine Glucose (UA) Negative (Normal) 03/03/25 13:30 Urine Ketones Negative (Negative) 03/03/25 13:30 Urine Blood 3+ (Negative) A 03/03/25 13:30 Urine Nitrate Positive (Negative) A 03/03/25 13:30 Urine Bilirubin Negative (Negative) 03/03/25 13:30 Urine Urobilinogen 1.0 mg/dL (Negative) 03/03/25 13:30 Ur Leukocyte Esterase 3+ (Negative) A 03/03/25 13:30 Urine RBC 21-50 /hpf (0-2) H 03/03/25 13:30 Urine WBC >100 /hpf (0-5) H 03/03/25 13:30 Ur Squamous Epith Cells 0-5 /hpf (0-5) 03/03/25 13:30 Amorphous Sediment Not Reportable 03/03/25 13:30 Urine Bacteria 4+ /hpf (NONE) H 03/03/25 13:30 Hyaline Casts 8.26 /lpf 03/03/25 13:30 All radiology interpretation(s) finalized by discharge EKG Data EKG 1: Interpretation: EKG 03/03/2025 1325 atrial fibrillation with biventricular sponsor rate of [address] changes noted. There is some nonspecific ST wave variations I believe these are all rate related patient not having any chest pain at this time Discharge Plan Discharge Patient Disposition: Placed in Observation Admit Provider: Nancy Nieto Clinical Impression: Atrial fibrillation with RVR, Warfarin anticoagulation, Sepsis, Cystitis Coding Level of Care Code ED Deposit Clerk for Chg Mireya
[2025-03-03] MEDS: cefTRIAXone 1,000 mg SDV 1000 MG IVP (14:29)
[2025-03-03] MEDS: sodium chloride 0.9% 1,000 ML 999 ML IV ×2 (14:29→14:47)
[2025-03-03 14:41] LABS: INR 1.92 (0.8-1.2)
--- NOTE | 2025-03-03 14:43 | PC.PHAR ---
Cipro 250mg bid from 02/21/25 through 02/24/25 finished therapy
[2025-03-03] MEDS: dilTIAZem 100 MG in sodium chloride 0.9% (add-van) 100 ML IV (14:47)
[2025-03-03] MEDS: dilTIAZem 5 mg/mL SDV 5 mL 10 MG IVP (14:47)
[2025-03-03 15:22] LABS: Reflex Lactate Order REFLEX LACTIC ORDERD
[2025-03-03 16:44] LABS: Lactic Acid level (Lactate) 1.1 mmol/L (0.5-2.2)
--- NOTE | 2025-03-03 18:10 | PM.HP ---
Providers/Chief Complaint Admitting Physician: Nancy Nieto MD Primary Care Provider: Anahi Jennings MD Chief Complaint: UTI, Fever, History of Present Illness Allyson Causey is a 84 year old female sent from [facility] due to lethargy, fever and low oxygen levels. Additionally she was noted to have atrial fibrillation with rapid ventricular response. Vitals showed heart rate in the 150s, temperature 102.8 and oxygen saturations in the upper 80s. She was placed on oxygen therapy and sent to the emergency room for further evaluation. Ms. Causey recently was hospitalized here after left hip fracture with subsequent repair and transferred [facility] care after that. From what I can gather her symptoms began overnight last night with some mild nausea, feeling cold followed later by sweats and feeling very nauseated this morning and not able to walk very much because of how bad she was feeling. In reviewing records from prior hospital stay she had some atrial fibrillation with rapid ventricular response, fevers, confusion and need for oxygen during that hospital stay as well. No evidence of urinary tract infection then. Her Carmona catheter was removed on February 06 and was not in place when she was discharged to [facility]. From history obtained from her it sounds like catheter was replaced sometime after she arrived at [facility] due to significant urinary retention. Review of facility records shows that she has been on ciprofloxacin 250 mg twice a day from February 21 to February 24 and also received a dose of Levaquin on February 20 recently, which per patient was for urinary tract infection. She has had issues with recurrent urine infections in the past. Workup in the emergency room today showed significantly abnormal urine. White count was normal. She received some IV fluids and was ultimately put on a diltiazem drip for rate control. She subsequently developed some hypotension. Initial lactic acid was 2.4 but subsequent was down to 1.1. Request was made for admission for further evaluation and management. Review of Systems General: Reports: Other (ROS as per HPI or as otherwise noted here) Const: Reports: fever(s), fatigue and night sweats Card: Reports: palpitations; Denies: chest pain, edema, dyspnea on exertion or orthopnea Resp: Denies: dyspnea, productive cough, non-productive cough or pain on inspiration GI: Reports: nausea; Denies: abdominal pain or vomiting : Reports: other (Carmona catheter in place for couple of weeks) Musc: Reports: other (Has been walking with a walker) Medications/Allergies Home Medications ?Medication ?Instructions ?Recorded ?Confirmed ?Last Taken ?Type multivitamin 1 tab PO DAILY 07/22/22 03/03/25 03/03/25 History chlorhexidine gluconate 0.12 % 15 ml buccal BID PRN SORE MOUTH 02/27/24 03/03/25 Unknown History mouthwash metoprolol tartrate 50 mg tablet 50 mg PO BID #180 tabs 11/01/24 03/03/25 03/02/25 Rx acetaminophen 500 mg tablet 500 mg PO Q6H PRN Pain 01/08/25 03/03/25 Unknown History ernvioezumjzkjh-kkajvjknmfodyhg-KM 5 ml PO Q6H PRN cold symptoms #118 01/09/25 03/03/25 Unknown Rx 2 mg-30 mg-10 mg/5 mL oral syrup mL (Bromfed DM) omeprazole 20 mg capsule,delayed 20 mg PO BID 90 days #180 caps 01/30/25 03/03/25 03/03/25 Rx release bisacodyl 10 mg rectal suppository 10 mg CO DAILY PRN Constipation 03/03/25 03/03/25 02/15/25 History (Dulcolax (bisacodyl)) nystatin 100,000 unit/gram topical See Rx Instructions .Route .COMPLEX 03/03/25 03/03/25 03/02/25 History cream tramadol 50 mg tablet 50 mg PO Q4H PRN Pain 03/03/25 03/03/25 03/03/25 History warfarin 3 mg tablet 3 mg PO BEDTIME 03/03/25 03/03/25 03/02/25 History Allergies Allergy/AdvReac Type Severity Reaction Status Date / Time rosuvastatin (From Crestor) Allergy Severe ADR-Muscle Verified 02/27/25 15:25 Pain azithromycin (From Zithromax) Allergy Intermediate ADR-upset Verified 02/27/25 15:25 stomach nitrofurantoin Allergy Intermediate ADR-other Verified 02/27/25 15:25 Sulfa (Sulfonamide Allergy Intermediate ADR-rash Verified 02/27/25 15:25 Antibiotics) Penicillins Allergy Unknown unk Verified 02/27/25 15:25 doxycycline Allergy ADR-other Verified 02/27/25 15:25 hydrocodone Allergy ADR-Halluci Verified 02/27/25 15:25 nating PFSH Acute PFSH: Medical History (Updated 03/03/25 @ 20:30 by Nancy Nieto MD) Chronic anticoagulation coumadin for history of PE and atrial fibrillation Hypertension History of echocardiogram 01/2025 EF 63% Hypercholesterolemia Grade III diastolic dysfunction GERD (gastroesophageal reflux disease) Vitamin D deficiency NSTEMI (non-ST elevated myocardial infarction) Pneumonia Diverticulosis Hx of pulmonary embolus 06/2008 CAD (coronary artery disease) [place] 1998- stents CABG 2007 Atrial fibrillation chronic warfarin with goal of 2.0-3.0 Generalized osteoarthritis Chronic constipation Bladder prolapse Recurrent UTI Diabetes Type 2, A1c 7.1 01/2025 on no treatment Surgical History (Updated 03/03/25 @ 18:54 by Nancy Nieto MD) History of hip surgery (02/02/25) Dr Sylvester, Hemiarthroplasty of the left hip with suture repair of greater trochanteric fracture History of surgery on right wrist fracture repair History of four vessel coronary artery bypass graft 2007 History of cholecystectomy Hx of colonoscopy colonoscopy in 1999 wiht two polyps, repeat clear Family History Mother Colon cancer Brother Colon cancer Father Diabetes Other CAD (coronary artery disease) Cancer Clotting disorder Social History (Updated 03/03/25 @ 18:55 by Nancy Nieto MD) Smoking and tobacco/nicotine status: unknown if used tobacco/nicotine Alcohol intake: never Substance/Drug Use: never Additional social history: In January 2025, residing at [facility] after hip fracture repair Number of children: 5 Number of grandchildren: 7 Current occupational status: retired Vitals/I&O/Wt Last Vital Signs Temp 97.7 F 03/03/25 17:27 Pulse 101 H 03/03/25 17:27 Resp 20 H 03/03/25 17:27 BP 84/52 03/03/25 17:27 Pulse Ox 97 03/03/25 17:27 O2 Del Method Nasal Cannula 03/03/25 17:27 O2 Flow Rate 3 03/03/25 17:27 03/03/25 03/03/25 03/03/25 06:59 14:59 22:59 Intake Total 1999 Balance 1999 Weight last 48 hrs Weight 79.379 kg Physical Exam Narrative: Patient is awake and alert, able to provide history though difficulty recalling specific dates. Oriented to person, place and situation. Normocephalic. Extraocular movements are intact. Neck is supple. Lungs are clear to auscultation without any rales rhonchi or wheezes noted. Cardiovascular exam reveals an irregularly irregular rhythm. Abdomen is soft, nontender with positive bowel sounds. Carmona catheter is noted in place with dark turbid urine. Dressing is clean dry and intact over surgical incision site to left hip area. Nontender, no surrounding erythema. No pitting edema. Skin is dry. Speech is clear, face symmetric, moves all extremities. Quick SOFA Score: Respiratory Rate: 19 Blood Pressure: 90/50 Cassandra Coma Scale: 15 qSOFA Score: 1 If qSOFA score 2 or greater, continue: Blood Pressure Mean: 63 Bilirubin (mg/dl): 0.7 Platelets (x10?/ml): 210 Creatinine (mg/dl): 0.6 Daily urine output (ml/day): 300 Evaluation: Current stage of sepsis: sepsis Sepsis stage criteria used: [facility] Sep-1 Crystalloid fluids: 30 mL/kg crystalloid fluids ordered and initiated within 3 hours Blood cultures ordered: Yes Possible source: genitourinary Focused Exam: Vital signs: Temp Pulse Resp BP Pulse Ox O2 Del Method O2 Flow Rate 03/03/25 17:27 97.7 F 101 H 20 H 84/52 97 Nasal Cannula 3 03/03/25 16:47 Nasal Cannula 03/03/25 15:14 87 99/55 93 03/03/25 14:31 117 H 23 H 94/61 96 Nasal Cannula 3 03/03/25 13:21 99.6 F 156 H 20 H 84/68 81 L Room Air Respiratory exam: CTA bilaterally Cardiovascular exam: tachycardia and abnormal rhythm Capillary refill: < 3 Seconds Peripheral pulse strength: 2+ Slightly Diminished Peripheral pulse location: Pedal Skin exam: no rashes or lesions identified; no mottling Date exam was performed: 03/03/25 Time exam was performed: 18:35 Sepsis Screen Possible Sepsis Risk Today, 14:31 Respiratory Rate, (12 - 18) 19 breaths/min H Today, 20:00 Blood Pressure 90/50 mmHg Today, 20:00 [place] Coma Scale Score 15 Today, 17:03 Quick SOFA Score 1 Today, 20:49 SOFA Score: [place] Coma Scale Score 15 Today, 17:03 Blood Pressure Mean 63 mmHg Today, 20:00 Total Bilirubin, (0.15-1.2) 0.7 mg/dL Today, 13:02 Platelet Count, (157-399) 210 10^3/cmm Today, 13:02 Creatinine, (0.5-0.9) 0.6 mg/dL Today, 13:02 Daily Urine Output (ml/day) 300 Today, 20:49 Data 03/03/25 13:02 03/03/25 13:02 Micro: Microbiology 03/03/25 14:23 Blood Culture - Preliminary Blood SPECIMEN COLLECTED 03/03/25 13:44 Blood Culture - Preliminary Blood SPECIMEN COLLECTED Other data: Radiology Impressions Chest X-Ray 03/03/25 13:21 IMPRESSION: No acute abnormality as above. Laboratory Results WBC 10.68 10^3/uL (3.29-11.43) 03/03/25 13:02 RBC 4.65 10^6/uL (3.85-5.65) 03/03/25 13:02 Hgb 14.00 g/dL (11.27-16.99) 03/03/25 13:02 Hct 44.3 % (36-47) 03/03/25 13:02 MCV 95.3 fl (85-98) 03/03/25 13:02 MCH 30.1 pg (27-33) 03/03/25 13:02 MCHC 31.6 g/dL (30-55) 03/03/25 13:02 RDW 14.1 % (12.1-15.1) 03/03/25 13:02 Plt Count 210 10^3/cmm (157-399) 03/03/25 13:02 MPV 12.6 fL (7.4-10.4) H 03/03/25 13:02 Neut % (Auto) 67.7 % 03/03/25 13:02 Lymph % (Auto) 19.8 % 03/03/25 13:02 Bailey % (Auto) 10.3 % 03/03/25 13:02 Eos % (Auto) 1.0 % 03/03/25 13:02 Baso % (Auto) 0.7 % 03/03/25 13:02 Neut # (Auto) 7.24 10^3/uL (1.8-7.7) 03/03/25 13:02 Lymph # (Auto) 2.1 10^3/uL (0.8-4.8) 03/03/25 13:02 Bailey # (Auto) 1.1 10^3/uL (0.2-0.9) H 03/03/25 13:02 Eos # (Auto) 0.1 10^3/uL (0.0-0.8) 03/03/25 13:02 Baso # (Auto) 0.1 10^3/uL (0.0-0.1) 03/03/25 13:02 Nucleated RBC % (auto) 0 % 03/03/25 13:02 Nucleated RBCs # 0.0 /100WBC 03/03/25 13:02 PT 23.20 SECONDS (12.1-14.9) H 03/03/25 13:02 INR 1.92 (0.8-1.2) H 03/03/25 13:02 Sodium 139 mmol/L (136-145) 03/03/25 13:02 Potassium 4.2 mmol/L (3.5-5.1) 03/03/25 13:02 Chloride 100 mmol/L (98-107) 03/03/25 13:02 Carbon Dioxide 26 mmol/L (22-29) 03/03/25 13:02 Anion Gap 17.2 (5-19) 03/03/25 13:02 BUN 11 mg/dL (8-23) 03/03/25 13:02 Creatinine 0.6 mg/dL (0.5-0.9) 03/03/25 13:02 GFR Calculation Not Reportable 03/03/25 13:02 Glucose 156 mg/dL (65-115) H 03/03/25 13:02 Calculated Osmolality 291 mOsm/kg (285-295) 03/03/25 13:02 Lactic Acid 2.4 mmol/L (0.5-2.2) H 03/03/25 13:02 Lactic Acid (Sepsis) 1.1 mmol/L (0.5-2.2) 03/03/25 16:08 Calcium 9.1 mg/dL (8.5-10.5) 03/03/25 13:02 Total Bilirubin 0.7 mg/dL (0.15-1.2) 03/03/25 13:02 AST 27 U/L (0-32) 03/03/25 13:02 ALT 12 U/L (0-33) 03/03/25 13:02 Alkaline Phosphatase 170 U/L (35-105) H 03/03/25 13:02 Total Protein 7.8 g/dL (6.6-8.7) 03/03/25 13:02 Albumin 3.7 g/dL (3.5-5.2) 03/03/25 13:02 Globulin 4.1 g/dL (1.3-4.6) 03/03/25 13:02 Urine Color Yellow (Yellow) 03/03/25 13:30 Urine Appearance Turbid (CLEAR) A 03/03/25 13:30 Urine pH 5.5 (5-7) 03/03/25 13:30 Ur Specific [place] 1.017 (1.005-1.030) 03/03/25 13:30 Urine Protein 1+ (Negative) A 03/03/25 13:30 Urine Glucose (UA) Negative (Normal) 03/03/25 13:30 Urine Ketones Negative (Negative) 03/03/25 13:30 Urine Blood 3+ (Negative) A 03/03/25 13:30 Urine Nitrate Positive (Negative) A 03/03/25 13:30 Urine Bilirubin Negative (Negative) 03/03/25 13:30 Urine Urobilinogen 1.0 mg/dL (Negative) 03/03/25 13:30 Ur Leukocyte Esterase 3+ (Negative) A 03/03/25 13:30 Urine RBC 21-50 /hpf (0-2) H 03/03/25 13:30 Urine WBC >100 /hpf (0-5) H 03/03/25 13:30 Ur Squamous Epith Cells 0-5 /hpf (0-5) 03/03/25 13:30 Amorphous Sediment Not Reportable 03/03/25 13:30 Urine Bacteria 4+ /hpf (NONE) H 03/03/25 13:30 Hyaline Casts 8.26 /lpf 03/03/25 13:30 A&P Assessment and plan (1) Complicated UTI (urinary tract infection): The patient has a history of recurrent urinary tract infections and currently presents with fever, nausea, cloudy urine, and an indwelling catheter. Abnormal urinalysis consistent with acute urinary infection more so than usual for her, but no current WBC elevation. She had previously received ciprofloxacin and levofloxacin at [facility] in the last week, so could be partially treated. Was given Rocephin during last hospital stay though not sure what was being treated. Also received Rocephin today in the emergency room. At the time of presentation today temperature was 102.8 and she had associated atrial fibrillation with rapid ventricular response and heart rate in the 150s. Blood pressures borderline but lactic acid was noted to be elevated at 2.4 initially. Additionally she was noted to be hypoxic. She received IV fluids, Cardizem drip and at the time of my evaluation was significantly improved. Presentation is consistent with Sep 1 criteria though not currently meeting sepsis 3 criteria. Certainly headed in that direction without appropriate intervention. - Continue IV fluids, monitoring response to treatment - Continue Rocephin for now; has a remote history of ESBL E. coli in 2022 but has had multiple abnormal urine cultures since then with out ESBL E. coli. - Cultures pending - Aware of penicillin allergy, tolerated rocephin in ED, watch with next dosing - Tylenol for fever - Ideally need to get catheter out but would like to get more clarity around why replaced as Ms. Causey indicates large volume of urine was drained - Supportive care otherwise (2) Postoperative urinary retention: From available history it sounds like she had persistent urinary retention after surgical intervention for hip fracture last month. May have been large-volume urinary retention and Carmona catheter subsequently been in place ever since. - If vital signs remained stable overnight consider removal of catheter and trial of voiding with close monitoring (3) Atrial fibrillation with RVR: Known to have chronic paroxysmal atrial fibrillation and has been treated with metoprolol and warfarin for this. A-fib with RVR today in the setting of a temperature of 102.8. Improved with fluids but was started on Cardizem drip as well. - Will work to get off of Cardizem drip - Resume beta-blockade but at lower dose - Telemetry monitoring (4) History of hip surgery: Hip fracture repair last month on February 02. Has been improving with therapy at [facility]. Using walker. Has been walking. - PT consultation for ongoing therapy while here - Pain control as needed (5) Atherosclerotic heart disease of [place] coronary artery without angina pectoris: Has a history of coronary artery disease and during last hospital stay had significant troponin elevations. No complaints of any chest pain or difficulty breathing. Has not had any cardiac symptoms since then. After review of options with Dr. Conde patient opted not to have further cardiac evaluation and his poor medical management only. - Try to keep patient on beta-blockade not only for rate control but also for coronary artery disease management - Has a statin allergy - Will add baby aspirin daily (6) Chronic anticoagulation: Chronically on Coumadin at 3 mg daily. INR is just below therapeutic range today at 1.97. - Continue usual warfarin dosing - Daily INRs monitoring closely for need for additional management (7) Diabetes: Diagnosis per chart and last hemoglobin A1c was 7.1 but not on any chronic management for blood sugars. Had previously been on glipizide. - Let us sliding scale insulin, monitoring blood sugars for need to add long-term management though at her age will tolerate slightly higher blood sugars to decrease risk of hypoglycemia as long is not contributing to difficulty healing (8) GERD (gastroesophageal reflux disease): Chronically on omeprazole - Continue PPI dosing Plan Inpatient admission VTE prophylaxis: on coumadin, scds Antibiotics: Rocephin started 03/03 Pending studies: blood and urine cultures Telemetry: Ordered secondary to atrial fibrillation with rapid ventricular response Carmona: Carmona catheter was in place upon arrival to ED Line(s): peripheral IVs Disposition plan: Currently anticipate disposition back to [facility] as she is not quite at a place to be able to return home and live independently after her hip fracture. Disposition planning will depend on results of urine culture and blood cultures particularly given history of ESBL E. coli in the past and recent antibiotic therapy courses both here in the hospital last month when she had her surgery and at [facility] last week. May also require adjustment and beta-blockade dosing depending on clinical course. Code Status: Full Code Supportive care otherwise Findings, concerns and plans were discussed with patient and she was given an opportunity to ask questions PDMP PDMP Reviewed: Not Reviewed Attestations Medical Necessity Statement*: Anticipated stay greater than two midnights in this patient presenting with complicated urinary tract infection who has been on oral antibiotics last week at [facility] facility and had been on antibiotics last month when was hospitalized after surgery for hip fracture. While not meeting full sepsis 3 criteria today without fluids and antibiotic administration she would have been headed in that direction. She has comorbid conditions of known atherosclerotic heart disease with significant troponin elevation just a few weeks ago felt secondary to type II process. In addition to infectious process she had atrial fibrillation with rapid ventricular response related to fever and has borderline blood pressures as well without management in the acute care setting at risk of rapid and continued decline up to and including the possibility of . She had been living independently prior to her fall with hip fracture and ultimate goal after recovering from hip surgery is to get her back to that environment Diagnoses Complicated UTI (urinary tract infection) N39.0 Postoperative urinary retention N99.89; R33.8 Atrial fibrillation with RVR I48.91 History of hip surgery Z98.890 Atherosclerosis of [place] coronary artery of [place] heart without angina pectoris I25.10 [place] vs. transplanted heart: [place] heart Chronic anticoagulation Z79.01 Type 2 diabetes mellitus without complication, without long-term current use of insulin E11.9 Diabetes mellitus type: type 2 Diabetes mellitus watermaster insulin use: without usp use Diabetes mellitus complication status: without complication GERD (gastroesophageal reflux disease) K21.9
[2025-03-03] MEDS: warfarin 3 mg Tablet PO (20:33)
[2025-03-03] MEDS: metoprolol succinate ER (24 HR) 25 mg Tablet 12.5 MG PO (20:33)
[2025-03-03] MEDS: nystatin cream 30 gm TOPICAL (20:34)
[2025-03-03] MEDS: sodium chlor 0.45% +KCl 20 mEq 20 MEQ/1,000 ML BAG 100 MEQ IV (20:34)
[2025-03-03] MEDS: sodium chloride 0.9% 500 ML IV (20:35)
[2025-03-03 21:01] LABS: Glucose Point of Care 132 mg/dL (70-110)
[2025-03-04] VITALS (8 sets, daily range): BP systolic 85–107; BP diastolic 48–61; PULSE 92–109; RESP 17–29; TEMP 36.4–36.9; O2SAT 93–98
[2025-03-04 04:57] LABS: Basophils # 0.1 10^3/uL (0.0-0.1); Basophils % 0.8 %; Eosinophils # 0.1 10^3/uL (0.0-0.8); Eosinophils % 1.2 %; Hematocrit 35.1 % (36-47); Lymphocytes # 1.9 10^3/uL (0.8-4.8); Lymphocytes % 23.8 %; Mean Corpuscular HGB Conc 30.8 g/dL (30-55); Mean Corpuscular Hemoglobin 29.5 pg (27-33); Mean Corpuscular Volume 95.9 fl (85-98); Mean Platelet Volume 12.3 fL (7.4-10.4); Monocytes % 12.9 %; Neutrophils # 4.75 10^3/uL (1.8-7.7); Neutrophils % 60.9 %; Nucleated Red Blood Cells % 0 %; Platelet Count 166 10^3/cmm (157-399); Red Blood Count 3.66 10^6/uL (3.85-5.65); Red Cell Distribution Width 14.2 % (12.1-15.1)
[2025-03-04 05:34] LABS: Blood Urea Nitrogen 8 mg/dL (8-23); Calcium 8.5 mg/dL (8.5-10.5); Carbon Dioxide 26 mmol/L (22-29); Chloride 103 mmol/L (98-107); Creatinine Clr Calc Pharmacy 55.4749; Glucose 100 mg/dL (65-115); Magnesium 1.4 mg/dL (1.7-2.3); Osmolality Calculated 286 mOsm/kg (285-295); Phosphorus 2.8 mg/dL (2.5-4.5); Sodium 139 mmol/L (136-145)
[2025-03-04 05:39] LABS: INR 1.81 (0.8-1.2)
[2025-03-04 07:42] LABS: Glucose Point of Care 106 mg/dL (70-110)
[2025-03-04] MEDS: sodium chlor 0.45% +KCl 20 mEq 20 MEQ/1,000 ML BAG 100 MEQ IV ×2 (08:02→17:19)
[2025-03-04] MEDS: magnesium sulfate premix 2 GM/50 ML PIGGYBACK IV (09:15)
[2025-03-04] MEDS: metoprolol succinate ER (24 HR) 25 mg Tablet 12.5 MG PO (09:21)
[2025-03-04] MEDS: pantoprazole DR 40 mg Tablet PO (09:22)
[2025-03-04] MEDS: nystatin cream 30 gm TOPICAL (09:23)
[2025-03-04] MEDS: TRAMadol 50 mg Tablet PO ×2 (09:23→20:29)
--- NOTE | 2025-03-04 09:33 | PC.CHAP ---
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 furniture sales associate visit [] Patient/Family/Request visit [] Outpatient visit [] Follow-up visit [] Physician referral [] Code/Alert [x] Routine visit [] Staff referral [] Actively dying [] Patient sleeping [] Family support [] [] Out of room [] Palliative care [] [] Receiving care in room [] Pre-surgical visit [] Trauma [] Long length of stay [] ICU visit [] Other: Relational/Emotional Strength [x] Patient feels connected with others/family/visitors/staff [x] Distress [] Loneliness/isolation [] Abandonment Spirituality of Patient [x] Person of Adela [] Attends Sikhism of their [place] [x] Believes in Prayer [] Reads Bible or Adventist materials [] There are Spiritual issues to be addressed Central Office Inspector Interventions [x] Prayer [x] Active listening [x] Non-anxious presence [x] Spiritual/emotional support [] Crisis/trauma care [] Spiritual counseling [] Bereavement support [] Provided bereavement packet [] Provided Bible/devotional materials [] Provided toy/stuffed animal, coloring book to patient or family member [] Provided Communion [] Anointing/[place] [] Salvation [x] Completed spiritual assessment [] Other: Impact on Illness or Injury [] Angry [] Fearful [] Anxious [] Often cries [] Exhaustion [] Unable to work [] Unable to attend quaker [] Unable to walk/stand [] Unable to read [] Unable to drive [] Unable to eat/drink [] Unable to sleep [] Unable to be with family [] Patient intubated [] Other: Summary Time spent with patient 5 min
--- NOTE | 2025-03-04 10:33 | PM.PN ---
Subjective Subjective: This morning she feels she is improving. Feeling better. Denies pain or discomfort. No chest pain or pressure. Vitals/I&O/Wt Last Vital Signs Temp 97.6 F 03/04/25 08:00 Pulse 92 03/04/25 08:00 Resp 17 03/04/25 08:00 BP 107/56 03/04/25 08:00 Pulse Ox 98 03/04/25 08:00 O2 Del Method Nasal Cannula 03/04/25 04:00 O2 Flow Rate 3 03/03/25 17:27 03/03/25 03/04/25 03/04/25 22:59 06:59 14:59 Intake Total 2446.834 / 2446.834 1750 / 4196.834 360 / 360 Output Total 400 / 400 1400 / 1800 Balance 2046.834 / 2046.834 350 / 2396.834 360 / 360 Weight last 48 hrs Weight 77.474 kg Weight 79.379 kg Physical Exam Narrative: Sitting up in chair. Const: COMMON NORMALS: patient oriented x3 and alert GENERAL APPEARANCE: cooperative ORIENTATION/CONSCIOUSNESS: Yes awake HENMT: COMMON NORMALS: oropharynx normal Neck/C-Spine: COMMON NORMALS: no JVD Resp: COMMON NORMALS: normal respiratory effort and clear to auscultation bilaterally AUSCULTATION: clear to auscultation bilaterally Cardio: COMMON NORMALS: no JVD, regular rhythm, S1 normal heart sound present, S2 normal heart sound present and No murmurs present (Cardio) RHYTHM: regular rhythm HEART SOUNDS: S1 normal heart sound present and S2 normal heart sound present GI: COMMON NORMALS: Normal to inspection, nondistended, normoactive bowel sounds present, Soft to palpation and non-tender PALPATION: Yes Soft to palpation Extremity: COMMON NORMALS: no joint enlargement and no pedal edema Neuro: COMMON NORMALS: patient oriented x3 and moves all extremities SENSORIUM/ORIENTATION: Yes alert Skin: COMMON NORMALS: no rashes or lesions noted GENERAL SKIN EXAM: no rashes or lesions noted Data 03/04/25 03:42 03/04/25 03:42 Micro: Microbiology 03/03/25 13:30 Urine Culture - Preliminary Urine,Clean Catch Gram Negative Rods 03/03/25 14:23 Blood Culture - Preliminary Blood SPECIMEN COLLECTED 03/03/25 13:44 Blood Culture - Preliminary Blood SPECIMEN COLLECTED A&P Assessment and plan (1) Complicated UTI (urinary tract infection): Reviewed vitals, CBC, INR, BMP, magnesium, blood culture. Blood culture came back with 1/4 bottles positive for E. coli with ESBL E. coli marker. Discussed with her. Will switch antibiotic to meropenem. Monitor for risk of seizure. Will obtain renal protocol CT abdomen pelvis. Continue IV antibiotic at current time. Reassess. Reduce IV fluid rate. Discussed with nursing, family service caseworker. (2) Postoperative urinary retention: From available history it sounds like she had persistent urinary retention after surgical intervention for hip fracture last month. May have been large-volume urinary retention and DC Carmona. Bladder scan/straight cath.. (3) Atrial fibrillation with RVR: Heart rate with improvement down to 90s-100s. Has weaned off Cardizem, although blood pressure soft to try to increase metoprolol. Reviewed magnesium, noted low 1.4. Given magnesium supplement. Repeat level. Monitor telemetry. Continue metoprolol, increase dose if tolerating. Continue treatment of complicated UTI. (4) History of hip surgery: Hip fracture repair last month on February 02. Has been improving with therapy at [facility]. Using walker. Has been walking. - PT consultation for ongoing therapy while here - Pain control as needed (5) Atherosclerotic heart disease of [place] coronary artery without angina pectoris: Has a history of coronary artery disease and during last hospital stay had significant troponin elevations. No complaints of any chest pain or difficulty breathing. Has not had any cardiac symptoms since then. After review of options with Dr. Conde patient opted not to have further cardiac evaluation and his poor medical management only. - Has a statin allergy - aspirin daily (6) Chronic anticoagulation: Reviewed INR. Repeat. Chronically on Coumadin at 3 mg daily - Continue usual warfarin dosing - Daily INRs monitoring closely for need for additional management (7) Diabetes: Diagnosis per chart and last hemoglobin A1c was 7.1 but not on any chronic management for blood sugars. Had previously been on glipizide. - Let us sliding scale insulin, monitoring blood sugars (8) GERD (gastroesophageal reflux disease): Chronically on omeprazole - Continue PPI dosing (9) Gram-negative bacteremia: PDMP PDMP Reviewed: Not Reviewed Attestations Medical Necessity Statement*: Continue admission for assessment management of complicated UTI with ESBL E. coli with bacteremia, optimization of control of A-fib with RVR. and High MDM includes amount and/or complexity of data reviewed/ordered [ resulted lab(s)/test(s), ordered lab(s)/test(s) and other healthcare professional discussion] and described risk of complication, morbidity or mortality of management as documented Diagnoses Complicated UTI (urinary tract infection) N39.0 Postoperative urinary retention N99.89; R33.8 Atrial fibrillation with RVR I48.91 History of hip surgery Z98.890 Atherosclerosis of [place] coronary artery of [place] heart without angina pectoris I25.10 [place] vs. transplanted heart: [place] heart Chronic anticoagulation Z79.01 Type 2 diabetes mellitus without complication, without long-term current use of insulin E11.9 Diabetes mellitus type: type 2 Diabetes mellitus shelter insulin use: without dedicated intermodal truck driver use Diabetes mellitus complication status: without complication GERD (gastroesophageal reflux disease) K21.9 Gram-negative bacteremia R78.81
[2025-03-04 11:30] LABS: Glucose Point of Care 111 mg/dL (70-110)
[2025-03-04 11:35] LABS: Acinetobacter baumannii Not Detected (NOT DETECT); Bacteroides fragilis Not Detected (NOT DETECT); Citrobacter Not Detected (NOT DETECT); Cronobacter sakazakii Not Detected (NOT DETECT); Enterobacter cloacae complex Not Detected (NOT DETECT); Enterobacter non cloacae Not Detected (NOT DETECT); Fusobacterium necrophorum Not Detected (NOT DETECT); Fusobacterium nucleatum Not Detected (NOT DETECT); Haemophilus influenzae Not Detected (NOT DETECT); IMP Resistance Gene Not Detected (NOT DETECT); KPC Resistance Gene Not Detected (NOT DETECT); Klebsiella pneumoniae group Not Detected (NOT DETECT); Morganella morganii Not Detected (NOT DETECT); NDM Resistance Gene Not Detected (NOT DETECT); Neisseria meningitidis Not Detected (NOT DETECT); OXA Resistance Gene Not Detected (NOT DETECT); Pan Candida Not Detected (NOT DETECT); Pan Gram-Positive Not Detected (NOT DETECT); Proteus mirabilis Not Detected (NOT DETECT); Pseudomonas aeruginosa Not Detected (NOT DETECT); Salmonella Not Detected (NOT DETECT); Serratia Not Detected (NOT DETECT); Serratia marcescens Not Detected (NOT DETECT); Stenotrophomonas maltophilia Not Detected (NOT DETECT); VIM Resistance Gene Not Detected (NOT DETECT)
[2025-03-04 11:57] LABS: CTX-M Detected (NOT DETECT)
[2025-03-04] MEDS: cefTRIAXone 1,000 mg SDV 1000 MG IVP (14:22)
[2025-03-04 16:26] LABS: Glucose Point of Care 138 mg/dL (70-110)
--- NOTE | 2025-03-04 18:39 | CTR_ITS ---
PROCEDURE INFORMATION: Exam: CT Abdomen And Pelvis Without Contrast Exam date and time: 03/04/2025 7:36 PM Age: 84 years old Clinical indication: Other: Gnr bacteremia, UTI; Prior surgery; Surgery date: 3-7 days post-operative; Surgery type: Hip TECHNIQUE: Imaging protocol: Computed tomography of the abdomen and pelvis without contrast. Radiation optimization: All CT scans at this facility use at least one of these dose optimization techniques: automated exposure control; mA and/or kV adjustment per patient size (includes targeted exams where dose is matched to clinical indication); or iterative reconstruction. COMPARISON: CT abdomen pelvis wo con [id number] 09/28/2022 9:01 PM RADIATION DOSE METRICS: Total DLP (mGy-cm): 743.89 FINDINGS: Tubes, catheters and devices: Urinary bladder is catheterized. Lungs: There is patchy dependent change at each lung base. Pleural spaces: No pleural fluid or pneumothorax. Heart: Heart size is normal. Coronary arteries: Extensive coronary artery hyperdensity could be calcification and/or stent material. Diaphragm: Mild eventration of the left hemidiaphragm is similar to prior. Liver: Normal configuration. Homogeneous parenchyma. Gallbladder and biliary ducts: Prior cholecystectomy. No biliary tree dilation or high-density retained stones appreciated. Pancreas: There is mild to moderate fatty atrophy of the pancreas without visible edema. Spleen: Spleen is normal in size with several calcified granulomata. Adrenal glands: Normal configuration. Kidneys and ureters: Kidneys are normal in size without evidence of obstruction. On this noncontrast exam, pyelonephritis cannot be excluded. Despite lack of contrast there appears to be some mural thickening of the right renal pelvis. No significant renal contour deformity. Stomach and bowel: Postprandial stomach. Normal caliber small bowel. Distal colonic diverticulosis without evidence of acute diverticulitis. Appendix: Normal appendix is confirmed. Intraperitoneal space: No free air. No significant fluid collection. Vasculature: Normal caliber arterial structures. Lymph nodes: No enlarged lymph nodes. Urinary bladder: Gas in the bladder lumen is nonspecific. Reproductive: Atrophic uterus as expected. No adnexal masses. Bones/joints: Severe subjective bony demineralization. Healed median sternotomy. Rotatory levoscoliosis noted in the lumbar spine. Mild spinal canal stenosis is noted L4-L5. Mild bilateral sacroiliac osteoarthritis. Left hip prosthesis. Minimal right hip arthropathy. Subjective bony demineralization. Soft tissues: Abdominal wall injection site is noted. There is expected edema surrounding the left hip. CT/CT kidney stone [id number] IMPRESSION: 1. No findings of renal obstruction. It is difficult to exclude pyelonephritis without intravenous contrast, but there appears to be some thickening of the wall of the least the right renal pelvis. Correlate with urinalysis. 2. Patchy dependent change at each lung base. No airspace disease or pleural fluid. 3. Mild spinal canal stenosis at L4-L5. Correlate with any symptoms of neurogenic claudication. 4. Subjective bony demineralization could be quantified with DEXA.
[2025-03-04] MEDS: warfarin 3 mg Tablet PO (20:29)
[2025-03-04] MEDS: meropenem 1,000 mg SDV 1000 MG IVP (20:31)
[2025-03-04 21:24] LABS: Glucose Point of Care 132 mg/dL (70-110)
[2025-03-05] VITALS (9 sets, daily range): BP systolic 92–112; BP diastolic 55–59; PULSE 78–114; RESP 18–24; TEMP 36.5–37.1; O2SAT 92–98
[2025-03-05] MEDS: DOCUSATE SODIUM 100 MG/10 ML UDC PO (01:32)
[2025-03-05] MEDS: TRAMadol 50 mg Tablet PO ×3 (01:39→21:02)
[2025-03-05 04:39] LABS: Basophils # 0.1 10^3/uL (0.0-0.1); Eosinophils # 0.3 10^3/uL (0.0-0.8); Eosinophils % 3.5 %; Hematocrit 34.4 % (36-47); Lymphocytes # 2.4 10^3/uL (0.8-4.8); Lymphocytes % 32.2 %; Mean Corpuscular HGB Conc 31.1 g/dL (30-55); Mean Corpuscular Hemoglobin 29.8 pg (27-33); Mean Corpuscular Volume 95.8 fl (85-98); Mean Platelet Volume 11.9 fL (7.4-10.4); Monocytes # 1.2 10^3/uL (0.2-0.9); Monocytes % 15.8 %; Neutrophils # 3.48 10^3/uL (1.8-7.7); Neutrophils % 47.2 %; Nucleated Red Blood Cells % 0 %; Platelet Count 166 10^3/cmm (157-399); Red Blood Count 3.59 10^6/uL (3.85-5.65); White Blood Count 7.36 10^3/uL (3.29-11.43)
[2025-03-05 04:54] LABS: INR 1.67 (0.8-1.2)
[2025-03-05] MEDS: meropenem 1,000 mg SDV 1000 MG IVP ×3 (04:56→21:03)
[2025-03-05 04:57] LABS: Anion Gap 14.3 (5-19); Blood Urea Nitrogen 9 mg/dL (8-23); Calcium 8.8 mg/dL (8.5-10.5); Carbon Dioxide 27 mmol/L (22-29); Chloride 103 mmol/L (98-107); Glucose 124 mg/dL (65-115); Magnesium 1.8 mg/dL (1.7-2.3); Osmolality Calculated 290 mOsm/kg (285-295); Potassium 4.3 mmol/L (3.5-5.1); Sodium 140 mmol/L (136-145)
--- NOTE | 2025-03-05 05:16 | PC.NURSE ---
nix catheter removed intact
[2025-03-05 06:08] LABS: Glucose Point of Care 125 mg/dL (70-110)
[2025-03-05] MEDS: pantoprazole DR 40 mg Tablet PO (08:09)
[2025-03-05] MEDS: metoprolol succinate ER (24 HR) 25 mg Tablet 12.5 MG PO ×2 (08:09→21:03)
--- NOTE | 2025-03-05 10:01 | P.PN_ITS ---
Subjective 2 Subjective: She feels she is continue to improve. She asked about continuing physical therapy. She also asked about a change of clothes, discussed with her nursing would be able to provide her with a new gown if needed, however, she place in observation for further more wondering about her own clothes and may reach out to her daughter to see if she can bring her something else. Vitals/I&O/Wt Last Vital Signs Temp 98.0 F 03/05/25 07:35 Pulse 78 03/05/25 07:35 Resp 24 H 03/05/25 07:35 BP 94/55 03/05/25 07:35 Pulse Ox 95 03/05/25 07:35 O2 Del Method Nasal Cannula 03/05/25 04:00 O2 Flow Rate 3 03/03/25 17:27 03/04/25 03/05/25 03/05/25 22:59 06:59 14:59 Intake Total 1916.666 / 2516.666 623.667 / 623.667 Output Total 1999 / 1999 800 / 2800 Balance -83.334 / 516.666 -800 / -283.334 623.667 / 623.667 Weight last 48 hrs Weight 76.612 kg Weight 77.474 kg Weight 79.379 kg Physical Exam 2 Narrative: Sitting up in bed. Const: COMMON NORMALS: patient oriented x3 and alert GENERAL APPEARANCE: c ooperative ORIENTATION/CONSCIOUSNESS: Yes awake HENMT: COMMON NORMALS: oropharynx normal Neck/C-Spine: COMMON NORMALS: no JVD Resp: COMMON NORMALS: normal respiratory effort and clear to auscultation bilaterally AUSCULTATION: clear to auscultation bilaterally Cardio: COMMON NORMALS: no JVD, regular rhythm, S1 normal heart sound present, S2 normal heart sound present and No murmurs present (Cardio) RHYTHM: regular rhythm HEART SOUNDS: S1 normal heart sound present and S2 normal heart sound present GI: COMMON NORMALS: Normal to inspection, nondistended, normoactive bowel sounds present, Soft to palpation and non-tender PALPATION: Yes Soft to palpation Extremity: COMMON NORMALS: no joint enlargement and no pedal edema Neuro: COMMON NORMALS: patient oriented x3 and moves all extremities S ENSORIUM/ORIENTATION: Yes alert Skin: COMMON NORMALS: no rashes or lesions noted GENERAL SKIN EXAM: no rashes or lesions noted Data 03/05/25 04:25 03/05/25 04:25 Micro: Microbiology 03/03/25 13:44 Blood Culture - Preliminary Blood NEGATIVE TO DATE 03/03/25 14:23 Blood Culture - Preliminary Blood Escherichia coli 03/03/25 13:30 Urine Culture - Preliminary Urine,Clean Catch Gram Negative Rods A&P Assessment and plan (1) Complicated UTI (urinary tract infection): Complicated urinary tract infection with possible pyonephritis, with gram- negative, MDRO - ESBL E. coli bacteremia. Continue meropenem. Monitor for risk of seizure. Reviewed vitals, CBC, INR, BMP, magnesium, blood culture and urine culture. B DC IV fluid. Discussed with nursing, case consultant. (2) Postoperative urinary retention: From available history it sounds like she had persistent urinary retention after surgical intervention for hip fracture last month. May have been large-volume urinary retention and Carmona discontinued, voiding trial. Bladder scan/straight cath. (3) Atrial fibrillation with RVR: Heart rates overall better, 90s, still getting into low 100s. Continue metoprolol at current doses blood pressure still soft 99/57. Reviewed magnesium, 1.8, will give additional gram of magnesium. Monitor telemetry. Continue treatment of complicated UTI. Reviewed INR, noted subtherapeutic today with decline over the last several days. Will increase dose to 4 mg. (4) History of hip surgery: Hip fracture repair last month on February 02. Has been improving with therapy at [facility]. Using walker. Has been walking. - PT consultation for ongoing therapy while here - Pain control as needed (5) Atherosclerotic heart disease of [place] coronary artery without angina pectoris: Has a history of coronary artery disease and during last hospital stay had significant troponin elevations. No complaints of any chest pain or difficulty breathing. Has not had any cardiac symptoms since then. After review of options with Dr. Conde patient opted not to have further cardiac evaluation and his poor medical management only. - Has a statin allergy - aspirin daily (6) Chronic anticoagulation: Reviewed INR. Increase warfarin to 4 mg. Repeat. Chronically on Coumadin at 3 mg daily (7) Diabetes: Diagnosis per chart and last hemoglobin A1c was 7.1 but not on any chronic management for blood sugars. Had previously been on glipizide. - Let us sliding scale insulin, monitoring blood sugars (8) GERD (gastroesophageal reflux disease): Chronically on omeprazole - Continue PPI dosing (9) Gram-negative bacteremia: Continue IV meropenem as above. PDMP PDMP Reviewed: Not Reviewed Attestations 2 Medical Necessity Statement*: Continue admission for assessment management of complicated urinary tract infection with MDRO, ESBL E. coli, with ESBL E. coli bacteremia with pyelonephritis. and High MDM includes amount and/or complexity of data reviewed/ordered [ resulted lab(s)/test(s), ordered lab(s)/test(s) and other healthcare professional discussion] and described risk of complication, morbidity or mortality of management as documented Diagnoses Complicated UTI (urinary tract infection) N39.0 Postoperative urinary retention N99.89; R33.8 Atrial fibrillation with RVR I48.91 History of hip surgery Z98.890 Atherosclerosis of [place] coronary artery of [place] heart without angina pectoris I25.10 [place] vs. transplanted heart: [place] heart Chronic anticoagulation Z79.01 Type 2 diabetes mellitus without complication, without long-term current use of insulin E11.9 Diabetes mellitus complication status: without complication Diabetes mellitus [facility] use: without [facility] use Diabetes mellitus type: type 2 GERD (gastroesophageal reflux disease) K21.9 Gram-negative bacteremia R78.81
--- NOTE | 2025-03-05 10:03 | PC.CHAP ---
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 acoustical engineer visit [] Patient/Family/Request visit [] Outpatient visit [] Follow-up visit [] Physician referral [] Code/Alert [x] Routine visit [] Staff referral [] Actively dying [] Patient sleeping [] Family support [] [] Out of room [] Palliative care [] [] Receiving care in room [] Pre-surgical visit [] Trauma [] Long length of stay [] ICU visit [] Other: Relational/Emotional Strength [x] Patient feels connected with others/family/visitors/staff [x] Distress [] Loneliness/isolation [] Abandonment Spirituality of Patient [x] Person of Adela [] Attends Roman Catholic of their [place] [x] Believes in Prayer [] Reads Bible or Druze materials [] There are Spiritual issues to be addressed [employer] Inter[employer] [x] Prayer [x] Active listening [x] Non-anxious presence [x] Spiritual/emotional support [] Crisis/trauma care [] Spiritual counseling [] Bereavement support [] Provided bereavement packet [] Provided Bible/devotional materials [] Provided toy/stuffed animal, coloring book to patient or family member [] Provided Communion [] Anointing/[place] [] Salvation [x] Completed spiritual assessment [] Other: Impact on Illness or Injury [] Angry [] Fearful [] Anxious [] Often cries [] Exhaustion [] Unable to work [] Unable to attend jewish [] Unable to walk/stand [] Unable to read [] Unable to drive [] Unable to eat/drink [] Unable to sleep [] Unable to be with family [] Patient intubated [] Other: Summary Time spent with patient 5 min
[2025-03-05 11:35] LABS: Glucose Point of Care 173 mg/dL (70-110)
--- NOTE | 2025-03-05 11:44 | PC.SOCIAL ---
IMM Updated Updated pt on IMM. No questions voiced. Provided pt a copy. Initialed, dated, & timed a copy & placed in chart.
[2025-03-05] MEDS: insulin lispro 100 unit/1 mL SUBCUT (12:21)
[2025-03-05 17:14] LABS: Glucose Point of Care 149 mg/dL (70-110)
[2025-03-05] MEDS: acetaminophen 500 mg Tablet PO (17:17)
[2025-03-05] MEDS: polyethylene glycol 3350 Pkt 17 gm PO (17:24)
[2025-03-05] MEDS: magnesium sulfate premix 1 GM/100 ML PIGGYBACK IV (18:32)
[2025-03-05] MEDS: nystatin cream 30 gm TOPICAL (21:03)
[2025-03-05] MEDS: warfarin 4 mg Tablet PO (21:03)
[2025-03-05 21:09] LABS: Glucose Point of Care 184 mg/dL (70-110)
[2025-03-06] VITALS: BP 114/61; PULSE 104; RESP 27; TEMP 36.4; O2SAT 94
[2025-03-06] MEDS: acetaminophen 500 mg Tablet PO (00:30)
[2025-03-06] MEDS: TRAMadol 50 mg Tablet PO ×2 (00:30→15:56)
[2025-03-06] MEDS: meropenem 1,000 mg SDV 1000 MG IVP ×2 (03:42→15:56)
[2025-03-06] MEDS: water for injection-sterile 20 ML 100 ML (03:43)
[2025-03-06 04:00] VITALS: BP 83/52; PULSE 77; RESP 21; TEMP 36.6; O2SAT 95
[2025-03-06 05:26] LABS: Basophils # 0.1 10^3/uL (0.0-0.1); Eosinophils # 0.4 10^3/uL (0.0-0.8); Hematocrit 36.7 % (36-47); Lymphocytes # 2.2 10^3/uL (0.8-4.8); Mean Corpuscular HGB Conc 30.5 g/dL (30-55); Mean Corpuscular Hemoglobin 29.3 pg (27-33); Mean Corpuscular Volume 96.1 fl (85-98); Mean Platelet Volume 11.8 fL (7.4-10.4); Monocytes # 0.8 10^3/uL (0.2-0.9); Monocytes % 13.8 %; Neutrophils # 2.39 10^3/uL (1.8-7.7); Neutrophils % 40.9 %; Nucleated Red Blood Cells % 0 %; Platelet Count 168 10^3/cmm (157-399); Red Blood Count 3.82 10^6/uL (3.85-5.65); Red Cell Distribution Width 13.9 % (12.1-15.1); White Blood Count 5.86 10^3/uL (3.29-11.43)
[2025-03-06 05:53] LABS: Anion Gap 11.2 (5-19); Blood Urea Nitrogen 12 mg/dL (8-23); Calcium 8.8 mg/dL (8.5-10.5); Carbon Dioxide 30 mmol/L (22-29); Chloride 101 mmol/L (98-107); Creatinine Clr Calc Pharmacy 54.0251; Glucose 123 mg/dL (65-115); Magnesium 1.8 mg/dL (1.7-2.3); Osmolality Calculated 287 mOsm/kg (285-295); Potassium 4.2 mmol/L (3.5-5.1); Sodium 138 mmol/L (136-145)
[2025-03-06 06:24] LABS: Glucose Point of Care 122 mg/dL (70-110)
[2025-03-06 07:01] LABS: INR 1.54 (0.8-1.2)
[2025-03-06 07:54] LABS: Cortisol Random 8.56 ug/dL (2.47-19.5)
[2025-03-06 08:00] VITALS: BP 96/59; PULSE 97; RESP 16; TEMP 36.5; O2SAT 96
[2025-03-06] MEDS: metoprolol succinate ER (24 HR) 25 mg Tablet 12.5 MG PO (08:22)
[2025-03-06] MEDS: midodrine 5 mg TABLET PO ×2 (08:23→15:56)
[2025-03-06] MEDS: sodium chloride 0.9% 250 ML IV (08:24)
[2025-03-06] MEDS: pantoprazole DR 40 mg Tablet PO (08:24)
[2025-03-06] MEDS: magnesium sulfate premix 2 GM/50 ML PIGGYBACK IV (08:24)
[2025-03-06 11:48] LABS: Glucose Point of Care 159 mg/dL (70-110)
[2025-03-06 12:00] VITALS: BP 104/65; PULSE 101; RESP 20; TEMP 36.9; O2SAT 93
[2025-03-06] MEDS: cosyntropin 0.25 mg SDV IVP (12:21)
[2025-03-06 13:17] LABS: Cosyntropin Baseline 8.68 mcg/dL
[2025-03-06 13:18] LABS: Cosyntropin 30 Minute 21.61 mcg/dL
[2025-03-06 13:54] LABS: Cosyntropin 1 Hour 24.77 mcg/dL
--- NOTE | 2025-03-06 14:24 | P.DS_ITS ---
Discharge Providers Date of Admission: 03/03/25 14:59 Date of Discharge: March 06, 2025 Attending Provider at Admission: Nancy Nieto MD Attending Provider at Discharge: Ole Morley Primary Care Provider: Anahi Jennings MD Diagnoses at Discharge Discharge Diagnosis (1) Complicated UTI (urinary tract infection): Status: Acute (2) Postoperative urinary retention: Status: Acute (3) Atrial fibrillation with RVR: Status: Acute (4) History of hip surgery: Status: Chronic Permanent problem details: Dr Sylvester, Hemiarthroplasty of the left hip with suture repair of greater trochanteric fracture (5) Atherosclerotic heart disease of [place] coronary artery without angina pectoris: Status: Chronic Qualifiers: [place] vs. transplanted heart: [place] heart Qualified Code(s): I25.10 - Atherosclerotic heart disease of [place] coronary artery without angina pectoris (6) Chronic anticoagulation: Status: Chronic Permanent problem details: coumadin for history of PE and atrial fibrillation (7) Diabetes: Status: Chronic Qualifiers: Diabetes mellitus complication status: without complication Diabetes mellitus alf insulin use: without predatory animal exterminator use Diabetes mellitus type: type 2 Qualified Code(s): E11.9 - Type 2 diabetes mellitus without complications Permanent problem details: Type 2, A1c 7.1 01/2025 on no treatment (8) GERD (gastroesophageal reflux disease): Status: Chronic (9) Gram-negative bacteremia: Status: Acute Reason for Visit Reason for Visit: UTI, Fever, Brief History: Allyson Causey is a 84 year old female sent from [facility] due to lethargy, fever and low oxygen levels. Additionally she was noted to have atrial fibrillation with rapid ventricular response. Vitals showed heart rate in the 150s, temperature 102.8 and oxygen saturations in the upper 80s. She was placed on oxygen therapy and sent to the emergency room for further evaluation. Ms. Causey recently was hospitalized here after left hip fracture with subsequent repair and transferred to longterm for care after that. From what I can gather her symptoms began overnight last night with some mild nausea, feeling cold followed later by sweats and feeling very nauseated this morning and not able to walk very much because of how bad she was feeling. In reviewing records from prior hospital stay she had some atrial fibrillation with rapid ventricular response, fevers, confusion and need for oxygen during that hospital stay as well. No evidence of urinary tract infection then. Her [place] catheter was removed on February 06 and was not in place when she was discharged to [facility]. From history obtained from her it sounds like catheter was replaced sometime after she arrived at [facility] due to significant urinary retention. Review of facility records shows that she has been on ciprofloxacin 250 mg twice a day from February 21 to February 24 and also received a dose of Levaquin on February 20 recently, which per patient was for urinary tract infection. She has had issues with recurrent urine infections in the past. Workup in the emergency room today showed significantly abnormal urine. White count was normal. She received some IV fluids and was ultimately put on a diltiazem drip for rate control. She subsequently developed some hypotension. Initial lactic acid was 2.4 but subsequent was down to 1.1. Request was made for admission for further evaluation and management. Hospital Course Hospital Course She was treated for urinary tract infection initially with ceftriaxone, however, with blood culture come back 10/05 positive for E. coli with ESBL marker was switched to meropenem, urine and blood growing ESBL E. coli on culture results with resistance to quinolones as well. Will complete antibiotic course with 4 more days of meropenem. She continued on metoprolol 12.5 mg for atrial fibrillation, heart rates improved to 90s, difficulties with uptitrating the medication due to soft blood pressures. Did receive magnesium supplementation and will continue after discharge. She reports her blood pressures are usually soft. Cosyntropin stimulation test obtained, not suggestive of adrenal insufficiency. She has been encouraged to maintain oral intake, received a small bolus of fluid. Started on midodrine. Blood pressure with improvement. Remained afebrile, without leukocytosis without sign of ongoing infection. Incentive spirometer for mild bilateral lower lung atelectasis/dependent changes. Warfarin dose increased to 4.5 mg due to downtrending INR. Please recheck INR on Monday or Monday. Additionally please arrange additional assessment of possible osteopenia versus osteoporosis as discussed with her with incidentally noted demineralization on admission CT. Physical Exam Narrative: Sitting up in bed on initial visit, in chair on revisit. Reports she is feeling much better overall. Has been weaning off of the nasal cannula oxygen. Has ambulated with physical therapy and blood pressure has been doing better. Const: COMMON NORMALS: patient oriented x3 and alert GENERAL APPEARANCE: cooperative ORIENTATION/CONSCIOUSNESS: Yes awake HENMT: COMMON NORMALS: oropharynx normal Neck/C-Spine: COMMON NORMALS: no JVD Resp: COMMON NORMALS: normal respiratory effort and clear to auscultation bilaterally AUSCULTATION: clear to auscultation bilaterally Cardio: COMMON NORMALS: no JVD, regular rhythm, S1 normal heart sound present, S2 normal heart sound present and No murmurs present (Cardio) RHYTHM: regular rhythm HEART SOUNDS: S1 normal heart sound present and S2 normal heart sound present GI: COMMON NORMALS: Normal to inspection, nondistended, normoactive bowel sounds present, Soft to palpation and non-tender PALPATION: Yes Soft to palpation Extremity: COMMON NORMALS: no joint enlargement and no pedal edema Neuro: COMMON NORMALS: patient oriented x3 and moves all extremities SENSORIUM/ORIENTATION: Yes alert Skin: COMMON NORMALS: no rashes or lesions noted GENERAL SKIN EXAM: no rashes or lesions noted Discharge Data Studies Completed and Pending Completed Studies During Hospitalization Category Date Time Status CT kidney stone [id number] Routine Cat Scan 03/04/25 18:39 Completed XR chest 1V portable [id number] Stat Exams 03/03/25 13:21 Completed Pending at discharge Category Date Time Status Basic Metabolic Panel AM LABS Lab 03/07/25 04:00 Ordered Blood Culture Stat Lab 03/03/25 14:23 Results Complete Blood Count w/Auto AM LABS Lab 03/07/25 04:00 Ordered SARS Covid-2 Antigen Routine Lab 03/06/25 14:06 Received Radiology Impressions Chest X-Ray 03/03/25 13:21 IMPRESSION: No acute abnormality as above. Abdomen/Pelvis CT 03/04/25 18:39 IMPRESSION: 1. No findings of renal obstruction. It is difficult to exclude pyelonephritis without intravenous contrast, but there appears to be some thickening of the wall of the least the right renal pelvis. Correlate with urinalysis. 2. Patchy dependent change at each lung base. No airspace disease or pleural fluid. 3. Mild spinal canal stenosis at L4-L5. Correlate with any symptoms of neurogenic claudication. 4. Subjective bony demineralization could be quantified with DEXA. Laboratory Results WBC 5.86 10^3/uL (3.29-11.43) 03/06/25 05:15 RBC 3.82 10^6/uL (3.85-5.65) L 03/06/25 05:15 Hgb 11.20 g/dL (11.27-16.99) L 03/06/25 05:15 Hct 36.7 % (36-47) 03/06/25 05:15 MCV 96.1 fl (85-98) 03/06/25 05:15 MCH 29.3 pg (27-33) 03/06/25 05:15 MCHC 30.5 g/dL (30-55) 03/06/25 05:15 RDW 13.9 % (12.1-15.1) 03/06/25 05:15 Plt Count 168 10^3/cmm (157-399) 03/06/25 05:15 MPV 11.8 fL (7.4-10.4) H 03/06/25 05:15 Neut % (Auto) 40.9 % 03/06/25 05:15 Lymph % (Auto) 37.0 % 03/06/25 05:15 [place] % (Auto) 13.8 % 03/06/25 05:15 Eos % (Auto) 7.0 % 03/06/25 05:15 Baso % (Auto) 1.0 % 03/06/25 05:15 Neut # (Auto) 2.39 10^3/uL (1.8-7.7) 03/06/25 05:15 Lymph # (Auto) 2.2 10^3/uL (0.8-4.8) 03/06/25 05:15 Kendall # (Auto) 0.8 10^3/uL (0.2-0.9) 03/06/25 05:15 Eos # (Auto) 0.4 10^3/uL (0.0-0.8) 03/06/25 05:15 Baso # (Auto) 0.1 10^3/uL (0.0-0.1) 03/06/25 05:15 Nucleated RBC % (auto) 0 % 03/06/25 05:15 Nucleated RBCs # 0.0 /100WBC 03/06/25 05:15 PT 19.50 SECONDS (12.1-14.9) H 03/06/25 05:15 INR 1.54 (0.8-1.2) H 03/06/25 05:15 Sodium 138 mmol/L (136-145) 03/06/25 05:15 Potassium 4.2 mmol/L (3.5-5.1) 03/06/25 05:15 Chloride 101 mmol/L (98-107) 03/06/25 05:15 Carbon Dioxide 30 mmol/L (22-29) H 03/06/25 05:15 Anion Gap 11.2 (5-19) 03/06/25 05:15 BUN 12 mg/dL (8-23) 03/06/25 05:15 Creatinine 0.6 mg/dL (0.5-0.9) 03/06/25 05:15 GFR Calculation Not Reportable 03/06/25 05:15 Glucose 123 mg/dL (65-115) H 03/06/25 05:15 POC Glucose 159 mg/dL (70-110) H 03/06/25 11:40 Calculated Osmolality 287 mOsm/kg (285-295) 03/06/25 05:15 Lactic Acid 2.4 mmol/L (0.5-2.2) H 03/03/25 13:02 Lactic Acid (Sepsis) 1.1 mmol/L (0.5-2.2) 03/03/25 16:08 Calcium 8.8 mg/dL (8.5-10.5) 03/06/25 05:15 Phosphorus 2.8 mg/dL (2.5-4.5) 03/04/25 03:42 Magnesium 1.8 mg/dL (1.7-2.3) 03/06/25 05:15 Total Bilirubin 0.7 mg/dL (0.15-1.2) 03/03/25 13:02 AST 27 U/L (0-32) 03/03/25 13:02 ALT 12 U/L (0-33) 03/03/25 13:02 Alkaline Phosphatase 170 U/L (35-105) H 03/03/25 13:02 Total Protein 7.8 g/dL (6.6-8.7) 03/03/25 13:02 Albumin 3.7 g/dL (3.5-5.2) 03/03/25 13:02 Globulin 4.1 g/dL (1.3-4.6) 03/03/25 13:02 Random Cortisol 8.56 ug/dL (2.47-19.5) 03/06/25 05:15 Random Cortisol Cancelled 03/06/25 05:15 Random Cortisol Cancelled 03/06/25 05:15 Cortisol Response 03/06/25 05:15 Urine Color Yellow (Yellow) 03/03/25 13:30 Urine Appearance Turbid (CLEAR) A 03/03/25 13:30 Urine pH 5.5 (5-7) 03/03/25 13:30 Ur Specific [place] 1.017 (1.005-1.030) 03/03/25 13:30 Urine Protein 1+ (Negative) A 03/03/25 13:30 Urine Glucose (UA) Negative (Normal) 03/03/25 13:30 Urine Ketones Negative (Negative) 03/03/25 13:30 Urine Blood 3+ (Negative) A 03/03/25 13:30 Urine Nitrate Positive (Negative) A 03/03/25 13:30 Urine Bilirubin Negative (Negative) 03/03/25 13:30 Urine Urobilinogen 1.0 mg/dL (Negative) 03/03/25 13:30 Ur Leukocyte Esterase 3+ (Negative) A 03/03/25 13:30 Urine RBC 21-50 /hpf (0-2) H 03/03/25 13:30 Urine WBC >100 /hpf (0-5) H 03/03/25 13:30 Ur Squamous Epith Cells 0-5 /hpf (0-5) 03/03/25 13:30 Amorphous Sediment Not Reportable 03/03/25 13:30 Urine Bacteria 4+ /hpf (NONE) H 03/03/25 13:30 Hyaline Casts 8.26 /lpf 03/03/25 13:30 Vitals Last Vital Signs Temp 98.5 F 03/06/25 12:00 Pulse 101 H 03/06/25 12:00 Resp 20 H 03/06/25 12:00 BP 104/65 03/06/25 12:00 Pulse Ox 93 03/06/25 12:00 O2 Del Method Nasal Cannula 03/06/25 12:00 O2 Flow Rate 2 03/06/25 12:00 Discharge Plan Discharge Patient Disposition: Xfer SNF Condition: Stable Prescriptions: New meropenem 1 gram Recon Soln 1,000 mg IVP Q8H 4 Days Qty: 12 0RF midodrine 5 mg Tablet 5 mg PO TID Qty: 90 0RF magnesium L-threonate 48 mg magnesium (667 mg) capsule 48 mg PO DAILY Qty: 90 0RF Continued acetaminophen 500 mg tablet 500 mg PO Q6H PRN (Reason: Pain) [id number] [Bromfed DM] 2-30-10 mg/5 mL syrup 5 ml PO Q6H PRN (Reason: cold symptoms) Qty: 118 0RF multivitamin Tablet 1 tab PO DAILY omeprazole 20 mg capsule,delayed release(DR/EC) 20 mg PO BID 90 Days Qty: 180 3RF chlorhexidine gluconate 0.12 % mouthwash 15 ml buccal BID PRN (Reason: SORE MOUTH) tramadol 50 mg tablet 50 mg PO Q4H PRN (Reason: Pain) bisacodyl [Dulcolax (bisacodyl)] 10 mg Suppository 10 mg SD DAILY PRN (Reason: Constipation) nystatin 100,000 unit/gram cream See Rx Instructions .ROUTE .COMPLEX Rx Instructions: Apply topically to buttock every shift until healed, then discontinue. Changed warfarin 3 mg tablet 4.5 mg PO BEDTIME 3 Days Qty: 30 0RF Protocol: Dose Management Condition: Monday Dose/Route: 3 mg Instruction: 1 x 3 mg tablet Condition: Monday Dose/Route: 3 mg Instruction: 1 x 3 mg tablet Condition: Monday Dose/Route: 3 mg Instruction: 1 x 3 mg tablet Condition: Monday Dose/Route: 3 mg Instruction: 1 x 3 mg tablet Condition: Dose/Route: 3 mg Instruction: 1 x 3 mg tablet Condition: Monday Dose/Route: 3 mg Instruction: 1 x 3 mg tablet Condition: Monday Dose/Route: 3 mg Instruction: 1 x 3 mg tablet Protocol Text: Adjustment Start Date: Monday07/24/24 INR Value: 2.9 INR Date: 07/24/24 Recheck Date: 07/31/24 Rx Instructions: 4.5mg for 3 days, recheck INR metoprolol tartrate 50 mg tablet 12.5 mg PO BID Qty: 180 3RF Discharge Orders: Discharge Order (Routine); Ordered 03/06/25 Ordered By: Ole Morley Referrals: [facility] [Outside] Anahi Jennings MD [Primary Care Provider, Family Practice] - 03/18/25 11:20 am Discharge Diet: Low Cholesterol Discharge Activity: As per PT/OT instructions Patient Instructions: Atrial Fibrillation, Midodrine (By mouth), Meropenem (By injection), Urinary Tract Infection in Women (DC), Extended Spectrum Beta- Lactamase (GEN), Opioid Safety Activity Restrictions/Additional Instructions: Complete antibiotic course for urinary tract infection and kidney infection with multidrug-resistant organism (ESBL E. coli) with spillover to the bloodstream with low-grade bacteremia. Follow-up with your primary doctor for additional assessment. Follow-up with your primary doctor for reassessment of atrial fibrillation and rate control. As well as soft blood pressure. You have been started on midodrine to help maintain blood pressures in good range. Monitor blood pressures at least twice daily, better 3 times daily. Seek medical attention in case of blood pressure being lower than 85/50. Rise slowly from laying to sitting and to standing. Sit down or lie down immediately in case you feel lightheaded. Increase warfarin dose to 4.5mg and recheck INR on Sun. Warfarin dose is increased temporarily since INR was found below goal. Please follow up with primary provider. Has been weaning off oxygen but may need 1LPM PRN. Follow-up with your primary doctor for additional assessment of bony demineralization as well as additional assessment for osteopenia and/or osteoporosis. As well as follow-up regarding incidental finding of lower back degeneration with mild spinal canal stenosis at L4-5 level. Continue incentive spirometer due to some atelectasis in lower lungs. Discharge Attestations Time Spent in Discharge Care*: greater than 30 min Quality Metrics Clinical Quality Measures [ No reported AMI, CVA or VTE this stay] Coding Level of Care Code 48650 Total time (in minutes) for Discharge: 45 Diagnoses Complicated UTI (urinary tract infection) N39.0 Postoperative urinary retention N99.89; R33.8 Atrial fibrillation with RVR I48.91 History of hip surgery Z98.890 Atherosclerosis of [place] coronary artery of [place] heart without angina pectoris I25.10 [place] vs. transplanted heart: [place] heart Chronic anticoagulation Z79.01 Type 2 diabetes mellitus without complication, without long-term current use of insulin E11.9 Diabetes mellitus complication status: without complication Diabetes mellitus predatory animal exterminator insulin use: without alf use Diabetes mellitus type: type 2 GERD (gastroesophageal reflux disease) K21.9 Gram-negative bacteremia R78.81
[2025-03-06 14:33] LABS: SARS Covid-2 Antigen Negative (Negative)
--- NOTE | 2025-03-06 16:21 | PC.NURSE ---
Patient discharged to [facility]. Repport called to JOHN Villagomez. Patient left with new IV in place to left forearm for continued IV antibiotic therapy for 4 days. Instructed patient on continued IV therapy. Patient verbalized complete understanding.
[2025-03-06 16:27] VITALS: BP 104/65; PULSE 101; RESP 20; TEMP 36.9; O2SAT 93
== END 2025-03-06 16:31 | disposition skilled nursing facility (03) | DRG 699 ==
LOC: ER 14:26 → CSU 14:59
PROVIDERS: Admitting Provider Hospitalist; Emergency Provider Family Medicine; PCP Family Medicine; Visit Provider Internal Medicine
DX: T83.511A Infection and inflammatory reaction due to indwelling urethral catheter, initial encounter (principal); R78.81 Bacteremia; Z16.12 Extended spectrum beta lactamase (ESBL) resistance; I25.10 Atherosclerotic heart disease of native coronary artery without angina pectoris; Z79.01 Long term (current) use of anticoagulants; E11.9 Type 2 diabetes mellitus without complications; K21.9 Gastro-esophageal reflux disease without esophagitis; N39.0 Urinary tract infection, site not specified; I25.2 Old myocardial infarction; N99.89 Other postprocedural complications and disorders of genitourinary system; R33.8 Other retention of urine
CPT/HCPCS: 36415; 36416; 71045; 74176; 80048; 80053; 81001; 82533; 82962; 83605; 83735; 84100; 85025; 85610; 87040; 87077; 87086; 87150; 87186; 87205; 87426; 93005; 96365; 96372; 96375; 96376; 97110; 97116; 97161; 97530; 99285; A9270; J0696; J0834; J1815; J2185; J3475; J3480; J3490; J7030; J7040; J7050; J9999

== ENCOUNTER → 2025-03-26 15:03 | Outpatient (BNVA) | payer MEDICARE, MEDICAID, SELFPAY | PROVIDERS: PCP Family Medicine; Visit Provider Family Medicine | DX: I48.91 Unspecified atrial fibrillation (principal); I15.9 Secondary hypertension, unspecified; Z79.01 Long term (current) use of anticoagulants; Z86.711 Personal history of pulmonary embolism; N39.0 Urinary tract infection, site not specified; R78.81 Bacteremia | CPT/HCPCS: 80053; 81003; 83735; 85025; 85610; 87077; 87086; 87184 ==

== ENCOUNTER → 2025-03-31 10:44 | Outpatient (BNVA) | payer MEDICARE, MEDICAID, SELFPAY | PROVIDERS: PCP Family Medicine; Visit Provider Orthopaedic Surgery | DX: Z98.890 Other specified postprocedural states (principal); I48.91 Unspecified atrial fibrillation | CPT/HCPCS: 73502; 85610; 99024 ==

== ENCOUNTER → 2025-04-07 11:23 | Outpatient (BNVA) | payer MEDICARE, MEDICAID, SELFPAY | PROVIDERS: PCP Family Medicine; Visit Provider Family Medicine | DX: I48.91 Unspecified atrial fibrillation (principal) | CPT/HCPCS: 85610 ==

== ENCOUNTER → 2025-04-14 12:47 | Outpatient (BNVA) | payer MEDICARE, MEDICAID, SELFPAY | PROVIDERS: PCP Family Medicine; Visit Provider Family Medicine | DX: Z79.01 Long term (current) use of anticoagulants (principal) | CPT/HCPCS: 85610 ==

== ENCOUNTER → 2025-04-23 14:33 | Outpatient (BNVA) | payer MEDICARE, MEDICAID, SELFPAY | PROVIDERS: PCP Family Medicine; Visit Provider Family Medicine | DX: Z79.01 Long term (current) use of anticoagulants (principal) | CPT/HCPCS: 85610 ==

== ENCOUNTER → 2025-05-02 09:17 | Outpatient (BNVA) | payer MEDICARE, MEDICAID, SELFPAY | PROVIDERS: PCP Family Medicine; Visit Provider Family Medicine | DX: Z79.01 Long term (current) use of anticoagulants (principal) | CPT/HCPCS: 85610 ==

== ENCOUNTER → 2025-05-06 13:17 | Outpatient (BNVA) | payer MEDICARE, MEDICAID, SELFPAY | PROVIDERS: PCP Family Medicine; Visit Provider Family Medicine | DX: R60.9 Edema, unspecified (principal); R60.0 Localized edema | CPT/HCPCS: 80048; 83880 ==

== ENCOUNTER → 2025-06-12 13:33 | Outpatient (BNVA) | payer MEDICARE, SELFPAY | PROVIDERS: PCP Family Medicine; Visit Provider Family Medicine | DX: Z79.01 Long term (current) use of anticoagulants (principal) | CPT/HCPCS: 85610 ==

== ENCOUNTER → 2025-07-10 08:38 | Outpatient (BNVA) | payer MEDICARE, SELFPAY | PROVIDERS: PCP Family Medicine; Visit Provider Podiatrist Foot & Ankle Surgery | DX: E11.40 Type 2 diabetes mellitus with diabetic neuropathy, unspecified (principal); L60.3 Nail dystrophy; E11.8 Type 2 diabetes mellitus with unspecified complications | CPT/HCPCS: 11721; 99203 ==

== ENCOUNTER → 2025-07-21 15:56 | Outpatient (BNVA) | payer MEDICARE, SELFPAY | PROVIDERS: PCP Family Medicine; Visit Provider Family Medicine | DX: I48.91 Unspecified atrial fibrillation (principal) | CPT/HCPCS: 85610 ==

== ENCOUNTER → 2025-07-30 11:19 | Outpatient (BNVA) | payer MEDICARE, SELFPAY | PROVIDERS: PCP Family Medicine; Visit Provider Family Medicine | DX: Z79.01 Long term (current) use of anticoagulants (principal) | CPT/HCPCS: 85610 ==

== ENCOUNTER → 2025-09-09 11:17 | Outpatient (BNVA) | payer MEDICARE, SELFPAY | PROVIDERS: PCP Family Medicine; Visit Provider Family Medicine | DX: E55.9 Vitamin D deficiency, unspecified (principal); I15.9 Secondary hypertension, unspecified; I48.91 Unspecified atrial fibrillation; E11.40 Type 2 diabetes mellitus with diabetic neuropathy, unspecified; Z79.01 Long term (current) use of anticoagulants; R30.0 Dysuria; N39.0 Urinary tract infection, site not specified; A49.8 Other bacterial infections of unspecified site; Z16.12 Extended spectrum beta lactamase (ESBL) resistance | CPT/HCPCS: 80053; 81000; 82306; 82607; 82746; 84443; 85025; 85610; 87086 ==